=== PATIENT | male | born 1965 | race Caucasian/White ===

== ENCOUNTER 2017-10-22 21:11 | Observation (INO) | payer OTHER ==
--- OUTSIDE RECORDS SUMMARY | 2017-10-22 21:15 | XMS REPORT ---
:1965 [facility] Maicol Casarez [address] [place] [id number] Care Team Providers Name Role Phone KELSIE LEAD Unavailable Unavailable Problems This patient has no known problems. Allergies, Adverse Reactions, Alerts This patient has no known allergies or adverse reactions. Medications This patient has no known medications. Results Test Description Test Time Test Comments Text Results Atomic Results Result Comments Comprehensive Metabolic Panel 2016-09-08 04:50:00 Test Item Value Reference Range Comments Sodium (test code=NA) 137 mmol/L 135-145 Potassium (test code=K) 4.1 mmol/L 3.5-5.1 Chloride (test code=CL) 101 mmol/L 98-105 Carbon Dioxide (test 23 mmol/L 22-29 code=CO2) Glucose (test code=GLU) 145 mg/dL 70-115 Blood Urea Nitrogen (test 9 mg/dL 6-20 code=BUN) Creatinine (test code=CREAT) 1.0 mg/dL 0.7-1.2 Calcium (test code=CA) 9.6 mg/dL 8.3-10.5 Prot Total (test code=TP) 8.0 g/dL 6.4-8.3 Albumin (test code=ALB) 3.8 g/dL 3.5-5.2 A/G Ratio (test 0.9 Ratio code=AGRATIO) Globulin (test code=GLOB) 4.2 2.9-3.1 Bili Total (test code=TBIL) 0.4 mg/dL 0.1-0.9 Alk Phos (test code=APHOS) 149 U/L 40-129 AST (test code=AST) 29 U/L 1-40 ALT (test code=ALT) 22 U/L 1-41 BUN/Creatinine Ratio (test 9.0 code=BCRATIO) Anion Gap (test code=AGAP) 13 mmol/L 7-16 Estimated GFR (test >60 mL/min/1.73m2 eGFR (estimated Glomerular code=GFR) Filtration Rate) is an estimated value,calculated from the patient's serum creatinine using the MDRD equation.It is NOT the patient's actual GFR. The eGFR provides a more clinicallyuseful measure of kidney disease than serum creatinine alone.This calculation takes sex and race into account, if the informationis provided. If the race is not provided, and the patient isAfrican-Brazilian, multiply by 1.212. If sex is not provided, and thepatient is female, multiply by 0.742. Results for patients <18 years ofage have not been validated by the MDRD study and should be interpretedwith caution.eGFR Result Interpretation:eGFR > or=60 is in the Normal RangeeGFR < 60 may mean kidney diseaseeGFR < 15 may mean kidney failureRanges recommended by the National Kidney Foundation,http://nkdep.nih.go v [id number] 04:50:00 Test Item Value Reference Range Comments Amphetamine (test code=AMPH) Negative Negative For diagnostic purposes only, positive results should always be assessedin conjunctionwith the patient's medical history,clinical examination and otherfindings.To fulfill legal requirements, a more specific alternate chemical methodmust be used inorder to obtain a Confirmed analytical result. GC/MS is the preferred confirmatory method. Barbiturates (test code=RADU) Negative Negative Benzodiazepine (test Negative Negative code=DANA) Cocaine (test code=COCA) Negative Negative Methadone (test code=MTHD) Negative Negative Opiates (test code=OPIA) Negative Negative PCP (test code=PCP) Negative Negative Propoxyphene (test Negative Negative code=PROPOX) THC (test code=THC) POSITIVE Negative CBC with [id number] 03:53:00 Test Item Value Reference Range Comments WBC (test code=WBC) 12.5 K/cumm 4.4-10.5 RBC (test code=RBC) 4.71 M/cumm 4.10-5.70 Hemoglobin (test code=HGB) 15.0 gm/dL 13.4-17.4 Hematocrit (test code=HCT) 44.0 % 38.7-52.0 MCV (test code=MCV) 93.5 fL 80-100 MCH (test code=MCH) 31.8 pg 27.0-32.5 MCHC (test code=MCHC) 34.0 g/dL 32.0-37.5 RDW (test code=RDW) 14.7 % 11.5-14.5 Platelet Count (test code=PLTCT) 257 K/cumm 140-440 MPV (test code=MPV) 9.0 fL Diff Method (test code=DIFFM) Auto Neutrophil (test code=NEUT) 79.4 % 36-70 Lymphocyte (test code=LYMPH) 13.7 % 12-44 Monocyte (test code=MONO) 5.2 % 0-11 Eosinophil (test code=EOS) 1.3 % 0-7 Basophil (test code=BASO) 0.4 % 0-2 Neutro Abs (test code=ANEUT) 9.9 K/cumm 1.6-7.4 Lymph Abs (test code=ALYMPH) 1.7 K/cumm 0.5-4.6 Kimball Abs (test code=AMONO) 0.7 K/cumm 0.0-1.2 Eos Abs (test code=AEOS) 0.16 K/cumm 0.00-0.74 Baso Abs (test code=ABASO) 0.1 K/cumm 0.00-0.21
--- OUTSIDE RECORDS SUMMARY | 2017-10-22 21:15 | XMS REPORT | Clinical Summary ---
:1965 Author Organization [facility] Address [address] [place] [address] Care Team Providers Name Role Phone Asked, No Pcp Primary Care Provider Unavailable Allergies No Known Allergies Current Medications Prescription Sig. Disp. Refills Start End Status Date Date metFORMIN XR Take 1,000 mg 10/02/19 Active (GLUCOPHAGE-XR) 500 by mouth daily. 17 mg 24 hr tablet insulin GLARGINE Inject 20 Units Active (LANTUS) 100 under the skin unit/mL injection nightly. (vial) levETIRAcetam Take 1,000 mg Active (KEPPRA) 1000 MG by mouth 2 tablet (two) times a day. venlafaxine XR Take 150 mg by Active (EFFEXOR-XR) 150 MG mouth daily. 24 hr capsule diazePAM (VALIUM) Take 10 mg by 06/16/19 Active 10 MG tablet mouth 3 (three) 18 times a day. QUEtiapine Take 600 mg by 06/16/19 Active (SEROquel) 300 MG mouth nightly. 18 tablet traMADol (ULTRAM) Take 50 mg by Active 50 mg tablet mouth every 6 (six) hours as needed for moderate pain. gabapentin Take 800 mg by 2 07/07/19 Discontinued (NEURONTIN) 800 mg mouth 4 (four) 17 018 tablet times a day. VENTOLIN HFA 90 Inhale 2 puffs 0 08/26/19 Discontinued mcg/actuation every 6 (six) 17 017 inhaler hours as needed for wheezing or shortness of breath. meloxicam (MOBIC) Take 7.5 mg by 2 09/05/19 Discontinued 7.5 mg tablet mouth daily. 17 017 QUEtiapine Take by mouth 2 09/14/19 Discontinued (SEROquel) 25 MG daily. 17 017 tablet QUEtiapine Take 800 mg by 2 09/28/19 Discontinued (SEROquel) 400 MG mouth nightly. 17 018 tablet Take 2 tablets at bedtime busPIRone (BUSPAR) Take 10 mg by Discontinued 10 MG tablet mouth 3 (three) 018 times a day. LEVETIRACETAM Take 1 tablet Discontinued (KEPPRA ORAL) by mouth 2 017 (two) times a day. HYDROcodone-acetami Take 1 tablet Discontinued nophen (NORCO) by mouth every 017 10-325 mg per 8 (eight) hours tablet as needed for moderate pain. levETIRAcetam Take 1,000 mg Discontinued (KEPPRA) 500 MG by mouth 2 017 tablet (two) times a day. acetaminophen-codei TK 1 TO 2 TS PO 0 11/28/19 Discontinued ne (TYLENOL WITH Q 6 H PRN P 17 018 CODEINE #3) 300-30 mg per tablet ertapenem 1 g in Infuse 1 g into 20 each 0 12/16/19 sodium chloride 0.9 a venous 17 017 % MBP 50 mL IVPB catheter daily for 20 days. vancomycin 1,500 mg Infuse 1,500 mg 20 each 0 12/16/19 in sodium chloride into a venous 17 017 0.9 % 500 mL IVPB catheter daily for 20 days. HYDROcodone-acetami Take 1 tablet 10 tablet 0 02/02/20 nophen (NORCO) by mouth every 17 017 10-325 mg per 6 (six) hours tablet as needed for moderate pain for up to 10 doses. Max Daily Amount: 4 tablets gabapentin Take 1 tablet 90 tablet 0 05/19/19 (NEURONTIN) 800 mg (800 mg total) 18 018 tablet by mouth 3 (three) times a day for 30 days. metoprolol Take 0.5 15 tablet 0 05/20/19 succinate XL tablets (12.5 18 018 (TOPROL-XL) 25 mg mg total) by 24 hr tablet mouth daily for 30 days. HYDROcodone-acetami Take 1 tablet 15 tablet 0 05/19/19 nophen (NORCO) by mouth every 18 018 7.5-325 mg per 6 (six) hours tablet as needed for severe pain for up to 14 days. Max Daily Amount: 4 tablets pantoprazole Take 1 tablet 30 tablet 0 05/20/19 (PROTONIX) 40 MG EC (40 mg total) 18 018 tablet by mouth daily for 30 days. ondansetron ODT Take 1 tablet 15 tablet 0 07/16/19 Discontinued (ZOFRAN ODT) 4 MG (4 mg total) by 18 018 disintegrating mouth every 8 tablet (eight) hours as needed for nausea or vomiting for up to 15 doses. promethazine Insert 1 12 suppository 0 07/16/19 Discontinued (PHENERGAN) 25 MG suppository (25 18 018 suppository mg total) into the rectum every 6 (six) hours as needed for nausea or vomiting for up to 12 doses. hydromorPHONE Take 1 tablet 10 tablet 0 07/17/19 (DILAUDID) 2 MG (2 mg total) by 18 018 tablet mouth every 8 (eight) hours as needed for severe pain (score 7-10) for up to 7 days. Max Daily Amount: 6 mg promethazine Take 1 tablet 20 tablet 0 07/17/19 (PHENERGAN) 12.5 MG (12.5 mg total) 18 018 tablet by mouth every 8 (eight) hours as needed for nausea or vomiting for up to 30 days. HYDROcodone-acetami Take 1 tablet 20 tablet 0 07/17/19 nophen (NORCO) by mouth every 18 018 7.5-325 mg per 8 (eight) hours tablet as needed for moderate pain for up to 7 days. Max Daily Amount: 3 tablets naproxen (NAPROSYN) Take 1 tablet 28 tablet 0 09/21/19 500 MG tablet (500 mg total) 18 018 by mouth 2 (two) times a day with meals for 14 days. omeprazole Take 2 capsules 60 capsule 0 09/21/19 (PriLOSEC) 20 MG (40 mg total) 18 018 capsule by mouth daily for 30 days. cyclobenzaprine Take 1 tablet 20 tablet 0 09/21/19 (FLEXERIL) 10 mg (10 mg total) 18 018 tablet by mouth 3 (three) times a day as needed for muscle spasms for up to 10 days. Active Problems Problem Noted Date Sciatica of left side 07/15/2017 Syncope 07/06/2017 Essential hypertension 05/14/2017 Type 2 diabetes mellitus with hyperglycemia 05/14/2017 DEBRA (acute kidney injury) 05/14/2017 Seizure disorder 05/14/2017 Intractable vomiting with nausea 05/12/2017 Abdominal pain 05/12/2017 Overview: Added automatically from request for surgery [id number] Gastrointestinal hemorrhage 02/23/2017 Gastrointestinal hemorrhage with hematemesis 02/23/2017 Overview: Added automatically from request for surgery [id number] Vertigo 12/19/2016 Pneumonia due to infectious organism 12/07/2016 COPD with acute bronchitis 11/25/2016 COPD (chronic obstructive pulmonary disease) 11/09/2016 COPD exacerbation 11/08/2016 Lung mass 11/08/2016 Tobacco dependence 11/08/2016 Resolved Problems Problem Noted Date Resolved Date Leukocytosis 05/14/2017 05/15/2017 Pneumonia of right lower lobe due to infectious organism 11/05/20162016 Encounters Date Type Specialty Care Team Description 10/08/19 Emergency Emergency Medicine Sarai, Suicidal ideation (Primary Dx ) 18 Osiel Paul MD 09/21/19 Emergency Emergency Medicine [place] Chronic right-sided thoracic back pain (Primary Dx); 18 Cynthia, Narcotic abuse; Karen Drug-seeking behavior MD Joselito 08/09/19 Hospital Radiology Eduard Ingram (bronchogenic carcinoma) 18 Encounter MD Meaghan 07/22/19 Transcribe Access Eduard Ingram (bronchogenic carcinoma) 18 Orders MD Meaghan (Primary Dx) 07/16/19 Emergency General Internal Quinn Spears Sciatica of left side ( Primary Dx); 18 - Haris Koo MD Intractable pain 07/17/19 Nadeen, MD Lila Huntley, Aleisha Lance MD 07/16/19 Emergency Emergency Medicine Shayeky, Other chronic pain (Primary 18 Dottie Pittman) DO 07/06/19 Emergency General Internal [place], Syncope, unspecified syncope type (Primary Dx); 18 - Medicine Osiel Warner, Other chronic pain 07/07/19 DO 18 Karlene Luis MD 05/18/19 Anesthesia Gastroenterology Jovanna, Yun Event Eleazar Salinas MD 05/18/19 Procedure Pass Gastroenterology 18 05/18/19 Surgery Gastroenterology Venkat Kim ESOPHAGOGASTRODUODENOSCOPY Yun Pickering MD (EGD) with bx 05/12/20 [facility] Intractable vomiting with nausea, unspecified vomiting type (Primary Dx); 17 - Encounter Medicine MD Edward Pain; 05/19/19 [place], Abdominal pain, unspecified abdominal location; 18 Natalio Summers, Essential hypertension; Type 2 diabetes mellitus with hyperglycemia, with long-term current use of insulin Tyrell Kiser, 03/08/20 Telephone Family Medicine Juvenal Sidhu MD 03/03/20 Telephone Gastroenterology Juvenal Sidhu MD 02/26/20 Telephone Gastroenterology Juvenal Sidhu MD 02/26/20 Procedure Pass Gastroenterology 17 02/26/20 Procedure Pass Gastroenterology 17 02/24/20 [facility] Gastrointestinal hemorrhage with hematemesis (Primary Dx); 17 - Medicine MD Edward Gastrointestinal hemorrhage, unspecified gastrointestinal hemorrhage type; 02/26/20 Mcghee, Rosie Pain of upper abdomen; Darron Lehman MD Nausea and vomiting, intractability of vomiting not specified , unspecified vomiting type 02/09/20 Emergency Emergency Medicine Feng Knight, Vision blurred (Primary Dx) Darron QUINTERO 02/02/20 Emergency Emergency Medicine Deepika Luna Right upper quadrant abdominal pain (Primary Dx); Darron Garcia DO Other chronic pain 02/01/20 Emergency Emergency Medicine 17 01/06/20 Transcribe Access Mcghee, Rosie Abnormal renal function test 17 Leonardo Lehman MD (Primary Dx) 12/20/19 [facility], Vertigo (Primary Dx); 17 - Encounter Medicine Osiel Warner, Acute nonintractable headache, unspecified headache type; 12/23/19 DO Lactic acidosis; 17 Mcghee, Rosie Pneumonia due to infectious organism, unspecified laterality, unspecified part of lung; MD Fallon Pneumonia of right upper lobe due to infectious organism 12/08/19 [facility] General Internal Quinn Spears Pneumonia due to infectious organism, unspecified laterality, unspecified part of lung (Primary Dx); 17 - Encounter Medicine MD Hayes Shortness of breath; 12/16/19 [facility] Pneumonia of right middle lobe due to infectious organism 17 MD Taz Baltazar, Rosie Lehman MD 12/08/19 Telephone Cardiovascular [facility] 17 Farideh Rachel MA 12/07/19 [facility] Internal [facility], Pneumonia of right lower lobe 17 - Encounter Medicine MD Albert due to infectious organism 12/08/19 [facility] (Primary Dx) 17 MD Delaney 12/01/19 Orders Only Cardiovascular [place]inglejoão, Shortness of breath (Primary 17 MAURY Mueller Dx) 11/25/19 Anesthesia General Surgery [facility], Event Joel Brennan MD 11/25/19 Procedure Pass General Surgery 17 11/25/19 Surgery General Surgery [place], Right Lobectomy, Using Vats, 17 Anshu Valenzuela WEDGE RESECTION, FROZEN MD Brandan BIOPSY-RIGHT 11/24/19 [facility] Pulmonology India Elizabeth 17 Encounter KAZ Nunez 11/23/19 [facility] Critical Care [facility], COPD exacerbation (Primary Dx); 17 - Encounter Medicine Farzaneh Lung mass; 11/28/19 MD Kiran Bronchitis, chronic obstructive, with exacerbation 17 David Griffiths MD Burns, Rosie Lehman MD 11/20/19 Telephone Cardiothoracic [place], Surgery [facility] [place] 11/19/19 Hospital Procedural O'Billy, Shortness of breath; 17 Encounter Cardiology Anshu Valenzuela Mass of lower lobe of right lung MD Brandan 11/19/19 Transcribe Cardiovascular [place], Shortness of breath (Primary Dx) ; 17 Orders Anshu Valenzuela Lung mass MD Brandan 11/18/19 Office Visit Cardiovascular [place]illy, Lung mass (Primary Dx) MD Clara Vinson Jr., Amy Kathryn, PA-C 11/18/19 Transcribe Cardiovascular [place], Shortness of breath (Primary Dx) ; 17 Orders Anshu Valenzuela Mass of lower lobe of right lung MD Brandan 11/16/19 Hospital Procedural Hernandes, 17 Encounter Cardiology Colette Galvez MD 11/16/19 Telephone Cardiothoracic Avelino, 17 Surgery MAURY Gaona 11/16/19 Procedure Pass Procedural 17 Cardiology 11/16/19 Surgery Procedural Hernandes, Ep cardioversion w shelbi [[id number] Cardiology Colette (CPT)] MD Lenny 11/12/19 Transcribe Access Hernandes, Mass in chest (Primary Dx) 17 Orders Colette Galvez MD 11/12/19 Procedure Pass General Surgery 17 11/06/19 [facility] General Internal Lester Lunacorie Pneumonia of right lower lobe due to infectious organism (Primary Dx); 17 - Encounter Medicine DO Jose Tachycardia; 11/10/19 Mcghee, Rosie Hypoxia; 17 MD Fallon Lung mass 11/06/19 Transcribe Access Sashital, Secondary malignant neoplasm of left lung (Primary Dx); 17 Orders Juanita Garcia Lung mass 11/02/19 [facility] Radiology Harrison, 17 Encounter Ag Guerra III, MD 11/02/19 [facility] Radiology Harrison, 17 Encounter gA Guerra III, MD 11/02/19 [facility] Radiology Harrison, 17 Encounter Ag Guerra III, MD 11/02/19 [facility] Radiology Sashital, Lung mass 17 Encounter Juanita Garcia MD 11/02/19 Ancillary Access Sashital, Lung mass 17 Orders Juanita Garcia MD 11/02/19 Ancillary Access [place], Lung mass 17 Orders Juanita Garcia MD 11/02/19 Ancillary Access [place], 17 Orders Juanita Garcia MD 11/02/19 Ancillary Access [place], Lung mass 17 Orders Juanita Garcia MD 11/02/19 Ancillary Access [place], Lung mass 17 Orders Juanita Garcia MD 10/28/19 Transcribe Access [place], Lung mass (Primary Dx) 17 Orders Juanita Garcia MD 10/27/19 [facility] Radiology S[place], Nonspecific abnormal results of liver function study; 17 Encounter Juanita Garcia Lung mass after 10/21/2016 Immunizations Name Dates Previously Given Next Due FLUCELVAX QUAD PF (0.5mL syringe) 05/19/2017 Family History Medical History Relation Name Comments Cerebral aneurysm Father Heart disease Father Kidney cancer Father Lung cancer Father Stroke Father Diabetes Mother Heart attack Mother Heart disease Mother Hyperlipidemia Sister Hypertension Sister Relation Name Status Comments Father Mother Sister Social History Tobacco Use Types Packs/Day Years Used Date Current Every Day Smoker Cigarettes 0.5 35 Smokeless Tobacco: Former User Tobacco Cessation: Counseling Given: Yes Comments: per patient now only smoking 4-5 cigarette/day Alcohol Use Drinks/Week oz/Week Comments No stopped for 1.5 yrs Sex Assigned at Date Recorded Not on file Last Filed Vital Signs Vital Sign Reading Time Taken Blood Pressure 120/77 10/07/2017 1:15 PM CDT Pulse 76 10/07/2017 1:15 PM CDT Temperature 35.8 C (96.5 F) 10/07/2017 1:15 PM CDT Respiratory Rate 16 10/07/2017 1:15 PM CDT Oxygen Saturation 97% 10/07/2017 1:15 PM CDT Inhaled Oxygen Concentration - - Weight 73.9 kg (163 lb) 10/07/2017 8:09 AM CDT Height 185.4 cm (6' 1") 10/07/2017 8:09 AM CDT Body Mass Index 21.51 10/07/2017 8:09 AM CDT Plan of Treatment Health Maintenance Due Date Last Done Comments DIABETIC FOOT EXAM 1973 DIABETIC RETINAL EYE EXAM 1973 COLON CANCER SCREENING 2013 SHINGRIX VACCINE (#1) 2013 INFLUENZA VACCINE 12/14/2017 05/19/2017 Implants Implanted Type Area Operations Support Specialist Device Expiration Model / Identifier Date Serial / Lot Stimulator Stimulator Stimulator-10/30/2006 Stimulator Hip Implanted: 10/30/2006 (Quantity not on file) Kit [employer] Air Leak 4ml Strl Progel - [id number] Surgical N/A: N/A [employer] [id number] / Implanted: Qty: 1 on 11/24/2016 by Anshu Sainz Jr., MD Implants; / Expanders; Extenders; Surgical Wires Dorsal Colum Stimulator Dorsal Column Stimulator Dorsal Colum Stimulator-11/05/2006 Lower: Implanted: 11/05/2006 (Quantity not on file) Back, Other than Spine Procedures Procedure Name Priority Date/Time Associated Comments Diagnosis ESOPHAGOGASTRODUODENOSCOPY (EGD) 05/18/2017 Abdominal pain, with bx 12:15 PM 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 HC US GUIDED VASCULAR ACCESS Routine 12/12/2016 Results for 12:19 PM CDT this procedure are in the results section. HC CVL PICC INSERT 5 YRS OR > Routine 12/12/2016 Results for 12:19 PM CDT this procedure are in the results section. KS AN ELECTIVE ENDOTRACHEAL Routine 11/24/2016 AIRWAY 8:51 AM CDT Procedure Note - Joel Collins MD - 11/24/2016 8:50 AM CDT Airway Performed by: JOEL COLLINS Authorized by: JOEL COLLINS Location: OR Urgency: Elective Difficult Airway: No Anesthesiologist: JOEL COLLINS Performed by: anesthesiologist Preoxygenated with 100% O2: Yes Mask Ventilation: Easy mask Final Airway Type: Endotracheal airway Final Endotracheal Airway: ETT - double lumen left Cuffed: Yes Technique Used: Direct laryngoscopy Insertion Site: Oral Blade Type: Guillermina Laryngoscope Blade/Videolaryngoscope Blade Size: 3 ETT Double Lumen (fr): 37 Cuff at minimum occlusion pressure: Yes Measured from: Lips Placement Verified by: CO2 detection, direct visualization and equal breath sounds Laryngoscopic view: Grade IIa - partial view of glottis Number of Attempts at Approach: 1 SPIROMETRY PRE AND POST Routine 11/23/2016 12:31 PM Lung mass WITH BRONCHILATOR CDT ECHOCARDIOGRAM 2D Routine 11/18/2016 8:37 AM Shortness of Results for this COMPLETE W MMODE CDT breath procedure are in SPECTRAL COLOR DOPPLER Mass of lower lobe the results ([id number]) of right lung section. KS CRITICAL CARE, E/M Routine 11/06/2016 8:18 PM Results for this 30-74 MINUTES CDT procedure are in the results section. after 10/21/2016 Results Urinalysis screen and microscopy, with reflex to culture (10/07/2017 9:16 AM) Only the most recent of6 resultswithin the time period is included. Component Value Ref Range Specimen site Clean catch Color, UA Yellow Appearance, UA Clear Specific gravity, UA 1.011 1.001 - 1.035 pH, UA 5.0 5.0 - 8.5 Protein, UA Negative Negative Glucose, UA Negative Negative Ketones, UA Negative Negative Bilirubin, UA Negative Negative Blood, UA Negative Negative Nitrite, UA Negative Negative Urobilinogen, UA 2.0 (A) <2.0 Leukocyte esterase, UA Negative Negative Epithelial cells, UA Few /HPF WBC, UA 1 0 - 1 /HPF RBC, UA <1 0 - 5 /HPF Bacteria, UA None seen None seen Yeast, UA None seen Yeast with pseudohyphae, UA None seen Specimen Performing Laboratory Urine [facility] [place] DEPARTMENT OF PATHOLOGY AND GENOMIC MEDICINE [address] [place] [address] Urine drugs of abuse screen (10/07/2017 9:16 AM)Only the most recent of3 resultswithin the time period is included. Component Value Ref Range Amphetamine screen, urine NEG Barbiturate screen, urine NEG Benzodiazepine screen, urine POS Cocaine screen, urine NEG Methadone screen, urine NEG Opiates screen, urine POS Phencyclidine screen, urine NEG Cannabinoid screen, urine POS Comment: Drug screen minimum concentration of detectability Vtdvftsltcss1395 ng/mL Qingdchofpfcplaz5193 ng/mL Barbiturates 300 ng/mL Ookkbqdfrutlapo316 ng/mL Ifxksbg968 ng/mL Pgdhtqldy284 ng/mL Ldlsxqz301 ng/mL Phencyclidine 25 ng/mL Tsxtbnvupxbq80 ng/mL Peytuqcdcd0597 ng/mL Negative test results indicates presumptive evidence of lack of clinically significant drug concentration in this urine specimen. Positive test results are presumptive evidence of clinically significant drug concentration in this urine specimen. Testing performed for medical purposes only. Specimen Performing Laboratory Urine [facility] DEPARTMENT OF PATHOLOGY AND GENOMIC MEDICINE [address] [place] [address] Urine culture (10/07/2017 9:16 AM)Only the most recent of5 resultswithin the time period is included. Component Value Ref Range Urine culture SEE COMMENTComment: Bacteriuria screen negative. Specimen Performing Laboratory Urine [facility] DEPARTMENT OF PATHOLOGY AND GENOMIC MEDICINE [address] [place] [address] Estimated GFR (10/07/2017 9:02 AM)Only the most recent of35 resultswithin the time period is included. Component Value Ref Range GFR Non Af Amer 49 (A) mL/min/1.73 m2 GFR Af Amer 59 (A) mL/min/1.73 m2 Comment: Chronic kidney disease: <60 mL/min/1.73m2 Kidney failure: <15 mL/min/1.73m2 The estimated GFR is calculated from the IDMS-traceable Modification of Diet in Renal Disease Equation. The accuracy of the calculation is poor when the creatinine is normal. Calculated values >90 mL/min/1.73m2 are not reported. This equation has not been validated in children (<18 years), women, the elderly (>70 years), or ethnic groups other than Caucasians and Americans. Specimen Performing Laboratory Plasma specimen [facility] DEPARTMENT OF PATHOLOGY AND GENOMIC MEDICINE [address] [place] [address] CBC with platelet and differential (10/07/2017 9:02 AM)Only the most recent of34 resultswithin the time period is included. Component Value Ref Range WBC 9.1 4.2 - 11.0 k/uL RBC 4.57 4.04 - 5.86 m/uL HGB 14.7 13.0 - 17.3 g/dL HCT 44.6 34.0 - 45.0 % MCV 97.6 80.0 - 98.0 fL MCH 32.2 27.0 - 34.0 pg MCHC 33.0 31.5 - 36.5 g/dL RDW - SD 55.1 (H) 37.0 - 51.0 fL MPV 10.1 7.4 - 10.4 fL Platelet count 124 (L) 150 - 400 k/uL Nucleated RBC 0.00 /100 WBC Neutrophils 80.4 (H) 36.0 - 66.0 % Lymphocytes 11.6 (L) 24.0 - 44.0 % Monocytes 5.8 0.0 - 6.0 % Eosinophils 1.3 0.0 - 6.0 % Basophils 0.6 0.0 - 1.2 % Immature granulocytes 0.3 0.0 - 1.0 % Specimen Performing Laboratory Blood [facility] [facility] DEPARTMENT OF PATHOLOGY AND [facility] MEDICINE [address] [place] [address] Thyroid stimulating hormone (10/07/2017 9:02 AM)Only the most recent of2 resultswithin the time period is included. Component Value Ref Range TSH 2.60 0.38 - 4.82 uIU/mL Specimen Performing Laboratory Plasma specimen [facility] DEPARTMENT OF PATHOLOGY AND GENOMIC MEDICINE [address] [place] [address] T4, free (10/07/2017 9:02 AM) Component Value Ref Range T4, free 1.00 0.70 - 1.61 ng/dL Specimen Performing Laboratory Plasma specimen [facility] DEPARTMENT OF PATHOLOGY AND GENOMIC MEDICINE [address] [place] [address] Alcohol level, blood (10/07/2017 9:02 AM)Only the most recent of2 resultswithin the time period is included. Component Value Ref Range Alcohol None Detected mg/dL Comment: NormalNone Detected Legal Intoxication in [place] 80 mg/dL (0.08%) Toxic Concentration 200 mg/dL (0.2%) Potentially Fatal 350-500 mg/dL (0.35%-0.5%) Alcohol percent None Detected % Specimen Performing Laboratory Blood [facility] DEPARTMENT OF PATHOLOGY AND GENOMIC MEDICINE [address] [place] [address] Acetaminophen level (10/07/2017 9:02 AM) Component Value Ref Range Acetaminophen level <2.0 (L) 10.0 - 20.0 ug/mL Comment: Therapeutic 10-30 ug/mL Possible Toxicity 150-200 ug/mL Probable Toxicity >200 ug/mL Specimen Performing Laboratory Blood [facility] DEPARTMENT OF PATHOLOGY AND GENOMIC MEDICINE [address] [place] [address] Salicylate level (10/07/2017 9:02 AM) Component Value Ref Range Salicylate 7.0 mg/dL Comment: Therapeutic Range: 5 - 30 mg/dL Specimen Performing Laboratory Blood [facility] DEPARTMENT OF PATHOLOGY AND GENOMIC MEDICINE [address] [place] [address] Comprehensive metabolic panel (10/07/2017 9:02 AM)Only the most recent of20 resultswithin the time period is included. Component Value Ref Range Sodium 140 135 - 150 mEq/L Potassium 3.8 3.5 - 5.0 mEq/L Chloride 109 100 - 109 mEq/L CO2 24 24 - 32 mmol/L Anion gap 7@ANIO 7 - 15 mEq/L BUN 14 7 - 18 mg/dL Creatinine 1.5 0.8 - 1.5 mg/dL Glucose 103 (H) 65 - 100 mg/dL Calcium 8.6 8.6 - 10.7 mg/dL Protein 7.9 6.3 - 8.2 g/dL Albumin 3.4 3.2 - 5.0 g/dL A/G ratio 0.8 0.7 - 3.8 Alkaline phosphatase 153 (H) 30 - 120 U/L AST 21 15 - 37 U/L ALT 17 (L) 30 - 65 U/L Total bilirubin 0.2 0.2 - 1.2 mg/dL Specimen Performing Laboratory Plasma specimen [facility] [place] [facility] DEPARTMENT OF PATHOLOGY AND GENOMIC MEDICINE [address] [place] [address] CT Abdomen Pelvis Wo Contrast (09/20/2017 3:27 AM)Only the most recent of3 resultswithin the time period is included. Specimen Performing Laboratory [facility] [address] [place] [address] Narrative EXAMINATION:CT ABDOMEN PELVIS WO CONTRAST CLINICAL HISTORY:R flank pain TECHNIQUE: Multiple axial images of the abdomen and pelvis were obtained without intravenous administration of iodinated contrast. Sagittal and coronal computerized reformatted images were also obtained. The lack of intravenous contrast reduces the sensitivity of detecting solid organ disease. CT imaging was performed with iterative reconstruction technique and/or automated exposure control to reduce radiation dose. COMPARISON:05/12/2017 IMPRESSION: Subsegmental atelectasis is seen of the lung bases. Patient is status post cholecystectomy. Pancreas and adrenal glands are normal. Cirrhotic liver. Spleen is enlarged measuring 14.5 cm in length. Kidneys, ureters and bladder are normal. No free intraperitoneal fluid or air. Atherosclerotic vascular calcifications are seen. Some paraesophageal varices are seen, compatible with portal hypertension. Diverticulosis is seen without diverticulitis. Appendix cannot be seen. No gastrointestinal tract obstruction. No acute osseous abnormalities. Postoperative appearance of the lower lumbar spine. A device is seen of the right gluteal region, with lead entering the thoracic spinal canal. CONCLUSION: Cirrhotic liver with small paraesophageal varices, compatible with portal hypertension. [facility]-[id number] Procedure Note Interface, Radiology Results Incoming - 09/20/2017 4:08 AM CDT EXAMINATION: CT ABDOMEN PELVIS WO CONTRAST CLINICAL HISTORY: R flank pain TECHNIQUE: Multiple axial images of the abdomen and pelvis were obtained without intravenous administration of iodinated contrast. Sagittal and coronal computerized reformatted images were also obtained. The lack of intravenous contrast reduces the sensitivity of detecting solid organ disease. CT imaging was performed with iterative reconstruction technique and/or automated exposure control to reduce radiation dose. COMPARISON: 05/12/2017 IMPRESSION: Subsegmental atelectasis is seen of the lung bases. Patient is status post cholecystectomy. Pancreas and adrenal glands are normal. Cirrhotic liver. Spleen is enlarged measuring 14.5 cm in length. Kidneys, ureters and bladder are normal. No free intraperitoneal fluid or air. Atherosclerotic vascular calcifications are seen. Some paraesophageal varices are seen, compatible with portal hypertension. Diverticulosis is seen without diverticulitis. Appendix cannot be seen. No gastrointestinal tract obstruction. No acute osseous abnormalities. Postoperative appearance of the lower lumbar spine. A device is seen of the right gluteal region, with lead entering the thoracic spinal canal. CONCLUSION: Cirrhotic liver with small paraesophageal varices, compatible with portal hypertension. [facility]-[id number] Smear review (09/20/2017 3:13 AM)Only the most recent of5 resultswithin the time period is included. Component Value Ref Range Smear review Smear Reviewed Specimen Performing Laboratory [facility] DEPARTMENT OF PATHOLOGY AND GENOMIC MEDICINE [address] [place] [address]. [place] [address] Prothrombin time with INR (09/20/2017 3:13 AM)Only the most recent of10 resultswithin the time period is included. Component Value Ref Range Prothrombin time 14.5 12.0 - 15.0 sec INR 1.11 0.92 - 1.12 Comment: For patients on anticoagulant therapy, reference ranges below: Indication:INR Value Treatment of Venous Thrombosis, 2.0-3.0 pulmonary emboli, or prophylaxis of a venous thrombosis, or systemic emboli. High dose, high risk patients 3.0-4.5 with mechanical valves. NOTE:INR values over 3.0 are sometimes associated with gastrointestinal hemorrhage, especially values over 4.0. Specimen Performing Laboratory Blood [facility] DEPARTMENT OF PATHOLOGY AND GENOMIC MEDICINE [address] [place] [address]. [place] [address] Lipase level (09/20/2017 3:13 AM)Only the most recent of7 resultswithin the time period is included. Component Value Ref Range Lipase 129 65 - 230 U/L Specimen Performing Laboratory Plasma specimen [facility] [facility] DEPARTMENT OF PATHOLOGY AND GENOMIC MEDICINE [address] [place] [address]. [place] [address] ECG 12 lead (09/20/2017 2:43 AM)Only the most recent of13 resultswithin the time period is included. Component Value Ref Range Ventricular rate 77 Atrial rate 77 KS interval 144 QRSD interval 94 QT interval 418 QTC interval 473 P axis 1 32 QRS axis 1 94 T wave axis 85 EKG impression Normal sinus rhythm-Rightward axis-Borderline ECG-In automated comparison with ECG of 06-JUL-2017 18:18,-No significant change was found- Specimen Performing Laboratory [facility] [address] [place] [address] ECG ED Preliminary Interpretation - NOT AN ORDER (09/20/2017 2:07 AM)Only the most recent of6 resultswithin the time period is included. Narrative Karen Brantley MD 09/21/20173:47 AM ECG ED Preliminary Interpretation - Not an Order Performed by: KAREN BRANTLEY Authorized by: KAREN BRANTLEY ECG reviewed by ED Physician in the absence of a ocean freight forwarder: yes Previous ECG: Previous ECG:Compared to current Comparison ECG info:06/16/17 Similarity:No change Interpretation: Interpretation: normal Rate: ECG rate:77 ECG rate assessment: normal Rhythm: Rhythm: sinus rhythm QRS: QRS axis:Right Comments: Normal sinus rhythm. Right axis deviation. PET/CT Skull Base To Mid Thigh (08/08/2017 1:45 PM)Only the most recent of2 resultswithin the time period is included. Specimen Performing Laboratory [facility] [address] [place] [address] Narrative EXAMINATION: PET CT SKULL BASE TO MID THIGH Date and place of service: 08/08/2017 10:00 AM at [facility] DOSE: 11.8 mCi of 12-Gfzmsr-7-Deoxyglucose (FDG) was injected intravenously into left wrist done infiltration at a serum glucose level of90 mg/dl. TECHNIQUE: PROCEDURE: Following injection of 35-Pppbbi-3-Deoxyglucose (FDG) and a standard uptake., The patient was imaged on a Intelligent Fingerprinting whole body PET CT scanner. Multiple 6 minute bed position acquisitions were obtained along the length of the patient's body from approximately the Skull base to the mid thighs without administration of intravenous or oral contrast. The software fused PET/CT images as well as the PET and CT images could be reviewed separately. The dose length product for this procedure was 408 mGy-cm. CT imaging was performed with iterative reconstruction technique and/or automated exposure control to reduce radiation dose COMPARISON: October 26, 2016 done at [facility]. 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 Status post right lower lobectomy November,. No history of recent chemotherapy or radiation therapy. For restaging. FINDINGS: Software fusion was performed of the [facility] with the CAT scan from the Skull base to the mid thighs to the same time as the PET scan. Physiologic uptake is present in the components of Waldeyer's ring in the lateral pharynx. Vocal cord uptake is noted of doubtful significance. Mild tracer uptake is seen in the right and left axillary lymph node with the degree of uptake less than 2.5 and is of doubtful significance. No abnormal radiotracer uptake is demonstrated in the visualized brain, neck, chest, abdomen, pelvis, spine, and visualized proximal upper and lower extremities. No abnormal radiotracer uptake is demonstrated in the brain. However, normal intense metabolic uptake of radiotracer in the brain can mask the presence of lesions. Brain lesions are generally better evaluated with an MRI without and with intravenous gadolinium, if clinically indicated. Physiologic excretion of radiotracer is demonstrated into the kidneys, ureters , and bladder. Physiologic excretion of radiotracer is also demonstrated into the small and large bowel. Interrogation of the CT scan of the chest in lung window settings demonstrates the previously noted masses in each lower lobe are not identified on the current examination consistent with right lower lobectomy on the right and posttreatment of the left lung lesion.. Dependent atelectasis is noted in the posterior lung bases bilaterally. Interrogation of the CT scan of the whole body with soft tissue window settings demonstratessignificant dilatation of the pulmonary outflow tract consistent with pulmonary arterial hypertension. Coronary artery calcifications are present. An irregular contoured liver is noted consistent with cirrhosis. Calcified atheromatous plaque formation is seen in the aortoiliac system. Interrogation of the CT scan of the whole body and bone window settings demonstrates no osteolytic or osteoblastic lesions. Patient is had a spinal fusion in the lower lumbar spine. IMPRESSION: No evidence of metabolically active tumor. Otherwise unchanged .Pulmonary arterial hypertension as before. Cirrhosis as before. [facility]-[id number] Procedure Note [facility], Radiology Results Incoming - 08/08/2017 4:30 PM CDT EXAMINATION: PET CT SKULL BASE TO MID THIGH Date and place of service: 08/08/2017 10:00 AM at [facility] DOSE: 11.8 mCi of 89-Kmbpba-7-Deoxyglucose (FDG) was injected intravenously into left wrist done infiltration at a serum glucose level of 90 mg/dl. TECHNIQUE: PROCEDURE: Following injection of 18-Hmnfah-3-Deoxyglucose (FDG) and a standard uptake., The patient was imaged on a Intelligent Fingerprinting whole body PET CT scanner. Multiple 6 minute bed position acquisitions were obtained along the length of the patient's body from approximately the Skull base to the mid thighs without administration of intravenous or oral contrast. The software fused PET/CT images as well as the PET and CT images could be reviewed separately. The dose length product for this procedure was 408 mGy-cm. CT imaging was performed with iterative reconstruction technique and/or automated exposure control to reduce radiation dose COMPARISON: October 26, 2016 done at [facility]. 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 Status post right lower lobectomy November,. No history of recent chemotherapy or radiation therapy. For restaging. FINDINGS: Software fusion was performed of the nuclear medicine FDG PET scan with the CAT scan from the Skull base to the mid thighs to the same time as the PET scan. Physiologic uptake is present in the components of Waldeyer's ring in the lateral pharynx. Vocal cord uptake is noted of doubtful significance. Mild tracer uptake is seen in the right and left axillary lymph node with the degree of uptake less than 2.5 and is of doubtful significance. No abnormal radiotracer uptake is demonstrated in the visualized brain, neck, chest, abdomen, pelvis, spine, and visualized proximal upper and lower extremities. No abnormal radiotracer uptake is demonstrated in the brain. However, normal intense metabolic uptake of radiotracer in the brain can mask the presence of lesions. Brain lesions are generally better evaluated with an MRI without and with intravenous gadolinium, if clinically indicated. Physiologic excretion of radiotracer is demonstrated into the kidneys, ureters , and bladder. Physiologic excretion of radiotracer is also demonstrated into the small and large bowel. Interrogation of the CT scan of the chest in lung window settings demonstrates the previously noted masses in each lower lobe are not identified on the current examination consistent with right lower lobectomy on the right and posttreatment of the left lung lesion.. Dependent atelectasis is noted in the posterior lung bases bilaterally. Interrogation of the CT scan of the whole body with soft tissue window settings demonstrates significant dilatation of the pulmonary outflow tract consistent with pulmonary arterial hypertension. Coronary artery calcifications are present. An irregular contoured liver is noted consistent with cirrhosis. Calcified atheromatous plaque formation is seen in the aortoiliac system. Interrogation of the CT scan of the whole body and bone window settings demonstrates no osteolytic or osteoblastic lesions. Patient is had a spinal fusion in the lower lumbar spine. IMPRESSION: No evidence of metabolically active tumor. Otherwise unchanged .Pulmonary arterial hypertension as before. Cirrhosis as before. [facility]-[id number] POC glucose (08/08/2017 11:36 AM)Only the most recent of147 resultswithin the time period is included. Component Value Ref Range POC glucose 90 65 - 100 mg/dL Comment: Meter ID: [id number] Administrative Services Coordinator: Tyrell Aponte Specimen Performing Laboratory [facility] DEPARTMENT OF PATHOLOGY AND GENOMIC MEDICINE [address] [place] [address] Keppra (Levetiracetam) level (07/16/2017 5:13 AM) Component Value Ref Range Levetiracetam 27 12 - 46 ug/mL Comment: INTERPRETIVE INFORMATION: Keppra (Levetiracetam) Therapeutic Range:12-46 ug/mL Toxic:Not well Established Pharmacokinetics of levetiracetam are affected by renal function. Adverse effects may include somnolence, weakness, headache and vomiting. Performed by [email or web address], [address] [place] [id number] [email or web address] Joni Roper MD - Lab. Director Specimen Performing Laboratory Serum [email or web address] [address] [place] [address] Basic metabolic panel (07/16/2017 5:13 AM)Only the most recent of15 resultswithin the time period is included. Component Value Ref Range Sodium 134 (L) 135 - 150 mEq/L Potassium 4.2 3.5 - 5.0 mEq/L Chloride 102 100 - 109 mEq/L CO2 22 (L) 24 - 32 mmol/L Anion gap 10 7 - 15 mEq/L Comment: Starting from August , anion gap calculation no longer incorporates potassium. Please note the change. BUN 17 7 - 18 mg/dL Creatinine 1.2 0.8 - 1.5 mg/dL Glucose 139 (H) 65 - 100 mg/dL Calcium 9.4 8.6 - 10.7 mg/dL Specimen Performing Laboratory Plasma specimen [facility] DEPARTMENT OF PATHOLOGY AND GENOMIC MEDICINE [address] [place] [address] Hepatic function panel (07/15/2017 8:14 PM) Component Value Ref Range Albumin 3.8 3.2 - 5.0 g/dL Total bilirubin 0.8 0.2 - 1.2 mg/dL Bilirubin direct 0.2 0.0 - 0.4 mg/dL Alkaline phosphatase 231 (H) 30 - 120 U/L Protein 9.7 (H) 6.3 - 8.2 g/dL ALT 17 (L) 30 - 65 U/L AST 29 15 - 37 U/L Specimen Performing Laboratory Plasma specimen [facility] DEPARTMENT OF PATHOLOGY AND GENOMIC MEDICINE [address] [place] [address] CT Lumbar Spine Wo Contrast (07/15/2017 5:12 PM) Specimen Performing Laboratory [facility] [address] [place] [address] Narrative EXAMINATION: CT LUMBAR SPINE WO CONTRAST CLINICAL HISTORY: pain COMPARISON: CT myelogram lumbar spine 11/04/2010 TECHNIQUE: Axial noncontrast enhanced images of lumbar spine was performed with coronal sagittal reconstruction algorithms. CT imaging was performed with iterative reconstruction technique and/or automated exposure control to reduce radiation dose. FINDINGS: There are 5 non-rib bearing lumbar type vertebrae. Status post posterior spinous mentation with rods and screws and anterior interbody grafts at L4-5 and L5-S1. Status post decompressive laminectomies at L4-5 and L5-S1. There is partial solid interbody osseous fusion at L5-S1, without definite solid interbody osseous fusion at L4- 5. There is solid osseous fusion of the posterior elements of L4-S1. No evidence of hardware loosening. Hardware is well positioned. No fracture. 1 to 2 mm retrolisthesis L3 on L4. Facet alignment is anatomic. Limited dilation of the visualized intracranial contents demonstrates atherosclerosis of the abdominal aorta and branch vessels. No abdominal mass is identified on limited assessment. 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 Axial images through the disc spaces demonstrate the following: L1-L2: Small disc bulge without significant spinal canal or neural foraminal stenosis. Small Schmorl's nodes. L2-L3: Small disc bulge contributes to mild subarticular zone stenosis without significant spinal canal or neural foraminal stenosis. Small Schmorl's nodes. L3-L4: Small disc bulge, slight prominence of dorsal epidural fat, and mild ligament flavum infolding contribute to mild spinal canal stenosis. There is mild bilateral neural foraminal stenosis secondary to facet arthropathy and small endplate osteophytes. L4-L5: Status post decompressive laminectomy. Mild neural foraminal stenosis secondary to small endplate osteophytes bilaterally. L5-S1: Status post decompressive laminectomy. No significant neural foraminal stenosis. IMPRESSION: Postsurgical changes L4-S1 as detailed above. No fracture. Multilevel degenerative changes of the lumbar spine, notably with mild spinal canal and neural foraminal stenosis at L3-4. [id number] Procedure Note Hm Interface, Radiology Results Incoming - 07/15/2017 5:24 PM WIPING CLOTH CUTTER EXAMINATION: CT LUMBAR SPINE WO CONTRAST CLINICAL HISTORY: pain COMPARISON: CT myelogram lumbar spine 11/04/2010 TECHNIQUE: Axial noncontrast enhanced images of lumbar spine was performed with coronal sagittal reconstruction algorithms. CT imaging was performed with iterative reconstruction technique and/or automated exposure control to reduce radiation dose. FINDINGS: There are 5 non-rib bearing lumbar type vertebrae. Status post posterior spinous mentation with rods and screws and anterior interbody grafts at L4-5 and L5-S1. Status post decompressive laminectomies at L4-5 and L5-S1. There is partial solid interbody osseous fusion at L5-S1, without definite solid interbody osseous fusion at L4- 5. There is solid osseous fusion of the posterior elements of L4-S1. No evidence of hardware loosening. Hardware is well positioned. No fracture. 1 to 2 mm retrolisthesis L3 on L4. Facet alignment is anatomic. Limited dilation of the visualized intracranial contents demonstrates atherosclerosis of the abdominal aorta and branch vessels. No abdominal mass is identified on limited assessment. 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 Axial images through the disc spaces demonstrate the following: L1-L2: Small disc bulge without significant spinal canal or neural foraminal stenosis. Small Schmorl's nodes. L2-L3: Small disc bulge contributes to mild subarticular zone stenosis without significant spinal canal or neural foraminal stenosis. Small Schmorl's nodes. L3-L4: Small disc bulge, slight prominence of dorsal epidural fat, and mild ligament flavum infolding contribute to mild spinal canal stenosis. There is mild bilateral neural foraminal stenosis secondary to facet arthropathy and small endplate osteophytes. L4-L5: Status post decompressive laminectomy. Mild neural foraminal stenosis secondary to small endplate osteophytes bilaterally. L5-S1: Status post decompressive laminectomy. No significant neural foraminal stenosis. IMPRESSION: Postsurgical changes L4-S1 as detailed above. No fracture. Multilevel degenerative changes of the lumbar spine, notably with mild spinal canal and neural foraminal stenosis at L3-4. [id number] Partial thromboplastin time, activated (07/15/2017 12:29 PM)Only the most recent of5 resultswithin the time period is included. Component Value Ref Range PTT 29.2 23.0 - 36.0 sec Comment: PTT therapeutic range for unfractionated heparin is 61.0-112.0 seconds which corresponds to Anti-Xa 0.3-0.7 U/ml. Note:Change in Panic Value The PTT Panic Value is changing from 110 sec. to 100 sec. due to new instrumentation and reagents. Correlation studies have been performed to validate this result. Specimen Performing Laboratory Blood [facility] DEPARTMENT OF PATHOLOGY AND GENOMIC MEDICINE [address] [place] [address] Creatine kinase, total (CPK) (07/06/2017 6:29 PM)Only the most recent of3 resultswithin the time period is included. Component Value Ref Range Creatine kinase 134 61 - 224 U/L Specimen Performing Laboratory Plasma specimen [facility] DEPARTMENT OF PATHOLOGY AND GENOMIC MEDICINE [address] [place] [id number] Head Wo Contrast (07/06/2017 6:19 PM)Only the most recent of2 resultswithin the time period is included. Specimen Performing Laboratory [facility] [address] [place] [id number] Narrative EXAMINATION: CT HEAD WO CONTRAST CLINICAL HISTORY: seizure syncope COMPARISON:Brain CT dated December 19, 2016 TECHNIQUE: Noncontrast enhanced images of the brain were obtained from the skull base to the vertex. Both soft tissue and bone reconstruction algorithms were performed.CT imaging was performed with iterative reconstruction technique and/or automated exposure control to reduce radiation dose. FINDINGS: There is no evidence of acute intracranial hemorrhage, intracranial mass, mass effect, midline shift or focal extra-axial collection. The ohara-white matter differentiation is preserved, and I do not see a confluent area of acute transcortical ischemia. No discretely hyperdense vessel is identified. The ventricles and extra-axial spaces are mildly prominent bilaterally. The ventricles have remained stable in size and configuration compared to the previous head CT. Minimal foci of decreased attenuation are noted mainly along the periventricular white matter at the level of the mcpherson radiata. These are nonspecific, but most commonly related to chronic microvascular ischemic change. Beam hardening artifact obscures details at the level of the skull base, including portions of the supraorbital frontal lobes, inferior temporal lobes, brainstem and cerebellum. The mastoid air cells and middle ear cavities are clear. There is soft tissue density in the external auditory canals bilaterally, nonspecific, but most commonly representing cerumen. The calvarium shows no aggressive bone lesion or evidence of fracture. No fluid levels are seen in the visualized paranasal sinuses. IMPRESSION: No acute intracranial abnormality identified. [id number] Procedure Note Hm Interface, Radiology Results Incoming - 07/06/2017 6:27 PM WIPING CLOTH CUTTER EXAMINATION: CT HEAD WO CONTRAST CLINICAL HISTORY: seizure syncope COMPARISON: Brain CT dated December 19, 2016 TECHNIQUE: Noncontrast enhanced images of the brain were obtained from the skull base to the vertex. Both soft tissue and bone reconstruction algorithms were performed. CT imaging was performed with iterative reconstruction technique and/or automated exposure control to reduce radiation dose. FINDINGS: There is no evidence of acute intracranial hemorrhage, intracranial mass, mass effect, midline shift or focal extra-axial collection. The ohara-white matter differentiation is preserved, and I do not see a confluent area of acute transcortical ischemia. No discretely hyperdense vessel is identified. The ventricles and extra-axial spaces are mildly prominent bilaterally. The ventricles have remained stable in size and configuration compared to the previous head CT. Minimal foci of decreased attenuation are noted mainly along the periventricular white matter at the level of the mcpherson radiata. These are nonspecific, but most commonly related to chronic microvascular ischemic change. Beam hardening artifact obscures details at the level of the skull base, including portions of the supraorbital frontal lobes, inferior temporal lobes, brainstem and cerebellum. The mastoid air cells and middle ear cavities are clear. There is soft tissue density in the external auditory canals bilaterally, nonspecific, but most commonly representing cerumen. The calvarium shows no aggressive bone lesion or evidence of fracture. No fluid levels are seen in the visualized paranasal sinuses. IMPRESSION: No acute intracranial abnormality identified. [id number] Surgical pathology request (05/18/2017 1:28 PM)Only the most recent of4 resultswithin the time period is included. Component Value Ref Range Surgical pathology report See link below for PDF Lab Report Result status This is Final Report to [id number] Specimen Performing Laboratory [facility] DEPARTMENT OF PATHOLOGY AND GENOMIC MEDICINE [address] [place] [address] Magnesium level (05/17/2017 5:59 AM)Only the most recent of4 resultswithin the time period is included. Component Value Ref Range Magnesium 2.00 1.60 - 2.40 mg/dL Specimen Performing Laboratory Plasma specimen [facility] DEPARTMENT OF PATHOLOGY AND GENOMIC MEDICINE [address] [place] [address] XR Chest 2 Vw (05/14/2017 7:47 PM)Only the most recent of4 resultswithin the time period is included. Specimen Performing Laboratory [facility] [address] [place] [address] Narrative EXAMINATION:XR CHEST 2 VW CLINICAL HISTORY:sob cough todayleukocytosisR basilar crackles IMPRESSION: Aortic arch calcified. Heart size is normal. Lungs are clear of acute infiltrate. There has been a prior partial pulmonary resection in the right side. There are no effusions. There is an intraspinal catheter present, and there is hardware in cervical spine. [facility]-[id number] Procedure Note Interface, Radiology Results Incoming - 05/14/2017 8:23 PM WIPING CLOTH CUTTER EXAMINATION: XR CHEST 2 VW CLINICAL HISTORY: sob cough today leukocytosis R basilar crackles IMPRESSION: Aortic arch calcified. Heart size is normal. Lungs are clear of acute infiltrate. There has been a prior partial pulmonary resection in the right side. There are no effusions. There is an intraspinal catheter present, and there is hardware in cervical spine. [facility]-[id number] Troponin (05/12/2017 7:33 PM)Only the most recent of5 resultswithin the time period is included. Component Value Ref Range Troponin <0.01 0.00 - 0.60 ng/mL Comment: 0.11 - 1.49 ng/mlMay indicate increased risk of acute coronary syndrome. >=1.5 ng/mlConsistent with acute myocardial infarction. The diagnostic value of a single normal or non-diagnostic result is questionable.Serial samples at 2-6 hour intervals are required to rule out acute myocardial injury. Specimen Performing Laboratory Plasma specimen [facility] DEPARTMENT OF PATHOLOGY AND GENOMIC MEDICINE [address] [place] [address] Influenza antigen (05/12/2017 3:58 PM) Component Value Ref Range Influenza antigen Negative for Influenza A/B antigen. Comment: Specimen Information Specimen Source: Nares Specimen Site: Right Specimen Performing Laboratory Nares - Right [facility] DEPARTMENT OF PATHOLOGY AND GENOMIC MEDICINE [address] [place] [address] B natriuretic peptide (05/12/2017 3:45 PM)Only the most recent of2 resultswithin the time period is included. Component Value Ref Range BNP 43 0 - 100 pg/mL Specimen Performing Laboratory Blood [facility] [place] [facility] DEPARTMENT OF PATHOLOGY AND GENOMIC MEDICINE [address] [place] [address] US Abdomen Complete (02/25/2017 7:28 AM) Specimen Performing Laboratory [facility] [address] [place] [address] Narrative EXAM: US ABDOMEN COMPLETE CLINICAL DATA:ABDOMINAL PAIN COMPARISON: 07/11/2015 FINDINGS: LIVER:The liver is slightly heterogeneous in echogenicity and has an irregular contour suggestive of cirrhosis. No discrete mass is identified with ultrasound. MPV:Doppler evaluation of the portal vein demonstrates normal hepatopetal flow. GALLBLADDER:The gallbladder has been surgically removed. CBD: Common bile duct is not dilated measuring 6 mm. PANCREAS:The visualized portions of the pancreas are within normal limits. SPLEEN:Spleen is enlarged measuring 15.3 x 7 x 6.7 cm. KIDNEYS:The kidneys are normal in size and echogenicity. There is no evidence of hydronephrosis. AORTA:The visualized upper abdominal aorta demonstrates no evidence of ectasia or aneurysm. IVC:The visualized portions of the inferior vena cava are unremarkable. ASCITES: No abnormal abdominal fluid collections are visualized. There is no evidence of ascites. PLEURAL EFFUSION:There are no pleural effusions. IMPRESSION: 1. Cirrhosis with splenomegaly. 2.Status post cholecystectomy. [facility][id number] Procedure Note Interface, Radiology Results Incoming - 02/25/2017 7:34 AM CDT EXAM: US ABDOMEN COMPLETE CLINICAL DATA: ABDOMINAL PAIN COMPARISON: 07/11/2015 FINDINGS: LIVER: The liver is slightly heterogeneous in echogenicity and has an irregular contour suggestive of cirrhosis. No discrete mass is identified with ultrasound. MPV: Doppler evaluation of the portal vein demonstrates normal hepatopetal flow. GALLBLADDER: The gallbladder has been surgically removed. CBD: Common bile duct is not dilated measuring 6 mm. PANCREAS: The visualized portions of the pancreas are within normal limits. SPLEEN: Spleen is enlarged measuring 15.3 x 7 x 6.7 cm. KIDNEYS: The kidneys are normal in size and echogenicity. There is no evidence of hydronephrosis. AORTA: The visualized upper abdominal aorta demonstrates no evidence of ectasia or aneurysm. IVC: The visualized portions of the inferior vena cava are unremarkable. ASCITES: No abnormal abdominal fluid collections are visualized. There is no evidence of ascites. PLEURAL EFFUSION: There are no pleural effusions. IMPRESSION: 1. Cirrhosis with splenomegaly. 2. Status post cholecystectomy. [facility]-[id number] Total iron binding capacity (02/25/2017 5:33 AM)Only the most recent of2 resultswithin the time period is included. Component Value Ref Range Iron level 86 76 - 198 ug/dL Iron binding capacity 252 (L) 271 - 474 ug/dL % Saturation 34.1 20.0 - 40.0 % Specimen Performing Laboratory Blood [facility] DEPARTMENT OF PATHOLOGY AND GENOMIC MEDICINE [address] [place], [place] [id number] Hepatitis C antibody (02/25/2017 5:33 AM)Only the most recent of2 resultswithin the time period is included. Component Value Ref Range Hepatitis C Ab Non-reactive Non-reactive Specimen Performing Laboratory Blood [facility] [facility] DEPARTMENT OF PATHOLOGY AND GENOMIC MEDICINE [address] [place] [id number] Alpha-1 antitrypsin level (02/25/2017 5:33 AM)Only the most recent of2 resultswithin the time period is included. Component Value Ref Range Alpha-1 antitrypsin 134 90 - 200 mg/dL Specimen Performing Laboratory Plasma specimen [facility] DEPARTMENT OF PATHOLOGY AND [facility] MEDICINE [address] [place] [id number] Hepatitis A antibody IgM (02/25/2017 5:33 AM) Component Value Ref Range Hepatitis A IgM Non-reactive Non-reactive Specimen Performing Laboratory Blood [facility] [facility] DEPARTMENT OF PATHOLOGY AND GENOMIC MEDICINE [address] [place] [address] Ceruloplasmin level (02/25/2017 5:33 AM)Only the most recent of2 resultswithin the time period is included. Component Value Ref Range Ceruloplasmin 26 15 - 30 mg/dL Specimen Performing Laboratory Plasma specimen [facility] DEPARTMENT OF PATHOLOGY AND GENOMIC MEDICINE [address] [place] [address] Alpha fetoprotein (02/25/2017 5:33 AM)Only the most recent of2 resultswithin the time period is included. Component Value Ref Range Alpha fetoprotein 3.5 0.0 - 8.3 ng/mL Comment: The Kelly 8000 AFP immunoassay was used. Results obtained with different assay methods or kits should not be used interchangeably and may be different. Specimen Performing Laboratory Serum [facility] DEPARTMENT OF PATHOLOGY AND [facility] MEDICINE [address] [place] [id number] Hepatitis B core antibody IgM (02/25/2017 5:33 AM)Only the most recent of2 resultswithin the time period is included. Component Value Ref Range Hepatitis B core IgM Non-reactive Non-reactive Specimen Performing Laboratory Blood [facility] DEPARTMENT OF PATHOLOGY AND [facility] MEDICINE [address] [facility] [place] [address] Hepatitis B surface antibody (02/25/2017 5:33 AM)Only the most recent of2 resultswithin the time period is included. Component Value Ref Range Hepatitis B surface Ab Non-reactive Non-reactive Specimen Performing Laboratory Blood [facility] OF PATHOLOGY AND [facility] MEDICINE [address] [place] [address]. [place] [address] Hepatitis B surface antigen (02/25/2017 5:33 AM)Only the most recent of2 resultswithin the time period is included. Component Value Ref Range Hepatitis B surface Ag Non-reactive Non-reactive Specimen Performing Laboratory Blood [facility] PATHOLOGY AND [facility] MEDICINE [address] [place] [address] CARLOS (02/25/2017 5:33 AM)Only the most recent of2 resultswithin the time period is included. Component Value Ref Range CARLOS screen Not Detected Not-Detected Specimen Performing Laboratory Blood [facility] PATHOLOGY [address] [address] Ferritin level (02/25/2017 5:33 AM)Only the most recent of2 resultswithin the time period is included. Component Value Ref Range Ferritin level 143 18 - 158 ng/mL Specimen Performing Laboratory Serum [facility] DEPARTMENT OF PATHOLOGY AND GENOMIC MEDICINE [address] [place] [address]. [place] [address] CT Abdomen Pelvis W Wo Contrast (02/25/2017 1:34 AM) Specimen Performing Laboratory [address] ABDOMEN PELVIS W WO CONTRAST CLINICAL INDICATION:cirrhosis TECHNIQUE: Multidetector CT of the abdomen and pelvis was performed before and then following intravenous administration of iodinated contrast with multiplanar reformats. CT scans are performed using radiation dose reduction techniques (iterative reconstruction and/or automated exposure control). Technical factors are evaluated and adjusted to ensure appropriate moderation of exposure. Automated dose management technology is applied to adjust radiation exposure while achieving a diagnostic quality image. COMPARISON:None. FINDINGS: Lung bases:Dependent subsegmental atelectasis/scarring. Liver:Cirrhotic morphology with underlying hepatic steatosis. No arterial hyperenhancing lesions are visualized. Gallbladder and biliary:The gallbladder is absent. Clips within the gallbladder fossa. Pancreas:Moderately atrophic with fatty replacement. Spleen: Enlarged measuring up to 15.5 cm. Gastrointestinal:Mild sigmoid diverticulosis. Large and small bowel are normal in caliber. Appendix is not visualized. No focal inflammatory changes within the right lower quadrant of the abdomen. Adrenals:Normal. Kidneys and ureters:No mass or hydronephrosis. Urinary bladder: Decompressed. Lymph nodes:No enlarged lymph nodes in the abdomen or pelvis. Peritoneum:No ascites or free air. Vascular:Moderate-extensive atherosclerotic changes of the abdominal aorta and major branch vessels. Reproductive organs:Normal prostate gland and seminal vesicles. Abdominal wall: Spinal stimulator device in the right lower back subcutaneous soft tissues with partially visualized electrodes. Bones:Posterior spinal instrumentation at L4-S1. IMPRESSION: 1. Cirrhosis. No focal or suspicious hepatic lesions visualized on liver protocol CT. 2. Splenomegaly. [facility]-[id number] Procedure Note [facility], Radiology Results Incoming - 02/25/2017 1:[address] ABDOMEN PELVIS W WO CONTRAST CLINICAL INDICATION: cirrhosis TECHNIQUE: Multidetector CT of the abdomen and pelvis was performed before and then following intravenous administration of iodinated contrast with multiplanar reformats. CT scans are performed using radiation dose reduction techniques (iterative reconstruction and/or automated exposure control). Technical factors are evaluated and adjusted to ensure appropriate moderation of exposure. Automated dose management technology is applied to adjust radiation exposure while achieving a diagnostic quality image. COMPARISON: None. FINDINGS: Lung bases: Dependent subsegmental atelectasis/scarring. Liver: Cirrhotic morphology with underlying hepatic steatosis. No arterial hyperenhancing lesions are visualized. Gallbladder and biliary: The gallbladder is absent. Clips within the gallbladder fossa. Pancreas: Moderately atrophic with fatty replacement. Spleen: Enlarged measuring up to 15.5 cm. Gastrointestinal: Mild sigmoid diverticulosis. Large and small bowel are normal in caliber. Appendix is not visualized. No focal inflammatory changes within the right lower quadrant of the abdomen. Adrenals: Normal. Kidneys and ureters: No mass or hydronephrosis. Urinary bladder: Decompressed. Lymph nodes: No enlarged lymph nodes in the abdomen or pelvis. Peritoneum: No ascites or free air. Vascular: Moderate-extensive atherosclerotic changes of the abdominal aorta and major branch vessels. Reproductive organs: Normal prostate gland and seminal vesicles. Abdominal wall: Spinal stimulator device in the right lower back subcutaneous soft tissues with partially visualized electrodes. Bones: Posterior spinal instrumentation at L4-S1. IMPRESSION: 1. Cirrhosis. No focal or suspicious hepatic lesions visualized on liver protocol CT. 2. Splenomegaly. [facility]-[id number] Ammonia level (02/24/2017 5:45 PM)Only the most recent of2 resultswithin the time period is included. Component Value Ref Range Ammonia 33 3 - 37 umol/L Specimen Performing Laboratory Plasma specimen [facility] DEPARTMENT OF PATHOLOGY AND GENOMIC MEDICINE [address] [place] [address] [place] [address] Anti smooth muscle Ab titer (02/24/2017 1:27 PM) Component Value Ref Range Anti smooth muscle Ab titer 1:80 (A) Not-Detected Specimen Performing Laboratory Blood [facility] DEPARTMENT OF PATHOLOGY AND GENOMIC MEDICINE [address] [place] [phone] Anti smooth muscle Ab screen (02/24/2017 1:27 PM) Component Value Ref Range Anti smooth muscle Ab screen Detected (A) Not-Detected Specimen Performing Laboratory Blood [facility] DEPARTMENT OF PATHOLOGY AND GENOMIC MEDICINE [address] [place] [address] Hemoglobin & hematocrit (02/24/2017 1:27 PM) Component Value Ref Range HGB 14.4 13.0 - 17.3 g/dL HCT 44.0 34.0 - 45.0 % Specimen Performing Laboratory Blood [facility] DEPARTMENT OF PATHOLOGY AND GENOMIC MEDICINE [address] [place] [address] [place] [address] Lactic acid level (02/23/2017 10:17 PM)Only the most recent of6 resultswithin the time period is included. Component Value Ref Range Lactic acid 1.4 0.5 - 2.2 mmol/L Specimen Performing Laboratory Blood [facility] DEPARTMENT OF PATHOLOGY AND GENOMIC MEDICINE [address] [place] [address] [place] [address] Bilirubin direct (02/23/2017 7:49 PM)Only the most recent of3 resultswithin the time period is included. Component Value Ref Range Bilirubin direct 0.1 0.0 - 0.4 mg/dL Specimen Performing Laboratory Plasma specimen [facility] DEPARTMENT OF PATHOLOGY AND GENOMIC MEDICINE [address] [place] [address] Narrative LA RESULT CALLED TO GURDEEP CONTEH NP02/23/201720:25 BY RAMONE Amylase level (02/23/2017 7:49 PM)Only the most recent of3 resultswithin the time period is included. Component Value Ref Range Amylase 59 34 - 122 U/L Specimen Performing Laboratory Plasma specimen [facility] DEPARTMENT OF PATHOLOGY AND GENOMIC MEDICINE [address] [place] [address] CT Chest W Contrast Abdomen W Contrast Pelvis W Contrast (02/01/2017 9:31 PM) Specimen Performing Laboratory [facility] [address] [place] [address] Narrative EXAMINATION:CT CHEST W CONTRAST ABDOMEN W CONTRAST PELVIS W CONTRAST CLINICAL HISTORY:RLL chest pain TECHNIQUE: Multiple axial images of the chest, abdomen, and pelvis were obtained following intravenous administration of iodinated contrast. Sagittal and coronal computerized reformatted images were obtained.Automatic exposure control and iterative reconstruction techniques used to reduce dose. COMPARISON:December 11, 2016 FINDINGS: Chest: Mild diffuse emphysematous changes throughout the lungs. Mild atelectasis in the lingula postoperative changes in the right middle lobe. Mild bronchiectasis in the bilateral upper and lower lobes. No suspicious focal pulmonary nodules or infiltrates present Small nonspecific subcentimeter mediastinal and hilar lymph nodes Diffuse calcified atherosclerotic vascular disease throughout the arterial structures. No pleural or pericardial effusions are present. Degenerative changes are present throughout the bony structures without evidence of a suspicious focal lesion. Abdomen/Pelvis: Diffuse cirrhotic changes are present throughout the liver without evidence of focal mass The gallbladder has been removed The spleen is enlarged Portal vein is patent Pancreas is unremarkable Subcentimeter adenoma in the left adrenal gland Kidneys are within normal limits No significant lymphadenopathy free fluid present Diffuse calcified atherosclerotic vascular disease throughout the arterial structures. No evidence of appendicitis Diffuse diverticulosis of colon without evidence of diverticulitis. The small bowel is unremarkable Diffuse calcified atherosclerotic vascular disease throughout the arterial structures. Pelvis: No significant lymphadenopathy, solid masses or free fluid present Degenerative changes are present throughout the bony structures without evidence of a suspicious focal lesion. IMPRESSION: Diffuse emphysematous changes throughout the lungs. No suspicious focal pulmonary nodules or infiltrates present Cirrhosis of the liver portal hypertension with splenomegaly Diverticulosis without evidence of diverticulitis [facility]-[id number] Procedure Note Interface, Radiology Results Incoming - 02/01/2017 9:42 PM CDT EXAMINATION: CT CHEST W CONTRAST ABDOMEN W CONTRAST PELVIS W CONTRAST CLINICAL HISTORY: RLL chest pain TECHNIQUE: Multiple axial images of the chest, abdomen, and pelvis were obtained following intravenous administration of iodinated contrast. Sagittal and coronal computerized reformatted images were obtained.Automatic exposure control and iterative reconstruction techniques used to reduce dose. COMPARISON: December 11, 2016 FINDINGS: Chest: Mild diffuse emphysematous changes throughout the lungs. Mild atelectasis in the lingula postoperative changes in the right middle lobe. Mild bronchiectasis in the bilateral upper and lower lobes. No suspicious focal pulmonary nodules or infiltrates present Small nonspecific subcentimeter mediastinal and hilar lymph nodes Diffuse calcified atherosclerotic vascular disease throughout the arterial structures. No pleural or pericardial effusions are present. Degenerative changes are present throughout the bony structures without evidence of a suspicious focal lesion. Abdomen/Pelvis: Diffuse cirrhotic changes are present throughout the liver without evidence of focal mass The gallbladder has been removed The spleen is enlarged Portal vein is patent Pancreas is unremarkable Subcentimeter adenoma in the left adrenal gland Kidneys are within normal limits No significant lymphadenopathy free fluid present Diffuse calcified atherosclerotic vascular disease throughout the arterial structures. No evidence of appendicitis Diffuse diverticulosis of colon without evidence of diverticulitis. The small bowel is unremarkable Diffuse calcified atherosclerotic vascular disease throughout the arterial structures. Pelvis: No significant lymphadenopathy, solid masses or free fluid present Degenerative changes are present throughout the bony structures without evidence of a suspicious focal lesion. IMPRESSION: Diffuse emphysematous changes throughout the lungs. 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 [address] XR Chest 1 Vw Portable (12/19/2016 5:27 PM)Only the most recent of15 resultswithin the time period is included. Specimen Performing Laboratory [facility] [address] [place] [address] Narrative EXAMINATION:XR CHEST 1 VW PORTABLE CLINICAL HISTORY: PICC Line Insertion COMPARISON:December 13, 2016 IMPRESSION: Redemonstration of a right sided PICC with the catheter tip at the cavoatrial junction. Spinal canal stimulator leads are again noted. Furthermore, partial residual aeration of the lower cervical ACDF. Cardiomediastinal silhouette is within normal limits of size. Calcifications are identified within the aortic arch. Perihilar vascular congestion is present, not significant change from prior examination. Lungs are otherwise clear. Trace right-sided pleural effusion is suspected. No significant left-sided pleural effusion or pneumothorax identified. Visualized osseous structures are intact. [facility]-[id number] Procedure Note Interface, Radiology Results Incoming - 12/19/2016 5:33 PM CDT EXAMINATION: XR CHEST 1 VW PORTABLE CLINICAL HISTORY: PICC Line Insertion COMPARISON: December 13, 2016 IMPRESSION: Redemonstration of a right sided PICC with the catheter tip at the cavoatrial junction. Spinal canal stimulator leads are again noted. Furthermore, partial residual aeration of the lower cervical ACDF. Cardiomediastinal silhouette is within normal limits of size. Calcifications are identified within the aortic arch. Perihilar vascular congestion is present, not significant change from prior examination. Lungs are otherwise clear. Trace right-sided pleural effusion is suspected. No significant left-sided pleural effusion or pneumothorax identified. Visualized osseous structures are intact. [facility]-[id number] Blood culture, aerobic & anaerobic (12/19/2016 5:16 PM)Only the most recent of6 resultswithin the time period is included. Component Value Ref Range Blood culture isolate No growth after 5 days of incubation. Comment: Specimen Information Specimen Source: Blood Specimen Site: Peripheral Hand Left Specimen Performing Laboratory Blood [facility] DEPARTMENT OF PATHOLOGY AND GENOMIC MEDICINE [address] [place] [address] PICC INSERTION (12/12/2016 12:19 PM) Narrative Tyrell Langston 12/12/2016 12:19 PM PICC insertion Date/Time: 12/12/2016 12:16 PM Performed by: TYRELL LANGSTON Authorized by: GERMAN LAMBERT Consent: Consent obtained:Written Consent given by:Patient Risks discussed: arterial puncture, incorrect placement, nerve damage, pneumothorax, infection, bleeding, superficial thrombus and deep vein thrombus [place] protocol: Procedure explained and questions answered to patient or proxy's satisfaction: yes Relevant documents present and verified: yes Test results available and properly labeled: yes Imaging studies available: yes Required blood products, implants, devices, and special equipment available: yes Site/side marked: yes Immediately prior to procedure, a time out was called: yes Patient identity confirmed:Verbally with patient, hospital-assigned identification number and arm band Pre-procedure details: Hand hygiene: Hand hygiene performed prior to insertion Sterile barrier technique: All elements of maximal sterile technique followed Skin preparation:ChloraPrep Skin preparation agent: Skin preparation agent completely dried prior to procedure Anesthesia (see MAR for exact dosages): Anesthesia method:Local infiltration Local anesthetic:Lidocaine 1% w/o epi Route of administration:Subcutaneous PICC Line Placement Details (Will create an LDA): Extremity Cirumference Upper (cm):30 Extremity Circumference Forearm (cm):23 Extremity Circumference Site:27 Patient position:Flat Vessel Size (mm):5 Indication:Known alf IV therapy Location:Right basilic Device Type:Valved Catheter size:5 Fr PICC Characteristics: Catheter Brand:Power PICC solo catheter with sherlock 3CG tip positioning system stylet External Catheter Length (cm):0 Internal Catheter Length (cm):40 Total Catheter Length (cm):40 Catheter Lot Number:[id number] Catheter Expiration Date:08/13/2017 Micro-Introducer Lot Number:[id number] Micro-Introducer Expiration Date:08/13/2017 Procedure Details: Landmarks identified: yes Ultrasound guidance: yes Sterile ultrasound techniques: Sterile gel and sterile probe covers were used Number of attempts:1 Number of PICC kits used during procedure:1 Purpose of procedure:PICC Placement Successful PICC Placement: Yes Patency/Placement:Flushes without difficulty, flushed with 10 mL normal saline and positive blood return PICC placed utlizing ultrasound-guided Modified Seldinger Technique: Yes Dressing/Securement:Gauze applied, transparent semipermeable dressing and catheter securement device Blood Loss Amount:Less than 20 mL Post-Procedure Details: Post-procedure:Dressing applied Patient tolerance of procedure:Tolerated well, no immediate complications Comments: 3CG confirmation obtained and placed in chart. Report given to Sarah Prieto RN CT Chest Wo Contrast (12/11/2016 1:37 PM)Only the most recent of2 resultswithin the time period is included. Specimen Performing Laboratory [facility] [address] [place] [address] Narrative EXAMINATION: CT CHEST WO CONTRAST CLINICAL HISTORY: chest tubeempyema TECHNIQUE:Axial images of the chest were obtained without intravenous contrast. The lack of intravenous contrast reduces the sensitivity of the exam and evaluating vasculature. CT imaging was performed with iterative reconstruction technique and/or automated exposure control to reduce radiation dose. COMPARISON:CT chest dated 12/06/2016. FINDINGS: CHEST: 1. Aorta: The thoracic aorta is nonaneurysmal with atherosclerotic disease. Main pulmonary artery is dilated measuring up to 4.3 cm consistent with pulmonary arterial hypertension. 2. Heart: Heart is mildly enlarged with coronary artery calcification. 3. Pericardial Fluid: Small pericardial effusion. 4. Mediastinum: Multiple subcentimeter mediastinal lymph nodes are unchanged compared to previous examination and likely reactive. Limited evaluation of the hilum the absence of intravenous contrast material. 5. Airways: Central airways are patent. 6. Lungs: Slightly more prominent focus of nodular consolidation in the lingula on series 3, slice 69 compared to previous examination. Minimal left lower lobe and lingular atelectasis. Postoperative opacity extending along the major fissure with associated calcification and surgical material is again unchanged. 7. Pleural Fluid: Interval placement of a right-sided pleural catheter into the previously identified right sided empyema which has significantly decreased in size. Small amount of fluid and air persists. 8. Bones: Osseous structures intact. No destructive bony lesions. 9. Upper Abdomen: Nodular appearance of the liver consistent with cirrhosis. Spleen is at the upper limits of normal in size. Fatty infiltration of the pancreas. Gallbladder surgically absent. 10. Other Findings: None IMPRESSION: 1. Right pleural drainage catheter in place with significant decrease in size of a loculated right pleural effusion. Only a small amount of pleural fluid and air persists. 2. Small nodular consolidation in the lingula is slightly more prominent compared to prior examination, likely infectious in etiology. 3. Enlarged main pulmonary artery which can be seen with pulmonary arterial hypertension. [facility]-[id number] Procedure Note Interface, Radiology Results Incoming - 12/11/2016 2:01 PM CDT EXAMINATION: CT CHEST WO CONTRAST CLINICAL HISTORY: chest tube empyema TECHNIQUE: Axial images of the chest were obtained without intravenous contrast. The lack of intravenous contrast reduces the sensitivity of the exam and evaluating vasculature. CT imaging was performed with iterative reconstruction technique and/or automated exposure control to reduce radiation dose. COMPARISON: CT chest dated 12/06/2016. FINDINGS: CHEST: 1. Aorta: The thoracic aorta is nonaneurysmal with atherosclerotic disease. Main pulmonary artery is dilated measuring up to 4.3 cm consistent with pulmonary arterial hypertension. 2. Heart: Heart is mildly enlarged with coronary artery calcification. 3. Pericardial Fluid: Small pericardial effusion. 4. Mediastinum: Multiple subcentimeter mediastinal lymph nodes are unchanged compared to previous examination and likely reactive. Limited evaluation of the hilum the absence of intravenous contrast material. 5. Airways: Central airways are patent. 6. Lungs: Slightly more prominent focus of nodular consolidation in the lingula on series 3, slice 69 compared to previous examination. Minimal left lower lobe and lingular atelectasis. Postoperative opacity extending along the major fissure with associated calcification and surgical material is again unchanged. 7. Pleural Fluid: Interval placement of a right-sided pleural catheter into the previously identified right sided empyema which has significantly decreased in size. Small amount of fluid and air persists. 8. Bones: Osseous structures intact. No destructive bony lesions. 9. Upper Abdomen: Nodular appearance of the liver consistent with cirrhosis. Spleen is at the upper limits of normal in size. Fatty infiltration of the pancreas. Gallbladder surgically absent. 10. Other Findings: None IMPRESSION: 1. Right pleural drainage catheter in place with significant decrease in size of a loculated right pleural effusion. Only a small amount of pleural fluid and air persists. 2. Small nodular consolidation in the lingula is slightly more prominent compared to prior examination, likely infectious in etiology. 3. Enlarged main pulmonary artery which can be seen with pulmonary arterial hypertension. [facility]-[id number] Aerobic culture (12/09/2016 4:40 PM)Only the most recent of2 resultswithin the time period is included. Component Value Ref Range Aerobic culture isolate Streptococcus anginosus Recovered in Broth only: The performance characteristics of this assay on this isolate were validated by the Microbiology Laboratory at [facility].This source has not been approved by the U.S. Food and Drug Administration.The results are not intended to be used as the sole means for clinical diagnosis or patient management.The Microbiology Laboratory is authorized under the clinical Laboratory Improvement Amendments of 1988 (CLIA-88) to perform high complexity testing. (A) Comment: Specimen Information Specimen Source: Pleural fluid Specimen Site: Right Pleural Fluid Specimen Performing Laboratory Pleural fluid [facility] DEPARTMENT OF PATHOLOGY AND [facility] MEDICINE [address] [place] [id number] Organism Antibiotic Method Susceptibility Streptococcus anginosus Clindamycin MARY ANN >2 mcg/mL: Resistant Streptococcus anginosus Ceftriaxone MARY ANN <=0.0625 mcg/mL: Susceptible Streptococcus anginosus Cefotaxime MARY ANN <=0.0625 mcg/mL: Susceptible Streptococcus anginosus Penicillin G MARY ANN <=0.68618 mcg/mL: Susceptible Streptococcus anginosus Vancomycin MARY ANN 1 mcg/mL: Susceptible Gram stain (12/09/2016 4:40 PM)Only the most recent of2 resultswithin the time period is included. Component Value Ref Range Gram stain isolate Many WBC's Many Gram positive cocci in pairs Comment: Specimen Information Specimen Source: Pleural fluid Specimen Site: Right Pleural Fluid Specimen Performing Laboratory Pleural fluid [facility] [place] [address] CT Needle Biopsy No Contrast (12/09/2016 10:00 AM)Only the most recent of3 resultswithin the time period is included. Specimen Per[facility] [address] [place] [address] Narrative Clinical history: Empyema drainage , right pleural effusion TECHNIQUE: DLP:Technical factors are evaluated and adjusted to ensure appropriate moderation of exposure. Automated dose management technology is supplied to adjust the radiation dose to minimize exposure while achieving a diagnostic quality image. PROCEDURE: CT-GUIDED PERCUTANEOUS CATHETER ABSCESS DRAINAGE. Informed consent was obtained. The procedure and risks as well as other options were discussed. The patient was fully monitored and given moderate sedation. Doctor-patient [id number] time was 30 minutes.. The patient was prepped and draped in a sterile fashion. Measurements were obtained on the CT computer showing abscess outline and adjacent anatomic structures. Angle and depth of abscess drain placement was determined. Local anesthetic was given. A Yueh needle was placed into the abscess. Needle placement was documented with CT images. An Amplatzguidewire was inserted into the Yueh sheath after the Yueh needle was removed. Fascial dilators were placed over the guidewire that were sized to match the catheter size. An 8.5 Albanian pigtail all-purpose drainage catheter was inserted over the guidewire. The drainage catheter position was documented with additional CT images. The pigtail catheter was locked and abscess fluid was removed with a syringe and sent for culture and sensitivity.. The catheter was fastened with monofilament suture and left to gravity drainage. The patient tolerated the procedure well and left the radiology department in good condition. IMPRESSION: There were no complications 150 cc of purulent material were sent to the laboratory for culture sensitivity and Gram stain. [id number] Procedure Note Hm Interface, Radiology Results Incoming - 12/09/2016 3:21 PM CDT Clinical history: Empyema drainage , right pleural effusion TECHNIQUE: DLP: Technical factors are evaluated and adjusted to ensure appropriate moderation of exposure. Automated dose management technology is supplied to adjust the radiation dose to minimize exposure while achieving a diagnostic quality image. PROCEDURE: CT-GUIDED PERCUTANEOUS CATHETER ABSCESS DRAINAGE. Informed consent was obtained. The procedure and risks as well as other options were discussed. The patient was fully monitored and given moderate sedation. Doctor-patient [id number] time was 30 minutes.. The patient was prepped and draped in a sterile fashion. Measurements were obtained on the CT computer showing abscess outline and adjacent anatomic structures. Angle and depth of abscess drain placement was determined. Local anesthetic was given. A Yueh needle was placed into the abscess. Needle placement was documented with CT images. An Amplatz guidewire was inserted into the Yueh sheath after the Yueh needle was removed. Fascial dilators were placed over the guidewire that were sized to match the catheter size. An 8.5 Albanian pigtail all-purpose drainage catheter was inserted over the guidewire. The drainage catheter position was documented with additional CT images. The pigtail catheter was locked and abscess fluid was removed with a syringe and sent for culture and sensitivity.. The catheter was fastened with monofilament suture and left to gravity drainage. The patient tolerated the procedure well and left the radiology department in good condition. IMPRESSION: There were no complications 150 cc of purulent material were sent to the laboratory for culture sensitivity and Gram stain. [id number] Hemoglobin A1c (12/08/2016 5:45 AM) Component Value Ref Range Hemoglobin A1C 7.5 (H) 4.0 - 6.0 % Comment: Less than 6% - Goal of therapy for Type II Diabetes Less than 7%-Goal of therapy for Type I Diabetes Less than 8%-Acceptable control for Type I or Type II Diabetes Greater than 8%-Unacceptable control; action indicated. (ADA94) Specimen Performing Laboratory Blood [facility] DEPARTMENT OF PATHOLOGY AND GENOMIC MEDICINE [address] [place] [address] CT Abdomen Pelvis W Contrast (12/07/2016 4:49 PM) Specimen Performing Laboratory [facility] [address] [place] [address] Narrative EXAMINATION:CT ABDOMEN PELVIS W CONTRAST CLINICAL HISTORY:ABDOMINAL PAIN TECHNIQUE: Multiple axial images of the abdomen and pelvis were obtained following intravenous administration of iodinated contrast. Sagittal and coronal computerized reformatted images were also obtained. Approximately 80 cc of Omnipaque [address] scan performed using radiation dose reduction techniques. Technical factors are evaluated and adjusted to ensure appropriate moderation of exposure. Automated dose management technology is applied to adjust the radiation dose to minimize expose whileachieving a diagnostic quality image. COMPARISON:CT chest 12/06/2016.. FINDINGS: Lung bases: A loculated wall enhancing moderate pleural effusion within the posterior aspect of the right lung base is again seen, suggesting of empyema.. A right middle lobe and right lower lobe masslike density with curvilinear calcification is again noted.. Liver: Hepatic cirrhosis is seen. There is no intrahepatic biliary dilatation or enhancing mass. Gallbladder: Surgically absent. Pancreas: The pancreas is normal in caliber and attenuation. No inflammatory process. The pancreatic duct is within normal limits. Spleen: Splenomegaly is seen. The spleen is otherwise unremarkable... Kidneys and ureters: The kidneys function symmetrically. There is no enhancing renal lesion. No hydronephrosis or renal stone. The ureters are normal in course and caliber. Adrenal glands: Unremarkable. GI tract: The small bowel is normal in course and caliber. The colon is unremarkable. No bowel wall thickening is identified. There is no acute inflammatory process. The appendix is not seen. No right lower quadrant inflammation is seen. The stomach is unremarkable Ascites: None. Pelvis: The urinary bladder is within normal limits. Limited evaluation of the prostate gland is unremarkable. Incidental note is made of right hydrocele.. Bones: Unremarkable. Retroperitoneum: No retroperitoneal or mesenteric lymphadenopathy is seen. Scattered atherosclerotic disease is seen.No abnormal aortic aneurysm is seen.. The visceral and mesenteric vascular branches are patent. Abdominal wall: Unremarkable. IMPRESSION: Hepatitic cirrhosis with splenomegaly. No CT evidence of hepatitic mass. No CT evidence of colitis or bowel obstruction. Findings again suggesting of a moderate right empyema. [id number] Procedure Note Hm Interface, Radiology Results Incoming - 12/07/2016 5:06 PM CDT EXAMINATION: CT ABDOMEN PELVIS W CONTRAST CLINICAL HISTORY: ABDOMINAL PAIN TECHNIQUE: Multiple axial images of the abdomen and pelvis were obtained following intravenous administration of iodinated contrast. Sagittal and coronal computerized reformatted images were also obtained. Approximately 80 cc of Omnipaque [address] scan performed using radiation dose reduction techniques. Technical factors are evaluated and adjusted to ensure appropriate moderation of exposure. Automated dose management technology is applied to adjust the radiation dose to minimize expose while achieving a diagnostic quality image. COMPARISON: CT chest 12/06/2016.. FINDINGS: Lung bases: A loculated wall enhancing moderate pleural effusion within the posterior aspect of the right lung base is again seen, suggesting of empyema.. A right middle lobe and right lower lobe masslike density with curvilinear calcification is again noted.. Liver: Hepatic cirrhosis is seen. There is no intrahepatic biliary dilatation or enhancing mass. Gallbladder: Surgically absent. Pancreas: The pancreas is normal in caliber and attenuation. No inflammatory process. The pancreatic duct is within normal limits. Spleen: Splenomegaly is seen. The spleen is otherwise unremarkable... Kidneys and ureters: The kidneys function symmetrically. There is no enhancing renal lesion. No hydronephrosis or renal stone. The ureters are normal in course and caliber. Adrenal glands: Unremarkable. GI tract: The small bowel is normal in course and caliber. The colon is unremarkable. No bowel wall thickening is identified. There is no acute inflammatory process. The appendix is not seen. No right lower quadrant inflammation is seen. The stomach is unremarkable Ascites: None. Pelvis: The urinary bladder is within normal limits. Limited evaluation of the prostate gland is unremarkable. Incidental note is made of right hydrocele.. Bones: Unremarkable. Retroperitoneum: No retroperitoneal or mesenteric lymphadenopathy is seen. Scattered atherosclerotic disease is seen. No abnormal aortic aneurysm is seen.. The visceral and mesenteric vascular branches are patent. Abdominal wall: Unremarkable. IMPRESSION: Hepatitic cirrhosis with splenomegaly. No CT evidence of hepatitic mass. No CT evidence of colitis or bowel obstruction. Findings again suggesting of a moderate right empyema. [id number] CT Chest W Contrast (12/06/2016 7:21 PM) Specimen Performing Laboratory [facility] [address] [address] Narrative Study:CT CHEST W CONTRAST History: R chest wall tendernessrecent biopsy COMPARISON: November 08, 2016, November 05, 2016 TECHNIQUE: Multiple axial CT images of the chest performed With IV contrast.. Coronal and sagittal reconstructions were done. CT imaging was performed with iterative reconstruction technique and/or automated exposure control to reduce radiation dose. FINDINGS: LUNGS: The opacity in the right lung is mainly right middle lobe and right lower lobe and is branching straddles the right major fissure difficult to measure but is approximately 3.6 x 1.7 x 2.8 cm associated with some linear calcification. This appears more lobulated when compared to prior exam but is similar in size. The right lower lobe posterior and medial loculated pleural collection has become more lobulated when compared to the prior exam measuring up to 8 cm in greatest dimension with some surrounding lung parenchymal thickening. Focal opacities in the lingula from the prior exams have resolved. Some residual tiny nodular opacities in the lingula measure 6 mm in image 72 series 3. No pneumothorax. AIRWAYS: No central endobronchial or endotracheal lesions are seen. MEDIASTINUM: The thoracic aorta is without aneurysm or dissection. The main pulmonary artery is dilated to about 24.4 cm in diameter indicating pulmonary arterial hypertension similar to the prior exams. Heart is upper limits of normal in size with atherosclerotic calcification of the coronary arteries. No significant pericardial effusion is present. Small mediastinal lymph nodes are similar to the prior exam. Partially calcified right hilar lymph node measuring up to 2 cm also stable. The esophagus is unremarkable. BONES AND OVERLYING SOFT TISSUES: The visualized bones are without destructive lesions. No enlarged axillary lymph nodes present. There is no acute abnormality of the chest wall. VISUALIZED LOWER NECK AND UPPER ABDOMEN: Liver is cirrhotic. Visualized lower Unremarkable. IMPRESSION: No acute abnormality of the right chest wall. Branching lobulated right middle and right lower lobe opacity straddling the right major fissure associated with some linear calcification probably postoperative. Previous opacities in the lingula have resolved. A pleural collection in the posterior medial right lower lobe has become more loculated. [id number] Procedure Note Interface, Radiology Results Incoming - 12/06/2016 7:50 PM CDT Study:CT CHEST W CONTRAST History: R chest wall tenderness recent biopsy COMPARISON: November 08, 2016, November 05, 2016 TECHNIQUE: Multiple axial CT images of the chest performed With IV contrast.. Coronal and sagittal reconstructions were done. CT imaging was performed with iterative reconstruction technique and/or automated exposure control to reduce radiation dose. FINDINGS: LUNGS: The opacity in the right lung is mainly right middle lobe and right lower lobe and is branching straddles the right major fissure difficult to measure but is approximately 3.6 x 1.7 x 2.8 cm associated with some linear calcification. This appears more lobulated when compared to prior exam but is similar in size. The right lower lobe posterior and medial loculated pleural collection has become more lobulated when compared to the prior exam measuring up to 8 cm in greatest dimension with some surrounding lung parenchymal thickening. Focal opacities in the lingula from the prior exams have resolved. Some residual tiny nodular opacities in the lingula measure 6 mm in image 72 series 3. No pneumothorax. AIRWAYS: No central endobronchial or endotracheal lesions are seen. MEDIASTINUM: The thoracic aorta is without aneurysm or dissection. The main pulmonary artery is dilated to about 24.4 cm in diameter indicating pulmonary arterial hypertension similar to the prior exams. Heart is upper limits of normal in size with atherosclerotic calcification of the coronary arteries. No significant pericardial effusion is present. Small mediastinal lymph nodes are similar to the prior exam. Partially calcified right hilar lymph node measuring up to 2 cm also stable. The esophagus is unremarkable. BONES AND OVERLYING SOFT TISSUES: The visualized bones are without destructive lesions. No enlarged axillary lymph nodes present. There is no acute abnormality of the chest wall. VISUALIZED LOWER NECK AND UPPER ABDOMEN: Liver is cirrhotic. Visualized lower Unremarkable. IMPRESSION: No acute abnormality of the right chest wall. Branching lobulated right middle and right lower lobe opacity straddling the right major fissure associated with some linear calcification probably postoperative. Previous opacities in the lingula have resolved. A pleural collection in the posterior medial right lower lobe has become more loculated. [id number] XR Ribs 2 Vw Right (12/06/2016 3:55 PM) Specimen Performing Laboratory [facility] [address] [place] [address] Narrative EXAM:XR RIBS 2 VW RIGHT HISTORY:CHEST PAINNORMAL EKG COMPARISON:None available IMPRESSION: 1. No displaced rib fracture or acute osseous abnormality. 2. Postsurgical changes are in the right middle lobe. There is atelectasis or scarring in the right middle lobe and right lower lobe. There is a small right pleural effusion or pleural thickening. 3. The cardiac silhouette is not enlarged. The thoracic aorta is atherosclerotic. 4. A spinal stimulator device projects over the lower thoracic spine. Cervical spine fusion hardware is partially visualized. [id number] Procedure Note [facility], Radiology Results Incoming - 12/06/2016 4:50 PM CDT EXAM: XR RIBS 2 VW RIGHT HISTORY: CHEST PAIN NORMAL EKG COMPARISON: None available IMPRESSION: 1. No displaced rib fracture or acute osseous abnormality. 2. Postsurgical changes are in the right middle lobe. There is atelectasis or scarring in the right middle lobe and right lower lobe. There is a small right pleural effusion or pleural thickening. 3. The cardiac silhouette is not enlarged. The thoracic aorta is atherosclerotic. 4. A spinal stimulator device projects over the lower thoracic spine. Cervical spine fusion hardware is partially visualized. [id number] Fungus smear (11/24/2016 10:03 AM) Component Value Ref Range Fungus smear No fungi observed. Comment: Specimen Information Specimen Source: Tissue Specimen Site: Lung, right middle lobe Specimen Performing Laboratory Tissue - Lung, right middle lobe [facility] DEPARTMENT OF PATHOLOGY AND GENOMIC MEDICINE [address] [place] [id number] AFB culture (11/24/2016 10:03 AM) Component Value Ref Range AFB culture isolate No growth after 6 weeks of incubation. Comment: Specimen Information Specimen Source: Tissue Specimen Site: Lung, right middle lobe Specimen Performing Laboratory Tissue - Lung, right middle lobe [facility] DEPARTMENT OF PATHOLOGY AND GENOMIC MEDICINE [address] [place] [id number] AFB stain (11/24/2016 10:03 AM) Component Value Ref Range AFB stain No acid fast bacilli (AFB) seen. Comment: Specimen Information Specimen Source: Tissue Specimen Site: Lung, right middle lobe Specimen Performing Laboratory Tissue - Lung, right middle lobe [facility] DEPARTMENT OF PATHOLOGY AND GENOMIC MEDICINE [address] [place] [id number] Fungus culture (11/24/2016 10:03 AM) Component Value Ref Range Fungus culture isolate No growth after 4 weeks of incubation. Comment: Specimen Information Specimen Source: Tissue Specimen Site: Lung, right middle lobe Specimen Performing Laboratory Tissue - Lung, right middle lobe [facility] DEPARTMENT OF PATHOLOGY AND GENOMIC MEDICINE [address] [place] [id number] Anaerobic culture (11/24/2016 10:03 AM) Component Value Ref Range Anaerobic culture isolate No anaerobic organisms isolated. Comment: Specimen Information Specimen Source: Tissue Specimen Site: Lung, right middle lobe Specimen Performing Laboratory Tissue - Lung, right middle lobe [facility] DEPARTMENT OF PATHOLOGY AND GENOMIC MEDICINE [address] [place] [id number] Type and screen (11/23/2016 2:19 PM) Component Value Ref Range ABO grouping A Rh type POS Antibody screen (gel) NEG Specimen Performing Laboratory Blood [place] [facility] [place] DEPARTMENT OF PATHOLOGY AND GENOMIC MEDICINE [address] [place] [address] Spirometry pre & post w/ bronchodilator (11/23/2016 12:31 PM)Echocardiogram complete w contrast and 3D if needed (11/18/2016 8:37 AM) Component Value Ref Range Velocity Ratio (V1/V2) 0.78 m/s IVS,d 1.10 0.6 - 1.2 cm EF 66.08 % LVPWD,d 1.06 cm AoV Mean PG 3.27 mmHg AV LVOT peak gradient 4.37 mmHg MV mean gradient 1.22 mmHg MV valve area p 1/2 method 4.51 cm2 PV Pk Grad 3.08 mmHg E/A ratio 0.88 E wave decelartion time 168.22 msec LVOT Diam,S 1.81 cm LVOT area 2.57 cm2 LVOT Vmax 1.05 m/s LVOT VTI 0.18 m AoV Peak PG 5.94 mmHg MV Peak E Rohith 0.67 m/s MV stenosis pressure 1/2 time 48.78 ms MV Peak A Rohith 0.76 m/s BSA 2.04 m2 AoV Area, Vmax 2.00 cm2 AoV Area, VTI 2.53 cm2 AoV Vmax 1.34 m/s BSA Segura 2.04 m2 BSA Haycock 2.04 m2 IVS/LVPW,2D 1.04 Left Atrium Dimension Anterior 2.77 cm LV,d 4.02 cm LV,s 2.57 cm PV VMAX 0.88 m/s TR Vpeak 3.98 mm/s BMI 24.41 kg/m2 MV E A ratio 0.88 mmHg TR pk grad 45.78 mmHg AoV area i VTI BSA Corson 1.26 cm2/m2 MR peak grad 3.46 mmHg Ao Root Diameter 3.31 cm LV SYS VOL 23.99 ml LV CLEANING VOL 70.73 ml LV SI Teich 2D 22.95 ml/m2 LV SV Teich 2D 46.75 ml LV Vol s Teich PSAX 23.99 ml LVOT CI 2.02 l/min/m2 LVOT CO 4.13 l/min LVOT HR for LVOT CO 89.07 bpm LVOT SI 22.70 ml/m2 MV Vmax 0.93 m MV VTI Tips 0.15 m AoV Vmn 0.84 IVS s 2D 1.72 LV FS Cube 2D 35.95 LV FS Teich 2D 35.95 Ao Root Diameter 3.31 cm AoV VTI 0.18 m LV EF,2D 73.72 % MV AE ratio 1.14 LVOT Vmn 0.79 Pt Size 182.88 Pt Wt 81.65 Aov area Vmn 2.36 cm2 LVOT mean grad 2.69 mmHg MAX Pred HR 166.64 85 of MPHR 141.64 AoV area I VMN bsa 1.16 cm2/m2 Calc MPHR 166.64 bpm IVS pct thck PLAX 55.63 % LV SI Cube 2D 23.47 ml/m2 LV SV Cube 2D 47.81 ml LV vol d cube 2D 64.85 ml LV vol s cube 2D 17.04 ml LVPW pct thck PLAX 56.42 % LVPW s PLAX 1.66 cm MV Decel slope 3.98 m/s2 Pred Exer Dur R1 9.73 Pred METS R1 10.00 Specimen Performing Laboratory [facility] [address] [place] [address] Narrative Left Ventricle: Left Ventricular ejection fraction is 65 - 70%. The left ventricular chamber size is Trace mitral valve regurgitation Pulmonic Valve: Mild pulmonary valve regurgitation. Pericardium: No pericardial effusion seen. Hepatitis acute panel (11/08/2016 3:51 AM) Component Value Ref Range Hepatitis A IgM Non-reactive Non-reactive Hepatitis B core IgM Non-reactive Non-reactive Hepatitis B surface Ag Non-reactive Non-reactive Hepatitis C Ab Non-reactive Non-reactive Specimen Performing Laboratory Serum [facility] [place] DEPARTMENT OF PATHOLOGY AND GENOMIC MEDICINE [address] [facility] [place] [address] Phosphorus level (11/08/2016 3:51 AM)Only the most recent of2 resultswithin the time period is included. Component Value Ref Range Phosphorus 4.9 (H) 2.5 - 4.5 mg/dL Specimen Performing Laboratory Plasma specimen [facility] DEPARTMENT OF PATHOLOGY AND GENOMIC MEDICINE [address] [place] [address] CRITICAL CARE (11/06/2016 8:18 PM) Narrative Deepika Luna DO 11/06/20168:18 PM Critical Care Performed by: DEEPIKA LUNA Authorized by: DEEPIKA LUNA Critical care provider statement: Critical care time (minutes):40 Critical care time was exclusive of:Separately billable procedures and treating other patients Critical care was necessary to treat or prevent imminent or life-threatening deterioration of the following conditions:Circulatory failure and respiratory failure Critical care was time spent personally by me on the following activities:Development of treatment plan with patient or surrogate, discussions with consultants, discussions with primary provider, evaluation of patient's response to treatment, examination of patient, obtaining history from patient or surrogate, interpretation of cardiac output measurements, ordering and performing treatments and interventions, ordering and review of laboratory studies, ordering and review of radiographic studies, pulse oximetry, re-evaluation of patient's condition and review of old charts CT Head W Wo Contrast (11/06/2016 11:14 AM) Specimen Performing Laboratory [facility] [address] [place] [id number] Narrative EXAMINATION:CT HEAD W WO CONTRAST CLINICAL HISTORY:LUNG CANCERUNSPECIFIED COMPARISON:July 11, 2014 FINDINGS: Axial images were obtained before and after intravenous contrast infusion. CT scans are performed using radiation dose reduction techniques. Technical factors are evaluated and adjusted to ensure appropriate moderation of exposure. Automated dose management technology is applied to adjust radiation exposure while achieving a highly diagnostic quality image.. The ventricular system and subarachnoid spaces are dilated consistent with age-related atrophic changes. There are minimal white matter lucencies in the centrum semiovale bilaterally consistent with minimal nonspecific chronic microvascular ischemic changes appropriate for the patient's age. After intravenous contrast infusion, there was no evidence of abnormal enhancement of the brain parenchyma or the leptomeninges to suggest metastatic disease. There is visualization of a normal vascular enhancement pattern within the arterial venous structures. There is no gross bone destruction. IMPRESSION: Stable mild age-appropriate involutional changes. No enhancing lesions to suggest intracranial metastatic disease. No gross bone destruction. [facility]-[id number] Procedure Note Hm Interface, Radiology Results Incoming - 11/06/2016 11:22 AM CDT EXAMINATION: CT HEAD W WO CONTRAST CLINICAL HISTORY: LUNG CANCER UNSPECIFIED COMPARISON: July 11, 2014 FINDINGS: Axial images were obtained before and after intravenous contrast infusion. CT scans are performed using radiation dose reduction techniques. Technical factors are evaluated and adjusted to ensure appropriate moderation of exposure. Automated dose management technology is applied to adjust radiation exposure while achieving a highly diagnostic quality image.. The ventricular system and subarachnoid spaces are dilated consistent with age- related atrophic changes. There are minimal white matter lucencies in the centrum semiovale bilaterally consistent with minimal nonspecific chronic microvascular ischemic changes appropriate for the patient's age. After intravenous contrast infusion, there was no evidence of abnormal enhancement of the brain parenchyma or the leptomeninges to suggest metastatic disease. There is visualization of a normal vascular enhancement pattern within the arterial venous structures. There is no gross bone destruction. IMPRESSION: Stable mild age-appropriate involutional changes. No enhancing lesions to suggest intracranial metastatic disease. No gross bone destruction. [facility]-[id number] after 10/21/2016 Insurance Payer Benefit Plan / Group Subscriber ID Type Phone Address [employer] MEDICARE AETNA MEDICARE HMO/PPO [facility] xxxxxxxx HMO
[2017-10-22] MEDS ORDERED: PANTOPRAZOLE 40 MG INJ ONE (22:24)
[2017-10-22] MEDS ORDERED: ONDANSETRON 4 MG/2 ML VIAL ONE (22:24)
[2017-10-22] MEDS ORDERED: NA CHLORIDE 0.9% 500 ML ONE (22:24)
[2017-10-22] MEDS ORDERED: NA CHLORIDE 0.9% 250 ML ONE (22:24)
[2017-10-22] MEDS ORDERED: CEFTRIAXONE/SWI 1gm 1 GM/10 ML SYR ONE (22:25)
[2017-10-22] MEDS ORDERED: OCTREOTIDE ACETATE 100 MCG/ML ONE ×2 (22:25→22:31)
[2017-10-22 22:35] LABS: Absolute Lymphocytes (CBC) 0.5 K/uL (0.7-4.9); Absolute Monocytes 0.6 K/uL (0.1-1.3); Absolute Neutrophil 8.8 K/uL (1.8-8.0); Basophils % 0.2 % (0-1.3); Eosinophils % 0.5 % (0-4.4); Hematocrit 51.2 % (39.6-49.0); Lymphocytes % 5.4 % (15.3-44.8); MCH 32.1 pg (27.0-35.0); MCV 92.1 fL (80-100); MPV 9.5 fL (7.6-11.3); RBC Red Blood Cell Count 5.56 M/uL (4.33-5.43)
[2017-10-22 22:39] LABS: Protime INR 1.02
[2017-10-22 23:15] LABS: Potassium 3.8 mEq/L (3.6-5.0)
[2017-10-22 23:21] LABS: Albumin 5.1 g/dL (3.2-5.5); Bilirubin Direct 0.2 mg/dL (0-0.2); Bilirubin Total 0.9 mg/dL (0.3-1.2); Blood Morphology Comment NOT SEEN (NOT SEEN); Platelet Estimate ADEQ; Protein, Total 10.2 g/dL (6.0-8.3)
[2017-10-23] MEDS ORDERED: NA CHLORIDE 0.9% 500 ML ONE (00:03)
--- NOTE | 2017-10-23 01:15 | ER ---
Nurse's Notes [facility] Name: Tino Amin Jr Age: 52 yrs Sex: Male : 1965 Arrival Date: 10/22/2017 Time: 21:12 Bed 7 Private MD: Diagnosis: Hematemesis Presentation: 10/22 21:25 Presenting complaint: Patient states: back pain, abdominal pain, vomiting americo blood aj1 since 0600 this am. Reports weakness. Transition of care: patient was not received from another setting of care. Onset of symptoms was October 22, 2017 at 06:00. Risk Assessment: Do you want to hurt yourself or someone else? Patient reports no desire to harm self or others. Initial Sepsis Screen: Does the patient meet any 2 criteria? No. Patient's initial sepsis screen is negative. Does the patient have a suspected source of infection? No. Patient's initial sepsis screen is negative. Care prior to arrival: None. 21:25 Method Of Arrival: Wheelchair aj1 21:25 Acuity: YULISSA 3 aj1 Triage Assessment: 21:30 General: Appears in no apparent distress. uncomfortable, Behavior is calm, cooperative, aj1 appropriate for age. Pain: Complains of pain in back and abdomen Pain currently is 9 out of 10 on a pain scale. 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 - Social history:: Smoking status: Patient uses tobacco products, smokes one pack cigarettes per day. - Ebola Screening: : Patient denies travel to an Ebola-affected area in the 21 days before illness onset. - Family history:: not pertinent. - Hospitalizations: : Patient was recently seen at. Screenin:42 Abuse screen: Denies threats or abuse. Nutritional screening: No deficits noted. jd3 Tuberculosis screening: No symptoms or risk factors identified. Fall Risk None identified. Assessment: 21:50 General: Appears uncomfortable, Behavior is cooperative, anxious. Pain: Complains of jd3 pain in abdomen Pain does not radiate. Quality of pain is described as aching, pressure, sharp, Is continuous, Also complains of constipation, nausea. Neuro: Level of Consciousness is awake, alert, obeys commands, Oriented to person, place, time, situation. Cardiovascular: Heart tones S1 S2 present Capillary refill < 3 seconds Patient's skin is warm and dry. Respiratory: Airway is patent Respiratory effort is even, unlabored, Respiratory pattern is regular, symmetrical, Breath sounds are clear bilaterally. GI: Abdomen is flat, Bowel sounds present X 4 quads. Abd is soft Abdomen is tender to palpation X 4 quads. Reports lower abdominal pain, upper abdominal pain, nausea, vomiting, dark colored stools and vomiting dark color bile. : No signs and/or symptoms were reported regarding the genitourinary system. EENT: No signs and/or symptoms were reported regarding the EENT system. Derm: Skin is intact, Skin is dry, Skin is normal, Skin temperature is warm. Musculoskeletal: Circulation, motion, and sensation intact. Range of motion: intact in all extremities. 23:42 Reassessment: Patient appears in no apparent distress at this time. No changes from jd3 previously documented assessment. Patient and/or family updated on plan of care and expected duration. Pain level reassessed. Patient is alert, oriented x 3, equal unlabored respirations, skin warm/dry/pink. 06/ 00:34 Reassessment: Patient is alert, oriented x 3, equal unlabored respirations, skin bb warm/dry/pink. pt returned from CT via stretcher, IV sites intact, patent with fluids infusing. 01:35 Reassessment: Patient appears in no apparent distress at this time. Patient and/or jd3 family updated on plan of care and expected duration. Pain level reassessed. Patient is alert, oriented x 3, equal unlabored respirations, skin warm/dry/pink. 02:47 Reassessment: Patient appears in no apparent distress at this time. Patient and/or jd3 family updated on plan of care and expected duration. Pain level reassessed. Patient is alert, oriented x 3, equal unlabored respirations, skin warm/dry/pink. pt lying in bed, with eyes closed, even and unlabored respirations, no distress noted at this time. call bazzi in reach. Patient states feeling better. 03:15 Reassessment: Patient appears in no apparent distress at this time. Patient and/or jd3 family updated on plan of care and expected duration. Pain level reassessed. Patient is alert, oriented x 3, equal unlabored respirations, skin warm/dry/pink. pt reported understanding of need for admission. Vital Signs: 10/22 21:30 BP 130 / 92; Pulse 99; Resp 22; Temp 98.1; Pulse Ox 98% ; Weight 73.94 kg; Height 6 ft. aj1 1 in. (185.42 cm); Pain 9/10; 23:42 BP 128 / 91; Pulse 97; Resp 19 S; Pulse Ox 98% on R/A; Pain 8/10; jd3 10/23 00:35 BP 126 / 91; Pulse 85; Resp 16 S; Pulse Ox 97% on R/A; bb 01:28 BP 114 / 88; Pulse 84; Resp 16 S; Temp 97.6(TE); Pulse Ox 96% on R/A; bb 02:44 BP 130 / 98; Pulse 81; Resp 17 S; Pulse Ox 95% on R/A; Pain 0/10; jd3 10/22 21:30 Body Mass Index 21.51 (73.94 kg, 185.42 cm) aj1 ED Course: 10/22 21:12 Patient arrived in ED. am2 21:27 Triage completed. aj1 21:30 Arm band placed on Patient placed in an exam room. aj1 21:34 Nicholas Mason MD is Attending Physician. rn 22:31 Mikhail Silverman RN is Primary Nurse. jd3 22:32 Inserted saline lock: 20 gauge in right antecubital area, using aseptic technique. oe Blood collected. 23:00 Radiology exam delayed due to lab results not completed at this time. (BUN/Creatinine). vm2 23:25 Inserted saline lock: 22 gauge in left antecubital area, using aseptic technique. jd3 23:42 Patient has correct armband on for positive identification. Placed in gown. Bed in low jd3 position. Call light in reach. Side rails up X2. Adult w/ patient. 10/23 00:[address] via stretcher. eh 00:21 Abdomen In Process Unspecified. EDMS 00:33 CT completed. Patient tolerated procedure well. Patient moved back from CT. 01:14 Cherie Sidhu MD is Hospitalizing Provider. rn 01:30 No provider procedures requiring assistance completed. Patient admitted, IV remains in bb place. Administered Medications: 10/22 23:34 Drug: Zofran 4 mg Route: IVP; Site: right antecubital; [facility] 10/23 02:48 Follow up: Response: No adverse reaction; Nausea is decreased [facility] 10/22 23:35 Drug: Rocephin - (cefTRIAXone) 1 grams Route: IVPB; Infused Over: 30 mins; Site: right [facility] antecubital; 10/23 02:48 Follow up: Response: No adverse reaction; IV Status: Completed infusion [facility] 10/22 23:36 Drug: Octreotide Infusion (50 mcg/hr) - (Octreotide 500 mcg, NS 0.9% 500 ml) Route: IV; jd3 Rate: 50 ml/hr; Site: left antecubital; 10/23 02:49 Follow up: Response: No adverse reaction; IV Status: Infusion continued upon admission [facility] 10/22 23:37 Drug: ProTONIX 40 mg Route: IVP; Site: right antecubital; [facility] 10/23 02:49 Follow up: Response: No adverse reaction [facility] 10/22 23:37 Drug: ProTONIX 8 mg/hr Route: IV; Rate: 25 ml/hr; Site: right antecubital; [facility] 10/23 02:49 Follow up: Response: No adverse reaction; IV Status: Infusion continued upon admission [facility] 10/22 23:37 Drug: Octreotide 50 mcg Route: IV; Rate: calculated rate; Site: left antecubital; [facility] 10/23 02:49 Follow up: Response: No adverse reaction; IV Status: Completed infusion j 00:06 Drug: NS 0.9% 500 ml Route: IV; Rate: bolus; Site: left antecubital; jd3 02:48 Follow up: Response: No adverse reaction; IV Status: Completed infusion; IV Intake: jd3 500ml Intake: 02:48 IV: 500ml; Total: 500ml. j Outcome: 01:14 Decision to Hospitalize by Provider. rn 01:31 Admitted to [facility] accompanied by tech, via stretcher, room 427, with chart. bb 01:31 Condition: stable 01:31 Instructed on the need for admit. 02:57 Admitted to Tele accompanied by tech, via stretcher, room 427, with chart, Report jd3 called to Shaniqua MARTIN 03:16 Patient left the ED. jd3 Signatures: Dispatcher [employer] EDRoberta Navarrete, RN RN aj1 Ryland Villaseñor Brenda, RN RN bb Nicholas Mason MD MD rn Espinosa, Orlando oe Moreno, Amanda Jennifer Medina [facility] Mikhail Silverman RN RN jd3 Corrections: (The following items were deleted from the chart) 01:31 01:28 BP 116 / 96; Pulse 84bpm; Resp 16bpm; Spontaneous; Pulse Ox 96% RA; Temp 97.6F bb Temporal; bb
--- NOTE | 2017-10-23 01:15 | EDPHYS ---
Physician Documentation [facility] Name: Tino Amin Jr Age: 52 yrs Sex: Male : 1965 Arrival Date: 10/22/2017 Time: 21:12 Bed 7 Private MD: ED Physician Nicholas Mason HPI: 10/22 22:50 This 52 yrs old Male presents to ER via Wheelchair with complaints of rn Abdominal Pain, Vomiting. 22:50 The patient presents to the emergency department with nausea, vomiting, abdominal pain. rn Onset: The symptoms/episode began/occurred 3 day(s) ago. Possible causes: unknown. Associated signs and symptoms: Pertinent positives: abdominal pain, GI bleeding, nausea, vomiting. Severity of symptoms: At their worst the symptoms were mild in the emergency department the symptoms are unchanged. The patient has experienced a previous episode. Reports dark red blood in vomit, + dark stool for 2 days, + cirrhosis, not on blood thinners, + upper abd pain. . 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 - Social history:: Smoking status: Patient uses tobacco products, smokes one pack cigarettes per day. - Ebola Screening: : Patient denies travel to an Ebola-affected area in the 21 days before illness onset. - Family history:: not pertinent. - Hospitalizations: : Patient was recently seen at. ROS: 22:50 Constitutional: Negative for fever, chills, and weight loss, Eyes: Negative for injury, rn pain, redness, and discharge, Neck: Negative for injury, pain, and swelling, Cardiovascular: Negative for chest pain, palpitations, and edema, Respiratory: Negative for shortness of breath, cough, wheezing, and pleuritic chest pain, Abdomen/GI: + abd pain/nausea/vomiting MS/Extremity: Negative for injury and deformity, Skin: Negative for injury, rash, and discoloration, Neuro: Negative for headache, weakness, numbness, tingling, and seizure. Exam: 22:50 Constitutional: thin male, no acute distress Head/Face: Normocephalic, atraumatic. rn Eyes: Pupils equal round and reactive to light, extra-ocular motions intact. Lids and lashes normal. Conjunctiva and sclera are non-icteric and not injected. Cornea within normal limits. Periorbital areas with no swelling, redness, or edema. Cardiovascular: Regular rate and rhythm with a normal S1 and S2. No gallops, murmurs, or rubs. Normal PMI, no JVD. No pulse deficits. Respiratory: + mild tachypnea, faint exp wheezing, no retractions, speaking full sentences Abdomen/GI: soft, + mild epigastric tenderness MS/ Extremity: Pulses equal, no cyanosis. Neurovascular intact. Full, normal range of motion. Equal circumference. Neuro: Awake and alert, GCS 15, oriented to person, place, time, and situation. Cranial nerves II-XII grossly intact. Motor strength 5/5 in all extremities. Sensory grossly intact. Cerebellar exam normal. Vital Signs: 21:30 BP 130 / 92; Pulse 99; Resp 22; Temp 98.1; Pulse Ox 98% ; Weight 73.94 kg; Height 6 ft. aj1 1 in. (185.42 cm); Pain 9/10; 23:42 BP 128 / 91; Pulse 97; Resp 19 S; Pulse Ox 98% on R/A; Pain 8/10; jd3 10/23 00:35 BP 126 / 91; Pulse 85; Resp 16 S; Pulse Ox 97% on R/A; bb 01:28 BP 114 / 88; Pulse 84; Resp 16 S; Temp 97.6(TE); Pulse Ox 96% on R/A; bb 02:44 BP 130 / 98; Pulse 81; Resp 17 S; Pulse Ox 95% on R/A; Pain 0/10; jd3 10/22 21:30 Body Mass Index 21.51 (73.94 kg, 185.42 cm) aj1 MDM: 10/22 21:34 Patient medically screened. rn 10/23 01:13 Differential diagnosis: Nonspecific abd pain, gastritis, viral gastroenteritis, rn gastroenteritis, UGIB. Data reviewed: vital signs, nurses notes, lab test result(s), radiologic studies, CT scan, and as a result, I will admit patient. Counseling: I had a detailed discussion with the patient and/or guardian regarding: the historical points, exam findings, and any diagnostic results supporting the discharge/admit diagnosis, lab results, radiology results, the need for further work-up and treatment in the hospital. Admission orders: after a detailed discussion of the patient's condition and case, the admit orders are written by me. 10/22 21:35 Order name: Basic Metabolic Panel; Complete Time: 23:37 rn 10/22 21:35 Order name: CBC with Diff; Complete Time: 23:37 rn 10/22 21:35 Order name: Hepatic Function; Complete Time: 23:37 rn 10/22 21:35 Order name: Lipase; Complete Time: 23:37 rn 10/22 21:35 Order name: Urine Microscopic Only rn 10/22 21:35 Order name: Protime (+inr); Complete Time: 23:37 rn 10/22 21:35 Order name: Ptt, Activated; Complete Time: 23:37 rn 10/22 22:40 Order name: Manual Differential; Complete Time: 23:37 EDMS 10/23 00:17 Order name: Abdomen EDMS 10/22 21:35 Order name: IV Saline Lock; Complete Time: 22:32 rn 10/22 21:35 Order name: Labs collected and sent; Complete Time: 22:32 rn Administered Medications: 10/22 23:34 Drug: Zofran 4 mg Route: IVP; Site: right antecubital; jd3 10/23 02:48 Follow up: Response: No adverse reaction; Nausea is decreased jd3 10/22 23:35 Drug: Rocephin - (cefTRIAXone) 1 grams Route: IVPB; Infused Over: 30 mins; Site: right jd3 antecubital; 10/23 02:48 Follow up: Response: No adverse reaction; IV Status: Completed infusion jd3 10/22 23:36 Drug: Octreotide Infusion (50 mcg/hr) - (Octreotide 500 mcg, NS 0.9% 500 ml) Route: IV; jd3 Rate: 50 ml/hr; Site: left antecubital; 10/23 02:49 Follow up: Response: No adverse reaction; IV Status: Infusion continued upon admission jd3 10/22 23:37 Drug: ProTONIX 40 mg Route: IVP; Site: right antecubital; jd3 10/23 02:49 Follow up: Response: No adverse reaction jd3 10/22 23:37 Drug: ProTONIX 8 mg/hr Route: IV; Rate: 25 ml/hr; Site: right antecubital; jd3 10/23 02:49 Follow up: Response: No adverse reaction; IV Status: Infusion continued upon admission jd3 10/22 23:37 Drug: Octreotide 50 mcg Route: IV; Rate: calculated rate; Site: left antecubital; jd3 10/23 02:49 Follow up: Response: No adverse reaction; IV Status: Completed infusion jd3 00:06 Drug: NS 0.9% 500 ml Route: IV; Rate: bolus; Site: left antecubital; jd3 02:48 Follow up: Response: No adverse reaction; IV Status: Completed infusion; IV Intake: jd3 500ml Disposition: 10/23/17 01:14 Hospitalization ordered by Cherie Sidhu for Inpatient Admission. Preliminary diagnosis is Hematemesis. - Bed requested for Telemetry/MedSurg (Inpatient). - Status is Inpatient Admission. jd3 - Condition is Stable. - Problem is new. - Symptoms have improved. UTI on Admission? No Signatures: Dispatcher [employer] [facility] Roberta Solano RN RN aj1 Irma Medina RN Nicholas Camacho MD MD rn Davies, Jonathon, RN RN jd3 Corrections: (The following items were deleted from the chart) 10/22 23:23 21:36 Creatinine for Radiology+C.LAB.BRZ ordered. [facility] 10/23 00:17 10/22 21:36 Abdomen Pelvis W Con+CT.RAD.BRZ ordered. [facility] 10/23 01:21 01:14 Hospitalization Ordered by Cherie Sidhu MD for Inpatient Admission. Preliminary diagnosis is Hematemesis. Bed requested for Telemetry/MedSurg (Inpatient). Status is Inpatient Admission. Condition is Stable. Problem is new. Symptoms have improved. UTI on Admission? No. rn 03:16 01:21 10/23/2017 01:14 Hospitalization Ordered by Cherie Sidhu MD for Inpatient jd3 Admission. Preliminary diagnosis is Hematemesis. Bed requested for Telemetry/MedSurg (Inpatient). Status is Inpatient Admission. Condition is Stable. Problem is new. Symptoms have improved. UTI on Admission? No. mw
[2017-10-23] MEDS ORDERED: MORPHINE 2 MG/ML SYR IV PRN (02:31)
[2017-10-23] MEDS ORDERED: NA CHLORIDE 0.9% 250 ML IV SCH (03:00)
[2017-10-23] MEDS ORDERED: PANTOPRAZOLE INJ 80 MG in NA CHLORIDE 0.9% 250 ML IV SCH (03:00)
[2017-10-23 03:27] VITALS: O2SAT 95
[2017-10-23] MEDS ORDERED: MORPHINE 4 MG/ML SYR ONE (03:34)
[2017-10-23 03:56] VITALS: BMI 19.9
[2017-10-23] MEDS: NA CHLORIDE 0.9% 1,000 ML IV SCH ×3 (04:06→21:43)
[2017-10-23] MEDS: ONDANSETRON 4 MG/2 ML VIAL IV PRN (04:07)
[2017-10-23 04:27] LABS: Hematocrit 44.3 % (39.6-49.0)
[2017-10-23] MEDS ORDERED: MORPHINE 4 MG/ML SYR IV PRN (07:31)
[2017-10-23 07:45] LABS: Hematocrit 42.4 % (39.6-49.0)
[2017-10-23 07:56] LABS: Potassium 3.9 mEq/L (3.6-5.0)
[2017-10-23] MEDS: PANTOPRAZOLE INJ 80 MG in NA CHLORIDE 0.9% 250 ML IV SCH ×2 (08:34→18:15)
--- NOTE | 2017-10-23 10:33 | RAD REPORT ---
EXAM DESCRIPTION: CT - Abdomen Pelvis Wo Contrast - 10/23/2017 3:20 am CLINICAL HISTORY: Abdominal pain with vomiting COMPARISON: None TECHNIQUE: Computed axial tomography of the abdomen and pelvis was obtained. IV contrast was not req uested. A preliminary report was generated by [employer] and reviewed prior to this dictation All CT scans are performed using dose optimization technique as appropriate and may include automated exposure control or mA/KV adjustment according to patient size. FINDINGS: The evaluation of solid organs, and vessels is limited secondary to the lack of contrast administration. A cirrhotic liver is present. The spleen is mildly enlarged. There is no evidence of diverticulitis. A a moderate amount of stool is present within the colon. Postsurgical changes involve the spine. A neurostimulator device is in place. IMPRESSION: Cirrhosis Moderate amount of stool within the colon
--- NOTE | 2017-10-23 10:36 | P.HP ---
Certification for Inpatient Patient admitted to: Inpatient With expected LOS: >2 Midnights Patient will require the following post-hospital care: None Practitioner: I am a practitioner with admitting privileges, knowledge of patient current condition, hospital course, and medical plan of care. Services: Services provided to patient in accordance with Admission requirements found in Title 42 Section 412.3 of the Code of Federal Regulations Patient History Date of Service: 10/23/17 Reason for admission: Upper GI bleeding History of Present Illness: Patient is a 52-year-old gentleman who came to the hospital with upper GI bleeding. Patient had bright red blood in his vomit. Patient recently moved here from [facility], [place]. He was in the hospital less than a year ago for upper GI bleeding. He states he has had some bleeding issues related to his alcohol use. He quit in 1998. He has also has some liver disease and has clubbing in both of his hands. He had a partial pneumonectomy from what he describes as an infection. It was felt that patient may have a malignancy but his pneumonectomy did not reveal any cancer. Patient does not take any medicine for gastritis. Will go ahead and admit patient put him on a PPI. Monitor his H &H. Allergies No Known Allergies Allergy (Verified 10/23/17 04:25) Home Medications: Albuterol Sulfate [Ventolin Hfa] 2 puff IH Q4H PRN 10/23/17 Aspirin [Adult Aspirin] 81 mg PO DAILY 10/23/17 Atorvastatin Calcium 20 mg PO BEDTIME 10/23/17 Hydrocodone Bit/Acetaminophen [Hydrocodon-Acetaminoph 7.5-325] 1 each PO Q12H PRN 10/23/17 Insulin Glargine,Hum.rec.anlog [Lantus] 20 unit SQ DAILY 10/23/17 Levetiracetam [Keppra] 1,000 mg PO BID 10/23/17 Lorazepam [Ativan] 0.25 mg PO BEDTIME 10/23/17 Quetiapine Fumarate [Seroquel] 600 mg PO BEDTIME 10/23/17 Tizanidine HCl 4 mg PO Q12H PRN 10/23/17 Venlafaxine HCl [Effexor XR] 150 mg PO BEDTIME 10/23/17 diazePAM [Diazepam] 10 mg PO TID 10/23/17 traMADol HCL [Ultram*] 50 mg PO Q8H PRN 10/23/17 - Past Medical/Surgical History Has patient received pneumonia vaccine in the past: Yes Diabetic: Yes -: DM -: LUNG MASS-benign -: SEIZURES -: APPY -: CERVICAL FUSION -: LUMBAR FUSION -: R HIP IMPLANT -: DORSAL COLUMN STIMULATOR IMPLANT -: HEAD SX - Family History Father Family History: Reviewed- Non-Contributory - Social History Smoking Status: Current every day smoker Alcohol use: No Caffeine use: Yes Place of Residence: Home Review of Systems 10-point ROS is otherwise unremarkable Physical Examination - Vital Signs Temperature: 98.2 F Blood Pressure: 100/69 Pulse: 76 Respirations: 16 Pulse Ox (%): 97 - Physical Exam General: Alert, In no apparent distress, Oriented x3 HEENT: Atraumatic, PERRLA, Mucous membr. moist/pink, EOMI, Sclerae nonicteric Neck: Supple, 2+ carotid pulse no bruit, No LAD, Without JVD or thyroid abnormality Respiratory: Clear to auscultation bilaterally, Normal air movement Cardiovascular: Regular rate/rhythm, Normal S1 S2, No murmurs Gastrointestinal: Normal bowel sounds, Soft and benign, Non-distended, No tenderness Musculoskeletal: No clubbing, No swelling, No tenderness Integumentary: No rashes Neurological: Normal gait, Normal speech, Normal strength at 5/5 x4 extr, Normal tone, Sensation intact, Cranial nerves 3-12 intact, Normal affect Lymphatics: No axilla or inguinal lymphadenopathy - Studies Laboratory Data (last 24 hrs) 10/22/17 22:10: PT 12.0, INR 1.02, APTT 28.5 10/22/17 22:10: Creatinine Cancelled 10/22/17 22:10: WBC 10.1, Hgb 17.8, Hct 51.2 H, Plt Count 140 L 10/22/17 22:10: Sodium 137, Potassium 3.8, BUN 29 H, Creatinine 1.60 H, Glucose 178 H, Total Bilirubin 0.9, AST 147 H, ALT 135 H, Alkaline Phosphatase 190 H, Lipase 31 Assessment & Plan - Problems (Diagnosis) (1) UGIB (upper gastrointestinal bleed) Current Visit: Yes Status: Acute (2) Type 2 diabetes mellitus Current Visit: Yes Status: Acute (3) History of seizures Current Visit: Yes Status: Acute - Plan Plan: 1. Continue with IV hydration and PPI drip 2. Continue with IV antibiotics 3. Continue with pain control 4. NPO 5. GI consultation 6. Serial H&H, and we will monitor LFTs and lipase along with electrolytes. 7. GI and DVT prophylaxis - Advance Directives Does patient have a Living Will: No Does patient have a Durable POA for Healthcare: No - Code Status/Comfort Care Code Status Assessed: Yes Code Status: Full Code Critical Care: No Time Spent Managing PTS Care (In Minutes): 50
[2017-10-23] MEDS ORDERED: TIZANIDINE 4 MG TABLET PO PRN (10:37)
[2017-10-23 12:14] LABS: Urine Appearance CLEAR; Urine Bilirubin NEGATIVE (NEG); Urine Blood NEGATIVE (NEG); Urine Color YELLOW; Urine Glucose NEGATIVE (NEG); Urine Protein 1+ (NEG); Urine Urobilinogen 0.2 mg/dL (0.2-1.0); Urine pH 5.5 (5.0-7.0)
[2017-10-23 12:20] LABS: Urine Microscopic Reflex ORDER UMIC
[2017-10-23 12:27] LABS: Urine RBC <5 /HPF (NONE SEEN)
[2017-10-23 12:28] LABS: Urine Amorphous Sediment 1+ /HPF (NONE SEEN); Urine Bacteria NONE SEEN /HPF (NONE SEEN); Urine Culture Reflex Order NOT NEEDED; Urine Mucus MOD /HPF (NONE SEEN)
[2017-10-23] MEDS: DIAZEPAM 5 MG TABLET PO SCH ×2 (13:07→16:48)
[2017-10-23] MEDS: MORPHINE 4 MG/ML SYR IV PRN ×3 (13:09→21:40)
[2017-10-23] MEDS ORDERED: VENLAFAXINE HCL XR 75 MG CAP PO SCH (21:00)
[2017-10-23] MEDS ORDERED: QUETIAPINE 100MG TAB PO SCH (21:00)
[2017-10-23] MEDS: levETIRAcetam 500 MG TAB PO SCH (21:41)
[2017-10-24] MEDS: MORPHINE 4 MG/ML SYR IV PRN ×4 (01:48→14:22)
[2017-10-24] MEDS: PANTOPRAZOLE INJ 80 MG in NA CHLORIDE 0.9% 250 ML IV SCH (04:00)
[2017-10-24 06:30] LABS: Absolute Lymphocytes (CBC) 1.4 K/uL (0.7-4.9); Absolute Monocytes 0.5 K/uL (0.1-1.3); Absolute Neutrophil 3.2 K/uL (1.8-8.0); Basophils % 1.1 % (0-1.3); Eosinophils % 5.8 % (0-4.4); Hematocrit 39.5 % (39.6-49.0); MCH 32.1 pg (27.0-35.0); MCV 94.4 fL (80-100); MPV 9.4 fL (7.6-11.3); Monocytes % 9.2 % (3.3-12.3); RBC Red Blood Cell Count 4.18 M/uL (4.33-5.43)
[2017-10-24 06:45] LABS: Bilirubin Total 0.7 mg/dL (0.3-1.2); Magnesium 1.9 mg/dL (1.8-2.5); Phosphorus 2.2 mg/dL (2.5-4.3); Potassium 3.7 mEq/L (3.6-5.0)
[2017-10-24 06:52] LABS: Protime INR 1.08
[2017-10-24 08:14] LABS: Blood Morphology Comment NOT SEEN (NOT SEEN); Platelet Estimate DECR; Urine White Blood Cell Casts OK
[2017-10-24] MEDS ORDERED: D50W 25 GM/50 ML SYRINGE IV ONE (08:51)
[2017-10-24] MEDS ORDERED: INSULIN DETEMIR 100 UNIT/1 ML INSULIN SQ SCH (09:00)
[2017-10-24] MEDS: NA CHLORIDE 0.9% 1,000 ML IV SCH (09:00)
[2017-10-24] MEDS ORDERED: D5 0.9 NS 1,000 ML IV SCH (09:00)
[2017-10-24] MEDS: levETIRAcetam 500 MG TAB PO SCH (10:12)
[2017-10-24] MEDS: DIAZEPAM 5 MG TABLET PO SCH ×2 (10:12→14:25)
[2017-10-24] MEDS: ONDANSETRON 4 MG/2 ML VIAL IV PRN ×2 (10:14→14:25)
[2017-10-24] MEDS ORDERED: SODIUM CHLORIDE 0.9% 10ML INJ IV PRN (11:14)
[2017-10-24 12:13] VITALS: TEMP 97.6
[2017-10-24 17:06] VITALS: BP 131/73
[2017-10-24] MEDS ORDERED: PANTOPRAZOLE 40 MG INJ IVP SCH (21:00)
== END 2017-10-24 18:21 | disposition home or self-care (01) ==
LOC: ER 21:11 → INTOOBSV 10-23 02:10 → ERHOLD 10-23 02:10 → 4TH 10-23 02:39
PROVIDERS: ADMIT Hospitalist; ATTEND Hospitalist
DX: K92.2 Gastrointestinal hemorrhage, unspecified (principal); E11.9 Type 2 diabetes mellitus without complications; F17.210 Nicotine dependence, cigarettes, uncomplicated
CPT/HCPCS: 36415 ×2; 74176; 80048 ×2; 80053; 80076; 82962 ×4; 83690; 83735; 84100; 85014 ×2; 85018 ×3; 85025 ×2; 85610 ×2; 85730 ×2; 99285; C9113 ×2; G0378 ×2; J0696; J2354 ×2; J2405 ×4; J7030 ×3; 81003; 81015

== ENCOUNTER 2017-10-25 09:40 | Observation (INO) | payer OTHER ==
--- OUTSIDE RECORDS SUMMARY | 2017-10-25 09:43 | XMS REPORT | Clinical Summary ---
:1965 Author Organization [facility] Address [address] [place] [address] Care Team Providers Name Role Phone Asked, [...] Overview: Added automatically from request for surgery [id number] Gastrointestinal hemorrhage 02/23/2017 Gastrointestinal hemorrhage with hematemesis 02/23/2017 Overview: Added automatically from request for surgery [id number] Vertigo 12/19/2016 Pneumonia due to infectious organism [...] Osiel Paul MD 09/21/19 Emergency Emergency Medicine [place] Chronic right-sided thoracic back pain (Primary Dx); 18 Cynthia, Narcotic abuse; Karen Drug-seeking behavior MD Joselito 08/09/19 Hospital Radiology Eduard Ingram (bronchogenic carcinoma) 18 Encounter MD Meaghan 07/22/19 Transcribe Access Eduard Ingram (bronchogenic carcinoma) 18 Orders MD Meaghan (Primary Dx) 07/16/19 Emergency General Internal Quinn Spears Sciatica of left side ( Primary Dx); 18 - Harsi Koo MD Intractable pain 07/17/19 Nadeen, MD [...] Pass Gastroenterology 18 05/18/19 Surgery Gastroenterology [facility] [employer] ESOPHAGOGASTRODUODENOSCOPY Yun Pickering MD (EGD) with bx 05/12/20 [facility] Intractable vomiting with nausea, unspecified vomiting type [...] 17 02/26/20 Procedure Pass Gastroenterology 17 02/24/20 [facility] Gastrointestinal hemorrhage with hematemesis (Primary Dx); 17 [...] 17 Leonardo Lehman MD (Primary Dx) 12/20/19 [facility], Vertigo (Primary Dx); 17 - Encounter Medicine Osiel Warner, Acute nonintractable headache, unspecified headache type; 12/23/19 DO Lactic acidosis; 17 Mcghee, Rosie Pneumonia due to infectious organism, unspecified laterality, unspecified part of lung; MD Fallon Pneumonia of right upper lobe due to infectious organism 12/08/19 [facility] General Internal Quinn Spears Pneumonia due to infectious organism, unspecified laterality, unspecified part of lung (Primary Dx); 17 - Encounter Medicine MD Hayes Shortness of breath; 12/16/19 [facility] Pneumonia of right middle lobe due to infectious organism 17 MD Taz Baltazar, Rosie Lehman MD 12/08/[address] [facility] 17 Farideh Rachel MA 12/07/19 [facility] Internal [employer], Pneumonia of right lower lobe 17 - Encounter Medicine MD Albert due to infectious organism 12/08/19 German Lambert (Primary Dx) 17 MD Delaney 12/01/19 Orders Only Cardiovascular Finglejoão, Shortness of breath (Primary 17 MAURY Mueller Dx) 11/25/19 Anesthesia General Surgery [facility], Event Joel Brennan MD 11/25/19 Procedure Pass General Surgery 17 11/25/19 Surgery General Surgery O'Billy, Right Lobectomy, Using Vats, 17 Anshu Valenzuela WEDGE RESECTION, FROZEN MD Brandan BIOPSY-RIGHT 11/24/19 [facility] Pulmonology India Elizabeth 17 Encounter KAZ Nunez 11/23/19 [facility] Critical Care [facility], COPD exacerbation (Primary Dx); 17 - Encounter Medicine Farzaneh Lung mass; 11/28/19 MD Kiran Bronchitis, chronic obstructive, with exacerbation 17 David Griffiths MD Burns, Rosie Lehman MD 11/20/19 Telephone Cardiothoracic Avelino, Surgery [facility] [place] [place] 11/19/19 Hospital Procedural O'Billy, Shortness of breath; [...] Surgery Procedural Hernandes, Ep cardioversion w shelbi [[id number] Cardiology Colette (CPT)] MD Lenny 11/12/19 Transcribe Access Hernandes, Mass in chest (Primary Dx) 17 Orders Colette Galvez MD 11/12/19 Procedure Pass General Surgery 17 11/06/19 [facility] General Internal Lester Lunacorie Pneumonia of right lower lobe due to infectious organism (Primary Dx); 17 - Encounter Medicine DO Jose Tachycardia; 11/10/19 Mcghee, Rosie Hypoxia; 17 MD Fallon Lung mass 11/06/19 Transcribe Access Sashital, Secondary malignant neoplasm of left lung (Primary Dx); 17 Orders Juanita Garcia, Lung mass 11/02/19 [facility] Radiology [place], 17 Encounter Ag Guerra III, MD 11/02/19 [facility] Radiology [place], 17 Encounter Ag Guerra III, MD 11/02/19 [facility] Radiology [place], 17 Encounter Ag Guerra III, MD 11/02/19 [facility] Radiology Sash[place], Lung mass 17 Encounter Juanita [...] Dx) 17 Orders Juanita Garcia MD 10/27/19 [facility] Radiology Sashital, Nonspecific abnormal results of liver function study; 17 Encounter Juanita Garcia Lung mass after 10/24/2016 Immunizations Name Dates Previously Given Next Due [...] VACCINE 12/14/2017 05/19/2017 Implants Implanted Type Area Career Services Coordinator Device Expiration Model / Identifier Date Serial / Lot Stimulator Stimulator Stimulator-10/30/2006 Stimulator Hip Implanted: 10/30/2006 (Quantity not on file) Kit [employer] Air Leak 4ml Strl Progel - [id number] Surgical N/A: N/A [employer] [id number] / Implanted: Qty: 1 on 11/24/2016 by Anshu Sainz Jr., MD Implants; / Expanders; Extenders; Surgical Wires Dorsal Colum Stimulator Dorsal Column Stimulator Dorsal Colum Stimulator-11/05/2006 Lower: Implanted: 11/05/2006 (Quantity not on file) Back, Other than Spine Procedures Procedure Name Priority Date/Time Associated Comments Diagnosis ESOPHAGOGASTRODUODENOSCOPY (EGD) 05/18/2017 Abdominal pain, with bx 12:15 PM [facility]CH OR DEPARTMENT CHIEF LIBRARIAN unspecified abdominal 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 HC US GUIDED VASCULAR ACCESS Routine 12/12/2016 Results for 12:19 PM CDT this procedure are in the results section. HC CVL PICC INSERT 5 YRS OR > Routine 12/12/2016 Results for 12:19 PM CDT this procedure are in the results section. RI AN ELECTIVE ENDOTRACHEAL Routine 11/24/2016 AIRWAY 8:51 [...] DOPPLER Mass of lower lobe the results ([id number]) of right lung section. RI CRITICAL CARE, E/M Routine 11/06/2016 8:18 PM Results for this 30-74 MINUTES CDT procedure are in the results section. after 10/24/2016 Results Urinalysis screen and microscopy, with reflex [...] UA None seen Specimen Performing Laboratory Urine [facility] DEPARTMENT OF PATHOLOGY AND GENOMIC MEDICINE [address] [place] [address] Urine drugs of abuse screen (10/07/2017 9:16 AM)Only the most recent of3 resultswithin the time period is included. Component Value Ref Range Amphetamine screen, urine NEG Barbiturate screen, urine NEG Benzodiazepine screen, urine POS Cocaine screen, urine NEG Methadone screen, urine NEG Opiates screen, urine POS Phencyclidine screen, urine NEG Cannabinoid screen, urine POS Comment: Drug screen minimum concentration of detectability Umyyfvgumiwm0484 ng/mL Enhbkjznleqcrazx5848 ng/mL Barbiturates 300 ng/mL Sziffyfmnelenln538 ng/mL Wrmehpn232 ng/mL Jdqolsyhg127 ng/mL Nrzrkwy302 ng/mL Phencyclidine 25 ng/mL Pfupbevmkprw92 ng/mL Xhblzfjwyb3155 ng/mL Negative test results indicates presumptive evidence of lack of clinically significant drug concentration in this urine specimen. Positive test results are presumptive evidence of clinically significant drug concentration in this urine specimen. Testing performed for medical purposes only. Specimen Performing Laboratory Urine [facility] DEPARTMENT OF PATHOLOGY AND GENOMIC MEDICINE [address] [place] [address] Urine culture (10/07/2017 9:16 AM)Only the most recent of5 resultswithin the time period is included. Component Value Ref Range Urine culture SEE COMMENTComment: Bacteriuria screen negative. Specimen Performing Laboratory Urine [facility] DEPARTMENT OF PATHOLOGY AND GENOMIC MEDICINE [address] [place] [address] Estimated GFR (10/07/2017 9:02 AM)Only the most [...] and Americans. Specimen Performing Laboratory Plasma specimen [facility] DEPARTMENT OF PATHOLOGY AND GENOMIC MEDICINE [address] [place] [address] CBC with platelet and differential (10/07/2017 9:02 [...] - 1.0 % Specimen Performing Laboratory Blood [facility] DEPARTMENT OF PATHOLOGY AND [employer] MEDICINE [address] [place] [address] Thyroid stimulating hormone (10/07/2017 9:02 AM)Only the most recent of2 resultswithin the time period is included. Component Value Ref Range TSH 2.60 0.38 - 4.82 uIU/mL Specimen Performing Laboratory Plasma specimen [facility] DEPARTMENT OF PATHOLOGY AND GENOMIC MEDICINE [address] [place] [address] T4, free (10/07/2017 9:02 AM) Component Value Ref Range T4, free 1.00 0.70 - 1.61 ng/dL Specimen Performing Laboratory Plasma specimen [facility] DEPARTMENT OF PATHOLOGY AND GENOMIC MEDICINE [address] [place] [address] Alcohol level, blood (10/07/2017 9:02 AM)Only the most recent of2 resultswithin the time period is included. Component Value Ref Range Alcohol None Detected mg/dL Comment: NormalNone Detected Legal Intoxication in [place] 80 mg/dL (0.08%) Toxic Concentration 200 mg/dL (0.2%) Potentially Fatal 350-500 mg/dL (0.35%-0.5%) Alcohol percent None Detected % Specimen Performing Laboratory Blood [facility] DEPARTMENT OF PATHOLOGY AND GENOMIC MEDICINE [address] [place] [address] Acetaminophen level (10/07/2017 9:02 AM) Component Value Ref Range Acetaminophen level <2.0 (L) 10.0 - 20.0 ug/mL Comment: Therapeutic 10-30 ug/mL Possible Toxicity 150-200 ug/mL Probable Toxicity >200 ug/mL Specimen Performing Laboratory Blood [facility] DEPARTMENT OF PATHOLOGY AND GENOMIC MEDICINE [address] [place] [address] Salicylate level (10/07/2017 9:02 AM) Component Value Ref Range Salicylate 7.0 mg/dL Comment: Therapeutic Range: 5 - 30 mg/dL Specimen Performing Laboratory Blood [facility] DEPARTMENT OF PATHOLOGY AND GENOMIC MEDICINE [address] [place] [address] Comprehensive metabolic panel (10/07/2017 9:02 AM)Only the [...] 1.2 mg/dL Specimen Performing Laboratory Plasma specimen [facility] DEPARTMENT OF PATHOLOGY AND GENOMIC MEDICINE [address] [place] [address] CT Abdomen Pelvis Wo Contrast (09/20/2017 3:27 AM)Only the most recent of3 resultswithin the time period is included. Specimen Performing Laboratory [facility] [address] [place] [address] Narrative EXAMINATION:CT ABDOMEN PELVIS WO CONTRAST CLINICAL [...] small paraesophageal varices, compatible with portal hypertension. [facility]-[id number] Procedure Note Interface, Radiology Results Incoming - [...] small paraesophageal varices, compatible with portal hypertension. [facility]-[id number] Smear review (09/20/2017 3:13 AM)Only the most recent of5 resultswithin the time period is included. Component Value Ref Range Smear review Smear Reviewed Specimen Performing Laboratory [facility] DEPARTMENT OF PATHOLOGY AND GENOMIC MEDICINE [address] [place] [address]. [place] [address] Prothrombin time with INR (09/20/2017 3:13 AM)Only [...] values over 4.0. Specimen Performing Laboratory Blood [facility] DEPARTMENT OF PATHOLOGY AND GENOMIC MEDICINE [address] [place] [address]. [place] [address] Lipase level (09/20/2017 3:13 AM)Only the most recent of7 resultswithin the time period is included. Component Value Ref Range Lipase 129 65 - 230 U/L Specimen Performing Laboratory Plasma specimen [facility] DEPARTMENT OF PATHOLOGY AND GENOMIC MEDICINE [address] [place] [address]. [place] [address] ECG 12 lead (09/20/2017 2:43 AM)Only the most recent of13 resultswithin the time period is included. Component Value Ref Range Ventricular rate 77 Atrial rate 77 RI interval 144 QRSD interval 94 QT interval 418 QTC interval 473 P axis 1 32 QRS axis 1 94 T wave axis 85 EKG impression Normal sinus rhythm-Rightward axis-Borderline ECG-In automated comparison with ECG of 06-JUL-2017 18:18,-No significant change was found- Specimen Performing Laboratory [facility] [address]USE [address] [place] [address] ECG ED Preliminary Interpretation - NOT AN ORDER (09/20/2017 2:07 AM)Only the most recent of6 resultswithin the time period is included. Narrative Karen Brantley MD 09/21/20173:47 AM ECG ED Preliminary Interpretation - Not an Order Performed by: KAREN BRANTLEY Authorized by: KAREN BRANTLEY ECG reviewed by ED Physician in the absence of a medical hospital sales: yes Previous ECG: Previous ECG:Compared to current Comparison ECG info:06/16/17 Similarity:No change Interpretation: Interpretation: normal Rate: ECG rate:77 ECG rate assessment: normal Rhythm: Rhythm: sinus rhythm QRS: QRS axis:Right Comments: Normal sinus rhythm. Right axis deviation. PET/CT Skull Base To Mid Thigh (08/08/2017 1:45 PM)Only the most recent of2 resultswithin the time period is included. Specimen Performing Laboratory [facility] [address] [place] [address] Narrative EXAMINATION: PET CT SKULL BASE TO MID THIGH Date and place of service: 08/08/2017 10:00 AM at [facility] DOSE: 11.8 mCi of 82-Gmvxwb-2-Deoxyglucose (FDG) was injected intravenously into left wrist done infiltration at a serum glucose level of90 mg/dl. TECHNIQUE: PROCEDURE: Following injection of 49-Drbilv-0-Deoxyglucose (FDG) and a standard uptake., The patient was imaged on a [employer] whole body PET CT scanner. Multiple 6 [...] dose COMPARISON: October 26, 2016 done at [facility]. 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 Status post right lower lobectomy November,. No history of recent chemotherapy or radiation therapy. For restaging. FINDINGS: Software [facility] with the CAT scan from [...] arterial hypertension as before. Cirrhosis as before. [id number] Procedure Note [facility], Radiology Results Incoming - 08/08/2017 4:30 PM CDT EXAMINATION: PET CT SKULL BASE TO MID THIGH Date and place of service: 08/08/2017 10:00 AM at [facility] DOSE: 11.8 mCi of 10-Ecefvx-5-Deoxyglucose (FDG) was injected intravenously into left wrist done infiltration at a serum glucose level of 90 mg/dl. TECHNIQUE: PROCEDURE: Following injection of 66-Lcxekc-0-Deoxyglucose (FDG) and a standard uptake., The patient was imaged on a [employer] whole body PET CT scanner. Multiple 6 [...] dose COMPARISON: October 26, 2016 done at [facility]. CLINICAL HISTORY: Bronchogenic carcinoma on the right [...] arterial hypertension as before. Cirrhosis as before. [id number] POC glucose (08/08/2017 11:36 AM)Only the most recent of147 resultswithin the time period is included. Component Value Ref Range POC glucose 90 65 - 100 mg/dL Comment: Meter ID: [id number] Nitroglycerin Nitrator Operator Batch: [id number] Specimen Performing Laboratory [facility] DEPARTMENT OF PATHOLOGY AND GENOMIC MEDICINE [address] [place] [address] Keppra (Levetiracetam) level (07/16/2017 5:13 AM) Component Value Ref Range Levetiracetam 27 12 - 46 ug/mL Comment: INTERPRETIVE INFORMATION: Keppra (Levetiracetam) Therapeutic Range:12-46 ug/mL Toxic:Not well Established Pharmacokinetics of levetiracetam are affected by renal function. Adverse effects may include somnolence, weakness, headache and vomiting. Performed by [employer], [address] [place] [id number] [email or web address], Joni Roper MD - Lab. Director Specimen Performing Laboratory Serum [facility] [address] [place] [address] Basic metabolic panel (07/16/2017 5:13 AM)Only the [...] 10.7 mg/dL Specimen Performing Laboratory Plasma specimen [facility] DEPARTMENT OF PATHOLOGY AND GENOMIC MEDICINE [address] [place] [address] Hepatic function panel (07/15/2017 8:14 PM) Component Value Ref Range Albumin 3.8 3.2 - 5.0 g/dL Total bilirubin 0.8 0.2 - 1.2 mg/dL Bilirubin direct 0.2 0.0 - 0.4 mg/dL Alkaline phosphatase 231 (H) 30 - 120 U/L Protein 9.7 (H) 6.3 - 8.2 g/dL ALT 17 (L) 30 - 65 U/L AST 29 15 - 37 U/L Specimen Performing Laboratory Plasma specimen [facility] DEPARTMENT OF PATHOLOGY AND GENOMIC MEDICINE [address] [place] [address] CT Lumbar Spine Wo Contrast (07/15/2017 5:12 PM) Specimen Performing Laboratory [facility] [address] [place] [address] Narrative EXAMINATION: CT LUMBAR SPINE WO CONTRAST [...] canal and neural foraminal stenosis at L3-4. [id number] Procedure Note Hm Interface, Radiology Results Incoming - 07/15/2017 5:24 PM [facility]CH OR DEPARTMENT CHIEF LIBRARIAN EXAMINATION: CT LUMBAR SPINE WO CONTRAST CLINICAL [...] canal and neural foraminal stenosis at L3-4. [id number] Partial thromboplastin time, activated (07/15/2017 12:29 PM)Only [...] validate this result. Specimen Performing Laboratory Blood [facility] DEPARTMENT OF PATHOLOGY AND GENOMIC MEDICINE [address] [place] [address] Creatine kinase, total (CPK) (07/06/2017 6:29 PM)Only the most recent of3 resultswithin the time period is included. Component Value Ref Range Creatine kinase 134 61 - 224 U/L Specimen Performing Laboratory Plasma specimen [facility] DEPARTMENT OF PATHOLOGY AND GENOMIC MEDICINE [address] [place] [address] [address] Head Wo Contrast (07/06/2017 6:19 PM)Only the most recent of2 resultswithin the time period is included. Specimen Performing Laboratory [facility] [address] [place] [address] Narrative EXAMINATION: CT HEAD WO CONTRAST CLINICAL [...] sinuses. IMPRESSION: No acute intracranial abnormality identified. [id number] Procedure Note Hm Interface, Radiology Results Incoming - 07/06/2017 6:27 PM BRANCH OR DEPARTMENT CHIEF LIBRARIAN EXAMINATION: CT HEAD WO CONTRAST CLINICAL HISTORY: [...] sinuses. IMPRESSION: No acute intracranial abnormality identified. [id number] Surgical pathology request (05/18/2017 1:28 PM)Only the most recent of4 resultswithin the time period is included. Component Value Ref Range Surgical pathology report See link below for PDF Lab Report Result status This is Final Report to [id number] Specimen Performing Laboratory [facility] DEPARTMENT OF PATHOLOGY AND GENOMIC MEDICINE [address] [place] [address] Magnesium level (05/17/2017 5:59 AM)Only the most recent of4 resultswithin the time period is included. Component Value Ref Range Magnesium 2.00 1.60 - 2.40 mg/dL Specimen Performing Laboratory Plasma specimen [facility] DEPARTMENT OF PATHOLOGY AND GENOMIC MEDICINE [address] [place] [address] XR Chest 2 Vw (05/14/2017 7:47 PM)Only the most recent of4 resultswithin the time period is included. Specimen Performing Laboratory [facility] [address] [place] [address] Narrative EXAMINATION:XR CHEST 2 VW CLINICAL HISTORY:sob cough todayleukocytosisR basilar crackles IMPRESSION: Aortic arch calcified. Heart size is normal. Lungs are clear of acute infiltrate. There has been a prior partial pulmonary resection in the right side. There are no effusions. There is an intraspinal catheter present, and there is hardware in cervical spine. [facility]-[id number] Procedure Note Interface, Radiology Results Incoming - 05/14/2017 8:23 PM BRANCH OR DEPARTMENT CHIEF LIBRARIAN EXAMINATION: XR CHEST 2 VW CLINICAL HISTORY: sob cough today leukocytosis R basilar crackles IMPRESSION: Aortic arch calcified. Heart size is normal. Lungs are clear of acute infiltrate. There has been a prior partial pulmonary resection in the right side. There are no effusions. There is an intraspinal catheter present, and there is hardware in cervical spine. [facility]-[id number] Troponin (05/12/2017 7:33 PM)Only the most recent [...] myocardial injury. Specimen Performing Laboratory Plasma specimen [facility] DEPARTMENT OF PATHOLOGY AND GENOMIC MEDICINE [address] [place] [address] Influenza antigen (05/12/2017 3:58 PM) Component Value Ref Range Influenza antigen Negative for Influenza A/B antigen. Comment: Specimen Information Specimen Source: Nares Specimen Site: Right Specimen Performing Laboratory Nares - Right [facility] DEPARTMENT OF PATHOLOGY AND GENOMIC MEDICINE [address] [place] [address] B natriuretic peptide (05/12/2017 3:45 PM)Only the most recent of2 resultswithin the time period is included. Component Value Ref Range BNP 43 0 - 100 pg/mL Specimen Performing Laboratory Blood [facility] DEPARTMENT OF PATHOLOGY AND GENOMIC MEDICINE [address] [place] [address] US Abdomen Complete (02/25/2017 7:28 AM) Specimen Performing Laboratory [facility] [address] [place] [address] Narrative EXAM: US ABDOMEN COMPLETE CLINICAL DATA:ABDOMINAL [...] 1. Cirrhosis with splenomegaly. 2.Status post cholecystectomy. [id number] Procedure Note Interface, Radiology Results Incoming - [...] Cirrhosis with splenomegaly. 2. Status post cholecystectomy. [id number] Total iron binding capacity (02/25/2017 5:33 AM)Only the most recent of2 resultswithin the time period is included. Component Value Ref Range Iron level 86 76 - 198 ug/dL Iron binding capacity 252 (L) 271 - 474 ug/dL % Saturation 34.1 20.0 - 40.0 % Specimen Performing Laboratory Blood [facility] DEPARTMENT OF PATHOLOGY AND GENOMIC MEDICINE [address] [place], [place] [id number] Hepatitis C antibody (02/25/2017 5:33 AM)Only the most recent of2 resultswithin the time period is included. Component Value Ref Range Hepatitis C Ab Non-reactive Non-reactive Specimen Performing Laboratory Blood [facility] DEPARTMENT OF PATHOLOGY AND GENOMIC MEDICINE [address] [place] [address] Alpha-1 antitrypsin level (02/25/2017 5:33 AM)Only the most recent of2 resultswithin the time period is included. Component Value Ref Range Alpha-1 antitrypsin 134 90 - 200 mg/dL Specimen Performing Laboratory Plasma specimen [facility] DEPARTMENT OF PATHOLOGY AND [facility] MEDICINE [address] [place] [address] Hepatitis A antibody IgM (02/25/2017 5:33 AM) Component Value Ref Range Hepatitis A IgM Non-reactive Non-reactive Specimen Performing Laboratory Blood [facility] DEPARTMENT OF PATHOLOGY AND GENOMIC MEDICINE [address] [place] [address] Ceruloplasmin level (02/25/2017 5:33 AM)Only the most recent of2 resultswithin the time period is included. Component Value Ref Range Ceruloplasmin 26 15 - 30 mg/dL Specimen Performing Laboratory Plasma specimen [facility] DEPARTMENT OF PATHOLOGY AND GENOMIC MEDICINE [address] [place] [address] Alpha fetoprotein (02/25/2017 5:33 AM)Only the most recent of2 resultswithin the time period is included. Component Value Ref Range Alpha fetoprotein 3.5 0.0 - 8.3 ng/mL Comment: The Kelly 8000 AFP immunoassay was used. Results obtained with different assay methods or kits should not be used interchangeably and may be different. Specimen Performing Laboratory Serum [facility] DEPARTMENT OF PATHOLOGY AND [facility] MEDICINE [address] [place] [address] Hepatitis B core antibody IgM (02/25/2017 5:33 AM)Only the most recent of2 resultswithin the time period is included. Component Value Ref Range Hepatitis B core IgM Non-reactive Non-reactive Specimen Performing Laboratory Blood [facility] DEPARTMENT OF PATHOLOGY AND [facility] MEDICINE [address] [place] [address] Hepatitis B surface antibody (02/25/2017 5:33 AM)Only the most recent of2 resultswithin the time period is included. Component Value Ref Range Hepatitis B surface Ab Non-reactive Non-reactive Specimen Performing Laboratory Blood [facility] SYSTEM OF [facility]OLOGY AND [facility] [address] [place] [address]. [place] [address] Hepatitis B surface antigen (02/25/2017 5:33 AM)Only the most recent of2 resultswithin the time period is included. Component Value Ref Range Hepatitis B surface Ag Non-reactive Non-reactive Specimen Performing Laboratory Blood [facility]Y AND [facility] [address] [place] [address] CARLOS (02/25/2017 5:33 AM)Only the most recent of2 resultswithin the time period is included. Component Value Ref Range CARLOS screen Not Detected Not-Detected Specimen Performing Laboratory Blood [facility] PATH[facility] [address] [address] Ferritin level (02/25/2017 5:33 AM)Only the most recent of2 resultswithin the time period is included. Component Value Ref Range Ferritin level 143 18 - 158 ng/mL Specimen Performing Laboratory Serum [facility] DEPARTMENT OF PATHOLOGY AND GENOMIC MEDICINE [address] [place] [address]. [place] [address] CT Abdomen Pelvis W Wo Contrast (02/25/2017 1:34 AM) Specimen Performing Laboratory [address] ABDOMEN PELVIS W WO CONTRAST [...] visualized on liver protocol CT. 2. Splenomegaly. [facility]-[id number] Procedure Note [facility], Radiology Results Incoming - 02/25/2017 1:55 AM [...] visualized on liver protocol CT. 2. Splenomegaly. [facility]-[id number] Ammonia level (02/24/2017 5:45 PM)Only the most recent of2 resultswithin the time period is included. Component Value Ref Range Ammonia 33 3 - 37 umol/L Specimen Performing Laboratory Plasma specimen [facility] DEPARTMENT OF PATHOLOGY AND GENOMIC MEDICINE [address] [place] [address] [place] [address] Anti smooth muscle Ab titer (02/24/2017 1:27 PM) Component Value Ref Range Anti smooth muscle Ab titer 1:80 (A) Not-Detected Specimen Performing Laboratory Blood [facility] DEPARTMENT OF PATHOLOGY AND GENOMIC MEDICINE [address] [place] [address] Anti smooth muscle Ab screen (02/24/2017 1:27 PM) Component Value Ref Range Anti smooth muscle Ab screen Detected (A) Not-Detected Specimen Performing Laboratory Blood [facility] DEPARTMENT OF PATHOLOGY AND GENOMIC MEDICINE [address] [place] [address] Hemoglobin & hematocrit (02/24/2017 1:27 PM) Component Value Ref Range HGB 14.4 13.0 - 17.3 g/dL HCT 44.0 34.0 - 45.0 % Specimen Performing Laboratory Blood [facility] DEPARTMENT OF PATHOLOGY AND GENOMIC MEDICINE [address] [place] [address] [place] [address] Lactic acid level (02/23/2017 10:17 PM)Only the most recent of6 resultswithin the time period is included. Component Value Ref Range Lactic acid 1.4 0.5 - 2.2 mmol/L Specimen Performing Laboratory Blood [facility] DEPARTMENT OF PATHOLOGY AND GENOMIC MEDICINE [address] [place] [address] [place] [address] Bilirubin direct (02/23/2017 7:49 PM)Only the most recent of3 resultswithin the time period is included. Component Value Ref Range Bilirubin direct 0.1 0.0 - 0.4 mg/dL Specimen Performing Laboratory Plasma specimen [facility] DEPARTMENT OF PATHOLOGY AND GENOMIC MEDICINE [address] [place] [address] Narrative LA RESULT CALLED TO GURDEEP CONTEH NP02/23/201720:25 BY RAMONE Amylase level (02/23/2017 7:49 PM)Only the most recent of3 resultswithin the time period is included. Component Value Ref Range Amylase 59 34 - 122 U/L Specimen Performing Laboratory Plasma specimen [facility] DEPARTMENT OF PATHOLOGY AND GENOMIC MEDICINE [address] [place] [address] CT Chest W Contrast Abdomen W Contrast Pelvis W Contrast (02/01/2017 9:31 PM) Specimen Performing Laboratory [facility] [address] [place] [address] Narrative EXAMINATION:CT CHEST W CONTRAST ABDOMEN W [...] with splenomegaly Diverticulosis without evidence of diverticulitis [facility]-[id number] Procedure Note Interface, Radiology Results Incoming - [...] with splenomegaly Diverticulosis without evidence of diverticulitis [facility]-[id number] Vancomycin level, trough (12/20/2016 9:07 AM) Component Value Ref Range Vancomycin, trough 18.9 10.0 - 20.0 ug/mL Comment: Therapeutic Ranges: Peak30.0 - 40.0 ug/mL Rbtcxe02.0 - 20.0 ug/mL Specimen Performing Laboratory Blood [facility] DEPARTMENT OF PATHOLOGY AND GENOMIC MEDICINE [address] [place] [address] [place] [address] XR Chest 1 Vw Portable (12/19/2016 5:27 PM)Only the most recent of15 resultswithin the time period is included. Specimen Performing Laboratory [facility] [address] [place] [address] Narrative EXAMINATION:XR CHEST 1 VW PORTABLE CLINICAL [...] pneumothorax identified. Visualized osseous structures are intact. [facility]-[id number] Procedure Note Interface, Radiology Results Incoming - [...] pneumothorax identified. Visualized osseous structures are intact. [facility]-[id number] Blood culture, aerobic & anaerobic (12/19/2016 5:16 PM)Only the most recent of6 resultswithin the time period is included. Component Value Ref Range Blood culture isolate No growth after 5 days of incubation. Comment: Specimen Information Specimen Source: Blood Specimen Site: Peripheral Hand Left Specimen Performing Laboratory Blood [facility] DEPARTMENT OF PATHOLOGY AND GENOMIC MEDICINE [address] [place] [address] PICC INSERTION (12/12/2016 12:19 PM) Narrative Tyrell Langston 12/12/2016 12:19 PM PICC insertion Date/Time: 12/12/2016 12:16 PM Performed by: TYRELL LANGSTON Authorized by: GERMAN LAMBERT Consent: Consent obtained:Written Consent given by:Patient Risks discussed: arterial puncture, incorrect placement, nerve damage, pneumothorax, infection, bleeding, superficial thrombus and deep vein thrombus Conyers protocol: Procedure explained and questions answered to [...] Site:27 Patient position:Flat Vessel Size (mm):5 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 Specimen Performing Laboratory [facility] [address] [place] [address] Narrative EXAMINATION: CT CHEST WO CONTRAST CLINICAL [...] can be seen with pulmonary arterial hypertension. [id number] Procedure Note Interface, Radiology Results Incoming - [...] can be seen with pulmonary arterial hypertension. [facility]-[id number] Aerobic culture (12/09/2016 4:40 PM)Only the most recent of2 resultswithin the time period is included. Component Value Ref Range Aerobic culture isolate Streptococcus anginosus Recovered in Broth only: The performance characteristics of this assay on this isolate were validated by the Microbiology Laboratory at [facility].This source has not been approved by the [...] Pleural Fluid Specimen Performing Laboratory Pleural fluid [facility] DEPARTMENT OF PATHOLOGY AND [facility] [address] [place] [address] Organism Antibiotic Method Susceptibility Streptococcus anginosus Clindamycin MARY ANN >2 mcg/mL: Resistant Streptococcus anginosus Ceftriaxone MARY ANN <=0.0625 mcg/mL: Susceptible Streptococcus anginosus Cefotaxime MARY ANN <=0.0625 mcg/mL: Susceptible Streptococcus anginosus Penicillin G MARY ANN <=0.44421 mcg/mL: Susceptible Streptococcus anginosus Vancomycin MARY ANN 1 mcg/mL: Susceptible Gram stain (12/09/2016 4:40 PM)Only the most recent of2 resultswithin the time period is included. Component Value Ref Range Gram stain isolate Many WBC's Many Gram positive cocci in pairs Comment: Specimen Information Specimen Source: Pleural fluid Specimen Site: Right Pleural Fluid Specimen Performing Laboratory Pleural fluid [facility] [place] [address] CT Needle Biopsy No Contrast (12/09/2016 10:00 AM)Only the most recent of3 resultswithin the time period is included. Specimen [facility]forming [facility] [address] [place] [address] Narrative Clinical history: Empyema drainage , right [...] fully monitored and given moderate sedation. Doctor-patient kdul-ko-pfap time was 30 minutes.. The patient was [...] to match the catheter size. An 8.5 Lithuanian pigtail all-purpose drainage catheter was inserted over [...] laboratory for culture sensitivity and Gram stain. [id number] Procedure Note Hm Interface, Radiology Results Incoming [...] fully monitored and given moderate sedation. Doctor-patient qhke-wl-qylj time was 30 minutes.. The patient was [...] to match the catheter size. An 8.5 Lithuanian pigtail all-purpose drainage catheter was inserted over [...] laboratory for culture sensitivity and Gram stain. [id number] Hemoglobin A1c (12/08/2016 5:45 AM) Component Value Ref Range Hemoglobin A1C 7.5 (H) 4.0 - 6.0 % Comment: Less than 6% - Goal of therapy for Type II Diabetes Less than 7%-Goal of therapy for Type I Diabetes Less than 8%-Acceptable control for Type I or Type II Diabetes Greater than 8%-Unacceptable control; action indicated. (ADA94) Specimen Performing Laboratory Blood [facility] DEPARTMENT OF PATHOLOGY AND GENOMIC MEDICINE [address] [place] [address] CT Abdomen Pelvis W Contrast (12/07/2016 4:49 PM) Specimen Performing Laboratory [facility] [address] [place] [address] Narrative EXAMINATION:CT ABDOMEN PELVIS W CONTRAST CLINICAL [...] again suggesting of a moderate right empyema. [id number] Procedure Note Hm Interface, Radiology Results Incoming [...] again suggesting of a moderate right empyema. [id number] CT Chest W Contrast (12/06/2016 7:21 PM) Specimen Performing Laboratory [facility] [address] [place] [address] Narrative Study:CT CHEST W CONTRAST History: R [...] right lower lobe has become more loculated. [id number] Procedure Note Interface, Radiology Results Incoming - [...] right lower lobe has become more loculated. [id number] XR Ribs 2 Vw Right (12/06/2016 3:55 PM) Specimen Performing Laboratory [facility] [address] [place] [address] Narrative EXAM:XR RIBS 2 VW RIGHT HISTORY:CHEST [...] Cervical spine fusion hardware is partially visualized. [id number] Procedure Note [facility], Radiology Results Incoming - 12/06/2016 4:50 PM [...] Cervical spine fusion hardware is partially visualized. [id number] Fungus smear (11/24/2016 10:03 AM) Component Value Ref Range Fungus smear No fungi observed. Comment: Specimen Information Specimen Source: Tissue Specimen Site: Lung, right middle lobe Specimen Performing Laboratory Tissue - Lung, right middle lobe [facility] DEPARTMENT OF PATHOLOGY AND GENOMIC MEDICINE [address] [place] [address] AFB culture (11/24/2016 10:03 AM) Component Value Ref Range AFB culture isolate No growth after 6 weeks of incubation. Comment: Specimen Information Specimen Source: Tissue Specimen Site: Lung, right middle lobe Specimen Performing Laboratory Tissue - Lung, right middle lobe [facility] DEPARTMENT OF PATHOLOGY AND GENOMIC MEDICINE [address] [place] [address] AFB stain (11/24/2016 10:03 AM) Component Value Ref Range AFB stain No acid fast bacilli (AFB) seen. Comment: Specimen Information Specimen Source: Tissue Specimen Site: Lung, right middle lobe Specimen Performing Laboratory Tissue - Lung, right middle lobe [facility] DEPARTMENT OF PATHOLOGY AND GENOMIC MEDICINE [address] [place] [address] Fungus culture (11/24/2016 10:03 AM) Component Value Ref Range Fungus culture isolate No growth after 4 weeks of incubation. Comment: Specimen Information Specimen Source: Tissue Specimen Site: Lung, right middle lobe Specimen Performing Laboratory Tissue - Lung, right middle lobe [facility] DEPARTMENT OF PATHOLOGY AND GENOMIC MEDICINE [address] [place] [address] Anaerobic culture (11/24/2016 10:03 AM) Component Value Ref Range Anaerobic culture isolate No anaerobic organisms isolated. Comment: Specimen Information Specimen Source: Tissue Specimen Site: Lung, right middle lobe Specimen Performing Laboratory Tissue - Lung, right middle lobe [facility] DEPARTMENT OF PATHOLOGY AND GENOMIC MEDICINE [address] [place] [address] Type and screen (11/23/2016 2:19 PM) Component Value Ref Range ABO grouping A Rh type POS Antibody screen (gel) NEG Specimen Performing Laboratory Blood [facility] DEPARTMENT OF PATHOLOGY AND GENOMIC MEDICINE [address] [place] [address] Spirometry pre & post w/ bronchodilator (11/23/2016 [...] 45.78 mmHg AoV area i VTI BSA [place] 1.26 cm2/m2 MR peak grad 3.46 mmHg [...] R1 10.00 Specimen Performing Laboratory [facility] [address] [place] [address] Narrative Left Ventricle: Left Ventricular ejection fraction [...] Ab Non-reactive Non-reactive Specimen Performing Laboratory Serum [facility] DEPARTMENT OF PATHOLOGY AND GENOMIC MEDICINE [address] [facility] [place] [address] Phosphorus level (11/08/2016 3:51 AM)Only the most recent of2 resultswithin the time period is included. Component Value Ref Range Phosphorus 4.9 (H) 2.5 - 4.5 mg/dL Specimen Performing Laboratory Plasma specimen [facility] DEPARTMENT OF PATHOLOGY AND GENOMIC MEDICINE [address] [place] [address] CRITICAL CARE (11/06/2016 8:18 PM) Narrative Deepika [...] Contrast (11/06/2016 11:14 AM) Specimen Performing Laboratory [facility] [address] [place] [address] Narrative EXAMINATION:CT HEAD W WO CONTRAST CLINICAL [...] intracranial metastatic disease. No gross bone destruction. [facility]-[id number] Procedure Note Hm Interface, Radiology Results Incoming [...] intracranial metastatic disease. No gross bone destruction. [facility]-[id number] after 10/24/2016 Insurance Payer Benefit Plan / Group Subscriber ID Type Phone Address AETNA MEDICARE AETNA MEDICARE HMO/PPO [facility] xxxxxxxx HMO
--- OUTSIDE RECORDS SUMMARY | 2017-10-25 09:44 | XMS REPORT ---
:1965 [facility] Address [address] [place] [address] Care Team Providers Name Role Phone BRE LEA Unavailable Unavailable Problems This patient has no [...] race is not provided, and the patient isAfrican-Somali, multiply by 1.212. If sex is not provided, and thepatient is female, multiply by 0.742. Results for patients <18 years ofage have not been validated by the MDRD study and should be interpretedwith caution.eGFR Result Interpretation:eGFR > or=60 is in the Normal RangeeGFR < 60 may mean kidney diseaseeGFR < 15 may mean kidney failureRanges recommended by the National Kidney Foundation,http://nkdep.nih.go v [id number] 04:50:00 Test Item Value Reference Range Comments [...] THC (test code=THC) POSITIVE Negative CBC with [id number] 03:53:00 Test Item Value Reference Range Comments [...] Lymph Abs (test code=ALYMPH) 1.7 K/cumm 0.5-4.6 [place] Abs (test code=AMONO) 0.7 K/cumm 0.0-1.2 Eos Abs (test code=AEOS) 0.16 K/cumm 0.00-0.74 Baso Abs (test code=ABASO) 0.1 K/cumm 0.00-0.21
[2017-10-25] MEDS ORDERED: PANTOPRAZOLE 40 MG INJ ONE ×2 (10:30→21:12)
[2017-10-25] MEDS ORDERED: MORPHINE 4 MG/ML SYR ONE ×3 (10:30→13:19)
[2017-10-25] MEDS ORDERED: ONDANSETRON 4 MG/2 ML VIAL ONE (10:30)
[2017-10-25] MEDS ORDERED: NA CHLORIDE 0.9% 1,000 ML ONE (10:30)
--- NOTE | 2017-10-25 11:07 | RAD REPORT ---
EXAM DESCRIPTION: RAD - Chest Single View - 10/25/2017 10:59 am CLINICAL HISTORY: Chest pain. COMPARISON: None. FINDINGS: Portable technique limits examination quality. The lungs are emphysematous but grossly clear. The heart is normal in size. No displaced fractures. IMPRESSION: COPD.
--- NOTE | 2017-10-25 11:18 | ER ---
Nurse's Notes [facility] Name: Tino Amin Jr Age: 52 yrs Sex: Male : 1965 Arrival Date: 10/25/2017 Time: 09:44 Bed 4 Private MD: None, None Diagnosis: Abdominal tenderness;Gastrointestinal hemorrhage, unspecified;Essential (primary) hypertension;Hypokalemia;Hypomagnesemia Presentation: 10/25 09:45 Presenting complaint: Patient states: RLQ, sharp pain. Rectal bleeding x 1 day. sv Transition of care: patient was not received from another setting of care. Onset of symptoms was October 24, 2017. Risk Assessment: Do you want to hurt yourself or someone else? Patient reports no desire to harm self or others. Care prior to arrival: None. 09:45 Method Of Arrival: Wheelchair sv 09:45 Acuity: YULISSA 3 sv Historical: - Allergies: 10:01 No Known Allergies; ch - Home Meds: 10:01 Effexor XR Oral [Active]; Keppra Oral [Active]; ch - PMHx: 09:47 Seizures; lung cancer; sv - PSHx: 09:47 cervical fusion; lumbar fusion; dorsal column stimulator implant; Appendectomy; right sv lobectomy; - Immunization history:: Adult Immunizations up to date. - Social history:: Smoking status: Patient uses tobacco products, smokes one pack cigarettes per day. - Ebola Screening: : Patient negative for fever greater than or equal to 101.5 degrees Fahrenheit, and additional compatible Ebola Virus Disease symptoms Patient denies exposure to infectious person Patient denies travel to an Ebola-affected area in the 21 days before illness onset No symptoms or risks identified at this time. Screenin:22 Abuse screen: Denies threats or abuse. Denies injuries from another. Nutritional ch screening: No deficits noted. Tuberculosis screening: No symptoms or risk factors identified. Fall Risk None identified. Assessment: 10:22 Pain: Complains of pain in abdomen Pain currently is 8 out of 10 on a pain scale. at worst was 10 out of 10 on a pain scale. Quality of pain is described as crampy. Neuro: No deficits noted. Respiratory: Airway is patent Respiratory effort is even, unlabored, Breath sounds are clear bilaterally. GI: Abdomen is flat, non-distended, Bowel sounds present X 4 quads. Abd is soft and non tender X 4 quads. Derm: Skin is pale. 12:55 Reassessment: Patient appears in no apparent distress at this time. Patient and/or ch family updated on plan of care and expected duration. Pain level reassessed. Patient is alert, oriented x 3, equal unlabored respirations, skin warm/dry/pink. Patient states feeling better. Patient states symptoms have improved. General: Appears in no apparent distress. comfortable, Behavior is calm, cooperative, appropriate for age. 14:25 Reassessment: Patient appears in no apparent distress at this time. Patient and/or ch family updated on plan of care and expected duration. Pain level reassessed. Patient is alert, oriented x 3, equal unlabored respirations, skin warm/dry/pink. Patient states feeling better. Patient states symptoms have improved. Vital Signs: 09:47 BP 190 / 107; Pulse 66; Resp 18; Temp 98.1; Pulse Ox 100% ; Weight 72.57 kg; Height 6 sv ft. 1 in. (185.42 cm); Pain 10/10; 10:22 BP 180 / 92; Pulse 78; Resp 16; Pulse Ox 99% on R/A; Pain 9/10; ch 11:31 BP 202 / 111; Pulse 66; Resp 12; Pulse Ox 96% on R/A; Pain 9/10; ch 12:55 BP 163 / 97; Pulse 61; Resp 15; Temp 97.3; Pulse Ox 99% on R/A; Pain 7/10; ch 14:25 BP 142 / 85; Pulse 63; Resp 15; Temp 97.9; Pulse Ox 99% on R/A; Pain 7/10; ch 09:47 Body Mass Index 21.11 (72.57 kg, 185.42 cm) sv 11:31 ERP NOTIFIED OF PT BP. PT MEDICATED FOR PAIN AND WILL RE CHECK BP. ED Course: 09:44 Patient arrived in ED. sb2 09:44 None, None is Private Physician. sb2 09:46 Triage completed. sv 09:47 Arm band placed on right wrist. sv 09:53 Roz Curry, MARIO is Primary Nurse. ch 10:04 Yfn Schulte MD is Attending Physician. sarah 10:08 Missed attempt(s): 18 gauge in right antecubital area. Bleeding controlled, band aid em1 applied, catheter tip intact. 10:22 No apparent distress. ch 10:22 Patient has correct armband on for positive identification. Placed in gown. Bed in low ch position. Call light in reach. Side rails up X2. Adult w/ patient. monitoring coordinator on. Pulse ox on. NIBP on. 10:30 Inserted saline lock: 22 gauge in left forearm, using aseptic technique. ch 10:41 EKG done, by laboratory technologist. reviewed by Yfn Schulte MD. at1 10:58 XRAY Chest (1 view) In Process Unspecified. EDMS 11:17 Braeden Power MD is Hospitalizing Provider. sarah 11:31 DR SCHULTE PLACES EJ TO PT R NECK. PT TOLERATED WELL. TIME OUT PERFORMED, PT VERB ch UNDERSTANDING OF RISKS, AREA CLEANED WITH CHLORHEXIDINE PRIOR TO INSERTION. GOOD BLOOD RETURN, FLUSHES EASILY. 12:55 Warm blanket given. ch 13:10 Urine Dipstick--Ancillary (enter results) Sent. ch 14:25 Patient admitted, IV remains in place. ch Administered Medications: 10:30 Drug: NS 0.9% 1000 ml Route: IV; Rate: 1 bolus; Site: left forearm; ch 11:33 Follow up: IV Status: Completed infusion; IV Intake: 1000ml ch 10:30 Drug: ProTONIX 40 mg Route: IVP; Site: left forearm; ch 11:32 Follow up: Response: No adverse reaction; Marked relief of symptoms ch 10:35 Drug: Zofran 4 mg Route: IVP; Site: left forearm; ch 11:32 Follow up: Response: No adverse reaction ch 10:40 Drug: ProTONIX 40 mg Route: IVP; Site: left forearm; ch 11:32 Follow up: Response: No adverse reaction ch 11:16 Drug: morphine 4 mg Route: IVP; Site: left forearm; ch 11:32 Follow up: Response: No adverse reaction; Marked relief of symptoms ch 11:18 Drug: morphine 4 mg Route: IVP; Site: left forearm; ch 11:32 Follow up: Response: No adverse reaction; Pain is decreased ch 12:30 Drug: ProTONIX 8 mg/hr Route: IV; Rate: 25 ml/hr; Site: left forearm; ch 12:57 Follow up: IV Status: Infusion continued upon admission; IV Intake: 125ml ch 12:30 Drug: Trandate 20 mg Route: IVP; Site: left forearm; ch 12:56 Follow up: Response: No adverse reaction; Marked relief of symptoms ch 13:53 Drug: Magnesium Sulfate 1 grams Route: IVPB; Infused Over: 1 hrs; Site: left forearm; ch 14:30 Follow up: IV Status: Completed infusion; IV Intake: 100ml ch 13:53 Drug: Potassium Chloride 20 mEq Route: IV; Rate: per protocol; Site: right jugular; ch 13:54 Follow up: IV Status: Infusion continued upon admission ch 13:53 Drug: NS 0.9% with KCl 20 mEq/L 1000 ml Route: IV; Rate: 125 ml/hr; Site: right jugular;ch 13:54 Follow up: IV Status: Infusion continued upon admission ch 13:53 Drug: morphine 4 mg Route: IVP; Site: left forearm; ch 13:54 Follow up: Response: No adverse reaction; Pain is decreased ch Intake: 11:33 IV: 1000ml; Total: 1000ml. ch 12:57 IV: 125ml; Total: 1125ml. ch 14:30 IV: 100ml; Total: 1225ml. Outcome: 11:18 Decision to Hospitalize by Provider. [facility] 14:33 Admitted to Med/surg accompanied by tech, via wheelchair, with chart, Report called to RIVKA 14:33 Condition: stable 14:33 Instructed on the need for admit. 15:14 Patient left the ED. Signatures: Dispatcher [employer] EDRoz Strange RN RN ch Verde, Stephanie, RN RN sv Anderson, Corey, MD MD cha Martinez, Eric em1 Mildred gunn, ben day artist EKG Rivera1 Lashaun Berman sb2 Corrections: (The following items were deleted from the chart) 11:31 10:22 No provider procedures requiring assistance completed. ch
--- NOTE | 2017-10-25 11:18 | EDPHYS ---
Physician Documentation [facility] Name: Tino Amin Jr Age: 52 yrs Sex: Male : 1965 Arrival Date: 10/25/2017 Time: 09:44 Bed 4 Private MD: None, None ED Physician Yfn Urena HPI: 10/25 10:21 This 52 yrs old Male presents to ER via Wheelchair with complaints of GI sarah Bleeding. 10:21 The patient presents to the emergency department vomiting blood, with rectal bleeding, sarah a small amount. Onset: The symptoms/episode began/occurred 2 day(s) ago. Abdominal pain: none is appreciated. Modifying factors: The symptoms are alleviated by nothing. Associated signs and symptoms: The patient has no apparent associated signs or symptoms. Severity of symptoms: At their worst the symptoms were mild in the emergency department the symptoms are unchanged. The patient has experienced similar episodes in the past, several times. Historical: - Allergies: 10:01 No Known Allergies; ch - Home Meds: 10:01 Effexor XR Oral [Active]; Keppra Oral [Active]; ch - PMHx: 09:47 Seizures; lung cancer; sv - PSHx: 09:47 cervical fusion; lumbar fusion; dorsal column stimulator implant; Appendectomy; right sv lobectomy; - Immunization history:: Adult Immunizations up to date. - Social history:: Smoking status: Patient uses tobacco products, smokes one pack cigarettes per day. - Ebola Screening: : Patient negative for fever greater than or equal to 101.5 degrees Fahrenheit, and additional compatible Ebola Virus Disease symptoms Patient denies exposure to infectious person Patient denies travel to an Ebola-affected area in the 21 days before illness onset No symptoms or risks identified at this time. ROS: 10:23 Constitutional: Negative for fever, chills, and weight loss, Eyes: Negative for injury, sarah pain, redness, and discharge, ENT: Negative for injury, pain, and discharge, Neck: Negative for injury, pain, and swelling, Cardiovascular: Negative for chest pain, palpitations, and edema, Respiratory: Negative for shortness of breath, cough, wheezing, and pleuritic chest pain, Back: Negative for injury and pain, : Negative for injury, bleeding, discharge, and swelling, MS/Extremity: Negative for injury and deformity, Skin: Negative for injury, rash, and discoloration, Neuro: Negative for headache, weakness, numbness, tingling, and seizure, Psych: Negative for depression, anxiety, suicide ideation, homicidal ideation, and hallucinations, Allergy/Immunology: Negative for hives, rash, and allergies, Endocrine: Negative for neck swelling, polydipsia, polyuria, polyphagia, and marked weight changes, Hematologic/Lymphatic: Negative for swollen nodes, abnormal bleeding, and unusual bruising. 10:23 Abdomen/GI: Positive for abdominal pain, nausea and vomiting, rectal bleeding. Exam: 10:23 Constitutional: This is a well developed, well nourished patient who is awake, alert, sarah and in no acute distress. Head/Face: Normocephalic, atraumatic. Eyes: Pupils equal round and reactive to light, extra-ocular motions intact. Lids and lashes normal. Conjunctiva and sclera are non-icteric and not injected. Cornea within normal limits. Periorbital areas with no swelling, redness, or edema. ENT: Nares patent. No nasal discharge, no septal abnormalities noted. Tympanic membranes are normal and external auditory canals are clear. Oropharynx with no redness, swelling, or masses, exudates, or evidence of obstruction, uvula midline. Mucous membranes moist. Neck: Trachea midline, no thyromegaly or masses palpated, and no cervical lymphadenopathy. Supple, full range of motion without nuchal rigidity, or vertebral point tenderness. No Meningismus. Chest/axilla: Normal chest wall appearance and motion. Nontender with no deformity. No lesions are appreciated. Cardiovascular: Regular rate and rhythm with a normal S1 and S2. No gallops, murmurs, or rubs. Normal PMI, no JVD. No pulse deficits. Respiratory: Lungs have equal breath sounds bilaterally, clear to auscultation and percussion. No rales, rhonchi or wheezes noted. No increased work of breathing, no retractions or nasal flaring. Back: No spinal tenderness. No costovertebral tenderness. Full range of motion. Male : Normal genitalia with no discharge or lesions. Skin: Warm, dry with normal turgor. Normal color with no rashes, no lesions, and no evidence of cellulitis. MS/ Extremity: Pulses equal, no cyanosis. Neurovascular intact. Full, normal range of motion. Neuro: Awake and alert, GCS 15, oriented to person, place, time, and situation. Cranial nerves II-XII grossly intact. Motor strength 5/5 in all extremities. Sensory grossly intact. Cerebellar exam normal. Normal gait. Psych: Awake, alert, with orientation to person, place and time. Behavior, mood, and affect are within normal limits. 10:23 Abdomen/GI: Inspection: abdomen appears normal, Bowel sounds: active, Palpation: moderate abdominal tenderness, in all quadrants, Rectal exam: is unremarkable, Prostate: normal, rectal tone normal, Stool: normal, brown, guaiac negative, hemorrhoid(s), are not appreciated, mass, is not appreciated, swelling, is not appreciated. Vital Signs: 09:47 BP 190 / 107; Pulse 66; Resp 18; Temp 98.1; Pulse Ox 100% ; Weight 72.57 kg; Height 6 sv ft. 1 in. (185.42 cm); Pain 10/10; 10:22 BP 180 / 92; Pulse 78; Resp 16; Pulse Ox 99% on R/A; Pain 9/10; ch 11:31 BP 202 / 111; Pulse 66; Resp 12; Pulse Ox 96% on R/A; Pain 9/10; ch 12:55 BP 163 / 97; Pulse 61; Resp 15; Temp 97.3; Pulse Ox 99% on R/A; Pain 7/10; ch 14:25 BP 142 / 85; Pulse 63; Resp 15; Temp 97.9; Pulse Ox 99% on R/A; Pain 7/10; ch 09:47 Body Mass Index 21.11 (72.57 kg, 185.42 cm) sv 11:31 ERP NOTIFIED OF PT BP. PT MEDICATED FOR PAIN AND WILL RE CHECK BP. Procedures: 11:15 Peripheral line: by aseptic technique a peripheral line was placed in the right [facility] external jugular vein, double lumen. MDM: 10:04 Patient medically screened. [facility] 10:25 Data reviewed: vital signs, nurses notes, lab test result(s), EKG, radiologic studies, [facility] CT scan, plain films. 10/25 10:09 Order name: Basic Metabolic Panel; Complete Time: 13:04 [facility] 10/25 10:09 Order name: BNP; Complete Time: 13:04 [facility] 10/25 10:09 Order name: CBC with Diff; Complete Time: 13:04 [facility] 10/25 10:09 Order name: Ckmb; Complete Time: 13:04 [facility] 10/25 10:09 Order name: CPK; Complete Time: 13:04 [facility] 10/25 10:09 Order name: LFT's; Complete Time: 13:04 [facility] 10/25 10:09 Order name: Magnesium; Complete Time: 13:04 [facility] 10/25 10:09 Order name: PT-INR; Complete Time: 13:04 [facility] 10/25 10:09 Order name: Ptt, Activated; Complete Time: 13:04 [facility] 10/25 10:09 Order name: Troponin (emerg Dept Use Only); Complete Time: 13:04 [facility] 10/25 10:09 Order name: Lipase; Complete Time: 13:04 [facility] 10/25 10:09 Order name: Type And Screen; Complete Time: 13:04 [facility] 10/25 10:09 Order name: Urine Culture [facility] 10/25 11:52 Order name: Urine Dipstick--Ancillary (enter results) 10/25 10:09 Order name: XRAY Chest (1 view); Complete Time: 13:04 [facility] 10/25 11:58 Order name: Manual Differential; Complete Time: 13:04 EDMS 10/25 12:25 Order name: Urine Dipstick-Ancillary; Complete Time: 13:04 EDMS 10/25 13:18 Order name: ABO/RH no charge EDMS 10/25 10:09 Order name: EKG; Complete Time: 10:11 [facility] 10/25 10:09 Order name: Cardiac monitoring; Complete Time: 11:17 [facility] 10/25 10:09 Order name: EKG - Nurse/Tech; Complete Time: 11: [facility] 10/25 10:09 Order name: IV Saline Lock; Complete Time: 11: [facility] 10/25 10:09 Order name: Labs collected and sent; Complete Time: 11: [facility] 10/25 10:09 Order name: O2 Per Protocol; Complete Time: 11: [facility] 10/25 10:09 Order name: O2 Sat Monitoring; Complete Time: 11: [facility] 10/25 10:09 Order name: Urine Dipstick-Ancillary (obtain specimen); Complete Time: 11: [facility] 10/25 10:09 Order name: IV Saline Lock - Large Bore; Complete Time: 11: [facility] 10/25 11:26 Order name: CONS Physician Consult EDMS Administered Medications: 10:30 Drug: NS 0.9% 1000 ml Route: IV; Rate: 1 bolus; Site: left forearm; ch 11:33 Follow up: IV Status: Completed infusion; IV Intake: 1000ml ch 10:30 Drug: ProTONIX 40 mg Route: IVP; Site: left forearm; ch 11:32 Follow up: Response: No adverse reaction; Marked relief of symptoms ch 10:35 Drug: Zofran 4 mg Route: IVP; Site: left forearm; ch 11:32 Follow up: Response: No adverse reaction ch 10:40 Drug: ProTONIX 40 mg Route: IVP; Site: left forearm; ch 11:32 Follow up: Response: No adverse reaction ch 11:16 Drug: morphine 4 mg Route: IVP; Site: left forearm; ch 11:32 Follow up: Response: No adverse reaction; Marked relief of symptoms ch 11:18 Drug: morphine 4 mg Route: IVP; Site: left forearm; ch 11:32 Follow up: Response: No adverse reaction; Pain is decreased ch 12:30 Drug: ProTONIX 8 mg/hr Route: IV; Rate: 25 ml/hr; Site: left forearm; ch 12:57 Follow up: IV Status: Infusion continued upon admission; IV Intake: 125ml ch 12:30 Drug: Trandate 20 mg Route: IVP; Site: left forearm; ch 12:56 Follow up: Response: No adverse reaction; Marked relief of symptoms ch 13:53 Drug: Magnesium Sulfate 1 grams Route: IVPB; Infused Over: 1 hrs; Site: left forearm; ch 14:30 Follow up: IV Status: Completed infusion; IV Intake: 100ml ch 13:53 Drug: Potassium Chloride 20 mEq Route: IV; Rate: per protocol; Site: right jugular; ch 13:54 Follow up: IV Status: Infusion continued upon admission ch 13:53 Drug: NS 0.9% with KCl 20 mEq/L 1000 ml Route: IV; Rate: 125 ml/hr; Site: right jugular;ch 13:54 Follow up: IV Status: Infusion continued upon admission ch 13:53 Drug: morphine 4 mg Route: IVP; Site: left forearm; ch 13:54 Follow up: Response: No adverse reaction; Pain is decreased ch Disposition: 10/25/17 11:18 Hospitalization ordered by Braeden Power for Inpatient Admission. Preliminary diagnosis are Abdominal tenderness, Gastrointestinal hemorrhage, unspecified, Essential (primary) hypertension, Hypokalemia, Hypomagnesemia. - Bed requested for Telemetry/MedSurg (Inpatient). - Status is Inpatient Admission. - Condition is Stable. - Problem is new. - Symptoms have improved. UTI on Admission? No Signatures: Dispatcher [employer] EDMS Roz Curry RN RN ch Verde, Stephanie, RN RN sv Woody, Diana, RN RN dw Anderson, Corey, MD MD [facility] Corrections: (The following items were deleted from the chart) 11 11:18 Hospitalization Ordered by Braeden Power MD for Inpatient Admission. Preliminary [facility] diagnosis is Abdominal tenderness; Gastrointestinal hemorrhage, unspecified. Bed requested for Telemetry/MedSurg (Inpatient). Status is Inpatient Admission. Condition is Stable. Problem is new. Symptoms have improved. UTI on Admission? No. sarah 13:06 11:27 10/25/2017 11:18 Hospitalization Ordered by Braeden Power MD for Inpatient sarah Admission. Preliminary diagnosis is Abdominal tenderness; Gastrointestinal hemorrhage, unspecified; Essential (primary) hypertension. Bed requested for Telemetry/MedSurg (Inpatient). Status is Inpatient Admission. Condition is Stable. Problem is new. Symptoms have improved. UTI on Admission? No. sarah 13:13 13:06 10/25/2017 11:18 Hospitalization Ordered by Braeden Power MD for Inpatient dw Admission. Preliminary diagnosis is Abdominal tenderness; Gastrointestinal hemorrhage, unspecified; Essential (primary) hypertension; Hypokalemia; Hypomagnesemia. Bed requested for Telemetry/MedSurg (Inpatient). Status is Inpatient Admission. Condition is Stable. Problem is new. Symptoms have improved. UTI on Admission? No. sarah 15:14 13:13 10/25/2017 11:18 Hospitalization Ordered by Braeden Power MD for Inpatient ch Admission. Preliminary diagnosis is Abdominal tenderness; Gastrointestinal hemorrhage, unspecified; Essential (primary) hypertension; Hypokalemia; Hypomagnesemia. Bed requested for Telemetry/MedSurg (Inpatient). Status is Inpatient Admission. Condition is Stable. Problem is new. Symptoms have improved. UTI on Admission? No. dw
[2017-10-25 11:19] LABS: Absolute Lymphocytes (CBC) 0.6 K/uL (0.7-4.9); Absolute Monocytes 0.6 K/uL (0.1-1.3); Absolute Neutrophil 9.9 K/uL (1.8-8.0); Basophils % 0.2 % (0-1.3); Eosinophils % 0.6 % (0-4.4); Hematocrit 41.8 % (39.6-49.0); Lymphocytes % 4.9 % (15.3-44.8); MCH 32.1 pg (27.0-35.0); MCV 93.2 fL (80-100); MPV 8.9 fL (7.6-11.3); Monocytes % 4.9 % (3.3-12.3); RBC Red Blood Cell Count 4.48 M/uL (4.33-5.43)
[2017-10-25 11:26] LABS: Protime INR 0.98
[2017-10-25 11:57] LABS: Blood Morphology Comment NOT SEEN (NOT SEEN); Platelet Estimate DECR
[2017-10-25] MEDS: PANTOPRAZOLE INJ 80 MG in NA CHLORIDE 0.9% 250 ML IV SCH ×2 (12:00→21:46)
[2017-10-25 12:24] LABS: Urine Blood NEGATIVE (NEG); Urine Glucose NEGATIVE (NEG); Urine Protein NEGATIVE (NEG); Urine Specific Gravity 1.015 (1.005-1.030)
[2017-10-25 12:34] LABS: Albumin 3.9 g/dL (3.2-5.5); Bilirubin Direct 0.1 mg/dL (0-0.2); Bilirubin Total 0.5 mg/dL (0.3-1.2); CKMB Creatine Kinase MB 1.5 ng/ml (0.3-4.0); Magnesium 1.6 mg/dL (1.8-2.5); Potassium 3.1 mEq/L (3.6-5.0); Protein, Total 7.3 g/dL (6.0-8.3)
[2017-10-25] MEDS ORDERED: NA CHLORIDE 0.9% 250 ML IV SCH (13:00)
[2017-10-25] MEDS: D5 0.45 NS 1,000 ML IV SCH ×2 (13:00→21:53)
[2017-10-25] MEDS ORDERED: NS KCL 20MEQ 1,000 ML IV ONE (13:19)
[2017-10-25] MEDS ORDERED: MAGNESIUM SULFATE 1 gm IVPB 1 GM/100 ML BAG IV ONE (13:19)
[2017-10-25] MEDS ORDERED: KCL 20 MEQ/100 mL IVPB 20 MEQ/100 ML BAG IV ONE (13:20)
--- NOTE | 2017-10-25 14:41 | EKG ---
Test Date: 2017-10-25 Test Time: 10:38:39 [employer] Clerk: SIMON MEASUREMENT RESULTS: Intervals: Rate: 62 MN: 146 QRSD: 92 QT: 434 QTc: 440 [place]: P: 64 MN: 146 QRS: 82 T: 76 INTERPRETIVE STATEMENTS: Normal sinus rhythm Normal ECG No previous ECG available for comparison Electronically Signed On 10-25-17 14:39:57 CDT by Eric Pimentel
[2017-10-25] MEDS ORDERED: D50W 25 GM/50 ML SYRINGE IV PRN (14:58)
[2017-10-25] MEDS ORDERED: GLUCAGON 1 MG/VIAL IM PRN (14:58)
[2017-10-25 16:00] VITALS: BMI 21.1
[2017-10-25] MEDS: INSULIN -REGULAR HUMAN 50 UNIT/0.5 ML ML SQ SCH ×2 (16:30→21:00)
[2017-10-25] MEDS: MEPERIDINE HCL 25 MG/0.5 ML IV PRN ×2 (16:39→20:28)
[2017-10-25 16:45] LABS: Hematocrit 42.8 % (39.6-49.0)
[2017-10-25] MEDS: ONDANSETRON 4 MG/2 ML VIAL IV PRN (20:28)
[2017-10-25] MEDS ORDERED: NA CHLORIDE 0.9% 250 ML ONE (21:12)
[2017-10-26] MEDS: MEPERIDINE HCL 25 MG/0.5 ML IV PRN ×2 (00:20→04:26)
--- NOTE | 2017-10-26 02:06 | HP ---
Date of Admission: 10/25/2017 Primary Care Physician: Unknown. Chief Complaint: GI bleed. Consultants: Dr. Cervantes with GI. History Of Present Illness: The patient is a 52-year-old male with past medical history of diabetes, chronic back pain, seizure disorder, who was in his usual state of health, who was recently discharg ed from the hospital yesterday on 10/24/2017 for similar symptoms of GI bleed. The patient had come in for upper GI bleed with bright red blood in his vomit. However, his hemoglobin remained stable. He did not have any further bleeding and therefore was discharged to follow up with GI as an outpatie nt. The patient was unable to obtain his Protonix prescription due to cost and had another episode o f hematemesis with bright red blood. The patient does report some antecedent sharp abdominal pain in the right upper quadrant, which lasted a few seconds. The patient also feels weak; however, denies any dizziness or syncopal episodes. The patient's symptoms are constant, moderate, progressively wor sening. The patient therefore came in to the ER for further evaluation. Upon arrival, his vital sig ns showed a blood pressure of 190/107. His pulse was 66. The patient was started on some IV fluids and Protonix drip and referred for admission. His lab workup revealed hemoglobin of 14.4. His potas sium was low at 3.1. When seen in the ER, the patient was awake, alert, oriented x3, in some mild di stress. Past Medical History: Diabetes, history of lung mass which is benign, seizure disorder, chronic back and neck pain. Past Surgical History: Appendectomy, cervical fusion, lumbar fusion, right hip implant, dorsal colum n stimulator implant, head surgery. Allergies: NO KNOWN DRUG ALLERGIES. Medications: As per medication reconciliation list, reviewed. Social History: The patient smokes everyday. Denies any alcohol use or illicit drug use. Lives at home. Independent in activities of daily living. Family History: No history of premature coronary artery disease. Review of Systems: An 11-point system reviewed, negative except as per HPI. Physical Examination: Vital Signs: Blood pressure 190/107, pulse 66, respirations 18, temperature 98.1, O2 100% on room ai r. General: Awake, alert, oriented x3, in some mild distress, ill-appearing, older than stated age male , somewhat pale. HEENT: Normocephalic, atraumatic. PERRLA. EOMI. Dry mucous membranes. Oropharynx is clear. Poor dentition. Conjunctivae are anicteric. Neck: Supple. No JVD. Trachea midline. CV: S1, S2. No murmurs. Regular rate and rhythm. Peripheral pulses are present bilaterally. Respiratory: Clear to auscultation bilaterally. No wheezing. No stridor. No use of accessory musc les. Gastrointestinal: Abdomen is soft, nontender, nondistended. Positive bowel sounds. No guarding or rigidity. Extremities: No clubbing, cyanosis, or edema. No calf tenderness. Neurologic: Cranial nerves 2 through 12 intact grossly. No focal neurological deficit. Speech is n ormal. Strength is 5/5 in bilateral upper and lower extremities. Skin: No rashes. Normal skin turgor. Psychiatric: Mood is okay. Affect is full. Insight and judgment are good. Laboratory Data: Sodium 139, potassium 3.1, chloride 102, CO2 of 27, BUN 12, creatinine 1.01, glucos e 122, calcium 9, magnesium 1.6. AST 45 and ALT 59. INR 0.98. WBC 11.1, H and H 14.4 and 41.8, mati telets 93, and neutrophils 89%. UA is negative. Chest x-ray shows no acute abnormalities. COPD sarah nges are present. EKG shows normal sinus rhythm, rate of 62. No previous EKG for comparison. Assessment And Plan: A 52-year-old male with; 1.Upper gastrointestinal bleed, hematemesis. Dr. Cervantes has been consulted. He will see the patient. We will keep patient on IV fluids. We will start on clear liquid diet. We will anticipate esophag ogastroduodenoscopy likely in a.m. Monitor H and H. Transfuse as needed. Currently, hemoglobin is at 14. 2.Type 2 diabetes mellitus, insulin requiring, with hyperglycemia. We will place on sliding scale i nsulin. Monitor Accu-Cheks. 3.History of seizure disorder. Resume home medications. Seizure precautions. 4.Chronic back pain and neck pain. The patient is asking for medication other than morphine, which he states does not help him. Plan: Admit the patient to Med-Surg, place as observation. 5.Hypokalemia. We will replace and monitor. 6.Hypomagnesemia. We will replace and monitor. 7.Generalized weakness secondary to gastrointestinal bleed. KALEN Voice ID: [id number]
[2017-10-26] MEDS: ONDANSETRON 4 MG/2 ML VIAL IV PRN (04:26)
[2017-10-26 05:47] LABS: Absolute Lymphocytes (CBC) 1.3 K/uL (0.7-4.9); Absolute Monocytes 0.5 K/uL (0.1-1.3); Basophils % 0.3 % (0-1.3); Eosinophils % 5.3 % (0-4.4); MCH 32.1 pg (27.0-35.0); MCV 93.4 fL (80-100); MPV 8.9 fL (7.6-11.3); Monocytes % 8.7 % (3.3-12.3); RBC Red Blood Cell Count 4.07 M/uL (4.33-5.43)
[2017-10-26 05:52] LABS: Potassium 3.1 mEq/L (3.6-5.0)
[2017-10-26] MEDS ORDERED: INSULIN -REGULAR HUMAN 50 UNIT/0.5 ML ML SQ SCH ×2 (06:00→07:30)
[2017-10-26 06:22] LABS: Magnesium 1.7 mg/dL (1.8-2.5)
[2017-10-26] MEDS: KCL 20 MEQ/100 mL IVPB 20 MEQ/100 ML BAG IV SCH ×2 (06:48→08:56)
[2017-10-26] MEDS: PANTOPRAZOLE INJ 80 MG in NA CHLORIDE 0.9% 250 ML IV SCH (08:00)
[2017-10-26 08:32] VITALS: BP 115/75; TEMP 98.7
[2017-10-26] MEDS ORDERED: MORPHINE 4 MG/ML SYR IV ONE (08:38)
[2017-10-26] MEDS ORDERED: POTASSIUM CL SA 10 MEQ TAB PO ONE (08:40)
[2017-10-26] MEDS: D5 0.45 NS 1,000 ML IV SCH (08:56)
[2017-10-26 12:39] VITALS: O2SAT 94
--- NOTE | 2017-10-26 17:10 | DS ---
Date of Discharge: 10/26/2017 Consultants: Dr. Del Castillo with GI. Admitting Diagnoses: 1.Acute gastrointestinal bleed, likely upper source with hematemesis. 2.Type 2 diabetes mellitus, insulin requiring with hyperglycemia. 3.History of seizure disorder. 4.Chronic back pain and neck pain, stable. 5.Hypokalemia. 6.Hypomagnesemia. 7.Generalized weakness secondary to gastrointestinal bleed, improved. Hospital Course: The patient is a 52-year-old male, who was readmitted to the hospital for recurrent episode of hematemesis. The patient's hemoglobin remained stable at 14.4. He was started on IV flu ids, IV PPI. The patient had not been able to obtain his Protonix when he was discharged day prior t o this admission due to cost he states and he will be able to obtain his medications now. He was see n by GI, Dr. Del Castillo, who recommended outpatient EGD. The patient's hemoglobin remained stable. Ruiz d some hemodilution with hemoglobin of 13 this morning. No further hematemesis episodes. His potass ium and magnesium were replaced. The patient is doing well. Did complain of some chronic back pain and asked for medications until he is able to establish care with primary care physician. He will be given tramadol for 72 hours until he is able to see a physician. The patient was then discharged ho ia in stable condition. Activity: As tolerated. Medications: As per medication reconciliation list. Followup: Follow up with primary care physician to establish care in 1-2 weeks. Follow up with [facility], Dr. Del Castillo in 1-2 weeks for EGD. Return to ER for worsening condition. Diet: Diabetic. Physical Examination: General: Awake, alert, oriented, no acute distress. CV: S1, S2. No murmurs. Respiratory: Clear to auscultation bilaterally. No wheezing. Gastrointestinal: Abdomen is soft, nontender, nondistended. Positive bowel sounds. Extremities: No clubbing, cyanosis, edema. Neurologic: Nonfocal. SA/MODL Voice ID: [id number] Report ID: [id number]
== END 2017-10-26 12:29 | disposition home or self-care (01) ==
LOC: ER 09:40 → ERHOLD 11:23 → INTOOBSV 11:23 → 2ND 14:50
PROVIDERS: ADMIT Family Medicine; ATTEND Family Medicine
DX: K92.0 Hematemesis (principal); E11.65 Type 2 diabetes mellitus with hyperglycemia; M54.9 Dorsalgia, unspecified; M54.2 Cervicalgia; E87.6 Hypokalemia; E83.42 Hypomagnesemia; R53.1 Weakness; G40.909 Epilepsy, unspecified, not intractable, without status epilepticus
CPT/HCPCS: 36415; 71045; 80048 ×2; 80076; 81003; 82550; 82553; 82962 ×3; 83690; 83735 ×2; 83880; 84484; 85014; 85018 ×2; 85025 ×2; 85610; 85730; 86850; 86900; 86901; 87086; 93005; 94760 ×2; 99285; C9113 ×3; G0378 ×2; J2175 ×4; J2405 ×3; J3475; J7030; 87088

== ENCOUNTER 2017-11-01 19:07 | Emergency (ER) | payer OTHER ==
--- OUTSIDE RECORDS SUMMARY | 2017-11-01 19:11 | XMS REPORT | Clinical Summary ---
:1965 Author Organization [facility] Address [address] [place] [address] Care Team Providers Name Role Phone Asked, [...] Overview: Added automatically from request for surgery [id number] Gastrointestinal hemorrhage 02/23/2017 Gastrointestinal hemorrhage with hematemesis 02/23/2017 Overview: Added automatically from request for surgery [id number] Vertigo 12/19/2016 Pneumonia due to infectious organism [...] Osiel Paul MD 09/21/19 Emergency Emergency Medicine [place] Chronic right-sided thoracic back pain (Primary Dx); [...] Yun Pickering MD (EGD) with bx 05/12/20 [facility] Intractable vomiting with nausea, unspecified vomiting type [...] 17 02/26/20 Procedure Pass Gastroenterology 17 02/24/20 [facility] Gastrointestinal hemorrhage with hematemesis (Primary Dx); 17 [...] 17 Leonardo Lehman MD (Primary Dx) 12/20/19 [facility] Vertigo (Primary Dx[facility] 17 - Encounter Medicine Osiel Warner, Acute nonintractable headache, unspecified headache type; 12/23/19 DO Lactic acidosis; 17 Mcghee, Rosie Pneumonia due to infectious organism, unspecified laterality, unspecified part of lung; MD Fallon Pneumonia of right upper lobe due to infectious organism 12/08/19 [facility] General Internal Quinn Spears Pneumonia due to infectious organism, unspecified laterality, unspecified part of lung (Primary Dx); 17 - Encounter Medicine MD Hayes Shortness of breath; 12/16/19 [facility] Pneumonia of right middle lobe due to infectious organism 17 MD Taz Baltazar, Rosie Lehman MD 12/08/19 Telephone Cardiovascular [facility] 17 Farideh Rachel MA 12/07/19 [facility] Pneumonia of right [facility] lobe 17 - Encounter Medicine MD Albert due to infectious organism 12/08/19 German Lambert (Primary Dx) 17 MD Delaney 12/01/19 Orders Only Cardiovascular [place]inglejoão, Shortness of breath (Primary 17 MAURY Mueller Dx) 11/25/19 Anesthesia General Surgery [facility], Event Joel Brennan MD 11/25/19 Procedure Pass General Surgery 17 11/25/19 Surgery General Surgery [place], Right Lobectomy, Using Vats, 17 Anshu Valenzuela WEDGE RESECTION, FROZEN MD Brandan BIOPSY-RIGHT 11/24/19 [facility] Pulmonology India Elizabeth 17 Encounter KAZ Nunez 11/23/19 [facility] Critical Care [facility], COPD exacerbation (Primary Dx); 17 - Encounter Medicine Farzaneh Lung mass; 11/28/19 MD Kiran Bronchitis, chronic obstructive, with exacerbation 17 David Griffiths MD Burns, Rosie Lehman MD 11/20/19 Telephone Cardiothoracic A[place], Surgery [facility], [place] 11/19/19 Hospital Procedural O'Billy, Shortness of breath; [...] Surgery Procedural Hernandes, Ep cardioversion w shelbi [[id number] Cardiology Colette (CPT)] MD Lenny 11/12/19 Transcribe Access Hernandes, Mass in chest (Primary Dx) 17 Orders Colette Galvez MD 11/12/19 Procedure Pass General Surgery 17 11/06/19 [facility] General Internal Deepika Luna Pneumonia of right lower lobe due to infectious organism (Primary Dx); 17 - Encounter Medicine DO Jose Tachycardia; 11/10/19 Mcghee, Rosie Hypoxia; 17 MD Fallon Lung mass 11/06/19 Transcribe Access Sash[place], Secondary malignant neoplasm of left lung (Primary Dx); 17 Orders Juanita Garcia, Lung mass 11/02/19 [facility] Radiology [place], 17 Encounter Ag Guerra III, MD 11/02/19 [facility] Radiology [place], 17 Encounter Ag Guerra III, MD 11/02/19 [facility] Radiology [place], 17 Encounter Ag Guerra III, MD 11/02/19 [facility] Radiology [place], Lung mass 17 Encounter Juanita Garcia MD 11/02/19 Ancillary Access S[place], Lung mass 17 Orders Juanita Garcia MD 11/02/19 Ancillary Access [place], Lung mass 17 Orders Juanita Garcia MD 11/02/19 Ancillary Access [place], 17 Orders Juanita Garcia MD 11/02/19 Ancillary Access [place], Lung mass 17 Orders Juanita Garcia MD 11/02/19 Ancillary Access [place], Lung mass 17 Orders Juanita Garcia MD after 10/31/2016 Immunizations Name Dates Previously Given Next Due [...] VACCINE 12/14/2017 05/19/2017 Implants Implanted Type Area [employer] Device Expiration Model / Identifier Date Serial / Lot Stimulator Stimulator Stimulator-10/30/2006 Stimulator Hip Implanted: 10/30/2006 (Quantity not on file) Kit [employer] Air Leak 4ml Strl Progel - [id number] Surgical N/A: N/A [employer] [id number] / Implanted: Qty: 1 on 11/24/2016 by Anshu Sainz Jr., MD Implants; / Expanders; Extenders; Surgical Wires Dorsal Colum Stimulator Dorsal Column Stimulator Dorsal Colum Stimulator-11/05/2006 Lower: Implanted: 11/05/2006 (Quantity not on file) Back, Other than Spine Procedures Procedure Name Priority Date/Time Associated Comments Diagnosis URINALYSIS SCREEN AND STAT 10/07/2017 Results for MICROSCOPY, WITH REFLEX TO 9:16 AM CDT this procedure CULTURE are in the results section. URINE DRUGS OF ABUSE SCREEN STAT 10/07/2017 Results for 9:16 AM CDT this procedure are in the results section. URINE CULTURE STAT 10/07/2017 Results for 9:16 AM CDT this procedure are in the results section. ESTIMATED GFR STAT 10/07/2017 Results for 9:02 AM CDT this procedure are in the results section. SALICYLATE LEVEL STAT 10/07/2017 Results for 9:02 AM CDT this procedure are in the results section. ACETAMINOPHEN LEVEL STAT 10/07/2017 Results for 9:02 AM CDT this procedure are in the results section. ALCOHOL LEVEL, BLOOD STAT 10/07/2017 Results for 9:02 AM CDT this procedure are in the results section. HC COMPLETE BLD COUNT W/AUTO STAT 10/07/2017 Results for DIFF 9:02 AM CDT this procedure are in the results section. THYROID STIMULATING HORMONE STAT 10/07/2017 Results for 9:02 AM CDT this procedure are in the results section. T4, FREE STAT 10/07/2017 Results for 9:02 AM CDT this procedure are in the results section. COMPREHENSIVE METABOLIC PANEL STAT 10/07/2017 Results for 9:02 AM CDT this procedure are in the results section. CT ABDOMEN PELVIS WO CONTRAST STAT 09/20/2017 Results for 3:27 AM CDT this procedure are in the results section. SMEAR REVIEW STAT 09/20/2017 Results for 3:13 AM CDT this procedure are in the results section. ESTIMATED GFR STAT 09/20/2017 Results for 3:13 AM CDT this procedure are in the results section. LIPASE LEVEL STAT 09/20/2017 Results for 3:13 AM CDT this procedure are in the results section. COMPREHENSIVE METABOLIC PANEL STAT 09/20/2017 Results for 3:13 AM CDT this procedure are in the results section. PROTHROMBIN TIME WITH INR STAT 09/20/2017 Results for 3:13 AM CDT this procedure are in the results section. HC COMPLETE BLD COUNT W/AUTO STAT 09/20/2017 Results for DIFF 3:13 AM CDT this procedure are in the results section. ECG 12-LEAD STAT 09/20/2017 Results for 2:43 AM CDT this procedure are in the results section. ECG ED PRELIMINARY Routine 09/20/2017 Results for INTERPRETATION 2:07 AM CDT this procedure are in the results section. PET CT SKULL BASE TO MID THIGH Routine 08/08/2017 BC (bronchogenic Results for 1:45 PM CDT carcinoma) this procedure are in the results section. POC GLUCOSE Routine 08/08/2017 Results for 11:36 AM CDT this procedure are in the results section. POC GLUCOSE Routine 07/16/2017 Results for 11:29 AM DOCUMENT CONTROL COORDINATOR this procedure are in the results section. POC GLUCOSE Routine 07/16/2017 Results for 6:52 AM DOCUMENT CONTROL COORDINATOR this procedure are in the results section. SMEAR REVIEW Routine 07/16/2017 Results for 5:13 AM DOCUMENT CONTROL COORDINATOR this procedure are in the results section. ESTIMATED GFR Routine 07/16/2017 Results for 5:13 AM DOCUMENT CONTROL COORDINATOR this procedure are in the results section. BASIC METABOLIC PANEL Routine 07/16/2017 Results for 5:13 AM DOCUMENT CONTROL COORDINATOR this procedure are in the results section. HC COMPLETE BLD COUNT W/AUTO Routine 07/16/2017 Results for DIFF 5:13 AM DOCUMENT CONTROL COORDINATOR this procedure are in the results section. KEPPRA (LEVETIRACETAM) LEVEL Routine 07/16/2017 Results for 5:13 AM DOCUMENT CONTROL COORDINATOR this procedure are in the results section. SMEAR REVIEW STAT 07/15/2017 Results for 8:14 PM DOCUMENT CONTROL COORDINATOR this procedure are in the results section. ESTIMATED GFR STAT 07/15/2017 Results for 8:14 PM DOCUMENT CONTROL COORDINATOR this procedure are in the results section. HEPATIC FUNCTION PANEL STAT 07/15/2017 Results for 8:14 PM DOCUMENT CONTROL COORDINATOR this procedure are in the results section. BASIC METABOLIC PANEL STAT 07/15/2017 Results for 8:14 PM DOCUMENT CONTROL COORDINATOR this procedure are in the results section. HC COMPLETE BLD COUNT W/AUTO STAT 07/15/2017 Results for DIFF 8:14 PM DOCUMENT CONTROL COORDINATOR this procedure are in the results section. CT LUMBAR SPINE WO CONTRAST STAT 07/15/2017 Results for 5:12 PM DOCUMENT CONTROL COORDINATOR this procedure are in the results section. ESTIMATED GFR STAT 07/15/2017 Results for 12:29 PM DOCUMENT CONTROL COORDINATOR this procedure are in the results section. LIPASE LEVEL STAT 07/15/2017 Results for 12:29 PM DOCUMENT CONTROL COORDINATOR this procedure are in the results section. COMPREHENSIVE METABOLIC PANEL STAT 07/15/2017 Results for 12:29 PM DOCUMENT CONTROL COORDINATOR this procedure are in the results section. PARTIAL THROMBOPLASTIN TIME STAT 07/15/2017 Results for (PTT) 12:29 PM DOCUMENT CONTROL COORDINATOR this procedure are in the results section. PROTHROMBIN TIME WITH INR STAT 07/15/2017 Results for 12:29 PM DOCUMENT CONTROL COORDINATOR this procedure are in the results section. HC COMPLETE BLD COUNT W/AUTO STAT 07/15/2017 Results for DIFF 12:29 PM DOCUMENT CONTROL COORDINATOR this procedure are in the results section. POC GLUCOSE Routine 07/07/2017 Results for 11:06 AM DOCUMENT CONTROL COORDINATOR this procedure are in the results section. POC GLUCOSE Routine 07/07/2017 Results for 6:41 AM DOCUMENT CONTROL COORDINATOR this procedure are in the results section. ESTIMATED GFR Routine 07/07/2017 Results for 4:58 AM DOCUMENT CONTROL COORDINATOR this procedure are in the results section. BASIC METABOLIC PANEL Routine 07/07/2017 Results for 4:58 AM DOCUMENT CONTROL COORDINATOR this procedure are in the results section. HC COMPLETE BLD COUNT W/AUTO Routine 07/07/2017 Results for DIFF 4:58 AM DOCUMENT CONTROL COORDINATOR this procedure are in the results section. POC GLUCOSE Routine 07/06/2017 Results for 9:12 PM DOCUMENT CONTROL COORDINATOR this procedure are in the results section. ESTIMATED GFR STAT 07/06/2017 Results for 6:29 PM DOCUMENT CONTROL COORDINATOR this procedure are in the results section. CREATINE KINASE, TOTAL (CPK) STAT 07/06/2017 Results for 6:29 PM DOCUMENT CONTROL COORDINATOR this procedure are in the results section. HC COMPLETE BLD COUNT W/AUTO STAT 07/06/2017 Results for DIFF 6:29 PM DOCUMENT CONTROL COORDINATOR this procedure are in the results section. BASIC METABOLIC PANEL STAT 07/06/2017 Results for 6:29 PM DOCUMENT CONTROL COORDINATOR this procedure are in the results section. CT HEAD WO CONTRAST STAT 07/06/2017 Results for 6:19 PM DOCUMENT CONTROL COORDINATOR this procedure are in the results section. ECG 12-LEAD STAT 07/06/2017 Results for 6:18 PM DOCUMENT CONTROL COORDINATOR this procedure are in the results section. ECG ED PRELIMINARY Routine 07/06/2017 Results for INTERPRETATION 5:38 PM DOCUMENT CONTROL COORDINATOR this procedure are in the results section. POC GLUCOSE Routine 05/19/2017 Results for 10:56 AM DOCUMENT CONTROL COORDINATOR this procedure are in the results section. POC GLUCOSE Routine 05/19/2017 Results for 7:34 AM DOCUMENT CONTROL COORDINATOR this procedure are in the results section. POC GLUCOSE Routine 05/18/2017 Results for 8:37 PM DOCUMENT CONTROL COORDINATOR this procedure are in the results section. POC GLUCOSE Routine 05/18/2017 Results for 4:48 PM DOCUMENT CONTROL COORDINATOR this procedure are in the results section. SURGICAL PATHOLOGY REQUEST Routine 05/18/2017 Results for 1:28 PM DOCUMENT CONTROL COORDINATOR this procedure are in the results section. ESOPHAGOGASTRODUODENOSCOPY 05/18/2017 Abdominal pain, (EGD) 12:15 PM DOCUMENT CONTROL COORDINATOR unspecified abdominal location POC GLUCOSE Routine 05/18/2017 Results for 6:56 AM DOCUMENT CONTROL COORDINATOR this procedure are in the results section. ESTIMATED GFR Routine 05/18/2017 Results for 6:03 AM DOCUMENT CONTROL COORDINATOR this procedure are in the results section. BASIC METABOLIC PANEL Routine 05/18/2017 Results for 6:03 AM DOCUMENT CONTROL COORDINATOR this procedure are in the results section. POC GLUCOSE Routine 05/17/2017 Results for 9:04 PM DOCUMENT CONTROL COORDINATOR this procedure are in the results section. POC GLUCOSE Routine 05/17/2017 Results for 3:39 PM DOCUMENT CONTROL COORDINATOR this procedure are in the results section. POC GLUCOSE Routine 05/17/2017 Results for 11:07 AM DOCUMENT CONTROL COORDINATOR this procedure are in the results section. POC GLUCOSE Routine 05/17/2017 Results for 7:12 AM DOCUMENT CONTROL COORDINATOR this procedure are in the results section. ESTIMATED GFR Routine 05/17/2017 Results for 5:59 AM DOCUMENT CONTROL COORDINATOR this procedure are in the results section. MAGNESIUM LEVEL Routine 05/17/2017 Results for 5:59 AM DOCUMENT CONTROL COORDINATOR this procedure are in the results section. COMPREHENSIVE METABOLIC PANEL Routine 05/17/2017 Results for 5:59 AM DOCUMENT CONTROL COORDINATOR this procedure are in the results section. CBC WITH PLATELET AND Routine 05/17/2017 Results for DIFFERENTIAL 5:59 AM DOCUMENT CONTROL COORDINATOR this procedure are in the results section. POC GLUCOSE Routine 05/16/2017 Results for 7:54 PM DOCUMENT CONTROL COORDINATOR this procedure are in the results section. ECG ED PRELIMINARY Routine 05/16/2017 Results for INTERPRETATION 5:59 PM DOCUMENT CONTROL COORDINATOR this procedure are in the results section. POC GLUCOSE Routine 05/16/2017 Results for 3:55 PM DOCUMENT CONTROL COORDINATOR this procedure are in the results section. POC GLUCOSE Routine 05/16/2017 Results for 11:54 AM DOCUMENT CONTROL COORDINATOR this procedure are in the results section. POC GLUCOSE Routine 05/16/2017 Results for 6:26 AM DOCUMENT CONTROL COORDINATOR this procedure are in the results section. ESTIMATED GFR Routine 05/16/2017 Results for 6:23 AM DOCUMENT CONTROL COORDINATOR this procedure are in the results section. COMPREHENSIVE METABOLIC PANEL Routine 05/16/2017 Results for 6:23 AM DOCUMENT CONTROL COORDINATOR this procedure are in the results section. HC COMPLETE BLD COUNT W/AUTO Routine 05/16/2017 Results for DIFF 6:23 AM DOCUMENT CONTROL COORDINATOR this procedure are in the results section. POC GLUCOSE Routine 05/15/2017 Results for 8:54 PM DOCUMENT CONTROL COORDINATOR this procedure are in the results section. POC GLUCOSE Routine 05/15/2017 Results for 4:46 PM DOCUMENT CONTROL COORDINATOR this procedure are in the results section. POC GLUCOSE Routine 05/15/2017 Results for 11:33 AM DOCUMENT CONTROL COORDINATOR this procedure are in the results section. ESTIMATED GFR Routine 05/15/2017 Results for 7:05 AM DOCUMENT CONTROL COORDINATOR this procedure are in the results section. COMPREHENSIVE METABOLIC PANEL Routine 05/15/2017 Results for 7:05 AM DOCUMENT CONTROL COORDINATOR this procedure are in the results section. HC COMPLETE BLD COUNT W/AUTO Routine 05/15/2017 Results for DIFF 7:05 AM DOCUMENT CONTROL COORDINATOR this procedure are in the results section. POC GLUCOSE Routine 05/15/2017 Results for 6:23 AM DOCUMENT CONTROL COORDINATOR this procedure are in the results section. POC GLUCOSE Routine 05/14/2017 Results for 8:30 PM DOCUMENT CONTROL COORDINATOR this procedure are in the results section. XR CHEST 2 VW Routine 05/14/2017 Results for 7:47 PM DOCUMENT CONTROL COORDINATOR this procedure are in the results section. ESTIMATED GFR Routine 05/14/2017 Results for 7:07 PM DOCUMENT CONTROL COORDINATOR this procedure are in the results section. COMPREHENSIVE METABOLIC PANEL Routine 05/14/2017 Results for 7:07 PM DOCUMENT CONTROL COORDINATOR this procedure are in the results section. HC COMPLETE BLD COUNT W/AUTO Routine 05/14/2017 Results for DIFF 7:07 PM DOCUMENT CONTROL COORDINATOR this procedure are in the results section. POC GLUCOSE Routine 05/14/2017 Results for 3:58 PM DOCUMENT CONTROL COORDINATOR this procedure are in the results section. POC GLUCOSE Routine 05/14/2017 Results for 12:15 PM DOCUMENT CONTROL COORDINATOR this procedure are in the results section. POC GLUCOSE Routine 05/14/2017 Results for 7:03 AM DOCUMENT CONTROL COORDINATOR this procedure are in the results section. POC GLUCOSE Routine 05/13/2017 Results for 8:17 PM DOCUMENT CONTROL COORDINATOR this procedure are in the results section. POC GLUCOSE Routine 05/13/2017 Results for 3:34 PM DOCUMENT CONTROL COORDINATOR this procedure are in the results section. POC GLUCOSE Routine 05/13/2017 Results for 10:52 AM DOCUMENT CONTROL COORDINATOR this procedure are in the results section. URINALYSIS SCREEN AND STAT 05/13/2017 Results for MICROSCOPY, WITH REFLEX TO 8:31 AM DOCUMENT CONTROL COORDINATOR this procedure CULTURE are in the results section. URINE DRUGS OF ABUSE SCREEN STAT 05/13/2017 Results for 8:31 AM DOCUMENT CONTROL COORDINATOR this procedure are in the results section. URINE CULTURE STAT 05/13/2017 Results for 8:31 AM DOCUMENT CONTROL COORDINATOR this procedure are in the results section. POC GLUCOSE Routine 05/13/2017 Results for 7:02 AM DOCUMENT CONTROL COORDINATOR this procedure are in the results section. ESTIMATED GFR Routine 05/13/2017 Results for 5:34 AM DOCUMENT CONTROL COORDINATOR this procedure are in the results section. BASIC METABOLIC PANEL Routine 05/13/2017 Results for 5:34 AM DOCUMENT CONTROL COORDINATOR this procedure are in the results section. PROTHROMBIN TIME WITH INR Routine 05/13/2017 Results for 5:34 AM DOCUMENT CONTROL COORDINATOR this procedure are in the results section. HC COMPLETE BLD COUNT W/AUTO Routine 05/13/2017 Results for DIFF 5:34 AM DOCUMENT CONTROL COORDINATOR this procedure are in the results section. POC GLUCOSE Routine 05/13/2017 Results for 12:44 AM DOCUMENT CONTROL COORDINATOR this procedure are in the results section. TROPONIN Timed 05/12/2017 Results for 7:33 PM DOCUMENT CONTROL COORDINATOR this procedure are in the results section. CT ABDOMEN PELVIS WO CONTRAST STAT 05/12/2017 Results for 4:23 PM DOCUMENT CONTROL COORDINATOR this procedure are in the results section. INFLUENZA ANTIGEN Routine 05/12/2017 Results for 3:58 PM DOCUMENT CONTROL COORDINATOR this procedure are in the results section. ECG 12-LEAD STAT 05/12/2017 Results for 3:48 PM DOCUMENT CONTROL COORDINATOR this procedure are in the results section. B NATRIURETIC PEPTIDE STAT 05/12/2017 Results for 3:45 PM DOCUMENT CONTROL COORDINATOR this procedure are in the results section. TROPONIN STAT 05/12/2017 Results for 3:45 PM DOCUMENT CONTROL COORDINATOR this procedure are in the results section. ALCOHOL LEVEL, BLOOD STAT 05/12/2017 Results for 3:45 PM DOCUMENT CONTROL COORDINATOR this procedure are in the results section. ESTIMATED GFR STAT 05/12/2017 Results for 3:45 PM DOCUMENT CONTROL COORDINATOR this procedure are in the results section. LIPASE LEVEL STAT 05/12/2017 Results for 3:45 PM DOCUMENT CONTROL COORDINATOR this procedure are in the results section. COMPREHENSIVE METABOLIC PANEL STAT 05/12/2017 Results for 3:45 PM DOCUMENT CONTROL COORDINATOR this procedure are in the results section. HC COMPLETE BLD COUNT W/AUTO STAT 05/12/2017 Results for DIFF 3:45 PM DOCUMENT CONTROL COORDINATOR this procedure are in the results section. POC GLUCOSE Routine 02/25/2017 Results for 8:01 AM CDT this procedure are in the results section. US ABDOMEN COMPLETE STAT 02/25/2017 Results for 7:28 AM CDT this procedure are in the results section. ESTIMATED GFR Routine 02/25/2017 Results for 5:33 AM CDT this procedure are in the results section. COMPREHENSIVE METABOLIC PANEL Routine 02/25/2017 Results for 5:33 AM CDT this procedure are in the results section. HEPATITIS A ANTIBODY IGM Routine 02/25/2017 Results for 5:33 AM CDT this procedure are in the results section. HEPATITIS B CORE ANTIBODY IGM Routine 02/25/2017 Results for 5:33 AM CDT this procedure are in the results section. HEPATITIS B SURFACE ANTIBODY Routine 02/25/2017 Results for 5:33 AM CDT this procedure are in the results section. HEPATITIS B SURFACE ANTIGEN Routine 02/25/2017 Results for 5:33 AM CDT this procedure are in the results section. PROTHROMBIN TIME WITH INR Routine 02/25/2017 Results for 5:33 AM CDT this procedure are in the results section. TOTAL IRON BINDING CAPACITY Routine 02/25/2017 Results for 5:33 AM CDT this procedure are in the results section. FERRITIN LEVEL Routine 02/25/2017 Results for 5:33 AM CDT this procedure are in the results section. CERULOPLASMIN LEVEL Routine 02/25/2017 Results for 5:33 AM CDT this procedure are in the results section. HC COMPLETE BLD COUNT W/AUTO Routine 02/25/2017 Results for DIFF 5:33 AM CDT this procedure are in the results section. CARLOS Routine 02/25/2017 Results for 5:33 AM CDT this procedure are in the results section. ALPHA-1 ANTITRYPSIN LEVEL Routine 02/25/2017 Results for 5:33 AM CDT this procedure are in the results section. ALPHA FETOPROTEIN Routine 02/25/2017 Results for 5:33 AM CDT this procedure are in the results section. HEPATITIS C ANTIBODY Routine 02/25/2017 Results for 5:33 AM CDT this procedure are in the results section. CT ABDOMEN PELVIS W WO CONTRAST STAT 02/25/2017 Results for 1:34 AM CDT this procedure are in the results section. POC GLUCOSE Routine 02/24/2017 Results for 8:33 PM CDT this procedure are in the results section. AMMONIA LEVEL Routine 02/24/2017 Results for 5:45 PM CDT this procedure are in the results section. POC GLUCOSE Routine 02/24/2017 Results for 4:33 PM CDT this procedure are in the results section. ECG 12-LEAD Routine 02/24/2017 Results for 2:20 PM CDT this procedure are in the results section. ANTI SMOOTH MUSCLE AB TITER Routine 02/24/2017 Results for 1:27 PM CDT this procedure are in the results section. HEPATITIS B CORE ANTIBODY IGM Routine 02/24/2017 Results for 1:27 PM CDT this procedure are in the results section. HEPATITIS B SURFACE ANTIGEN Routine 02/24/2017 Results for 1:27 PM CDT this procedure are in the results section. HEPATITIS B SURFACE ANTIBODY Routine 02/24/2017 Results for 1:27 PM CDT this procedure are in the results section. HEPATITIS C ANTIBODY Routine 02/24/2017 Results for 1:27 PM CDT this procedure are in the results section. TOTAL IRON BINDING CAPACITY Routine 02/24/2017 Results for 1:27 PM CDT this procedure are in the results section. FERRITIN LEVEL Routine 02/24/2017 Results for 1:27 PM CDT this procedure are in the results section. CERULOPLASMIN LEVEL Routine 02/24/2017 Results for 1:27 PM CDT this procedure are in the results section. ALPHA FETOPROTEIN Routine 02/24/2017 Results for 1:27 PM CDT this procedure are in the results section. ALPHA-1 ANTITRYPSIN LEVEL Routine 02/24/2017 Results for 1:27 PM CDT this procedure are in the results section. ANTI SMOOTH MUSCLE AB SCREEN Routine 02/24/2017 Results for 1:27 PM CDT this procedure are in the results section. CARLOS Routine 02/24/2017 Results for 1:27 PM CDT this procedure are in the results section. HEMOGLOBIN & HEMATOCRIT Routine 02/24/2017 Results for 1:27 PM CDT this procedure are in the results section. POC GLUCOSE Routine 02/24/2017 Results for 11:14 AM CDT this procedure are in the results section. POC GLUCOSE Routine 02/24/2017 Results for 7:48 AM CDT this procedure are in the results section. POC GLUCOSE Routine 02/24/2017 Results for 12:36 AM CDT this procedure are in the results section. LACTIC ACID LEVEL Timed 02/23/2017 Results for 10:17 PM CDT this procedure are in the results section. URINALYSIS SCREEN AND STAT 02/23/2017 Results for MICROSCOPY, WITH REFLEX TO 9:05 PM CDT this procedure CULTURE are in the results section. AMMONIA LEVEL STAT 02/23/2017 Results for 7:49 PM CDT this procedure are in the results section. BILIRUBIN DIRECT STAT 02/23/2017 Results for 7:49 PM CDT this procedure are in the results section. ESTIMATED GFR STAT 02/23/2017 Results for 7:49 PM CDT this procedure are in the results section. LACTIC ACID LEVEL STAT 02/23/2017 Results for 7:49 PM CDT this procedure are in the results section. HC COMPLETE BLD COUNT W/AUTO STAT 02/23/2017 Results for DIFF 7:49 PM CDT this procedure are in the results section. LIPASE LEVEL STAT 02/23/2017 Results for 7:49 PM CDT this procedure are in the results section. AMYLASE LEVEL STAT 02/23/2017 Results for 7:49 PM CDT this procedure are in the results section. COMPREHENSIVE METABOLIC PANEL STAT 02/23/2017 Results for 7:49 PM CDT this procedure are in the results section. XR CHEST 2 VW STAT 02/23/2017 Results for 7:40 PM CDT this procedure are in the results section. CT ABDOMEN PELVIS WO CONTRAST STAT 02/23/2017 Results for 7:19 PM CDT this procedure are in the results section. URINE CULTURE STAT 02/23/2017 Results for 6:51 PM CDT this procedure are in the results section. ESTIMATED GFR STAT 02/08/2017 Results for 3:06 PM CDT this procedure are in the results section. COMPREHENSIVE METABOLIC PANEL STAT 02/08/2017 Results for 3:06 PM CDT this procedure are in the results section. HC COMPLETE BLD COUNT W/AUTO Routine 02/08/2017 Results for DIFF 3:00 PM CDT this procedure are in the results section. URINALYSIS SCREEN AND STAT 02/01/2017 Results for MICROSCOPY, WITH REFLEX TO 9:48 PM CDT this procedure CULTURE are in the results section. CT CHEST W CONTRAST ABDOMEN W STAT 02/01/2017 Results for CONTRAST PELVIS W CONTRAST 9:31 PM CDT this procedure are in the results section. LACTIC ACID LEVEL Timed 02/01/2017 Results for 5:35 PM CDT this procedure are in the results section. ESTIMATED GFR STAT 02/01/2017 Results for 2:06 PM CDT this procedure are in the results section. BILIRUBIN DIRECT STAT 02/01/2017 Results for 2:06 PM CDT this procedure are in the results section. LACTIC ACID LEVEL STAT 02/01/2017 Results for 2:06 PM CDT this procedure are in the results section. HC COMPLETE BLD COUNT W/AUTO STAT 02/01/2017 Results for DIFF 2:06 PM CDT this procedure are in the results section. LIPASE LEVEL STAT 02/01/2017 Results for 2:06 PM CDT this procedure are in the results section. AMYLASE LEVEL STAT 02/01/2017 Results for 2:06 PM CDT this procedure are in the results section. COMPREHENSIVE METABOLIC PANEL STAT 02/01/2017 Results for 2:06 PM CDT this procedure are in the results section. POC GLUCOSE Routine 12/22/2016 Results for 6:32 AM CDT this procedure are in the results section. POC GLUCOSE Routine 12/21/2016 Results for 9:43 PM CDT this procedure are in the results section. POC GLUCOSE Routine 12/21/2016 Results for 4:25 PM CDT this procedure are in the results section. POC GLUCOSE Routine 12/21/2016 Results for 12:05 PM CDT this procedure are in the results section. POC GLUCOSE Routine 12/21/2016 Results for 6:44 AM CDT this procedure are in the results section. POC GLUCOSE Routine 12/20/2016 Results for 8:33 PM CDT this procedure are in the results section. POC GLUCOSE Routine 12/20/2016 Results for 4:01 PM CDT this procedure are in the results section. POC GLUCOSE Routine 12/20/2016 Results for 11:06 AM CDT this procedure are in the results section. VANCOMYCIN LEVEL, TROUGH Timed 12/20/2016 Results for 9:07 AM CDT this procedure are in the results section. LACTIC ACID LEVEL Timed 12/19/2016 Results for 9:48 PM CDT this procedure are in the results section. URINE DRUGS OF ABUSE SCREEN Routine 12/19/2016 Results for 6:40 PM CDT this procedure are in the results section. URINALYSIS SCREEN AND STAT 12/19/2016 Results for MICROSCOPY, WITH REFLEX TO 6:40 PM CDT this procedure CULTURE are in the results section. URINE CULTURE STAT 12/19/2016 Results for 6:40 PM CDT this procedure are in the results section. ECG 12-LEAD STAT 12/19/2016 Results for 5:33 PM CDT this procedure are in the results section. XR CHEST 1 VW PORTABLE STAT 12/19/2016 Results for 5:27 PM CDT this procedure are in the results section. LACTIC ACID LEVEL STAT 12/19/2016 Results for 5:16 PM CDT this procedure are in the results section. BLOOD CULTURE, AEROBIC & Routine 12/19/2016 Results for ANAEROBIC 5:16 PM CDT this procedure are in the results section. CT HEAD WO CONTRAST STAT 12/19/2016 Results for 5:12 PM CDT this procedure are in the results section. BILIRUBIN DIRECT STAT 12/19/2016 Results for 4:59 PM CDT this procedure are in the results section. ESTIMATED GFR STAT 12/19/2016 Results for 4:59 PM CDT this procedure are in the results section. LIPASE LEVEL STAT 12/19/2016 Results for 4:59 PM CDT this procedure are in the results section. AMYLASE LEVEL STAT 12/19/2016 Results for 4:59 PM CDT this procedure are in the results section. PARTIAL THROMBOPLASTIN TIME STAT 12/19/2016 Results for (PTT) 4:59 PM CDT this procedure are in the results section. PROTHROMBIN TIME WITH INR STAT 12/19/2016 Results for 4:59 PM CDT this procedure are in the results section. COMPREHENSIVE METABOLIC PANEL STAT 12/19/2016 Results for 4:59 PM CDT this procedure are in the results section. CBC WITH PLATELET AND STAT 12/19/2016 Results for DIFFERENTIAL 4:59 PM CDT this procedure are in the results section. BLOOD CULTURE, AEROBIC & Routine 12/19/2016 Results for ANAEROBIC 4:59 PM CDT this procedure are in the results section. POC GLUCOSE Routine 12/15/2016 Results for 5:08 PM CDT this procedure are in the results section. POC GLUCOSE Routine 12/15/2016 Results for 11:40 AM CDT this procedure are in the results section. POC GLUCOSE Routine 12/15/2016 Results for 6:22 AM CDT this procedure are in the results section. POC GLUCOSE Routine 12/14/2016 Results for 8:32 PM CDT this procedure are in the results section. POC GLUCOSE Routine 12/14/2016 Results for 4:50 PM CDT this procedure are in the results section. POC GLUCOSE Routine 12/14/2016 Results for 11:13 AM CDT this procedure are in the results section. POC GLUCOSE Routine 12/14/2016 Results for 6:17 AM CDT this procedure are in the results section. ESTIMATED GFR Routine 12/14/2016 Results for 6:15 AM CDT this procedure are in the results section. BASIC METABOLIC PANEL Routine 12/14/2016 Results for 6:15 AM CDT this procedure are in the results section. HC COMPLETE BLD COUNT W/AUTO Routine 12/14/2016 Results for DIFF 6:15 AM CDT this procedure are in the results section. POC GLUCOSE Routine 12/13/2016 Results for 8:23 PM CDT this procedure are in the results section. POC GLUCOSE Routine 12/13/2016 Results for 4:15 PM CDT this procedure are in the results section. XR CHEST 1 VW PORTABLE STAT 12/13/2016 Results for 3:15 PM CDT this procedure are in the results section. POC GLUCOSE Routine 12/13/2016 Results for 12:10 PM CDT this procedure are in the results section. POC GLUCOSE Routine 12/13/2016 Results for 6:37 AM CDT this procedure are in the results section. ESTIMATED GFR Routine 12/13/2016 Results for 5:20 AM CDT this procedure are in the results section. BASIC METABOLIC PANEL Routine 12/13/2016 Results for 5:20 AM CDT this procedure are in the results section. HC COMPLETE BLD COUNT W/AUTO Routine 12/13/2016 Results for DIFF 5:20 AM CDT this procedure are in the results section. POC GLUCOSE Routine 12/12/2016 Results for 8:36 PM CDT this procedure are in the results section. POC GLUCOSE Routine 12/12/2016 Results for 8:34 PM CDT this procedure are in the results section. POC GLUCOSE Routine 12/12/2016 Results for 6:40 PM CDT this procedure are in the results section. HC CATH DUAL LUMEN PICC Routine 12/12/2016 Results for 12:19 PM CDT this procedure are in the results section. HC US GUIDED VASCULAR ACCESS Routine 12/12/2016 Results for 12:19 PM CDT this procedure are in the results section. HC CVL PICC INSERT 5 YRS OR > Routine 12/12/2016 Results for 12:19 PM CDT this procedure are in the results section. POC GLUCOSE Routine 12/12/2016 Results for 11:12 AM CDT this procedure are in the results section. ESTIMATED GFR Routine 12/12/2016 Results for 6:51 AM CDT this procedure are in the results section. BASIC METABOLIC PANEL Routine 12/12/2016 Results for 6:51 AM CDT this procedure are in the results section. HC COMPLETE BLD COUNT W/AUTO Routine 12/12/2016 Results for DIFF 6:51 AM CDT this procedure are in the results section. POC GLUCOSE Routine 12/12/2016 Results for 6:33 AM CDT this procedure are in the results section. POC GLUCOSE Routine 12/11/2016 Results for 8:38 PM CDT this procedure are in the results section. POC GLUCOSE Routine 12/11/2016 Results for 4:16 PM CDT this procedure are in the results section. CT CHEST WO CONTRAST Routine 12/11/2016 Results for 1:37 PM CDT this procedure are in the results section. POC GLUCOSE Routine 12/11/2016 Results for 12:04 PM CDT this procedure are in the results section. XR CHEST 1 VW PORTABLE Routine 12/11/2016 Results for 10:40 AM CDT this procedure are in the results section. POC GLUCOSE Routine 12/11/2016 Results for 7:01 AM CDT this procedure are in the results section. POC GLUCOSE Routine 12/10/2016 Results for 8:49 PM CDT this procedure are in the results section. POC GLUCOSE Routine 12/10/2016 Results for 4:14 PM CDT this procedure are in the results section. POC GLUCOSE Routine 12/10/2016 Results for 10:54 AM CDT this procedure are in the results section. POC GLUCOSE Routine 12/10/2016 Results for 6:33 AM CDT this procedure are in the results section. ESTIMATED GFR Routine 12/10/2016 Results for 5:08 AM CDT this procedure are in the results section. BASIC METABOLIC PANEL Routine 12/10/2016 Results for 5:08 AM CDT this procedure are in the results section. HC COMPLETE BLD COUNT W/AUTO Routine 12/10/2016 Results for DIFF 5:08 AM CDT this procedure are in the results section. POC GLUCOSE Routine 12/09/2016 Results for 8:49 PM CDT this procedure are in the results section. POC GLUCOSE Routine 12/09/2016 Results for 4:43 PM CDT this procedure are in the results section. GRAM STAIN Routine 12/09/2016 Results for 4:40 PM CDT this procedure are in the results section. AEROBIC CULTURE Routine 12/09/2016 Results for 4:40 PM CDT this procedure are in the results section. POC GLUCOSE Routine 12/09/2016 Results for 11:57 AM CDT this procedure are in the results section. CT NEEDLE BIOPSY NO CONTRAST Routine 12/09/2016 Results for 10:00 AM CDT this procedure are in the results section. XR CHEST 1 VW PORTABLE Routine 12/09/2016 Results for 9:59 AM CDT this procedure are in the results section. POC GLUCOSE Routine 12/09/2016 Results for 6:33 AM CDT this procedure are in the results section. ESTIMATED GFR Routine 12/09/2016 Results for 5:28 AM CDT this procedure are in the results section. PROTHROMBIN TIME WITH INR Routine 12/09/2016 Results for 5:28 AM CDT this procedure are in the results section. PARTIAL THROMBOPLASTIN TIME Routine 12/09/2016 Results for (PTT) 5:28 AM CDT this procedure are in the results section. BASIC METABOLIC PANEL Routine 12/09/2016 Results for 5:28 AM CDT this procedure are in the results section. HC COMPLETE BLD COUNT W/AUTO Routine 12/09/2016 Results for DIFF 5:28 AM CDT this procedure are in the results section. POC GLUCOSE Routine 12/08/2016 Results for 11:17 PM CDT this procedure are in the results section. POC GLUCOSE Routine 12/08/2016 Results for 8:44 PM CDT this procedure are in the results section. POC GLUCOSE Routine 12/08/2016 Results for 11:26 AM CDT this procedure are in the results section. POC GLUCOSE Routine 12/08/2016 Results for 6:30 AM CDT this procedure are in the results section. ESTIMATED GFR Routine 12/08/2016 Results for 5:45 AM CDT this procedure are in the results section. BASIC METABOLIC PANEL Routine 12/08/2016 Results for 5:45 AM CDT this procedure are in the results section. HC COMPLETE BLD COUNT W/AUTO Routine 12/08/2016 Results for DIFF 5:45 AM CDT this procedure are in the results section. HEMOGLOBIN A1C Routine 12/08/2016 Results for 5:45 AM CDT this procedure are in the results section. POC GLUCOSE Routine 12/07/2016 Results for 10:39 PM CDT this procedure are in the results section. URINE CULTURE Routine 12/07/2016 Results for 10:20 PM CDT this procedure are in the results section. URINALYSIS SCREEN AND Routine 12/07/2016 Results for MICROSCOPY, WITH REFLEX TO 10:16 PM CDT this procedure CULTURE are in the results section. POC GLUCOSE Routine 12/07/2016 Results for 9:10 PM CDT this procedure are in the results section. POC GLUCOSE Routine 12/07/2016 Results for 6:01 PM CDT this procedure are in the results section. ECG ED PRELIMINARY Routine 12/07/2016 Results for INTERPRETATION 4:52 PM CDT this procedure are in the results section. CT ABDOMEN PELVIS W CONTRAST STAT 12/07/2016 Results for 4:49 PM CDT this procedure are in the results section. ECG 12-LEAD Routine 12/07/2016 Results for 1:56 PM CDT this procedure are in the results section. ESTIMATED GFR Routine 12/07/2016 Results for 12:59 PM CDT this procedure are in the results section. LIPASE LEVEL Routine 12/07/2016 Results for 12:59 PM CDT this procedure are in the results section. COMPREHENSIVE METABOLIC PANEL Routine 12/07/2016 Results for 12:59 PM CDT this procedure are in the results section. HC COMPLETE BLD COUNT W/AUTO Routine 12/07/2016 Results for DIFF 12:57 PM CDT this procedure are in the results section. POC GLUCOSE Routine 12/07/2016 Results for 6:23 AM CDT this procedure are in the results section. POC GLUCOSE Routine 12/06/2016 Results for 9:55 PM CDT this procedure are in the results section. CT CHEST W CONTRAST STAT 12/06/2016 Results for 7:21 PM CDT this procedure are in the results section. BLOOD CULTURE, AEROBIC & Routine 12/06/2016 Results for ANAEROBIC 5:18 PM CDT this procedure are in the results section. TROPONIN Timed 12/06/2016 Results for 5:12 PM CDT this procedure are in the results section. BLOOD CULTURE, AEROBIC & Routine 12/06/2016 Results for ANAEROBIC 5:12 PM CDT this procedure are in the results section. XR RIBS 2 VW RIGHT STAT 12/06/2016 Results for 3:55 PM CDT this procedure are in the results section. XR CHEST 2 VW STAT 12/06/2016 Results for 3:54 PM CDT this procedure are in the results section. ESTIMATED GFR STAT 12/06/2016 Results for 2:32 PM CDT this procedure are in the results section. TROPONIN STAT 12/06/2016 Results for 2:32 PM CDT this procedure are in the results section. CREATINE KINASE, TOTAL (CPK) STAT 12/06/2016 Results for 2:32 PM CDT this procedure are in the results section. COMPREHENSIVE METABOLIC PANEL STAT 12/06/2016 Results for 2:32 PM CDT this procedure are in the results section. HC COMPLETE BLD COUNT W/AUTO STAT 12/06/2016 Results for DIFF 2:32 PM CDT this procedure are in the results section. ECG 12-LEAD STAT 12/06/2016 Results for 2:09 PM CDT this procedure are in the results section. POC GLUCOSE Routine 11/27/2016 Results for 11:23 AM CDT this procedure are in the results section. XR CHEST 1 VW PORTABLE Routine 11/27/2016 Results for 7:20 AM CDT this procedure are in the results section. POC GLUCOSE Routine 11/27/2016 Results for 6:50 AM CDT this procedure are in the results section. POC GLUCOSE Routine 11/26/2016 Results for 8:59 PM CDT this procedure are in the results section. POC GLUCOSE Routine 11/26/2016 Results for 4:14 PM CDT this procedure are in the results section. POC GLUCOSE Routine 11/26/2016 Results for 11:04 AM CDT this procedure are in the results section. POC GLUCOSE Routine 11/26/2016 Results for 8:02 AM CDT this procedure are in the results section. XR CHEST 1 VW PORTABLE Routine 11/26/2016 Results for 4:50 AM CDT this procedure are in the results section. POC GLUCOSE Routine 11/25/2016 Results for 8:54 PM CDT this procedure are in the results section. XR CHEST 1 VW PORTABLE Routine 11/25/2016 Results for 5:54 AM CDT this procedure are in the results section. ESTIMATED GFR Routine 11/25/2016 Results for 4:55 AM CDT this procedure are in the results section. HC COMPLETE BLD COUNT W/AUTO Routine 11/25/2016 Results for DIFF 4:55 AM CDT this procedure are in the results section. BASIC METABOLIC PANEL Routine 11/25/2016 Results for 4:55 AM CDT this procedure are in the results section. POC GLUCOSE Routine 11/24/2016 Results for 9:02 PM CDT this procedure are in the results section. POC GLUCOSE Routine 11/24/2016 Results for 11:33 AM CDT this procedure are in the results section. XR CHEST 1 VW PORTABLE STAT 11/24/2016 Results for 11:14 AM CDT this procedure are in the results section. SURGICAL PATHOLOGY REQUEST Routine 11/24/2016 Results for 10:03 AM CDT this procedure are in the results section. GRAM STAIN Timed 11/24/2016 Results for 10:03 AM CDT this procedure are in the results section. AFB STAIN Timed 11/24/2016 Results for 10:03 AM CDT this procedure are in the results section. FUNGUS SMEAR Timed 11/24/2016 Results for 10:03 AM CDT this procedure are in the results section. AFB CULTURE Timed 11/24/2016 Bronchitis, Results for 10:03 AM CDT chronic this procedure obstructive, with are in the exacerbation results section. AEROBIC CULTURE Timed 11/24/2016 Bronchitis, Results for 10:03 AM CDT chronic this procedure obstructive, with are in the exacerbation results section. FUNGUS CULTURE Timed 11/24/2016 Bronchitis, Results for 10:03 AM CDT chronic this procedure obstructive, with are in the exacerbation results section. ANAEROBIC CULTURE Timed 11/24/2016 Bronchitis, Results for 10:03 AM CDT chronic this procedure obstructive, with are in the exacerbation results section. NE AN ELECTIVE ENDOTRACHEAL Routine 11/24/2016 AIRWAY 8:51 [...] glottis Number of Attempts at Approach: 1 POC GLUCOSE Routine 11/24/2016 6:02 AM Results for this CDT procedure are in the results section. POC GLUCOSE Routine 11/23/2016 9:10 PM Results for this CDT procedure are in the results section. POC GLUCOSE Routine 11/23/2016 4:08 PM Results for this CDT procedure are in the results section. PREPARE RBC STAT 11/23/2016 2:19 PM CDT TYPE AND SCREEN STAT 11/23/2016 2:19 PM Results for this CDT procedure are in the results section. SPIROMETRY PRE AND POST Routine 11/23/2016 12:31 PM Lung mass WITH BRONCHILATOR CDT POC GLUCOSE Routine 11/23/2016 11:05 AM Results for this CDT procedure are in the results section. POC GLUCOSE Routine 11/23/2016 6:20 AM Results for this CDT procedure are in the results section. ECG ED PRELIMINARY Routine 11/22/2016 9:25 PM Results for this INTERPRETATION CDT procedure are in the results section. POC GLUCOSE Routine 11/22/2016 8:19 PM Results for this CDT procedure are in the results section. XR CHEST 2 VW STAT 11/22/2016 4:10 PM Results for this CDT procedure are in the results section. ESTIMATED GFR STAT 11/22/2016 3:39 PM Results for this CDT procedure are in the results section. B NATRIURETIC PEPTIDE STAT 11/22/2016 3:39 PM Results for this CDT procedure are in the results section. TROPONIN STAT 11/22/2016 3:39 PM Results for this CDT procedure are in the results section. CREATINE KINASE, TOTAL STAT 11/22/2016 3:39 PM Results for this (CPK) CDT procedure are in the results section. COMPREHENSIVE METABOLIC STAT 11/22/2016 3:39 PM Results for this PANEL CDT procedure are in the results section. PROTHROMBIN TIME WITH STAT 11/22/2016 3:39 PM Results for this INR CDT procedure are in the results section. HC COMPLETE BLD COUNT STAT 11/22/2016 3:39 PM Results for this W/AUTO DIFF CDT procedure are in the results section. ECG 12-LEAD STAT 11/22/2016 3:34 PM Results for this CDT procedure are in the results section. ECHOCARDIOGRAM 2D Routine 11/18/2016 8:37 AM Shortness of Results for this COMPLETE W MMODE CDT breath procedure are in SPECTRAL COLOR DOPPLER Mass of lower lobe the results ([id number]) of right lung section. POC GLUCOSE Routine 11/09/2016 5:20 PM Results for this CDT procedure are in the results section. POC GLUCOSE Routine 11/09/2016 1:59 PM Results for this CDT procedure are in the results section. POC GLUCOSE Routine 11/09/2016 12:14 PM Results for this CDT procedure are in the results section. XR CHEST 1 VW PORTABLE STAT 11/09/2016 10:52 AM Results for this CDT procedure are in the results section. POC GLUCOSE Routine 11/09/2016 10:03 AM Results for this CDT procedure are in the results section. POC GLUCOSE Routine 11/09/2016 8:02 AM Results for this CDT procedure are in the results section. ECG 12-LEAD Routine 11/09/2016 6:14 AM Results for this CDT procedure are in the results section. POC GLUCOSE Routine 11/09/2016 5:48 AM Results for this CDT procedure are in the results section. ESTIMATED GFR Routine 11/09/2016 4:59 AM Results for this CDT procedure are in the results section. MAGNESIUM LEVEL Routine 11/09/2016 4:59 AM Results for this CDT procedure are in the results section. HC COMPLETE BLD COUNT Routine 11/09/2016 4:59 AM Results for this W/AUTO DIFF CDT procedure are in the results section. BASIC METABOLIC PANEL Routine 11/09/2016 4:59 AM Results for this CDT procedure are in the results section. POC GLUCOSE Routine 11/09/2016 4:00 AM Results for this CDT procedure are in the results section. POC GLUCOSE Routine 11/09/2016 2:08 AM Results for this CDT procedure are in the results section. POC GLUCOSE Routine 11/09/2016 12:04 AM Results for this CDT procedure are in the results section. POC GLUCOSE Routine 11/08/2016 9:58 PM Results for this CDT procedure are in the results section. POC GLUCOSE Routine 11/08/2016 7:57 PM Results for this CDT procedure are in the results section. POC GLUCOSE Routine 11/08/2016 5:58 PM Results for this CDT procedure are in the results section. POC GLUCOSE Routine 11/08/2016 5:14 PM Results for this CDT procedure are in the results section. POC GLUCOSE Routine 11/08/2016 4:15 PM Results for this CDT procedure are in the results section. SURGICAL PATHOLOGY Routine 11/08/2016 3:49 PM Results for this REQUEST CDT procedure are in the results section. CT NEEDLE BIOPSY NO Routine 11/08/2016 3:45 PM Results for this CONTRAST CDT procedure are in the results section. XR CHEST 1 VW PORTABLE STAT 11/08/2016 3:44 PM Results for this CDT procedure are in the results section. POC GLUCOSE Routine 11/08/2016 3:04 PM Results for this CDT procedure are in the results section. POC GLUCOSE Routine 11/08/2016 2:06 PM Results for this CDT procedure are in the results section. POC GLUCOSE Routine 11/08/2016 12:57 PM Results for this CDT procedure are in the results section. POC GLUCOSE Routine 11/08/2016 12:13 PM Results for this CDT procedure are in the results section. POC GLUCOSE Routine 11/08/2016 10:48 AM Results for this CDT procedure are in the results section. POC GLUCOSE Routine 11/08/2016 9:03 AM Results for this CDT procedure are in the results section. POC GLUCOSE Routine 11/08/2016 8:05 AM Results for this CDT procedure are in the results section. POC GLUCOSE Routine 11/08/2016 6:55 AM Results for this CDT procedure are in the results section. XR CHEST 1 VW PORTABLE Routine 11/08/2016 6:41 AM Results for this CDT procedure are in the results section. POC GLUCOSE Routine 11/08/2016 6:09 AM Results for this CDT procedure are in the results section. ECG 12-LEAD Routine 11/08/2016 6:04 AM Results for this CDT procedure are in the results section. POC GLUCOSE Routine 11/08/2016 5:09 AM Results for this CDT procedure are in the results section. POC GLUCOSE Routine 11/08/2016 4:19 AM Results for this CDT procedure are in the results section. SMEAR REVIEW Routine 11/08/2016 3:51 AM Results for this CDT procedure are in the results section. ESTIMATED GFR Routine 11/08/2016 3:51 AM Results for this CDT procedure are in the results section. PARTIAL THROMBOPLASTIN Routine 11/08/2016 3:51 AM Results for this TIME (PTT) CDT procedure are in the results section. PROTHROMBIN TIME WITH Routine 11/08/2016 3:51 AM Results for this INR CDT procedure are in the results section. PHOSPHORUS LEVEL Routine 11/08/2016 3:51 AM Results for this CDT procedure are in the results section. MAGNESIUM LEVEL Routine 11/08/2016 3:51 AM Results for this CDT procedure are in the results section. COMPREHENSIVE METABOLIC Routine 11/08/2016 3:51 AM Results for this PANEL CDT procedure are in the results section. HC COMPLETE BLD COUNT Routine 11/08/2016 3:51 AM Results for this W/AUTO DIFF CDT procedure are in the results section. HEPATITIS ACUTE PANEL Routine 11/08/2016 3:51 AM Results for this CDT procedure are in the results section. POC GLUCOSE Routine 11/08/2016 2:13 AM Results for this CDT procedure are in the results section. POC GLUCOSE Routine 11/08/2016 1:27 AM Results for this CDT procedure are in the results section. POC GLUCOSE Routine 11/08/2016 12:09 AM Results for this CDT procedure are in the results section. POC GLUCOSE Routine 11/07/2016 9:48 PM Results for this CDT procedure are in the results section. POC GLUCOSE Routine 11/07/2016 6:48 PM Results for this CDT procedure are in the results section. POC GLUCOSE Routine 11/07/2016 5:54 PM Results for this CDT procedure are in the results section. POC GLUCOSE Routine 11/07/2016 4:47 PM Results for this CDT procedure are in the results section. POC GLUCOSE Routine 11/07/2016 3:45 PM Results for this CDT procedure are in the results section. POC GLUCOSE Routine 11/07/2016 2:54 PM Results for this CDT procedure are in the results section. POC GLUCOSE Routine 11/07/2016 1:23 PM Results for this CDT procedure are in the results section. POC GLUCOSE Routine 11/07/2016 11:43 AM Results for this CDT procedure are in the results section. POC GLUCOSE Routine 11/07/2016 10:41 AM Results for this CDT procedure are in the results section. POC GLUCOSE Routine 11/07/2016 9:28 AM Results for this CDT procedure are in the results section. POC GLUCOSE Routine 11/07/2016 7:05 AM Results for this CDT procedure are in the results section. ECG 12-LEAD Routine 11/07/2016 5:57 AM Results for this CDT procedure are in the results section. SMEAR REVIEW Routine 11/07/2016 3:54 AM Results for this CDT procedure are in the results section. ESTIMATED GFR Routine 11/07/2016 3:54 AM Results for this CDT procedure are in the results section. PROTHROMBIN TIME WITH Routine 11/07/2016 3:54 AM Results for this INR CDT procedure are in the results section. PHOSPHORUS LEVEL Routine 11/07/2016 3:54 AM Results for this CDT procedure are in the results section. MAGNESIUM LEVEL Routine 11/07/2016 3:54 AM Results for this CDT procedure are in the results section. COMPREHENSIVE METABOLIC Routine 11/07/2016 3:54 AM Results for this PANEL CDT procedure are in the results section. HC COMPLETE BLD COUNT Routine 11/07/2016 3:54 AM Results for this W/AUTO DIFF CDT procedure are in the results section. POC GLUCOSE Routine 11/06/2016 11:20 PM Results for this CDT procedure are in the results section. POC GLUCOSE Routine 11/06/2016 9:29 PM Results for this CDT procedure are in the results section. POC GLUCOSE Routine 11/06/2016 9:21 PM Results for this CDT procedure are in the results section. ECG ED PRELIMINARY Routine 11/06/2016 8:18 PM Results for this INTERPRETATION CDT procedure are in the results section. NE CRITICAL CARE, E/M Routine 11/06/2016 8:18 PM Results for this 30-74 MINUTES CDT procedure are in the results section. POC GLUCOSE Routine 11/06/2016 5:11 PM Results for this CDT procedure are in the results section. POC GLUCOSE Routine 11/06/2016 3:14 PM Results for this CDT procedure are in the results section. POC GLUCOSE Routine 11/06/2016 1:33 PM Results for this CDT procedure are in the results section. POC GLUCOSE Routine 11/06/2016 11:22 AM Results for this CDT procedure are in the results section. CT HEAD W WO CONTRAST STAT 11/06/2016 11:14 AM Results for this CDT procedure are in the results section. POC GLUCOSE Routine 11/06/2016 7:27 AM Results for this CDT procedure are in the results section. THYROID STIMULATING Routine 11/06/2016 4:23 AM Results for this HORMONE CDT procedure are in the results section. ESTIMATED GFR Routine 11/06/2016 4:23 AM Results for this CDT procedure are in the results section. COMPREHENSIVE METABOLIC Routine 11/06/2016 4:23 AM Results for this PANEL CDT procedure are in the results section. HC COMPLETE BLD COUNT Routine 11/06/2016 4:23 AM Results for this W/AUTO DIFF CDT procedure are in the results section. CT CHEST WO CONTRAST STAT 11/05/2016 10:58 PM Results for this CDT procedure are in the results section. POC GLUCOSE Routine 11/05/2016 9:59 PM Results for this CDT procedure are in the results section. ECG 12-LEAD Routine 11/05/2016 6:25 PM Results for this CDT procedure are in the results section. BLOOD CULTURE, AEROBIC Routine 11/05/2016 3:44 PM Results for this & ANAEROBIC CDT procedure are in the results section. BLOOD CULTURE, AEROBIC Routine 11/05/2016 3:39 PM Results for this & ANAEROBIC CDT procedure are in the results section. ESTIMATED GFR STAT 11/05/2016 1:25 PM Results for this CDT procedure are in the results section. COMPREHENSIVE METABOLIC STAT 11/05/2016 1:25 PM Results for this PANEL CDT procedure are in the results section. HC COMPLETE BLD COUNT STAT 11/05/2016 1:25 PM Results for this W/AUTO DIFF CDT procedure are in the results section. XR CHEST 1 VW PORTABLE STAT 11/05/2016 1:16 PM Results for this CDT procedure are in the results section. ECG 12-LEAD STAT 11/05/2016 12:35 PM Results for this CDT procedure are in the results section. XR CHEST 1 VW PORTABLE Routine 11/01/2016 4:39 PM Results for this CDT procedure are in the results section. XR CHEST 1 VW PORTABLE Routine 11/01/2016 2:36 PM Results for this CDT procedure are in the results section. CT NEEDLE BIOPSY NO Routine 11/01/2016 2:28 PM Lung mass Results for this CONTRAST CDT procedure are in the results section. XR CHEST 1 VW PORTABLE STAT 11/01/2016 2:09 PM Results for this CDT procedure are in the results section. SURGICAL PATHOLOGY Routine 11/01/2016 2:01 PM Results for this REQUEST CDT procedure are in the results section. ESTIMATED GFR STAT 11/01/2016 11:35 AM Results for this CDT procedure are in the results section. PROTHROMBIN TIME WITH STAT 11/01/2016 11:35 AM Results for this INR CDT procedure are in the results section. PARTIAL THROMBOPLASTIN STAT 11/01/2016 11:35 AM Results for this TIME (PTT) CDT procedure are in the results section. HC COMPLETE BLD COUNT STAT 11/01/2016 11:35 AM Results for this W/AUTO DIFF CDT procedure are in the results section. BASIC METABOLIC PANEL STAT 11/01/2016 11:35 AM Results for this CDT procedure are in the results section. after 10/31/2016 Results Urinalysis screen and microscopy, with reflex to culture (10/07/2017 9:16 AM) Only the most recent of6 resultswithin the time period is included. Specimen site Clean catch [facility] DEPARTMENT OF PATHOLOGY AND GENOMIC MEDICINE Color, UA Yellow [facility] DEPARTMENT OF PATHOLOGY AND GENOMIC MEDICINE Appearance, UA Clear [facility] DEPARTMENT OF PATHOLOGY AND GENOMIC MEDICINE Specific gravity, UA 1.011 1.001 - 1.035 [facility] DEPARTMENT OF PATHOLOGY AND GENOMIC MEDICINE pH, UA 5.0 5.0 - 8.5 [facility] DEPARTMENT OF PATHOLOGY AND GENOMIC MEDICINE Protein, UA Negative Negative [facility] DEPARTMENT OF PATHOLOGY AND GENOMIC MEDICINE Glucose, UA Negative Negative [facility] DEPARTMENT OF PATHOLOGY AND GENOMIC MEDICINE Ketones, UA Negative Negative [facility] DEPARTMENT OF PATHOLOGY AND GENOMIC MEDICINE Bilirubin, UA Negative Negative [facility] DEPARTMENT OF PATHOLOGY AND GENOMIC MEDICINE Blood, UA Negative Negative [facility] DEPARTMENT OF PATHOLOGY AND GENOMIC MEDICINE Nitrite, UA Negative Negative [facility] DEPARTMENT OF PATHOLOGY AND GENOMIC MEDICINE Urobilinogen, UA 2.0 (A) <2.0 [facility] DEPARTMENT OF PATHOLOGY AND GENOMIC MEDICINE Leukocyte esterase, UA Negative Negative [facility] DEPARTMENT OF PATHOLOGY AND GENOMIC MEDICINE Epithelial cells, UA Few /HPF [facility] DEPARTMENT OF PATHOLOGY AND GENOMIC MEDICINE WBC, UA 1 0 - 1 /HPF [facility] DEPARTMENT OF PATHOLOGY AND GENOMIC MEDICINE RBC, UA <1 0 - 5 /HPF [facility] DEPARTMENT OF PATHOLOGY AND GENOMIC MEDICINE Bacteria, UA None seen None seen [facility] DEPARTMENT OF PATHOLOGY AND GENOMIC MEDICINE Yeast, UA None seen [facility] DEPARTMENT OF PATHOLOGY AND GENOMIC MEDICINE Yeast with pseudohyphae, UA None seen [facility] DEPARTMENT OF PATHOLOGY AND GENOMIC MEDICINE Specimen Urine Performing Organization Address City/State/Zipcode Phone Number [facility] DEPARTMENT OF PATHOLOGY AND [facility] [place] [address] [facility] Urine drugs of abuse screen (10/07/2017 9:16 AM)Only the most recent of3 resultswithin the time period is included. Amphetamine screen, urine NEG [facility] DEPARTMENT OF PATHOLOGY AND GENOMIC MEDICINE Barbiturate screen, urine NEG [facility] DEPARTMENT OF PATHOLOGY AND GENOMIC MEDICINE Benzodiazepine screen, POS [facility] DEPARTMENT OF urine PATHOLOGY AND GENOMIC MEDICINE Cocaine screen, urine NEG [facility] DEPARTMENT OF PATHOLOGY AND GENOMIC MEDICINE Methadone screen, urine NEG [facility] DEPARTMENT OF PATHOLOGY AND GENOMIC MEDICINE Opiates screen, urine POS [facility] DEPARTMENT OF PATHOLOGY AND GENOMIC MEDICINE Phencyclidine screen, urine NEG [facility] DEPARTMENT OF PATHOLOGY AND GENOMIC MEDICINE Cannabinoid screen, urine POS [facility] DEPARTMENT OF Comment: PATHOLOGY AND GENOMIC Drug screen minimum concentration of detectability MEDICINE Ugfvaoyukymi7446 ng/mL Rczwnccuvcfojuqi4837 ng/mL Barbiturates 300 ng/mL Jwwueprwshazpeo011 ng/mL Fhzsxqp048 ng/mL Tfatgsara706 ng/mL Fjhbvzd367 ng/mL Phencyclidine 25 ng/mL Ssdzzcmevpsd30 ng/mL Dmyhgvoslh2325 ng/mL Negative test results indicates presumptive evidence of lack of clinically significant drug concentration in this urine specimen. Positive test results are presumptive evidence of clinically significant drug concentration in this urine specimen. Testing performed for medical purposes only. Specimen Urine Performing Organization Address City/State/Zipcode Phone Number [facility] DEPARTMENT OF PATHOLOGY AND [address] [facility] [place] [address] [facility] Urine culture (10/07/2017 9:16 AM)Only the most recent of5 resultswithin the time period is included. Urine culture SEE COMMENTComment: Bacteriuria [facility] DEPARTMENT OF PATHOLOGY screen negative. AND GENOMIC MEDICINE Specimen Urine Performing Organization Address City/[facility]/Zipcode Phone Number [facility] DEPARTMENT OF PATHOLOGY AND [address] [facility] [address] [place] [address] GENOMIC [facility] Estimated GFR (10/07/2017 9:02 AM)Only the most recent of35 resultswithin the time period is included. GFR Non Af Amer 49 (A) mL/min/1.73 m2 [facility] DEPARTMENT OF PATHOLOGY AND GENOMIC MEDICINE GFR Af Amer 59 (A) mL/min/1.73 m2 [facility] DEPARTMENT OF Comment: PATHOLOGY AND GENOMIC Chronic kidney disease: <60 mL/min/1.73m2 MEDICINE Kidney failure: <15 mL/min/1.73m2 The estimated GFR is calculated from the IDMS-traceable Modification of Diet in Renal Disease Equation. The accuracy of the calculation is poor when the creatinine is normal. Calculated values >90 mL/min/1.73m2 are not reported. This equation has not been validated in children (<18 years), women, the elderly (>70 years), or ethnic groups other than Caucasians and Americans. Specimen Plasma specimen Performing Organization Address City/[facility]/Zipcode Phone Number [facility] DEPARTMENT PATHOLOGY AND [address] [facility] [address] [place] [address] [facility] CBC with platelet and differential (10/07/2017 9:02 AM)Only the most recent of34 resultswithin the time period is included. WBC 9.1 4.2 - 11.0 k/uL [facility] DEPARTMENT OF PATHOLOGY AND GENOMIC MEDICINE RBC 4.57 4.04 - 5.86 m/uL [facility] DEPARTMENT OF PATHOLOGY AND GENOMIC MEDICINE HGB 14.7 13.0 - 17.3 g/dL [facility] DEPARTMENT OF PATHOLOGY AND GENOMIC MEDICINE HCT 44.6 34.0 - 45.0 % [facility] DEPARTMENT OF PATHOLOGY AND GENOMIC MEDICINE MCV 97.6 80.0 - 98.0 fL [facility] DEPARTMENT OF PATHOLOGY AND GENOMIC MEDICINE MCH 32.2 27.0 - 34.0 pg [facility] DEPARTMENT OF PATHOLOGY AND GENOMIC MEDICINE MCHC 33.0 31.5 - 36.5 g/dL [facility] DEPARTMENT OF PATHOLOGY AND GENOMIC MEDICINE RDW - SD 55.1 (H) 37.0 - 51.0 [facility] DEPARTMENT OF PATHOLOGY AND GENOMIC MEDICINE MPV 10.1 7.4 - 10.4 [facility] DEPARTMENT OF PATHOLOGY AND GENOMIC MEDICINE Platelet count 124 (L) 150 - 400 k/uL [facility] DEPARTMENT OF PATHOLOGY AND GENOMIC MEDICINE Nucleated RBC 0.00 /100 WBC [facility] DEPARTMENT OF PATHOLOGY AND GENOMIC MEDICINE Neutrophils 80.4 (H) 36.0 - 66.0 % [facility] DEPARTMENT OF PATHOLOGY AND GENOMIC MEDICINE Lymphocytes 11.6 (L) 24.0 - 44.0 % [facility] DEPARTMENT OF PATHOLOGY AND GENOMIC MEDICINE Monocytes 5.8 0.0 - 6.0 % [facility] DEPARTMENT OF PATHOLOGY AND GENOMIC MEDICINE Eosinophils 1.3 0.0 - 6.0 % [facility] DEPARTMENT OF PATHOLOGY AND GENOMIC MEDICINE Basophils 0.6 0.0 - 1.2 % [facility] DEPARTMENT OF PATHOLOGY AND GENOMIC MEDICINE Immature granulocytes 0.3 0.0 - 1.0 % [facility] DEPARTMENT OF PATHOLOGY AND GENOMIC MEDICINE Specimen Blood Performing Organization Address City/[facility] Centercode Phone Number [facility] DEPARTMENT OF PATHOLOGY AND [address] [place] [address] Thyroid stimulating hormone (10/07/2017 9:02 AM)Only the most recent of2 resultswithin the time period is included. TSH 2.60 0.38 - 4.82 uIU/mL [facility] DEPARTMENT OF PATHOLOGY AND GENOMIC MEDICINE Specimen Plasma specimen Performing Organization Address City/[facility] Centercode Phone Number [facility] DEPARTMENT OF PATHOLOGY AND [address] [place] [address] T4, free (10/07/2017 9:02 AM) T4, free 1.00 0.70 - 1.61 ng/dL [facility] DEPARTMENT OF PATHOLOGY AND GENOMIC MEDICINE Specimen Plasma specimen Performing Organization Address City/[facility] Centercode Phone Number [facility] DEPARTMENT OF PATHOLOGY AND [address] [place] [address] Alcohol level, blood (10/07/2017 9:02 AM)Only the most recent of2 resultswithin the time period is included. Alcohol None Detected mg/dL [facility] DEPARTMENT OF PATHOLOGY Comment: AND GENOMIC MEDICINE NormalNone Detected Legal Intoxication in [place] 80 mg/dL (0.08%) Toxic Concentration 200 mg/dL (0.2%) Potentially Fatal 350-500 mg/dL (0.35%-0.5%) Alcohol percent None Detected % [facility] DEPARTMENT OF PATHOLOGY AND GENOMIC MEDICINE Specimen Blood Performing Organization Address City/[facility] Centercode Phone Number [facility] DEPARTMENT OF PATHOLOGY AND [facility] Freeman Serrano. [address] Acetaminophen level (10/07/2017 9:02 AM) Acetaminophen level <2.0 (L) 10.0 - 20.0 ug/mL [facility] DEPARTMENT OF Comment: PATHOLOGY AND GENOMIC Therapeutic 10-30 ug/mL MEDICINE Possible Toxicity 150-200 ug/mL Probable Toxicity >200 ug/mL Specimen Blood Performing Organization Address City/[facility] Centercomo Phone Number [facility] DEPARTMENT OF PATHOLOGY AND [facility] Freeman Serrano. [address] Salicylate level (10/07/2017 9:02 AM) Salicylate 7.0 mg/dL [facility] DEPARTMENT OF PATHOLOGY AND GENOMIC Comment: MEDICINE Therapeutic Range: 5 - 30 mg/dL Specimen Blood Performing Organization Address City/[facility] Centercode Phone Number [facility] DEPARTMENT OF PATHOLOGY AND [facility] Freeman Serrano. [address] Comprehensive metabolic panel (10/07/2017 9:02 AM)Only the most recent of20 resultswithin the time period is included. Sodium 140 135 - 150 mEq/L [facility] DEPARTMENT OF PATHOLOGY AND GENOMIC MEDICINE Potassium 3.8 3.5 - 5.0 mEq/L [facility] DEPARTMENT OF PATHOLOGY AND GENOMIC MEDICINE Chloride 109 100 - 109 mEq/L [facility] DEPARTMENT OF PATHOLOGY AND GENOMIC MEDICINE CO2 24 24 - 32 mmol/L [facility] DEPARTMENT OF PATHOLOGY AND GENOMIC MEDICINE Anion gap 7@ANIO 7 - 15 mEq/L [facility] DEPARTMENT OF PATHOLOGY AND GENOMIC MEDICINE BUN 14 7 - 18 mg/dL [facility] DEPARTMENT OF PATHOLOGY AND GENOMIC MEDICINE Creatinine 1.5 0.8 - 1.5 mg/dL [facility] DEPARTMENT OF PATHOLOGY AND GENOMIC MEDICINE Glucose 103 (H) 65 - 100 mg/dL [facility] DEPARTMENT OF PATHOLOGY AND GENOMIC MEDICINE Calcium 8.6 8.6 - 10.7 mg/dL [facility] DEPARTMENT OF PATHOLOGY AND GENOMIC MEDICINE Protein 7.9 6.3 - 8.2 g/dL [facility] DEPARTMENT OF PATHOLOGY AND GENOMIC MEDICINE Albumin 3.4 3.2 - 5.0 g/dL [facility] DEPARTMENT OF PATHOLOGY AND GENOMIC MEDICINE A/G ratio 0.8 0.7 - 3.8 [facility] DEPARTMENT OF PATHOLOGY AND GENOMIC MEDICINE Alkaline phosphatase 153 (H) 30 - 120 U/L [facility] DEPARTMENT OF PATHOLOGY AND GENOMIC MEDICINE AST 21 15 - 37 U/L [facility] DEPARTMENT OF PATHOLOGY AND GENOMIC MEDICINE ALT 17 (L) 30 - 65 U/L [facility] DEPARTMENT OF PATHOLOGY AND GENOMIC MEDICINE Total bilirubin 0.2 0.2 - 1.2 mg/dL [facility] DEPARTMENT OF PATHOLOGY AND GENOMIC MEDICINE Specimen Plasma specimen Performing Organization Address City/State/Zipcode Phone Number [facility] DEPARTMENT OF PATHOLOGY AND [facility] [place] [address] [facility] CT Abdomen Pelvis Wo Contrast (09/20/2017 3:27 AM)Only the most recent of3 resultswithin the time period is included. Narrative Performed At EXAMINATION:CT ABDOMEN PELVIS WO CONTRAST [facility] CLINICAL HISTORY:R flank pain TECHNIQUE: Multiple axial [...] varices, compatible with portal hypertension. [facility]-[id number] Procedure Note Hm Interface, Radiology Results Incoming - 09/20/2017 4:08 [...] varices, compatible with portal hypertension. [facility]-[id number] Performing Organization Address City/State/Zipcode Phone Number [facility] [address] [place] [address] Smear review (09/20/2017 3:13 AM)Only the most recent of5 resultswithin the time period is included. Smear review Smear Reviewed [facility] DEPARTMENT OF PATHOLOGY AND GENOMIC MEDICINE Performing Organization Address City/State/Zipcode Phone Number [facility] DEPARTMENT OF PATHOLOGY AND [address] [place] [id number] GENOMIC MEDICINE Prothrombin time with INR (09/20/2017 3:13 AM)Only the most recent of10 resultswithin the time period is included. Prothrombin time 14.5 12.0 - 15.0 sec [facility] DEPARTMENT OF PATHOLOGY AND GENOMIC MEDICINE INR 1.11 0.92 - 1.12 [facility] DEPARTMENT OF Comment: PATHOLOGY AND GENOMIC For patients on anticoagulant therapy, reference ranges below: MEDICINE Indication:INR Value Treatment of Venous Thrombosis, 2.0-3.0 pulmonary emboli, or prophylaxis of a venous thrombosis, or systemic emboli. High dose, high risk patients 3.0-4.5 with mechanical valves. NOTE:INR values over 3.0 are sometimes associated with gastrointestinal hemorrhage, especially values over 4.0. Specimen Blood Performing Organization Address [facility] Centercode Phone Number [facility] DEPARTMENT OF PATHOLOGY AND [address] [facility] [place], [place] [id number] [place] [address] Lipase level (09/20/2017 3:13 AM)Only the most recent of7 resultswithin the time period is included. Lipase 129 65 - 230 U/L [facility] DEPARTMENT OF PATHOLOGY AND [facility] Specimen Plasma specimen Performing Organization Address [facility] Centercode Phone Number [facility] DEPARTMENT OF PATHOLOGY AND [address] [facility] [address] [place], [place] [id number] [place] [address] ECG 12 lead (09/20/2017 2:43 AM)Only the most recent of13 resultswithin the time period is included. Ventricular rate 77 [facility] Atrial rate 77 [facility] NE interval 144 [facility] QRSD interval 94 [facility] QT interval 418 [facility] QTC interval 473 [facility] P axis 1 32 [facility] QRS axis 1 94 [facility] T wave axis 85 [facility] EKG impression Normal sinus rhythm-Rightward axis-Borderline [facility] MUSE ECG-In automated comparison with ECG of 06-JUL-2017 18:18,-No significant change was found- Performing Organization Address [facility] Phone Number [facility] MUSE [address] [place] [address] ECG ED Preliminary Interpretation - NOT AN ORDER (09/20/2017 2:07 AM)Only the most recent of6 resultswithin the time period is included. Narrative Performed At Karen Brantley MD 09/21/20173:47 AM ECG ED Preliminary Interpretation - Not an Order Performed by: KAREN BRANTLEY Authorized by: KAREN BRANTLEY ECG reviewed by ED Physician in the absence of a border patrol agent: yes Previous ECG: Previous ECG:Compared to current Comparison ECG info:06/16/17 Similarity:No change Interpretation: Interpretation: normal Rate: ECG rate:77 ECG rate assessment: normal Rhythm: Rhythm: sinus rhythm QRS: QRS axis:Right Comments: Normal sinus rhythm. Right axis deviation. PET/CT Skull Base To Mid Thigh (08/08/2017 1:45 PM) Narrative Performed At EXAMINATION: [facility] PET CT SKULL BASE TO MID THIGH Date and place of service: 08/08/2017 10:00 AM at [facility] DOSE: 11.8 mCi of 57-Xmgtud-9-Deoxyglucose (FDG) was injected intravenously into left wrist done infiltration at a serum glucose level of90 mg/dl. TECHNIQUE: PROCEDURE: Following injection of 12-Vwspmc-6-Deoxyglucose (FDG) and a standard uptake., The patient was imaged on a InfernoRed Technology whole body PET CT scanner. Multiple 6 [...] dose COMPARISON: October 26, [address] [facility]. 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 Status post right lower lobectomy November,. No history of recent chemotherapy or radiation therapy. For restaging. FINDINGS: Software fusion was [facility] with the [facility] [...] of radiotracer is demonstrated into the kidneys, ureters, and bladder. Physiologic excretion of radiotracer is [...] arterial hypertension as before. Cirrhosis as before. [id number] Procedure Note Hm Interface, Radiology Results Incoming - 08/08/2017 4:30 PM CDT EXAMINATION: PET CT SKULL BASE TO MID THIGH Date and place of service: 08/08/2017 10:00 AM at [facility] DOSE: 11.8 mCi of 86-Mdxoap-9-Deoxyglucose (FDG) was injected intravenously into left wrist done infiltration at a serum glucose level of 90 mg/dl. TECHNIQUE: PROCEDURE: Following injection of 67-Ayiysf-5-Deoxyglucose (FDG) and a standard uptake., The patient was imaged on a [employer] whole body PET CT scanner. Multiple 6 [...] dose COMPARISON: October 26, [address] [facility]. CLINICAL HISTORY: Bronchogenic carcinoma on the right [...] arterial hypertension as before. Cirrhosis as before. [facility]-[id number] Performing Organization Address City/State/Zipcode Phone Number [facility] [address] [place] [address] POC glucose (08/08/2017 11:36 AM)Only the most recent of146 resultswithin the time period is included. POC glucose 90 65 - 100 mg/dL [facility] DEPARTMENT OF PATHOLOGY AND Comment: GENOMIC MEDICINE Meter ID: [id number] Heavy Mobile Equipment Operator: Tyrell Aponte Performing Organization Address City/State/Zipcode Phone Number [facility] DEPARTMENT OF PATHOLOGY AND [facility] [place] [address] GENOMIC MEDICINE Keppra (Levetiracetam) level (07/16/2017 5:13 AM) Levetiracetam 27 12 - 46 ug/mL [facility] Comment: INTERPRETIVE INFORMATION: Keppra (Levetiracetam) Therapeutic Range:12-46 ug/mL Toxic:Not well Established Pharmacokinetics of levetiracetam are affected by renal function. Adverse effects may include somnolence, weakness, headache and vomiting. Performed by [employer], [address] [place] [address] [email or web address], Joni Roper MD - Lab. Director Specimen Serum Performing Organization Address [facility]/Zipcode Phone Number [facility] [address] [place] [address] Basic metabolic panel (07/16/2017 5:13 AM)Only the most recent of15 resultswithin the time period is included. Sodium 134 (L) 135 - 150 mEq/L [facility] DEPARTMENT OF PATHOLOGY AND [employer] [facility] Potassium 4.2 3.5 - 5.0 mEq/L [facility] DEPARTMENT OF PATHOLOGY AND [employer] MEDICINE Chloride 102 100 - 109 mEq/L [facility] DEPARTMENT OF PATHOLOGY AND [employer] MEDICINE CO2 22 (L) 24 - 32 mmol/L [facility] DEPARTMENT OF PATHOLOGY AND [employer] [facility] Anion gap 10 7 - 15 mEq/L [facility] DEPARTMENT OF Comment: PATHOLOGY AND GENOMIC Starting from August , anion gap calculation MEDICINE no longer incorporates potassium. Please note the change. BUN 17 7 - 18 mg/dL [facility] DEPARTMENT OF PATHOLOGY AND GENOMIC MEDICINE Creatinine 1.2 0.8 - 1.5 mg/dL [facility] DEPARTMENT OF PATHOLOGY AND GENOMIC MEDICINE Glucose 139 (H) 65 - 100 mg/dL [facility] DEPARTMENT OF PATHOLOGY AND GENOMIC MEDICINE Calcium 9.4 8.6 - 10.7 mg/dL [facility] DEPARTMENT OF PATHOLOGY AND [employer] MEDICINE Specimen Plasma specimen Performing Organization Address City/[facility]/Zipcode Phone Number [facility] DEPARTMENT OF PATHOLOGY AND [facility] [place] [address] [facility] Hepatic function panel (07/15/2017 8:14 PM) Albumin 3.8 3.2 - 5.0 g/dL [facility] DEPARTMENT OF PATHOLOGY AND GENOMIC MEDICINE Total bilirubin 0.8 0.2 - 1.2 mg/dL [facility] DEPARTMENT OF PATHOLOGY AND GENOMIC MEDICINE Bilirubin direct 0.2 0.0 - 0.4 mg/dL [facility] DEPARTMENT OF PATHOLOGY AND [employer] MEDICINE Alkaline phosphatase 231 (H) 30 - 120 U/L [facility] DEPARTMENT OF PATHOLOGY AND [employer] MEDICINE Protein 9.7 (H) 6.3 - 8.2 g/dL [facility] DEPARTMENT OF PATHOLOGY AND [employer] MEDICINE ALT 17 (L) 30 - 65 U/L [facility] DEPARTMENT OF PATHOLOGY AND GENOMIC MEDICINE AST 29 15 - 37 U/L [facility] DEPARTMENT OF PATHOLOGY AND GENOMIC MEDICINE Specimen Plasma specimen Performing Organization Address City/State/Zipcode Phone Number [facility] DEPARTMENT OF PATHOLOGY AND [address] [place] [address] Lumbar Spine Wo Contrast (07/15/2017 5:12 PM) Narrative Performed At EXAMINATION: CT LUMBAR SPINE WO CONTRAST HM [facility] CLINICAL HISTORY: pain COMPARISON: CT myelogram lumbar [...] without definite solid interbody osseous fusion at L4-5. There is solid osseous fusion of the [...] canal and neural foraminal stenosis at L3-4. [id number] Procedure Note Hm Interface, Radiology Results Incoming - 07/15/2017 5:24 PM DOCUMENT CONTROL COORDINATOR EXAMINATION: CT LUMBAR SPINE WO CONTRAST CLINICAL [...] canal and neural foraminal stenosis at L3-4. [id number] Performing Organization Address City/[facility]/Zipcode Phone Number [facility] [address] [place] [address] Partial thromboplastin time, activated (07/15/2017 12:29 PM)Only the most recent of5 resultswithin the time period is included. PTT 29.2 23.0 - 36.0 sec [facility] DEPARTMENT OF Comment: PATHOLOGY AND GENOMIC PTT therapeutic range for unfractionated heparin is MEDICINE 61.0-112.0 seconds which corresponds to Anti-Xa 0.3-0.7 U/ml. Note:Change in Panic Value The PTT Panic Value is changing from 110 sec. to 100 sec. due to new instrumentation and reagents. Correlation studies have been performed to validate this result. Specimen Blood Performing Organization Address City/[facility] Centercode Phone Number [facility] DEPARTMENT OF PATHOLOGY AND [address] [facility] [place] [address] [facility] Creatine kinase, total (CPK) (07/06/2017 6:29 PM)Only the most recent of3 resultswithin the time period is included. Creatine kinase 134 61 - 224 U/L [facility] DEPARTMENT OF PATHOLOGY AND GENOMIC MEDICINE Specimen Plasma specimen Performing Organization Address [facility] Centercomo Phone Number [facility] DEPARTMENT OF PATHOLOGY AND [address] [facility] [place] [address] [facility] CT Head Wo Contrast (07/06/2017 6:19 PM)Only the most recent of2 resultswithin the time period is included. Narrative Performed At EXAMINATION: CT HEAD WO CONTRAST [facility] CLINICAL HISTORY: seizure syncope COMPARISON:Brain CT dated [...] sinuses. IMPRESSION: No acute intracranial abnormality identified. [id number] Procedure Note Interface, Radiology Results Incoming - 07/06/2017 6:27 PM DOCUMENT CONTROL COORDINATOR EXAMINATION: CT HEAD WO CONTRAST CLINICAL HISTORY: [...] sinuses. IMPRESSION: No acute intracranial abnormality identified. [id number] Performing Organization Address City/State/Zipcode Phone Number [facility] [address] [place] [address] Surgical pathology request (05/18/2017 1:28 PM)Only the most recent of4 resultswithin the time period is included. [facility] DEPARTMENT OF PATHOLOGY AND GENOMIC MEDICINE Surgical pathology report See link below for PDF [facility] DEPARTMENT OF Lab Report PATHOLOGY AND GENOMIC MEDICINE Result status This is Final Report to [facility] DEPARTMENT OF [id number] PATHOLOGY AND GENOMIC MEDICINE Performing Organization Address City/State/Zipcode Phone Number [facility] DEPARTMENT OF PATHOLOGY AND [address] [facility] [place] [address] GENOMIC MEDICINE Magnesium level (05/17/2017 5:59 AM)Only the most recent of4 resultswithin the time period is included. Magnesium 2.00 1.60 - 2.40 mg/dL [facility] DEPARTMENT OF PATHOLOGY AND GENOMIC MEDICINE Specimen Plasma specimen Performing Organization Address City/[facility] Centercode Phone Number [facility] DEPARTMENT OF PATHOLOGY AND [address] [facility] [place] [address] GENOMIC MEDICINE XR Chest 2 Vw (05/14/2017 7:47 PM)Only the most recent of4 resultswithin the time period is included. Narrative Performed At EXAMINATION:XR CHEST 2 VW [facility] CLINICAL HISTORY:sob cough todayleukocytosisR basilar crackles IMPRESSION: Aortic arch calcified. Heart size is normal. Lungs are clear of acute infiltrate. There has been a prior partial pulmonary resection in the right side. There are no effusions. There is an intraspinal catheter present, and there is hardware in cervical spine. [facility]-[id number] Procedure Note Hm Interface, Radiology Results Incoming - 05/14/2017 8:23 PM DOCUMENT CONTROL COORDINATOR EXAMINATION: XR CHEST 2 VW CLINICAL HISTORY: sob cough today leukocytosis R basilar crackles IMPRESSION: Aortic arch calcified. Heart size is normal. Lungs are clear of acute infiltrate. There has been a prior partial pulmonary resection in the right side. There are no effusions. There is an intraspinal catheter present, and there is hardware in cervical spine. [facility]-[id number] Performing Organization Address City/State/Zipcode Phone Number [facility] [address] [place] [address] Troponin (05/12/2017 7:33 PM)Only the most recent of5 resultswithin the time period is included. Troponin <0.01 0.00 - 0.60 ng/mL [facility] DEPARTMENT OF PATHOLOGY Comment: AND [employer] MEDICINE 0.11 - 1.49 ng/mlMay indicate increased risk of acute coronary syndrome. >=1.5 ng/mlConsistent with acute myocardial infarction. The diagnostic value of a single normal or non-diagnostic result is questionable.Serial samples at 2-6 hour intervals are required to rule out acute myocardial injury. Specimen Plasma specimen Performing Organization Address City/[facility]/Zipcode Phone Number [facility] DEPARTMENT OF PATHOLOGY AND [address] [facility] [address] [place] [id number] [employer] [facility] Influenza antigen (05/12/2017 3:58 PM) Influenza antigen Negative for Influenza A/B antigen. [facility] DEPARTMENT OF PATHOLOGY Comment: AND [employer] Specimen Information Specimen Source: Nares Specimen Site: Right Specimen Nares - Right Performing Organization Address City/[facility] Centercode Phone Number [facility] DEPARTMENT OF PATHOLOGY AND [address] [facility] [address] [place] [address] [employer] [facility] B natriuretic peptide (05/12/2017 3:45 PM)Only the most recent of2 resultswithin the time period is included. BNP 43 0 - 100 pg/mL [facility] DEPARTMENT OF PATHOLOGY AND [employer] [facility] Specimen Blood Performing Organization Address City/[facility] Centercode Phone Number [facility] DEPARTMENT OF PATHOLOGY AND [address] [facility] [place] [address] [employer] US Abdomen Complete (02/25/2017 7:28 AM) Narrative Performed At EXAM: US ABDOMEN COMPLETE [facility] CLINICAL DATA:ABDOMINAL PAIN COMPARISON: 07/11/2015 FINDINGS: LIVER:The [...] 1. Cirrhosis with splenomegaly. 2.Status post cholecystectomy. [facility]-[id number] Procedure Note Interface, Radiology Results Incoming - [...] Cirrhosis with splenomegaly. 2. Status post cholecystectomy. [facility]-[id number] Performing Organization Address City/[facility]/Zipcode Phone Number [facility] [address] [place] [address] Total iron binding capacity (02/25/2017 5:33 AM)Only the most recent of2 resultswithin the time period is included. Iron level 86 76 - 198 ug/dL [facility] DEPARTMENT OF PATHOLOGY AND GENOMIC MEDICINE Iron binding capacity 252 (L) 271 - 474 ug/dL [facility] DEPARTMENT OF PATHOLOGY AND GENOMIC MEDICINE % Saturation 34.1 20.0 - 40.0 % [facility] DEPARTMENT OF PATHOLOGY AND GENOMIC MEDICINE Specimen Blood Performing Organization Address City/[facility]/Zipcode Phone Number [facility] DEPARTMENT OF PATHOLOGY AND [address] [place] [address] [facility] Hepatitis C antibody (02/25/2017 5:33 AM)Only the most recent of2 resultswithin the time period is included. Hepatitis C Ab Non-reactive Non-reactive [facility] DEPARTMENT OF PATHOLOGY AND GENOMIC MEDICINE Specimen Blood Performing Organization Address City/[facility]/Zipcode Phone Number [facility] DEPARTMENT OF PATHOLOGY AND [address] Alpha-1 antitrypsin level (02/25/2017 5:33 AM)Only the most recent of2 resultswithin the time period is included. Alpha-1 antitrypsin 134 90 - 200 mg/dL [facility] DEPARTMENT OF PATHOLOGY AND GENOMIC MEDICINE Specimen Plasma specimen Performing Organization Address City/[facility] Centercode Phone Number [facility] DEPARTMENT OF PATHOLOGY AND [address] [place] [address] Hepatitis A antibody IgM (02/25/2017 5:33 AM) Hepatitis A IgM Non-reactive Non-reactive [facility] DEPARTMENT OF PATHOLOGY AND [facility] MEDICINE Specimen Blood Performing Organization Address [facility] Phone Number [facility] DEPARTMENT OF PATHOLOGY AND [address] [place] [address]. [address] Ceruloplasmin level (02/25/2017 5:33 AM)Only the most recent of2 resultswithin the time period is included. Ceruloplasmin 26 15 - 30 mg/dL [facility] DEPARTMENT OF PATHOLOGY AND GENOMIC MEDICINE Specimen Plasma specimen Performing Organization Address [facility] Centercode Phone Number [facility] DEPARTMENT OF PATHOLOGY AND [address] [place] [address] Alpha fetoprotein (02/25/2017 5:33 AM)Only the most recent of2 resultswithin the time period is included. Alpha fetoprotein 3.5 0.0 - 8.3 ng/mL [facility] DEPARTMENT OF Comment: PATHOLOGY AND GENOMIC The Kelly 8000 AFP immunoassay was used. MEDICINE Results obtained with different assay methods or kits should not be used interchangeably and may be different. Specimen Serum Performing Organization Address City/[facility] Centercode Phone Number [facility] DEPARTMENT OF PATHOLOGY AND [address] [place] [address] Hepatitis B core antibody IgM (02/25/2017 5:33 AM)Only the most recent of2 resultswithin the time period is included. Hepatitis B core IgM Non-reactive Non-reactive [facility] DEPARTMENT OF PATHOLOGY AND GENOMIC MEDICINE Specimen Blood Performing Organization Address City/[facility] Centercode Phone Number [facility] DEPARTMENT OF PATHOLOGY AND [address] [place] [address]. [address] Hepatitis B surface antibody (02/25/2017 5:33 AM)Only the most recent of2 resultswithin the time period is included. Hepatitis B surface Ab Non-reactive Non-reactive [facility] DEPARTMENT OF PATHOLOGY AND GENOMIC MEDICINE Specimen Blood Performing Organization Address City/[facility] Centercode Phone Number [facility] DEPARTMENT OF PATHOLOGY AND [address] [place], [place] [address] [place] [address] Hepatitis B surface antigen (02/25/2017 5:33 AM)Only the most recent of2 resultswithin the time period is included. Hepatitis B surface Ag Non-reactive Non-reactive [facility] DEPARTMENT OF PATHOLOGY AND GENOMIC MEDICINE Specimen Blood Performing Organization Address City/[facility] Centercode Phone Number [facility] DEPARTMENT OF PATHOLOGY AND [address] [facility] [address] CARLOS (02/25/2017 5:33 AM)Only the most recent of2 resultswithin the time period is included. CARLOS screen Not Detected Not-Detected [facility] DEPARTMENT OF PATHOLOGY AND GENOMIC MEDICINE Specimen Blood Performing Organization Address City/[facility] Centercode Phone Number [facility] DEPARTMENT OF PATHOLOGY AND [address] [place] [address] [facility] Ferritin level (02/25/2017 5:33 AM)Only the most recent of2 resultswithin the time period is included. Ferritin level 143 18 - 158 ng/mL [facility] DEPARTMENT OF PATHOLOGY AND GENOMIC MEDICINE Specimen Serum Performing Organization Address [facility] Phone Number [facility] DEPARTMENT OF PATHOLOGY AND [address] [facility]. [place], [place] [address] [place] [address] CT Abdomen Pelvis W Wo Contrast (02/25/2017 1:34 AM) Narrative Performed At CT ABDOMEN PELVIS W WO CONTRAST [facility] CLINICAL INDICATION:cirrhosis TECHNIQUE: Multidetector CT of the [...] liver protocol CT. 2. Splenomegaly. [facility]-[id number] Procedure Note [facility], Radiology Results Incoming - 02/25/2017 1:55 [...] liver protocol CT. 2. Splenomegaly. [facility]-[id number] Performing Organization Address City/[facility]/Zipcode Phone Number [facility] [address] [place] [address] Ammonia level (02/24/2017 5:45 PM)Only the most recent of2 resultswithin the time period is included. Ammonia 33 3 - 37 umol/L [facility] DEPARTMENT OF PATHOLOGY AND GENOMIC MEDICINE Specimen Plasma specimen Performing Organization Address [facility] Centercode Phone Number [facility] DEPARTMENT OF PATHOLOGY AND [address] [place], [place] [address] [place] [address] Anti smooth muscle Ab titer (02/24/2017 1:27 PM) Anti smooth muscle Ab titer 1:80 (A) Not-Detected [facility] DEPARTMENT OF PATHOLOGY AND GENOMIC MEDICINE Specimen Blood Performing Organization Address [facility] Centercode Phone Number [facility] DEPARTMENT OF PATHOLOGY AND [address] [place] [address] [facility] Anti smooth muscle Ab screen (02/24/2017 1:27 PM) Anti smooth muscle Ab screen Detected (A) Not-Detected [facility] DEPARTMENT OF PATHOLOGY AND GENOMIC MEDICINE Specimen Blood Performing Organization Address [facility] Centercode Phone Number [facility] DEPARTMENT OF PATHOLOGY AND [address] [place] [address] [facility] Hemoglobin & hematocrit (02/24/2017 1:27 PM) HGB 14.4 13.0 - 17.3 g/dL [facility] DEPARTMENT OF PATHOLOGY AND GENOMIC MEDICINE HCT 44.0 34.0 - 45.0 % [facility] DEPARTMENT OF PATHOLOGY AND GENOMIC MEDICINE Specimen Blood Performing Organization Address City/[facility] Centercode Phone Number [facility] DEPARTMENT OF PATHOLOGY AND [address] [place], [place] [address] [place] [address] Lactic acid level (02/23/2017 10:17 PM)Only the most recent of6 resultswithin the time period is included. Lactic acid 1.4 0.5 - 2.2 mmol/L [facility] DEPARTMENT OF PATHOLOGY AND GENOMIC MEDICINE Specimen Blood Performing Organization Address City/[facility]/Zipcode Phone Number [facility] DEPARTMENT OF PATHOLOGY AND [address] [place], [place] [id number] [place] [address] Bilirubin direct (02/23/2017 7:49 PM)Only the most recent of3 resultswithin the time period is included. Bilirubin direct 0.1 0.0 - 0.4 mg/dL [facility] DEPARTMENT OF PATHOLOGY AND GENOMIC MEDICINE Specimen Plasma specimen Narrative Performed At [place] RESULT CALLED TO GURDEEP CONTEH [facility] DEPARTMENT OF PATHOLOGY AND GENOMIC NP02/23/201720:25 BY DJ MEDICINE Performing Organization Address City/[facility] Centercode Phone Number [facility] DEPARTMENT OF PATHOLOGY AND [address] [facility]. [place] [id number] [place] [address] Amylase level (02/23/2017 7:49 PM)Only the most recent of3 resultswithin the time period is included. Amylase 59 34 - 122 U/L [facility] DEPARTMENT OF PATHOLOGY AND GENOMIC MEDICINE Specimen Plasma specimen Performing Organization Address [facility] Centercomo Phone Number [facility] DEPARTMENT OF PATHOLOGY AND [address] [facility] Chest W Contrast Abdomen W Contrast Pelvis W Contrast (02/01/2017 9:31 PM) Narrative Performed At EXAMINATION:CT CHEST W CONTRAST ABDOMEN W CONTRAST PELVIS W CONTRAST [facility] CLINICAL HISTORY:RLL chest pain TECHNIQUE: Multiple axial [...] Diverticulosis without evidence of diverticulitis [facility]-[id number] Procedure Note Interface, Radiology Results 02/01/2017 9:42 PM CDT EXAMINATION: CT CHEST [...] Diverticulosis without evidence of diverticulitis [facility]-[id number] Performing Organization Address City/State/Zipcode Phone Number [facility] [address] [place] [address] Vancomycin level, trough (12/20/2016 9:07 AM) Vancomycin, trough 18.9 10.0 - 20.0 ug/mL [facility] DEPARTMENT OF Comment: PATHOLOGY AND GENOMIC Therapeutic Ranges: MEDICINE Peak30.0 - 40.0 ug/mL Gcjhyw12.0 - 20.0 ug/mL Specimen Blood Performing Organization Address City/State/Zipcode Phone Number [facility] DEPARTMENT OF PATHOLOGY AND [address] [place] [address] GENOMIC MEDICINE XR Chest 1 Vw Portable (12/19/2016 5:27 PM)Only the most recent of15 resultswithin the time period is included. Narrative Performed At EXAMINATION:XR CHEST 1 VW PORTABLE [facility] CLINICAL HISTORY: PICC Line Insertion COMPARISON:December 13, [...] Visualized osseous structures are intact. [facility]-[id number] Procedure Note Interface, Radiology Results Incoming - [...] Visualized osseous structures are intact. [facility]-[id number] Performing Organization Address City/State/Zipcode Phone Number [facility] [address] [place] [address] Blood culture, aerobic & anaerobic (12/19/2016 5:16 PM)Only the most recent of6 resultswithin the time period is included. Blood culture isolate No growth after 5 days of incubation. [facility] DEPARTMENT OF Comment: PATHOLOGY AND GENOMIC Specimen Information MEDICINE Specimen Source: Blood Specimen Site: Peripheral Hand Left Specimen Blood Performing Organization Address City/State/Zipcode Phone Number [facility] DEPARTMENT OF PATHOLOGY AND [address] [place] [address] GENOMIC MEDICINE PICC INSERTION (12/12/2016 12:19 PM) Narrative Performed At Tyrell Langston 12/12/2016 12:19 PM PICC insertion Date/Time: 12/12/2016 12:16 PM Performed by: TYRELL LANGSTON Authorized by: GERMAN LAMBERT Consent: Consent obtained:Written Consent given by:Patient Risks discussed: arterial puncture, incorrect placement, nerve damage, pneumothorax, infection, bleeding, superficial thrombus and deep vein thrombus [place] protocol: Procedure explained and questions answered to [...] Site:27 Patient position:Flat Vessel Size (mm):5 Indication:Known fci IV therapy Location:Right basilic Device Type:Valved Catheter size:5 Fr PICC Characteristics: Catheter Brand:Power PICC solo catheter with sherlock 3CG tip positioning system stylet External Catheter Length (cm):0 Internal Catheter Length (cm):40 Total Catheter Length (cm):40 Catheter Lot Number:[id number] Catheter Expiration Date:08/13/2017 Micro-Introducer Lot Number:[id number] Micro-Introducer Expiration Date:08/13/2017 Procedure Details: Landmarks identified: [...] of2 resultswithin the time period is included. Narrative Performed At EXAMINATION: CT CHEST WO CONTRAST [facility] CLINICAL HISTORY: chest tubeempyema TECHNIQUE:Axial images of [...] seen with pulmonary arterial hypertension. [facility]-[id number] Procedure Note Hm Interface, Radiology Results Incoming - 12/11/2016 2:01 [...] seen with pulmonary arterial hypertension. [facility]-[id number] Performing Organization Address [facility] Phone Number [facility] [address] [place] [address] Aerobic culture (12/09/2016 4:40 PM)Only the most recent of2 resultswithin the time period is included. Aerobic culture isolate Streptococcus anginosus [facility] DEPARTMENT OF Recovered in Broth only: PATHOLOGY AND GENOMIC The performance characteristics of this assay on this isolate MEDICINE were validated by the Microbiology Laboratory at [facility].This source has not been approved by the U.S. Food and Drug Administration.The results are not intended to be used as the sole means for clinical diagnosis or patient management.The Microbiology Laboratory is authorized under the clinical Laboratory Improvement Amendments of 1988 (CLIA-88) to perform high complexity testing. (A) Comment: Specimen Information Specimen Source: Pleural fluid Specimen Site: Right Pleural Fluid Specimen Pleural fluid Organism Antibiotic Method Susceptibility Streptococcus anginosus Clindamycin MARY ANN >2 mcg/mL: Resistant Streptococcus anginosus Ceftriaxone MARY ANN <=0.0625 mcg/mL: Susceptible Streptococcus anginosus Cefotaxime MARY ANN <=0.0625 mcg/mL: Susceptible Streptococcus anginosus Penicillin G MARY ANN <=0.25477 mcg/mL: Susceptible Streptococcus anginosus Vancomycin MARY ANN 1 mcg/mL: Susceptible Performing Organization Address [facility] Phone Number [facility] DEPARTMENT OF PATHOLOGY AND [address] [place] [address] [facility] MEDICINE Gram stain (12/09/2016 4:40 PM)Only the most recent of2 resultswithin the time period is included. Gram stain isolate Many WBC's [facility] DEPARTMENT OF PATHOLOGY Many Gram positive cocci in pairs AND GENOMIC MEDICINE Comment: Specimen Information Specimen Source: Pleural fluid Specimen Site: Right Pleural Fluid Specimen Pleural fluid Performing Organization Address [facility] Phone Number [facility] DEPARTMENT OF PATHOLOGY AND [address] [place] [address] [facility] CT Needle Biopsy No Contrast (12/09/2016 10:00 AM)Only the most recent of3 resultswithin the time period is included. Narrative Performed At Clinical history: Empyema [facility] drainage , right pleural effusion TECHNIQUE: DLP:Technical [...] fully monitored and given moderate sedation. Doctor-patient [id number] time was 30 minutes.. The patient was [...] to match the catheter size. An 8.5 Colombian pigtail all-purpose drainage catheter was inserted over [...] laboratory for culture sensitivity and Gram stain. [id number] Procedure Note Hm Interface, Radiology Results Incoming [...] fully monitored and given moderate sedation. Doctor-patient [id number] time was 30 minutes.. The patient was [...] to match the catheter size. An 8.5 Colombian pigtail all-purpose drainage catheter was inserted over [...] laboratory for culture sensitivity and Gram stain. [facility]-[id number] Performing Organization Address City/[facility] Phone Number [facility] [address] [place] [address] Hemoglobin A1c (12/08/2016 5:45 AM) Hemoglobin A1C 7.5 (H) 4.0 - 6.0 % [facility] DEPARTMENT OF PATHOLOGY Comment: AND GENOMIC MEDICINE Less than 6% - Goal of therapy for Type II Diabetes Less than 7%-Goal of therapy for Type I Diabetes Less than 8%-Acceptable control for Type I or Type II Diabetes Greater than 8%-Unacceptable control; action indicated. ([id number]) Specimen Blood Performing Organization Address [facility] Phone Number [facility] DEPARTMENT OF PATHOLOGY AND [address] [place] [address] [employer] [address] Abdomen Pelvis W Contrast (12/07/2016 4:49 PM) Narrative Performed At EXAMINATION:CT ABDOMEN PELVIS W CONTRAST [facility] CLINICAL HISTORY:ABDOMINAL PAIN TECHNIQUE: Multiple axial images [...] again suggesting of a moderate right empyema. [id number] Procedure Note Hm Interface, Radiology Results Incoming [...] again suggesting of a moderate right empyema. [id number] Performing Organization Address City/State/Zipcode Phone Number [facility] [address] [place] [address] CT Chest W Contrast (12/06/2016 7:21 PM) Narrative Performed At Study:CT CHEST W CONTRAST [facility] History: R chest wall tendernessrecent biopsy COMPARISON: [...] right lower lobe has become more loculated. [id number] Procedure Note Hm Interface, Radiology Results - 12/06/2016 7:50 PM CDT Study:CT CHEST [...] right lower lobe has become more loculated. [id number] Performing Organization Address City/State/Zipcode Phone Number [facility] [address] [place] [address] XR Ribs 2 Vw Right (12/06/2016 3:55 PM) Narrative Performed At EXAM:XR RIBS 2 VW RIGHT [facility] HISTORY:CHEST PAINNORMAL EKG COMPARISON:None available IMPRESSION: 1. [...] Cervical spine fusion hardware is partially visualized. [id number] Procedure Note Interface, Radiology Results Incoming - 12/06/2016 4:50 PM [...] Cervical spine fusion hardware is partially visualized. [id number] Performing Organization Address City/State/Zipcode Phone Number [address] [address] Fungus smear (11/24/2016 10:03 AM) Fungus smear No fungi observed. [facility] DEPARTMENT OF PATHOLOGY Comment: AND GENOMIC MEDICINE Specimen Information Specimen Source: Tissue Specimen Site: Lung, right middle lobe Specimen Tissue - Lung, right middle lobe Performing Organization Address City/[facility]/Zipcode Phone Number [facility] DEPARTMENT OF PATHOLOGY AND [address] [place] [address] GENOMIC MEDICINE AFB culture (11/24/2016 10:03 AM) AFB culture isolate No growth after 6 weeks of incubation. [facility] DEPARTMENT OF PATHOLOGY Comment: AND GENOMIC MEDICINE Specimen Information Specimen Source: Tissue Specimen Site: Lung, right middle lobe Specimen Tissue - Lung, right middle lobe Performing Organization Address [facility] Phone Number [facility] DEPARTMENT OF PATHOLOGY AND [address] [place] [address] GENOMIC MEDICINE AFB stain (11/24/2016 10:03 AM) AFB stain No acid fast bacilli (AFB) seen. [facility] DEPARTMENT OF PATHOLOGY AND Comment: GENOMIC MEDICINE Specimen Information Specimen Source: Tissue Specimen Site: Lung, right middle lobe Specimen Tissue - Lung, right middle lobe Performing Organization Address [facility] Phone Number [facility] DEPARTMENT OF PATHOLOGY AND [address] [place] [address] GENOMIC MEDICINE Fungus culture (11/24/2016 10:03 AM) Fungus culture isolate No growth after 4 weeks of incubation. [facility] DEPARTMENT OF Comment: PATHOLOGY AND GENOMIC Specimen Information MEDICINE Specimen Source: Tissue Specimen Site: Lung, right middle lobe Specimen Tissue - Lung, right middle lobe Performing Organization Address City/[facility]/Zipcode Phone Number [facility] DEPARTMENT OF PATHOLOGY AND [address] [place], [place] [id number] GENOMIC MEDICINE Anaerobic culture (11/24/2016 10:03 AM) Anaerobic culture No anaerobic organisms isolated. [facility] DEPARTMENT OF isolate Comment: PATHOLOGY AND GENOMIC Specimen Information MEDICINE Specimen Source: Tissue Specimen Site: Lung, right middle lobe Specimen Tissue - Lung, right middle lobe Performing Organization Address City/[facility]/Zipcode Phone Number [facility] DEPARTMENT OF PATHOLOGY AND [address] [place] [address], [place] [address] GENOMIC MEDICINE Type and screen (11/23/2016 2:19 PM) ABO grouping A [facility] DEPARTMENT OF PATHOLOGY AND GENOMIC MEDICINE Rh type POS [facility] DEPARTMENT OF PATHOLOGY AND GENOMIC MEDICINE Antibody screen (gel) NEG [facility] DEPARTMENT OF PATHOLOGY AND GENOMIC MEDICINE Specimen Blood Performing Organization Address City/State/Zipcode Phone Number [facility] DEPARTMENT OF PATHOLOGY AND [address] [place] [address] GENOMIC MEDICINE Spirometry pre & post w/ bronchodilator (11/23/2016 12:31 PM) Narrative Performed At Echocardiogram complete w contrast and 3D if needed (11/18/2016 8:37 AM) Velocity Ratio (V1/V2) 0.78 m/s [facility] IVS,d 1.10 0.6 - 1.2 cm [facility] EF 66.08 % [facility] LVPWD,d 1.06 cm [facility] AoV Mean PG 3.27 mmHg [facility] AV LVOT peak gradient 4.37 mmHg [facility] MV mean gradient 1.22 mmHg [facility] MV valve area p 1/2 method 4.51 cm2 [facility] PV Pk Grad 3.08 mmHg [facility] E/A ratio 0.88 [facility] E wave decelartion time 168.22 msec [facility] LVOT Diam,S 1.81 cm [facility] LVOT area 2.57 cm2 [facility] LVOT Vmax 1.05 m/s [facility] LVOT VTI 0.18 m [facility] AoV Peak PG 5.94 mmHg [facility] MV Peak E Rohith 0.67 m/s [facility] MV stenosis pressure 1/2 time 48.78 ms [facility] MV Peak A Rohith 0.76 m/s [facility] BSA 2.04 m2 [facility] AoV Area, Vmax 2.00 cm2 [facility] AoV Area, VTI 2.53 cm2 [facility] AoV Vmax 1.34 m/s [facility] BSA Segura 2.04 m2 [facility] BSA Haycock 2.04 m2 [facility] IVS/LVPW,2D 1.04 [facility] Left Atrium Dimension Anterior 2.77 cm [facility] LV,d 4.02 cm [facility] LV,s 2.57 cm [facility] PV VMAX 0.88 m/s [facility] TR Vpeak 3.98 mm/s [facility] BMI 24.41 kg/m2 [facility] MV E A ratio 0.88 mmHg [facility] TR pk grad 45.78 mmHg [facility] AoV area i VTI BSA Melodie 1.26 cm2/m2 [facility] MR peak grad 3.46 mmHg [facility] Ao Root Diameter 3.31 cm [facility] LV SYS VOL 23.99 ml [facility] LV CLEANING VOL 70.73 ml [facility] LV SI Teich 2D 22.95 ml/m2 [facility] LV SV Teich 2D 46.75 ml [facility] LV Vol s Teich PSAX 23.99 ml [facility] LVOT CI 2.02 l/min/m2 [facility] LVOT CO 4.13 l/min [facility] LVOT HR for LVOT CO 89.07 bpm [facility] LVOT SI 22.70 ml/m2 [facility] MV Vmax 0.93 m [facility] MV VTI Tips 0.15 m [facility] AoV Vmn 0.84 [facility] IVS s 2D 1.72 [facility] LV FS Cube 2D 35.95 [facility] LV FS Teich 2D 35.95 [facility] Ao Root Diameter 3.31 cm [facility] AoV VTI 0.18 m [facility] LV EF,2D 73.72 % [facility] MV AE ratio 1.14 [facility] LVOT Vmn 0.79 [facility] Pt Size 182.88 [facility] Pt Wt 81.65 [facility] Aov area Vmn 2.36 cm2 [facility] LVOT mean grad 2.69 mmHg [facility] MAX Pred HR 166.64 [facility] 85 of MPHR 141.64 [facility] AoV area I VMN bsa 1.16 cm2/m2 [facility] Calc MPHR 166.64 bpm [facility] IVS pct thck PLAX 55.63 % [facility] LV SI Cube 2D 23.47 ml/m2 [facility] LV SV Cube 2D 47.81 ml [facility] LV vol d cube 2D 64.85 ml [facility] LV vol s cube 2D 17.04 ml [facility] LVPW pct thck PLAX 56.42 % [facility] LVPW s PLAX 1.66 cm [facility] MV Decel slope 3.98 m/s2 [facility] Pred Exer Dur R1 9.73 [facility] Pred METS R1 10.00 [facility] Narrative Performed At Left Ventricle: Left Ventricular ejection fraction is 65 - 70%. The left [facility] ventricular chamber size is Trace mitral valve regurgitation Pulmonic Valve: Mild pulmonary valve regurgitation. Pericardium: No pericardial effusion seen. Performing Organization Address City/[facility]/Zipcode Phone Number [facility] [address] [place] [address] Hepatitis acute panel (11/08/2016 3:51 AM) Hepatitis A IgM Non-reactive Non-reactive [facility] DEPARTMENT OF PATHOLOGY AND GENOMIC MEDICINE Hepatitis B core IgM Non-reactive Non-reactive [facility] DEPARTMENT OF PATHOLOGY AND GENOMIC MEDICINE Hepatitis B surface Ag Non-reactive Non-reactive [facility] DEPARTMENT OF PATHOLOGY AND GENOMIC MEDICINE Hepatitis C Ab Non-reactive Non-reactive [facility] DEPARTMENT OF PATHOLOGY AND GENOMIC MEDICINE Specimen Serum Performing Organization Address [facility] Phone Number [facility] DEPARTMENT OF PATHOLOGY AND [address] [facility] [address] Phosphorus level (11/08/2016 3:51 AM)Only the most recent of2 resultswithin the time period is included. Phosphorus 4.9 (H) 2.5 - 4.5 mg/dL [facility] DEPARTMENT OF PATHOLOGY AND GENOMIC MEDICINE Specimen Plasma specimen Performing Organization Address City/[facility] Phone Number [facility] DEPARTMENT OF PATHOLOGY AND [address] [facility] [place] [address] [facility] MEDICINE CRITICAL CARE (11/06/2016 8:18 PM) Narrative Performed At Deepika Luna DO 11/06/20168:18 PM Critical Care [...] Head W Wo Contrast (11/06/2016 11:14 AM) Narrative Performed At EXAMINATION:CT HEAD W WO CONTRAST [facility] CLINICAL HISTORY:LUNG CANCERUNSPECIFIED COMPARISON:July 11, 2014 FINDINGS: [...] disease. No gross bone destruction. [facility]-[id number] Procedure Note Interface, Radiology Results [facility] - 11/06/2016 11:22 AM CDT EXAMINATION: CT [...] disease. No gross bone destruction. [facility]-[id number] Performing Organization Address City/State/Zipcode Phone Number [facility] [address] [place] [address] after 10/31/2016 Insurance Payer Benefit Plan / Group Subscriber ID Type Phone Address [employer] MEDICARE AETNA MEDICARE HMO/PPO [facility] xxxxxxxx HMO
--- OUTSIDE RECORDS SUMMARY | 2017-11-01 19:12 | XMS REPORT ---
:1965 Author Organization [facility] Address [facility] Maicol Casarez [address] [place] [address] Care Team Providers Name Role Phone BRE [...] race is not provided, and the patient isAfrican-Gambian, multiply by 1.212. If sex is not provided, and thepatient is female, multiply by 0.742. Results for patients <18 years ofage have not been validated by the MDRD study and should be interpretedwith caution.eGFR Result Interpretation:eGFR > or=60 is in the Normal RangeeGFR < 60 may mean kidney diseaseeGFR < 15 may mean kidney failureRanges recommended by the National Kidney Foundation,http://nkdep.nih.go v [id number] 04:50:00 Test Item Value Reference Range Comments [...] THC (test code=THC) POSITIVE Negative CBC with [id number] 03:53:00 Test Item Value Reference Range Comments [...] Lymph Abs (test code=ALYMPH) 1.7 K/cumm 0.5-4.6 [place] Abs (test code=AMONO) 0.7 K/cumm 0.0-1.2 Eos Abs (test code=AEOS) 0.16 K/cumm 0.00-0.74 Baso Abs (test code=ABASO) 0.1 K/cumm 0.00-0.21
[2017-11-01] MEDS ORDERED: METHYLPREDNISOLONE 125 MG INJ ONE (19:37)
[2017-11-01] MEDS ORDERED: PANTOPRAZOLE 40 MG INJ ONE (19:38)
[2017-11-01] MEDS ORDERED: DIPHENHYDRAMINE 50 MG/ML VIAL ONE (19:38)
[2017-11-01] MEDS ORDERED: ONDANSETRON 4 MG/2 ML VIAL ONE (19:38)
[2017-11-01] MEDS ORDERED: MORPHINE 4 MG/ML SYR ONE (19:38)
[2017-11-01] MEDS ORDERED: FAMOTIDINE 20 MG/2 ML VIAL IV ONE (19:39)
[2017-11-01] MEDS ORDERED: SUCRALFATE 1 GM TABLET ONE (20:57)
--- NOTE | 2017-11-01 21:08 | ER ---
Nurse's Notes [facility] Name: Tino Amin Jr Age: 52 yrs Sex: Male : 1965 Arrival Date: 11/01/2017 Time: 19:09 Bed 23 Private MD: Diagnosis: Peptic ulcer, site unspecified Presentation: 11/01 19:20 Presenting complaint: Patient states: that he was here a few days ago and was told to return if he continued. States that he has had one black tarry stool today and four dark emesis today. He also is concerned that he was attacked by some "africanized" bees and now is having swelling to left side of face. Transition of care: patient was not received from another setting of care. Onset of symptoms was November 01, 2017. Risk Assessment: Do you want to hurt yourself or someone else? Patient reports no desire to harm self or others. Care prior to arrival: Medication(s) given: Tylenol, last at 1600. 19:20 Method Of Arrival: Ambulatory 19:20 Acuity: YULISSA 3 19:28 Initial Sepsis Screen: Does the patient meet any 2 criteria? HR > 90 bpm. Yes Does the patient have a suspected source of infection? No. Patient's initial sepsis screen is negative. Triage Assessment: 19:25 General: Appears uncomfortable, slender, Behavior is cooperative, appropriate for age, fc anxious. Pain: Complains of pain in abdomen Pain currently is 9 out of 10 on a pain scale. Quality of pain is described as crampy, sharp, Is continuous. EENT: No deficits noted. Neuro: Level of Consciousness is awake, alert, obeys commands, Oriented to person, place, time, situation. Cardiovascular: No deficits noted. Respiratory: No deficits noted. GI: Reports lower abdominal pain, upper abdominal pain, diarrhea, bloody stool, nausea, vomiting. : No deficits noted. Derm: Skin is pink, warm \\T\\ dry. Musculoskeletal: Circulation, motion, and sensation intact. Capillary refill < 3 seconds, Range of motion: intact in all extremities. Historical: - Allergies: 19:24 No Known Allergies; fc - Home Meds: 19:24 Effexor XR 150 mg oral cp24 1 cap once daily [Active]; Keppra 1,000 mg oral tab 1 tab fc every 12 hours [Active]; Seroquel 600 mg Oral 1 tab nightly [Active]; - PMHx: 19:24 Lung Cancer; Seizures; fc - PSHx: 19:24 cervical fusion; lumbar fusion; dorsal column stimulator implant; Appendectomy; right fc lobectomy; - Immunization history:: Last tetanus immunization: up to date. - Social history:: Smoking status: Patient uses tobacco products, smokes one-half pack cigarettes per day. - Ebola Screening: : Patient negative for fever greater than or equal to 101.5 degrees Fahrenheit, and additional compatible Ebola Virus Disease symptoms Patient denies exposure to infectious person Patient denies travel to an Ebola-affected area in the 21 days before illness onset. Screenin:55 Abuse screen: Denies threats or abuse. Denies injuries from another. Nutritional aj1 screening: No deficits noted. Tuberculosis screening: No symptoms or risk factors identified. 21:38 Fall Risk None identified. aj1 Assessment: 19:55 General: Appears in no apparent distress. uncomfortable, Behavior is calm, cooperative, aj1 appropriate for age. Pain: Complains of pain in face and abdomen. Neuro: Level of Consciousness is awake, alert, obeys commands, Oriented to person, place, time, situation, Speech is normal. Cardiovascular: Patient's skin is warm and dry. Respiratory: Airway is patent Respiratory effort is even, unlabored, Respiratory pattern is regular, symmetrical. GI: Abdomen is flat, non-distended, Bowel sounds present X 4 quads. Abd is soft and non tender X 4 quads. Reports nausea, vomiting. : No signs and/or symptoms were reported regarding the genitourinary system. EENT: No signs and/or symptoms were reported regarding the EENT system. Derm: Skin is pink, warm \\T\\ dry. normal, Patient has redness and swelling to left eye, bridge of nose. Patient states that he was stung 50x by bees. Musculoskeletal: No signs and/or symptoms reported regarding the musculoskeletal system. Circulation, motion, and sensation intact. 21:00 Reassessment: Patient appears in no apparent distress at this time. No changes from aj1 previously documented assessment. Patient and/or family updated on plan of care and expected duration. Pain level reassessed. Patient is alert, oriented x 3, equal unlabored respirations, skin warm/dry/pink. 21:46 Reassessment: Patient is alert, oriented x 3, equal unlabored respirations, skin bb warm/dry/pink. pt verbalized understanding of discharge instructions pt states he has appt with Dr Mcmanus on . Pt ambulated with steady gait. Vital Signs: 19:24 BP 145 / 100; Pulse 106; Resp 18; Temp 98.0(O); Pulse Ox 98% on R/A; Weight 73.94 kg fc (R); Height 6 ft. 1 in. (185.42 cm) (R); Pain 9/10; 21:37 BP 118 / 83; Pulse 86; Resp 18; Pulse Ox 95% on R/A; aj1 19:24 Body Mass Index 21.51 (73.94 kg, 185.42 cm) ED Course: 19:09 Patient arrived in ED. am2 19:22 Triage completed. fc 19:24 Arm band placed on Patient placed in an exam room, on a stretcher. fc 19:27 Larry Bang MD is Attending Physician. ps1 19:29 Roberta Solano RN is Primary Nurse. aj1 19:55 Patient has correct armband on for positive identification. Bed in low position. Call aj1 light in reach. Side rails up X 1. 19:55 No provider procedures requiring assistance completed. aj1 20:15 Inserted saline lock: 22 gauge in right forearm, using aseptic technique. aj1 20:34 Patient moved to radiology via stretcher. kc2 20:34 X-ray completed. Patient tolerated procedure well. kc2 20:34 Patient moved back from radiology. kc2 20:35 Abdomen Acute Series XRAY In Process Unspecified. EDMS 21:07 Aryan Del Castillo MD is Referral Physician. ps1 21:37 IV discontinued, intact, bleeding controlled, No redness/swelling at site. Pressure aj1 dressing applied. Administered Medications: 19:52 Drug: SOLU-Medrol 125 mg Route: IVP; Site: right antecubital; aj1 19:53 Drug: ProTONIX 80 mg Route: IVP; Site: right antecubital; aj1 19:53 Drug: morphine 4 mg Route: IVP; Site: right antecubital; aj1 19:53 Drug: Zofran 4 mg Route: IVP; Site: right antecubital; aj1 19:53 Drug: Benadryl 50 mg Route: IVP; Site: right antecubital; aj1 21:01 Drug: CarafATE 1 grams Route: PO; tl3 Outcome: 21:07 Discharge ordered by . ps1 21:48 Discharged to home ambulatory. bb 21:48 Condition: stable 21:48 Discharge instructions given to patient, Instructed on discharge instructions, follow up and referral plans. medication usage, Demonstrated understanding of instructions, follow-up care, medications, Prescriptions given X 4. 21:49 Patient left the ED. bb Signatures: Dispatcher [employer] EDMS Roberta Solano RN RN aj1 Michelle Bernal RN RN fc Betty Thomas RN RN bb Soo Watts2 Mildred Medina Phillip, MD MD ps1 María Lucas RN RN tl3 Corrections: (The following items were deleted from the chart) 19:26 19:24 Pulse 106bpm; Resp 18bpm; Pulse Ox 98% RA; Temp 98.0F Oral; 73.94 kg Reported; fc Height 6 ft. 1 in. Reported; BMI: 21.5; Pain 9/10; fc
--- NOTE | 2017-11-01 21:08 | EDPHYS ---
Physician Documentation [facility] Name: Tino Amin Jr Age: 52 yrs Sex: Male : 1965 Arrival Date: 11/01/2017 Time: 19:09 Bed 23 Private MD: ED Physician Larry Bang HPI: 11/01 19:38 This 52 yrs old Male presents to ER via Ambulatory with complaints of ps1 Abdominal Pain, Vomiting - Blood, Bee Sting, Back Pain. 19:38 patient was seen and evaluated for the same a couple of days ago and diagnosed with ps1 reflux and peptic ulcer. Today he had abdominal pain and started having blood streaked emesis described as dark with bright red streaks. Additionally he states that he incidentally got stung by a bunch of bees. 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 Additionally has chronic back pain. . Historical: - Allergies: 19:24 No Known Allergies; fc - Home Meds: 19:24 Effexor XR 150 mg oral cp24 1 cap once daily [Active]; Keppra 1,000 mg oral tab 1 tab fc every 12 hours [Active]; Seroquel 600 mg Oral 1 tab nightly [Active]; - PMHx: 19:24 Lung Cancer; Seizures; fc - PSHx: 19:24 cervical fusion; lumbar fusion; dorsal column stimulator implant; Appendectomy; right fc lobectomy; - Immunization history:: Last tetanus immunization: up to date. - Social history:: Smoking status: Patient uses tobacco products, smokes one-half pack cigarettes per day. - Ebola Screening: : Patient negative for fever greater than or equal to 101.5 degrees Fahrenheit, and additional compatible Ebola Virus Disease symptoms Patient denies exposure to infectious person Patient denies travel to an Ebola-affected area in the 21 days before illness onset. ROS: 19:38 Constitutional: Negative for fever, chills, and weight loss, Eyes: Negative for injury, ps1 pain, redness, and discharge, ENT: Negative for injury, pain, and discharge, Cardiovascular: Negative for chest pain, palpitations, and edema, Respiratory: Negative for shortness of breath, cough, wheezing, and pleuritic chest pain. 19:38 MS/Extremity: Negative for injury and deformity, Skin: Negative for injury, rash, and discoloration, Neuro: Negative for headache, weakness, numbness, tingling, and seizure. 19:38 Abdomen/GI: Positive for nausea and vomiting, hematemesis. 19:38 Back: Positive for pain with movement. Exam: 19:38 Constitutional: This is a well developed, well nourished patient who is awake, alert, ps1 and in no acute distress. Head/Face: Normocephalic, atraumatic. Eyes: Pupils equal round and reactive to light, extra-ocular motions intact. Lids and lashes normal. Conjunctiva and sclera are non-icteric and not injected. Neck: Trachea midline, no thyromegaly or masses palpated, and no cervical lymphadenopathy. Supple, full range of motion without nuchal rigidity, or vertebral point tenderness. No Meningismus. Chest/axilla: Normal chest wall appearance and motion. Nontender with no deformity. No lesions are appreciated. Cardiovascular: Regular rate and rhythm. No gallops, murmurs, or rubs. Normal PMI, no JVD. No pulse deficits. Respiratory: Lungs have equal breath sounds bilaterally, clear to auscultation and percussion. No rales, rhonchi or wheezes noted. No increased work of breathing, no retractions or nasal flaring. Abdomen/GI: Soft, non-tender, with normal bowel sounds. No distension or tympany. No guarding or rebound. No evidence of tenderness throughout. MS/ Extremity: Pulses equal, no cyanosis. Neurovascular intact. Full, normal range of motion. Neuro: Awake and alert, GCS 15, oriented to person, place, time, and situation. Cranial nerves II-XII grossly intact. Sensory grossly intact. Psych: Awake, alert, with orientation to person, place and time. Behavior, mood, and affect are within normal limits. 19:38 Skin: urticaria, and multiple bee stings. . Vital Signs: 19:24 BP 145 / 100; Pulse 106; Resp 18; Temp 98.0(O); Pulse Ox 98% on R/A; Weight 73.94 kg fc (R); Height 6 ft. 1 in. (185.42 cm) (R); Pain 9/10; 21:37 BP 118 / 83; Pulse 86; Resp 18; Pulse Ox 95% on R/A; aj1 19:24 Body Mass Index 21.51 (73.94 kg, 185.42 cm) MDM: 19:36 Patient medically screened. ps1 21:09 Data reviewed: vital signs, nurses notes, radiologic studies. ps1 11/01 19:52 Order name: Abdomen Acute Series XRAY; Complete Time: 21:35 ps1 Administered Medications: 19:52 Drug: SOLU-Medrol 125 mg Route: IVP; Site: right antecubital; aj1 19:53 Drug: ProTONIX 80 mg Route: IVP; Site: right antecubital; aj1 19:53 Drug: morphine 4 mg Route: IVP; Site: right antecubital; aj1 19:53 Drug: Zofran 4 mg Route: IVP; Site: right antecubital; aj1 19:53 Drug: Benadryl 50 mg Route: IVP; Site: right antecubital; aj1 21:01 Drug: CarafATE 1 grams Route: PO; tl3 Disposition: 11/01/17 21:07 Discharged to Home. Impression: Peptic ulcer, site unspecified. - Condition is Stable. - Discharge Instructions: Peptic Ulcer Disease. - Prescriptions for Bentyl 10 mg Oral Capsule - take 1 capsule by ORAL route every 6 hours As needed; 40 capsule. Protonix 40 mg Oral Tablet - take 1 tablet by ORAL route once daily; 30 tablet. Zofran 4 mg Oral Tablet - take 1 tablet by ORAL route every 12 hours As needed; 20 tablet. Carafate 1 gram Oral Tablet - take 2 tablet by ORAL route every 12 hours take on an empty stomach, beginning on waking and last dose at bedtime; 100 tablet. - Medication Reconciliation Form, Thank You Letter, Antibiotic Education, Prescription Opioid Use form. - Follow up: Aryan Del Castillo MD; When: As needed; Reason: Further diagnostic work-up, Recheck today's complaints, Continuance of care, Re-evaluation by your physician. Follow up: Emergency Department; When: As needed; Reason: Worsening of condition. - Problem is new. - Symptoms have improved. Signatures: Dispatcher [employer] EDRoberta Navarrete RN RN aj1 Michelle Bernal RN RN fc Betty Thomas RN RN bb Singer, Phillip, MD MD ps1 María Lucas RN RN tl3 Corrections: (The following items were deleted from the chart) 21:49 21:07 11/01/2017 21:07 Discharged to Home. Impression: Peptic ulcer, site unspecified. bb Condition is Stable. Forms are Medication Reconciliation Form, Thank You Letter, Antibiotic Education, Prescription Opioid Use. Follow up: Aryan Del Castillo; When: As needed; Reason: Further diagnostic work-up, Recheck today's complaints, Continuance of care, Re-evaluation by your physician. Follow up: Emergency Department; When: As needed; Reason: Worsening of condition. Problem is new. Symptoms have improved. ps1
--- NOTE | 2017-11-01 21:18 | RAD REPORT ---
EXAM DESCRIPTION: RAD - Abdomen Acute Series - 11/01/2017 8:36 pm CLINICAL HISTORY: Abdominal pain FINDINGS: Subcentimeter nodular density overlies the mid to lower lung bilaterally. Most likely thes e represent nipple shadows. Follow-up chest film in 3 months with nipple marker is recommended Free air is not seen beneath the diaphragm Neurostimulator device is in place. A loop of small bowel is mildly dilated within the left abdomen which may represent a focal ileus or enteritis. Postsurgical changes involve the spine. Phleboliths are present within the pelvis
[2017-11-01 23:19] VITALS: TEMP 98
[2017-11-01 23:20] VITALS: BP 118/83; O2SAT 95
== END 2017-11-01 21:49 | disposition home or self-care (01) ==
LOC: ER 19:07
DX: K27.9 Peptic ulcer, site unspecified, unspecified as acute or chronic, without hemorrhage or perforation (principal); F17.210 Nicotine dependence, cigarettes, uncomplicated; R56.9 Unspecified convulsions; Z85.118 Personal history of other malignant neoplasm of bronchus and lung; L50.9 Urticaria, unspecified; T63.441A Toxic effect of venom of bees, accidental (unintentional), initial encounter; Y92.017 Garden or yard in single-family (private) house as the place of occurrence of the external cause
CPT/HCPCS: 74022; 96374; 96375; 99284; C9113; J2405; J2930

== ENCOUNTER 2018-01-06 12:52 | Emergency (ER) | payer OTHER ==
--- OUTSIDE RECORDS SUMMARY | 2018-01-06 12:56 | XMS REPORT | Clinical Summary ---
:1965 Author Organization [facility] Address [address] [place] [address] Care Team Providers Name Role Phone Asked, [...] (four) 17 018 tablet times a day. QUEtiapine Take 800 mg by 2 09/28/19 Discontinued (SEROquel) 400 MG mouth nightly. 17 018 tablet Take 2 tablets at bedtime busPIRone (BUSPAR) Take 10 mg by Discontinued 10 MG tablet mouth 3 (three) 018 times a day. acetaminophen-codei TK 1 TO 2 TS PO 0 11/28/19 Discontinued ne (TYLENOL WITH Q 6 H PRN P 17 018 CODEINE #3) 300-30 mg per tablet HYDROcodone-acetami Take 1 tablet 10 tablet 0 [...] Overview: Added automatically from request for surgery [id number] Gastrointestinal hemorrhage 02/23/2017 Gastrointestinal hemorrhage with hematemesis 02/23/2017 Overview: Added automatically from request for surgery [id number] Vertigo 12/19/2016 Pneumonia due to infectious organism 12/07/2016 COPD with acute bronchitis 11/25/2016 COPD (chronic obstructive pulmonary disease) 11/09/2016 COPD exacerbation 11/08/2016 Lung mass 11/08/2016 Tobacco dependence 11/08/2016 Resolved Problems Problem Noted Date Resolved Date Leukocytosis 05/14/2017 05/15/2017 Encounters Date Type Specialty Care Team Description 10/08/19 Emergency Emergency Medicine Sarai, Suicidal ideation (Primary Dx ) 18 Osiel Paul MD 09/21/19 Emergency Emergency Medicine Nectar Chronic right-sided thoracic back pain (Primary Dx); 18 Meulen, Narcotic abuse; Karen Drug-seeking behavior MD Joselito 08/09/19 Hospital Radiology [facility] (bronchogenic carcinoma) 18 Encounter MD Meaghan 07/22/19 Transcribe Access [facility] (bronchogenic carcinoma) 18 Orders MD Meaghan (Primary Dx) 07/16/19 Emergency General Internal Spears, Quinn Sciatica of left side ( Primary Dx); 18 - Haris Koo MD Intractable pain 07/17/19 Nadeen, 18 MD Lila Schwab, Aleisha Lance MD 07/16/19 Emergency Emergency Medicine Jacob, Other chronic pain (Primary 18 Osiel Warner, Dx) DO 07/06/19 Emergency General Internal Jacob, Syncope, unspecified syncope type (Primary Dx); 18 - Medicine Osiel Warner, Other chronic pain 07/07/19 DO 18 Karlene Luis MD 05/18/19 Anesthesia Gastroenterology Jovanna, Yun Event Eleazar Salinas MD 05/18/19 Procedure Pass Gastroenterology 18 05/18/19 Surgery Gastroenterology Venkat Kim ESOPHAGOGASTRODUODENOSCOPY 18 MD Raheel (EGD) with bx 05/12/20 [facility] General Internal [facility] Intractable vomiting with nausea, unspecified vomiting type (Primary Dx); 17 - Encounter Medicine MD Edward Pain; 05/19/19 Bavare, Abdominal pain, unspecified abdominal location; 18 Natalio Summers, Essential hypertension; Type 2 diabetes mellitus with hyperglycemia, with long-term current use of insulin Vu Kiser DO 03/08/20 Telephone Family Medicine Juvenal Sidhu MD 03/03/20 Telephone Gastroenterology Juvenal Sidhu MD 02/26/20 Telephone Gastroenterology Juvenal Sidhu MD 02/26/20 Procedure Pass Gastroenterology 17 02/26/20 Procedure Pass Gastroenterology 02/24/20 [facility] Gastrointestinal hemorrhage with hematemesis (Primary Dx); 17 - Medicine MD Edward Gastrointestinal hemorrhage, unspecified gastrointestinal hemorrhage type; 02/26/20 Mcghee, Rosie Pain of upper abdomen; Darron Lehman MD Nausea and vomiting, intractability of vomiting not specified , unspecified vomiting type 02/09/20 Emergency Emergency Medicine Feng Knight, Vision blurred (Primary Dx) 17 02/02/20 Emergency Emergency Medicine Julio Luna Right upper quadrant abdominal pain (Primary Dx); 17 Jose, Other chronic pain 02/01/20 Emergency Emergency Medicine 17 01/06/20 Transcribe Access Mcghee, Rosie Abnormal renal function test 17 Leonardo Lehman MD (Primary Dx) after 01/05/2017 Immunizations Name Dates Previously Given Next Due [...] VACCINE 12/14/2017 05/19/2017 Implants Implanted Type Area Telephone Operator Receptionist Device Expiration Model / Identifier Date Serial / Lot Stimulator Stimulator Stimulator-10/30/2006 Stimulator Hip Implanted: 10/30/2006 (Quantity not on file) Kit [employer] Air Leak 4ml Strl Progel - [id number] Surgical N/A: N/A [employer] [id number] / Implanted: Qty: 1 on 11/24/2016 by [...] GLUCOSE Routine 07/16/2017 Results for 11:29 AM ICT BUSINESS DEVELOPMENT MANAGER this procedure are in the results section. POC GLUCOSE Routine 07/16/2017 Results for 6:52 AM ICT BUSINESS DEVELOPMENT MANAGER this procedure are in the results section. SMEAR REVIEW Routine 07/16/2017 Results for 5:13 AM ICT BUSINESS DEVELOPMENT MANAGER this procedure are in the results section. ESTIMATED GFR Routine 07/16/2017 Results for 5:13 AM ICT BUSINESS DEVELOPMENT MANAGER this procedure are in the results section. BASIC METABOLIC PANEL Routine 07/16/2017 Results for 5:13 AM ICT BUSINESS DEVELOPMENT MANAGER this procedure are in the results section. HC COMPLETE BLD COUNT W/AUTO Routine 07/16/2017 Results for DIFF 5:13 AM ICT BUSINESS DEVELOPMENT MANAGER this procedure are in the results section. KEPPRA (LEVETIRACETAM) LEVEL Routine 07/16/2017 Results for 5:13 AM ICT BUSINESS DEVELOPMENT MANAGER this procedure are in the results section. SMEAR REVIEW STAT 07/15/2017 Results for 8:14 PM ICT BUSINESS DEVELOPMENT MANAGER this procedure are in the results section. ESTIMATED GFR STAT 07/15/2017 Results for 8:14 PM ICT BUSINESS DEVELOPMENT MANAGER this procedure are in the results section. HEPATIC FUNCTION PANEL STAT 07/15/2017 Results for 8:14 PM ICT BUSINESS DEVELOPMENT MANAGER this procedure are in the results section. BASIC METABOLIC PANEL STAT 07/15/2017 Results for 8:14 PM ICT BUSINESS DEVELOPMENT MANAGER this procedure are in the results section. HC COMPLETE BLD COUNT W/AUTO STAT 07/15/2017 Results for DIFF 8:14 PM ICT BUSINESS DEVELOPMENT MANAGER this procedure are in the results section. CT LUMBAR SPINE WO CONTRAST STAT 07/15/2017 Results for 5:12 PM ICT BUSINESS DEVELOPMENT MANAGER this procedure are in the results section. ESTIMATED GFR STAT 07/15/2017 Results for 12:29 PM ICT BUSINESS DEVELOPMENT MANAGER this procedure are in the results section. LIPASE LEVEL STAT 07/15/2017 Results for 12:29 PM ICT BUSINESS DEVELOPMENT MANAGER this procedure are in the results section. COMPREHENSIVE METABOLIC PANEL STAT 07/15/2017 Results for 12:29 PM ICT BUSINESS DEVELOPMENT MANAGER this procedure are in the results section. PARTIAL THROMBOPLASTIN TIME STAT 07/15/2017 Results for (PTT) 12:29 PM ICT BUSINESS DEVELOPMENT MANAGER this procedure are in the results section. PROTHROMBIN TIME WITH INR STAT 07/15/2017 Results for 12:29 PM ICT BUSINESS DEVELOPMENT MANAGER this procedure are in the results section. HC COMPLETE BLD COUNT W/AUTO STAT 07/15/2017 Results for DIFF 12:29 PM ICT BUSINESS DEVELOPMENT MANAGER this procedure are in the results section. POC GLUCOSE Routine 07/07/2017 Results for 11:06 AM ICT BUSINESS DEVELOPMENT MANAGER this procedure are in the results section. POC GLUCOSE Routine 07/07/2017 Results for 6:41 AM ICT BUSINESS DEVELOPMENT MANAGER this procedure are in the results section. ESTIMATED GFR Routine 07/07/2017 Results for 4:58 AM ICT BUSINESS DEVELOPMENT MANAGER this procedure are in the results section. BASIC METABOLIC PANEL Routine 07/07/2017 Results for 4:58 AM ICT BUSINESS DEVELOPMENT MANAGER this procedure are in the results section. HC COMPLETE BLD COUNT W/AUTO Routine 07/07/2017 Results for DIFF 4:58 AM ICT BUSINESS DEVELOPMENT MANAGER this procedure are in the results section. POC GLUCOSE Routine 07/06/2017 Results for 9:12 PM ICT BUSINESS DEVELOPMENT MANAGER this procedure are in the results section. ESTIMATED GFR STAT 07/06/2017 Results for 6:29 PM ICT BUSINESS DEVELOPMENT MANAGER this procedure are in the results section. CREATINE KINASE, TOTAL (CPK) STAT 07/06/2017 Results for 6:29 PM ICT BUSINESS DEVELOPMENT MANAGER this procedure are in the results section. HC COMPLETE BLD COUNT W/AUTO STAT 07/06/2017 Results for DIFF 6:29 PM ICT BUSINESS DEVELOPMENT MANAGER this procedure are in the results section. BASIC METABOLIC PANEL STAT 07/06/2017 Results for 6:29 PM ICT BUSINESS DEVELOPMENT MANAGER this procedure are in the results section. CT HEAD WO CONTRAST STAT 07/06/2017 Results for 6:19 PM ICT BUSINESS DEVELOPMENT MANAGER this procedure are in the results section. ECG 12-LEAD STAT 07/06/2017 Results for 6:18 PM ICT BUSINESS DEVELOPMENT MANAGER this procedure are in the results section. ECG ED PRELIMINARY Routine 07/06/2017 Results for INTERPRETATION 5:38 PM ICT BUSINESS DEVELOPMENT MANAGER this procedure are in the results section. POC GLUCOSE Routine 05/19/2017 Results for 10:56 AM ICT BUSINESS DEVELOPMENT MANAGER this procedure are in the results section. POC GLUCOSE Routine 05/19/2017 Results for 7:34 AM ICT BUSINESS DEVELOPMENT MANAGER this procedure are in the results section. POC GLUCOSE Routine 05/18/2017 Results for 8:37 PM ICT BUSINESS DEVELOPMENT MANAGER this procedure are in the results section. POC GLUCOSE Routine 05/18/2017 Results for 4:48 PM ICT BUSINESS DEVELOPMENT MANAGER this procedure are in the results section. SURGICAL PATHOLOGY REQUEST Routine 05/18/2017 Results for 1:28 PM ICT BUSINESS DEVELOPMENT MANAGER this procedure are in the results section. ESOPHAGOGASTRODUODENOSCOPY (EGD) 05/18/2017 Abdominal pain, 12:15 PM ICT BUSINESS DEVELOPMENT MANAGER unspecified abdominal location POC GLUCOSE Routine 05/18/2017 Results for 6:56 AM ICT BUSINESS DEVELOPMENT MANAGER this procedure are in the results section. ESTIMATED GFR Routine 05/18/2017 Results for 6:03 AM ICT BUSINESS DEVELOPMENT MANAGER this procedure are in the results section. BASIC METABOLIC PANEL Routine 05/18/2017 Results for 6:03 AM ICT BUSINESS DEVELOPMENT MANAGER this procedure are in the results section. POC GLUCOSE Routine 05/17/2017 Results for 9:04 PM ICT BUSINESS DEVELOPMENT MANAGER this procedure are in the results section. POC GLUCOSE Routine 05/17/2017 Results for 3:39 PM ICT BUSINESS DEVELOPMENT MANAGER this procedure are in the results section. POC GLUCOSE Routine 05/17/2017 Results for 11:07 AM ICT BUSINESS DEVELOPMENT MANAGER this procedure are in the results section. POC GLUCOSE Routine 05/17/2017 Results for 7:12 AM ICT BUSINESS DEVELOPMENT MANAGER this procedure are in the results section. ESTIMATED GFR Routine 05/17/2017 Results for 5:59 AM ICT BUSINESS DEVELOPMENT MANAGER this procedure are in the results section. MAGNESIUM LEVEL Routine 05/17/2017 Results for 5:59 AM ICT BUSINESS DEVELOPMENT MANAGER this procedure are in the results section. COMPREHENSIVE METABOLIC PANEL Routine 05/17/2017 Results for 5:59 AM ICT BUSINESS DEVELOPMENT MANAGER this procedure are in the results section. CBC WITH PLATELET AND Routine 05/17/2017 Results for DIFFERENTIAL 5:59 AM ICT BUSINESS DEVELOPMENT MANAGER this procedure are in the results section. POC GLUCOSE Routine 05/16/2017 Results for 7:54 PM ICT BUSINESS DEVELOPMENT MANAGER this procedure are in the results section. ECG ED PRELIMINARY Routine 05/16/2017 Results for INTERPRETATION 5:59 PM ICT BUSINESS DEVELOPMENT MANAGER this procedure are in the results section. POC GLUCOSE Routine 05/16/2017 Results for 3:55 PM ICT BUSINESS DEVELOPMENT MANAGER this procedure are in the results section. POC GLUCOSE Routine 05/16/2017 Results for 11:54 AM ICT BUSINESS DEVELOPMENT MANAGER this procedure are in the results section. POC GLUCOSE Routine 05/16/2017 Results for 6:26 AM ICT BUSINESS DEVELOPMENT MANAGER this procedure are in the results section. ESTIMATED GFR Routine 05/16/2017 Results for 6:23 AM ICT BUSINESS DEVELOPMENT MANAGER this procedure are in the results section. COMPREHENSIVE METABOLIC PANEL Routine 05/16/2017 Results for 6:23 AM ICT BUSINESS DEVELOPMENT MANAGER this procedure are in the results section. HC COMPLETE BLD COUNT W/AUTO Routine 05/16/2017 Results for DIFF 6:23 AM ICT BUSINESS DEVELOPMENT MANAGER this procedure are in the results section. POC GLUCOSE Routine 05/15/2017 Results for 8:54 PM ICT BUSINESS DEVELOPMENT MANAGER this procedure are in the results section. POC GLUCOSE Routine 05/15/2017 Results for 4:46 PM ICT BUSINESS DEVELOPMENT MANAGER this procedure are in the results section. POC GLUCOSE Routine 05/15/2017 Results for 11:33 AM ICT BUSINESS DEVELOPMENT MANAGER this procedure are in the results section. ESTIMATED GFR Routine 05/15/2017 Results for 7:05 AM ICT BUSINESS DEVELOPMENT MANAGER this procedure are in the results section. COMPREHENSIVE METABOLIC PANEL Routine 05/15/2017 Results for 7:05 AM ICT BUSINESS DEVELOPMENT MANAGER this procedure are in the results section. HC COMPLETE BLD COUNT W/AUTO Routine 05/15/2017 Results for DIFF 7:05 AM ICT BUSINESS DEVELOPMENT MANAGER this procedure are in the results section. POC GLUCOSE Routine 05/15/2017 Results for 6:23 AM ICT BUSINESS DEVELOPMENT MANAGER this procedure are in the results section. POC GLUCOSE Routine 05/14/2017 Results for 8:30 PM ICT BUSINESS DEVELOPMENT MANAGER this procedure are in the results section. XR CHEST 2 VW Routine 05/14/2017 Results for 7:47 PM ICT BUSINESS DEVELOPMENT MANAGER this procedure are in the results section. ESTIMATED GFR Routine 05/14/2017 Results for 7:07 PM ICT BUSINESS DEVELOPMENT MANAGER this procedure are in the results section. COMPREHENSIVE METABOLIC PANEL Routine 05/14/2017 Results for 7:07 PM ICT BUSINESS DEVELOPMENT MANAGER this procedure are in the results section. HC COMPLETE BLD COUNT W/AUTO Routine 05/14/2017 Results for DIFF 7:07 PM ICT BUSINESS DEVELOPMENT MANAGER this procedure are in the results section. POC GLUCOSE Routine 05/14/2017 Results for 3:58 PM ICT BUSINESS DEVELOPMENT MANAGER this procedure are in the results section. POC GLUCOSE Routine 05/14/2017 Results for 12:15 PM ICT BUSINESS DEVELOPMENT MANAGER this procedure are in the results section. POC GLUCOSE Routine 05/14/2017 Results for 7:03 AM ICT BUSINESS DEVELOPMENT MANAGER this procedure are in the results section. POC GLUCOSE Routine 05/13/2017 Results for 8:17 PM ICT BUSINESS DEVELOPMENT MANAGER this procedure are in the results section. POC GLUCOSE Routine 05/13/2017 Results for 3:34 PM ICT BUSINESS DEVELOPMENT MANAGER this procedure are in the results section. POC GLUCOSE Routine 05/13/2017 Results for 10:52 AM ICT BUSINESS DEVELOPMENT MANAGER this procedure are in the results section. URINALYSIS SCREEN AND STAT 05/13/2017 Results for MICROSCOPY, WITH REFLEX TO 8:31 AM ICT BUSINESS DEVELOPMENT MANAGER this procedure CULTURE are in the results section. URINE DRUGS OF ABUSE SCREEN STAT 05/13/2017 Results for 8:31 AM ICT BUSINESS DEVELOPMENT MANAGER this procedure are in the results section. URINE CULTURE STAT 05/13/2017 Results for 8:31 AM ICT BUSINESS DEVELOPMENT MANAGER this procedure are in the results section. POC GLUCOSE Routine 05/13/2017 Results for 7:02 AM ICT BUSINESS DEVELOPMENT MANAGER this procedure are in the results section. ESTIMATED GFR Routine 05/13/2017 Results for 5:34 AM ICT BUSINESS DEVELOPMENT MANAGER this procedure are in the results section. BASIC METABOLIC PANEL Routine 05/13/2017 Results for 5:34 AM ICT BUSINESS DEVELOPMENT MANAGER this procedure are in the results section. PROTHROMBIN TIME WITH INR Routine 05/13/2017 Results for 5:34 AM ICT BUSINESS DEVELOPMENT MANAGER this procedure are in the results section. HC COMPLETE BLD COUNT W/AUTO Routine 05/13/2017 Results for DIFF 5:34 AM ICT BUSINESS DEVELOPMENT MANAGER this procedure are in the results section. POC GLUCOSE Routine 05/13/2017 Results for 12:44 AM ICT BUSINESS DEVELOPMENT MANAGER this procedure are in the results section. TROPONIN Timed 05/12/2017 Results for 7:33 PM ICT BUSINESS DEVELOPMENT MANAGER this procedure are in the results section. CT ABDOMEN PELVIS WO CONTRAST STAT 05/12/2017 Results for 4:23 PM ICT BUSINESS DEVELOPMENT MANAGER this procedure are in the results section. INFLUENZA ANTIGEN Routine 05/12/2017 Results for 3:58 PM ICT BUSINESS DEVELOPMENT MANAGER this procedure are in the results section. ECG 12-LEAD STAT 05/12/2017 Results for 3:48 PM ICT BUSINESS DEVELOPMENT MANAGER this procedure are in the results section. B NATRIURETIC PEPTIDE STAT 05/12/2017 Results for 3:45 PM ICT BUSINESS DEVELOPMENT MANAGER this procedure are in the results section. TROPONIN STAT 05/12/2017 Results for 3:45 PM ICT BUSINESS DEVELOPMENT MANAGER this procedure are in the results section. ALCOHOL LEVEL, BLOOD STAT 05/12/2017 Results for 3:45 PM ICT BUSINESS DEVELOPMENT MANAGER this procedure are in the results section. ESTIMATED GFR STAT 05/12/2017 Results for 3:45 PM ICT BUSINESS DEVELOPMENT MANAGER this procedure are in the results section. LIPASE LEVEL STAT 05/12/2017 Results for 3:45 PM ICT BUSINESS DEVELOPMENT MANAGER this procedure are in the results section. COMPREHENSIVE METABOLIC PANEL STAT 05/12/2017 Results for 3:45 PM ICT BUSINESS DEVELOPMENT MANAGER this procedure are in the results section. HC COMPLETE BLD COUNT W/AUTO STAT 05/12/2017 Results for DIFF 3:45 PM ICT BUSINESS DEVELOPMENT MANAGER this procedure are in the results section. [...] this procedure are in the results section. after 01/05/2017 Results Urinalysis screen and microscopy, with reflex to culture (10/07/2017 9:16 AM) Only the most recent of4 resultswithin the time period is included. Specimen site Clean catch [facility] DEPARTMENT OF PATHOLOGY AND GENOMIC MEDICINE Color, UA Yellow [facility] DEPARTMENT OF PATHOLOGY AND GENOMIC MEDICINE Appearance, UA Clear [facility] DEPARTMENT OF PATHOLOGY AND GENOMIC MEDICINE Specific gravity, UA 1.011 1.001 - 1.035 [facility] DEPARTMENT OF PATHOLOGY AND GENOMIC MEDICINE pH, UA 5.0 5.0 - 8.5 [facility] DEPARTMENT OF PATHOLOGY AND GENOMIC MEDICINE Protein, UA Negative Negative [facility] DEPARTMENT OF PATHOLOGY AND GENOMIC MEDICINE Glucose, UA Negative Negative [facility] DEPARTMENT OF PATHOLOGY AND GENOMIC MEDICINE Ketones, UA Negative Negative [facility] DEPARTMENT OF PATHOLOGY AND GENOMIC MEDICINE Bilirubin, UA Negative Negative [facility] DEPARTMENT OF PATHOLOGY AND GENOMIC MEDICINE Blood, UA Negative Negative [facility] DEPARTMENT OF PATHOLOGY AND GENOMIC MEDICINE Nitrite, UA Negative Negative [facility] DEPARTMENT OF PATHOLOGY AND GENOMIC MEDICINE Urobilinogen, UA 2.0 (A) <2.0 [facility] DEPARTMENT OF PATHOLOGY AND GENOMIC MEDICINE Leukocyte esterase, UA Negative Negative [facility] DEPARTMENT OF PATHOLOGY AND GENOMIC MEDICINE Epithelial cells, UA Few /HPF [facility] DEPARTMENT OF PATHOLOGY AND GENOMIC MEDICINE WBC, UA 1 0 - 1 /HPF [facility] DEPARTMENT OF PATHOLOGY AND GENOMIC MEDICINE RBC, UA <1 0 - 5 /HPF [facility] DEPARTMENT OF PATHOLOGY AND GENOMIC MEDICINE Bacteria, UA None seen None seen [facility] DEPARTMENT OF PATHOLOGY AND GENOMIC MEDICINE Yeast, UA None seen [facility] DEPARTMENT OF PATHOLOGY AND GENOMIC MEDICINE Yeast with pseudohyphae, UA None seen [facility] DEPARTMENT OF PATHOLOGY AND GENOMIC MEDICINE Specimen Urine Performing Organization Address City/State/Zipcode Phone Number [facility] DEPARTMENT OF PATHOLOGY AND [place] [address] [facility] Urine drugs of abuse screen (10/07/2017 9:16 AM)Only the most recent of2 resultswithin the time period is included. Amphetamine screen, urine NEG [facility] DEPARTMENT OF PATHOLOGY AND GENOMIC MEDICINE Barbiturate screen, urine NEG [facility] DEPARTMENT OF PATHOLOGY AND GENOMIC MEDICINE Benzodiazepine screen, POS [facility] DEPARTMENT OF urine PATHOLOGY AND GENOMIC MEDICINE Cocaine screen, urine NEG [facility] DEPARTMENT OF PATHOLOGY AND GENOMIC MEDICINE Methadone screen, urine NEG [facility] DEPARTMENT OF PATHOLOGY AND GENOMIC MEDICINE Opiates screen, urine POS [facility] DEPARTMENT OF PATHOLOGY AND GENOMIC MEDICINE Phencyclidine screen, urine NEG [facility] DEPARTMENT OF PATHOLOGY AND GENOMIC MEDICINE Cannabinoid screen, urine POS [facility] DEPARTMENT OF Comment: PATHOLOGY AND GENOMIC Drug screen minimum concentration of detectability MEDICINE Qybckheejinv4309 ng/mL Hjddtcykrevinxgq0640 ng/mL Barbiturates 300 ng/mL Dexpmmvcnrlguml001 ng/mL Nuqezvm272 ng/mL Opxmntkxy435 ng/mL Keqzegt587 ng/mL Phencyclidine 25 ng/mL Mrhplcylafrn73 ng/mL Qrxmjzuexz2386 ng/mL Negative test results indicates presumptive evidence of lack of clinically significant drug concentration in this urine specimen. Positive test results are presumptive evidence of clinically significant drug concentration in this urine specimen. Testing performed for medical purposes only. Specimen Urine Performing Organization Address City/[facility] Hospital[facility] Phone Number [facility] DEPARTMENT OF PATHOLOGY AND [place] [address] [facility] MED[facility]INE Urine culture (10/07/2017 9:16 AM)Only the most recent of3 resultswithin the time period is included. Urine culture SEE COMMENTComment: Bacteriuria [facility] DEPARTMENT OF PATHOLOGY screen negative. AND GENOMIC MEDICINE Specimen Urine Performing Organization Address City/[facility]/Zipcode Phone Number [facility] DEPARTMENT OF PATHOLOGY AND [place] [address] [facility] Estimated GFR (10/07/2017 9:02 AM)Only the most recent of18 resultswithin the time period is included. GFR Non Af Amer 49 (A) mL/min/1.73 m2 [facility] DEPARTMENT OF PATHOLOGY AND GENOMIC MEDICINE GFR Af Amer 59 (A) mL/min/1.73 m2 [facility] DEPARTMENT OF Comment: PATHOLOGY AND GENOMIC Chronic [...] Americans. Specimen Plasma specimen Performing Organization Address City/State/Zipcode Phone Number [facility] DEPARTMENT OF PATHOLOGY AND [address] [place] [address] [facility] CBC with platelet and differential (10/07/2017 9:02 AM)Only the most recent of17 resultswithin the time period is included. WBC 9.1 4.2 - 11.0 k/uL [facility] DEPARTMENT OF PATHOLOGY AND GENOMIC MEDICINE RBC 4.57 4.04 - 5.86 m/uL [facility] DEPARTMENT OF PATHOLOGY AND GENOMIC MEDICINE HGB 14.7 13.0 - 17.3 g/dL [facility] DEPARTMENT OF PATHOLOGY AND GENOMIC MEDICINE HCT 44.6 34.0 - 45.0 % [facility] DEPARTMENT OF PATHOLOGY AND GENOMIC MEDICINE MCV 97.6 80.0 - 98.0 fL [facility] DEPARTMENT OF PATHOLOGY AND GENOMIC MEDICINE MCH 32.2 27.0 - 34.0 pg [facility] DEPARTMENT OF PATHOLOGY AND GENOMIC MEDICINE MCHC 33.0 31.5 - 36.5 g/dL [facility] DEPARTMENT OF PATHOLOGY AND GENOMIC MEDICINE RDW - SD 55.1 (H) 37.0 - 51.0 fL [facility] DEPARTMENT OF PATHOLOGY AND GENOMIC MEDICINE MPV 10.1 7.4 - 10.4 fL [facility] DEPARTMENT OF PATHOLOGY AND GENOMIC MEDICINE Platelet count 124 (L) 150 - 400 k/uL [facility] DEPARTMENT OF PATHOLOGY AND GENOMIC MEDICINE Nucleated RBC 0.00 /100 WBC [facility] DEPARTMENT OF PATHOLOGY AND GENOMIC MEDICINE Neutrophils 80.4 (H) 36.0 - 66.0 % [facility] DEPARTMENT OF PATHOLOGY AND GENOMIC MEDICINE Lymphocytes 11.6 (L) 24.0 - 44.0 % [facility] [facility] DEPARTMENT OF PATHOLOGY AND GENOMIC MEDICINE Monocytes 5.8 0.0 - 6.0 % [facility] DEPARTMENT OF PATHOLOGY AND GENOMIC MEDICINE Eosinophils 1.3 0.0 - 6.0 % [facility] DEPARTMENT OF PATHOLOGY AND GENOMIC MEDICINE Basophils 0.6 0.0 - 1.2 % [facility] DEPARTMENT OF PATHOLOGY AND GENOMIC MEDICINE Immature granulocytes 0.3 0.0 - 1.0 % [facility] DEPARTMENT OF PATHOLOGY AND GENOMIC MEDICINE Specimen Blood Performing Organization Address [facility] Hospital[facility] Phone Number [facility] DEPARTMENT OF PATHOLOGY AND [address] [place] [address]. [address] Thyroid stimulating hormone (10/07/2017 9:02 AM) TSH 2.60 0.38 - 4.82 uIU/mL [facility] DEPARTMENT OF PATHOLOGY AND GENOMIC MEDICINE Specimen Plasma specimen Performing Organization Address [facility] Phone Number [facility] DEPARTMENT OF PATHOLOGY AND [address] [place] [address] T4, free (10/07/2017 9:02 AM) T4, free 1.00 0.70 - 1.61 ng/dL [facility] DEPARTMENT OF PATHOLOGY AND GENOMIC MEDICINE Specimen Plasma specimen Performing Organization Address [facility] Phone Number [facility] DEPARTMENT OF PATHOLOGY AND [address] [place] [address] Alcohol level, blood (10/07/2017 9:02 AM)Only the most recent of2 resultswithin the time period is included. Alcohol None Detected mg/dL [facility] DEPARTMENT OF PATHOLOGY Comment: AND [facility] MEDICINE NormalNone Detected Legal Intoxication in [place] 80 mg/dL (0.08%) Toxic Concentration 200 mg/dL (0.2%) Potentially Fatal 350-500 mg/dL (0.35%-0.5%) Alcohol percent None Detected % [facility] DEPARTMENT OF PATHOLOGY AND GENOMIC MEDICINE Specimen Blood Performing Organization Address [facility] Hospitalcode Phone Number [facility] DEPARTMENT OF PATHOLOGY AND [address] [place] [address] Acetaminophen level (10/07/2017 9:02 AM) Acetaminophen level <2.0 (L) 10.0 - 20.0 ug/mL [facility] DEPARTMENT OF Comment: PATHOLOGY AND GENOMIC Therapeutic 10-30 ug/mL MEDICINE Possible Toxicity 150-200 ug/mL Probable Toxicity >200 ug/mL Specimen Blood Performing Organization Address City/[facility] Hospitalcode Phone Number [facility] DEPARTMENT OF PATHOLOGY AND [place] [address] [facility] Salicylate level (10/07/2017 9:02 AM) Salicylate 7.0 mg/dL [facility] DEPARTMENT OF PATHOLOGY AND GENOMIC Comment: MEDICINE Therapeutic Range: 5 - 30 mg/dL Specimen Blood Performing Organization Address City/[facility] Hospitalcode Phone Number [facility] DEPARTMENT OF PATHOLOGY AND [place] [address] [facility] Comprehensive metabolic panel (10/07/2017 9:02 AM)Only the most recent of12 resultswithin the time period is included. Sodium 140 135 - 150 mEq/L [facility] DEPARTMENT OF PATHOLOGY AND GENOMIC MEDICINE Potassium 3.8 3.5 - 5.0 mEq/L [facility] DEPARTMENT OF PATHOLOGY AND GENOMIC MEDICINE Chloride 109 100 - 109 mEq/L [facility] DEPARTMENT OF PATHOLOGY AND GENOMIC MEDICINE CO2 24 24 - 32 mmol/L [facility] DEPARTMENT OF PATHOLOGY AND GENOMIC MEDICINE Anion gap 7@ANIO 7 - 15 mEq/L [facility] DEPARTMENT OF PATHOLOGY AND GENOMIC MEDICINE BUN 14 7 - 18 mg/dL [facility] DEPARTMENT OF PATHOLOGY AND GENOMIC MEDICINE Creatinine 1.5 0.8 - 1.5 mg/dL [facility] DEPARTMENT OF PATHOLOGY AND GENOMIC MEDICINE Glucose 103 (H) 65 - 100 mg/dL [facility] DEPARTMENT OF PATHOLOGY AND GENOMIC MEDICINE Calcium 8.6 8.6 - 10.7 mg/dL [facility] DEPARTMENT OF PATHOLOGY AND GENOMIC MEDICINE Protein 7.9 6.3 - 8.2 g/dL [facility] DEPARTMENT OF PATHOLOGY AND GENOMIC MEDICINE Albumin 3.4 3.2 - 5.0 g/dL [facility] DEPARTMENT OF PATHOLOGY AND GENOMIC MEDICINE A/G ratio 0.8 0.7 - 3.8 [facility] DEPARTMENT OF PATHOLOGY AND GENOMIC MEDICINE Alkaline phosphatase 153 (H) 30 - 120 U/L [facility] DEPARTMENT OF PATHOLOGY AND GENOMIC MEDICINE AST 21 15 - 37 U/L [facility] DEPARTMENT OF PATHOLOGY AND GENOMIC MEDICINE ALT 17 (L) 30 - 65 U/L [facility] DEPARTMENT OF PATHOLOGY AND GENOMIC MEDICINE Total bilirubin 0.2 0.2 - 1.2 mg/dL [facility] DEPARTMENT OF PATHOLOGY AND GENOMIC MEDICINE Specimen Plasma specimen Performing Organization Address [facility] Hospitalcode Phone Number [facility] DEPARTMENT OF PATHOLOGY AND [place] [address] [facility] [address] Abdomen Pelvis Wo Contrast (09/20/2017 3:27 [...] small paraesophageal varices, compatible with portal hypertension. [id number] Procedure Note Interface, Radiology Results Incoming - [...] small paraesophageal varices, compatible with portal hypertension. [id number] Performing Organization Address City/State/Zipcode Phone Number [facility] [address] [place] [address] Smear review (09/20/2017 3:13 AM)Only the most recent of3 resultswithin the time period is included. Smear review Smear Reviewed [facility] DEPARTMENT OF PATHOLOGY AND GENOMIC MEDICINE Performing Organization Address City/[facility] Hospitalcode Phone Number [facility] DEPARTMENT OF PATHOLOGY AND [address] [place] [address]. [place], [place] [id number] [place] [address] Prothrombin time with INR (09/20/2017 3:13 AM)Only the most recent of4 resultswithin the time period is included. Prothrombin time 14.5 12.0 - 15.0 sec [facility] DEPARTMENT OF PATHOLOGY AND GENOMIC MEDICINE INR 1.11 0.92 - 1.12 [facility] DEPARTMENT OF Comment: PATHOLOGY AND GENOMIC For patients on anticoagulant therapy, reference ranges below: MEDICINE Indication:INR Value Treatment of Venous Thrombosis, 2.0-3.0 pulmonary emboli, or prophylaxis of a venous thrombosis, or systemic emboli. High dose, high risk patients 3.0-4.5 with mechanical valves. NOTE:INR values over 3.0 are sometimes associated with gastrointestinal hemorrhage, especially values over 4.0. Specimen Blood Performing Organization Address [facility] Hospitalcoor Phone Number [facility] DEPARTMENT OF PATHOLOGY AND [address] [facility] [place], [place] [id number] [place] [address] Lipase level (09/20/2017 3:13 AM)Only the most recent of5 resultswithin the time period is included. Lipase 129 65 - 230 U/L [facility] DEPARTMENT OF PATHOLOGY AND GENOMIC MEDICINE Specimen Plasma specimen Performing Organization Address City/[facility] Hospitalcode Phone Number [facility] DEPARTMENT OF PATHOLOGY AND [address] [facility] [place], [place] [address] [place] [address] ECG 12 lead (09/20/2017 2:43 AM)Only the most recent of4 resultswithin the time period is included. Ventricular rate 77 [facility] Atrial rate 77 [facility] MS interval 144 [facility] QRSD interval 94 [facility] QT interval 418 [facility] QTC interval 473 [facility] MUSE P axis 1 32 [facility] MUSE QRS axis 1 94 [facility] MUSE T wave axis 85 [facility] MUSE EKG impression Normal sinus rhythm-Rightward axis-Borderline [facility] MUSE ECG-In automated comparison with ECG of 06-JUL-2017 18:18,-No significant change was found- Performing Organization Address City/State/Zipcode Phone Number [facility] MUSE [address] [place] [address] ECG ED Preliminary Interpretation - NOT AN ORDER (09/20/2017 2:07 AM)Only the most recent of3 resultswithin the time period is included. Narrative Performed At Karen Brantley MD 09/21/20173:47 AM ECG ED Preliminary Interpretation - Not an Order Performed by: KAREN BRANTLEY Authorized by: KAREN BRANTLEY ECG reviewed by ED Physician in the absence of a splunk architect: yes Previous ECG: Previous ECG:Compared to current Comparison ECG info:06/16/17 Similarity:No change Interpretation: Interpretation: normal Rate: ECG rate:77 ECG rate assessment: normal Rhythm: Rhythm: sinus rhythm QRS: QRS axis:Right Comments: Normal sinus rhythm. Right axis deviation. PET/CT Skull Base To Mid Thigh (08/08/2017 1:45 PM) Narrative Performed At [facility] THIGH Date and place of service: 08/08/2017 10:00 AM at [facility] DOSE: 11.8 mCi of 96-Phukfd-9-Deoxyglucose (FDG) was injected intravenously into left wrist done infiltration at a serum glucose level of90 mg/dl. TECHNIQUE: PROCEDURE: Following injection of 28-Dycqfe-3-Deoxyglucose (FDG) and a standard uptake., The patient was imaged on a [employer] whole body PET CT scanner. Multiple 6 [...] dose COMPARISON: October 26, 2016 done at [facility]. 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 Status post right lower lobectomy November,. No history of recent chemotherapy or radiation therapy. For restaging. FINDINGS: [facility] with the [facility] scan from [...] arterial hypertension as before. Cirrhosis as before. [id number] Procedure Note Hm Interface, Radiology Results Incoming - 08/08/2017 4:30 PM CDT EXAMINATION: PET CT SKULL BASE TO MID THIGH Date and place of service: 08/08/2017 10:00 AM at [facility] DOSE: 11.8 mCi of 60-Lkmkkb-8-Deoxyglucose (FDG) was injected intravenously into left wrist done infiltration at a serum glucose level of 90 mg/dl. TECHNIQUE: PROCEDURE: Following injection of 14-Objiyh-8-Deoxyglucose (FDG) and a standard uptake., The patient was imaged on a [employer] whole body PET CT scanner. Multiple 6 [...] dose COMPARISON: October 26, 2016 done at [facility]. CLINICAL HISTORY: Bronchogenic carcinoma on the [...] arterial hypertension as before. Cirrhosis as before. [facility]-[id number] Performing Organization Address City/[facility]/Zipcode Phone Number [facility] [address] [place] [address] POC glucose (08/08/2017 11:36 AM)Only the most recent of38 resultswithin the time period is included. POC glucose 90 65 - 100 mg/dL [facility] DEPARTMENT OF PATHOLOGY AND Comment: [employer] MEDICINE Meter ID: [id number] Ash Collector: Vu Aponte Performing Organization Address City/[facility]/Zipcode Phone Number [facility] DEPARTMENT OF PATHOLOGY AND [facility] [place] [address] [employer] MEDICINE Keppra (Levetiracetam) level (07/16/2017 5:13 AM) Levetiracetam 27 12 - 46 ug/mL [facility] Comment: INTERPRETIVE INFORMATION: Keppra (Levetiracetam) Therapeutic Range:12-46 ug/mL Toxic:Not well Established Pharmacokinetics of levetiracetam are affected by renal function. Adverse effects may include somnolence, weakness, headache and vomiting. Performed by [employer], [address] [place], [place] [id number] [email or web address], Joni Roper MD - Lab. Director Specimen Serum Performing Organization Address City/[facility] Hospitalcode Phone Number [facility] [address] [place] [address] Basic metabolic panel (07/16/2017 5:13 AM)Only the most recent of6 resultswithin the time period is included. Sodium 134 (L) 135 - 150 mEq/L [facility] DEPARTMENT OF PATHOLOGY AND GENOMIC MEDICINE Potassium 4.2 3.5 - 5.0 mEq/L [facility] DEPARTMENT OF PATHOLOGY AND GENOMIC MEDICINE Chloride 102 100 - 109 mEq/L [facility] DEPARTMENT OF PATHOLOGY AND GENOMIC MEDICINE CO2 22 (L) 24 - 32 mmol/L [facility] DEPARTMENT OF PATHOLOGY AND GENOMIC MEDICINE Anion gap 10 7 - 15 mEq/L [facility] DEPARTMENT OF Comment: PATHOLOGY AND GENOMIC Starting from August , anion gap calculation MEDICINE no longer incorporates potassium. Please note the change. BUN 17 7 - 18 mg/dL [facility] DEPARTMENT OF PATHOLOGY AND GENOMIC [facility] Creatinine 1.2 0.8 - 1.5 mg/dL [facility] DEPARTMENT OF PATHOLOGY AND GENOMIC [facility] Glucose 139 (H) 65 - 100 mg/dL [facility] DEPARTMENT OF PATHOLOGY AND GENOMIC MEDICINE Calcium 9.4 8.6 - 10.7 mg/dL [facility] DEPARTMENT OF PATHOLOGY AND GENOMIC MEDICINE Specimen Plasma specimen Performing Organization Address City/[facility] Hospitalcode Phone Number [facility] PATHOLOGY AND [facility] Center[facility] [address]errano. [place], [place] [id number] [place] [address] Hepatic function panel (07/15/2017 8:14 PM) Albumin 3.8 3.2 - 5.0 g/dL [facility] DEPARTMENT OF PATHOLOGY AND [facility] Total bilirubin 0.8 0.2 - 1.2 mg/dL [facility] DEPARTMENT OF PATHOLOGY AND GENOMIC [facility] Bilirubin direct 0.2 0.0 - 0.4 mg/dL [facility] DEPARTMENT OF PATHOLOGY AND GENOMIC [facility] Alkaline phosphatase 231 (H) 30 - 120 U/L [facility] DEPARTMENT OF PATHOLOGY AND [employer] [facility] Protein 9.7 (H) 6.3 - 8.2 g/dL [facility] DEPARTMENT OF PATHOLOGY AND GENOMIC MEDICINE ALT 17 (L) 30 - 65 U/L [facility] DEPARTMENT OF PATHOLOGY AND GENOMIC MEDICINE AST 29 15 - 37 U/L [facility] DEPARTMENT OF PATHOLOGY AND GENOMIC MEDICINE Specimen Plasma specimen Performing Organization Address City/[facility] Hospitalcode Phone Number [facility] PATHOLOGY AND [facility] [address] [place], [place] [id number] [place] [address] CT Lumbar Spine Wo Contrast (07/15/2017 5:12 PM) Narrative Performed At EXAMINATION: CT LUMBAR SPINE WO CONTRAST RADIANT CLINICAL HISTORY: pain COMPARISON: CT myelogram [...] canal and neural foraminal stenosis at L3-4. [id number] Procedure Note Hm Interface, Radiology Results Incoming - 07/15/2017 5:24 PM ICT BUSINESS DEVELOPMENT MANAGER EXAMINATION: CT LUMBAR SPINE WO CONTRAST CLINICAL [...] canal and neural foraminal stenosis at L3-4. [id number] Performing Organization Address City/[facility]/Zipcode Phone Number [facility] [address] [place] [address] Partial thromboplastin time, activated (07/15/2017 12:29 PM) PTT 29.2 23.0 - 36.0 sec [facility] DEPARTMENT OF Comment: PATHOLOGY AND GENOMIC PTT therapeutic range for unfractionated heparin is MEDICINE 61.0-112.0 seconds which corresponds to Anti-Xa 0.3-0.7 U/ml. Note:Change in Panic Value The PTT Panic Value is changing from 110 sec. to 100 sec. due to new instrumentation and reagents. Correlation studies have been performed to validate this result. Specimen Blood Performing Organization Address City/[facility]/Zipcode Phone Number [facility] DEPARTMENT OF PATHOLOGY AND [place] [address] [employer] [facility] Creatine kinase, total (CPK) (07/06/2017 6:29 PM) Creatine kinase 134 61 - 224 U/L [facility] DEPARTMENT OF PATHOLOGY AND GENOMIC MEDICINE Specimen Plasma specimen Performing Organization Address City/State/Zipcode Phone Number [facility] DEPARTMENT OF PATHOLOGY AND [place] [address] Head Wo Contrast (07/06/2017 6:19 PM) Narrative Performed At EXAMINATION: CT HEAD WO [...] sinuses. IMPRESSION: No acute intracranial abnormality identified. [id number] Procedure Note Hm Interface, Radiology Results Incoming - 07/06/2017 6:27 PM [employer]CT BUSINESS DEVELOPMENT MANAGER EXAMINATION: CT HEAD WO CONTRAST CLINICAL HISTORY: [...] sinuses. IMPRESSION: No acute intracranial abnormality identified. [id number] Performing Organization Address City/[facility]/Zipcode Phone Number [facility] [address] [place] [address] Surgical pathology request (05/18/2017 1:28 PM) [facility] DEPARTMENT OF PATHOLOGY AND GENOMIC MEDICINE Surgical pathology report See link below for PDF [facility] DEPARTMENT OF Lab Report PATHOLOGY AND GENOMIC MEDICINE Result status This is Final Report to [facility] DEPARTMENT OF [id number] PATHOLOGY AND GENOMIC MEDICINE Performing Organization Address City/[facility] Hospitalcode Phone Number [facility] DEPARTMENT OF PATHOLOGY AND [address] [place] [address] GENOMIC MEDICINE Magnesium level (05/17/2017 5:59 AM) Magnesium 2.00 1.60 - 2.40 mg/dL [facility] DEPARTMENT OF PATHOLOGY AND GENOMIC MEDICINE Specimen Plasma specimen Performing Organization Address [facility] Hospitalcode Phone Number [facility] DEPARTMENT OF PATHOLOGY AND [address] [place] [address] GENOMIC MEDICINE XR Chest 2 Vw (05/14/2017 7:47 PM)Only the most recent of2 resultswithin the time period is included. Narrative Performed At EXAMINATION:[facility]IN[facility] H[facility]:sob cough todayleukocytosisR basilar crackles IMPRESSION: Aortic arch calcified. Heart size is normal. Lungs are clear of acute infiltrate. There has been a prior partial pulmonary resection in the right side. There are no effusions. There is an intraspinal catheter present, and there is hardware in cervical spine. [id number] Procedure Note Hm Interface, Radiology Results Incoming - 05/14/2017 8:23 PM ICT BUSINESS DEVELOPMENT MANAGER EXAMINATION: XR CHEST 2 VW CLINICAL HISTORY: sob cough today leukocytosis R basilar crackles IMPRESSION: Aortic arch calcified. Heart size is normal. Lungs are clear of acute infiltrate. There has been a prior partial pulmonary resection in the right side. There are no effusions. There is an intraspinal catheter present, and there is hardware in cervical spine. [id number] Performing Organization Address City/State/Zipcode Phone Number [facility] [address] [place] [address] Troponin (05/12/2017 7:33 PM)Only the most recent of2 resultswithin the time period is included. Troponin <0.01 0.00 - 0.60 ng/mL [facility] DEPARTMENT OF PATHOLOGY Comment: AND [employer] MEDICINE 0.11 - 1.49 ng/mlMay indicate increased risk of acute coronary syndrome. >=1.5 ng/mlConsistent with acute myocardial infarction. The diagnostic value of a single normal or non-diagnostic result is questionable.Serial samples at 2-6 hour intervals are required to rule out acute myocardial injury. Specimen Plasma specimen Performing Organization Address [facility] Hospitalcode Phone Number [facility] DEPARTMENT OF PATHOLOGY AND [address] [place] [address] [place] Influenza antigen (05/12/2017 3:58 PM) Influenza antigen Negative for Influenza A/B antigen. [facility] DEPARTMENT OF PATHOLOGY Comment: AND [place] Specimen Information Specimen Source: Nares Specimen Site: Right Specimen Nares - Right Performing Organization Address City/[facility]/Zipcode Phone Number [facility] DEPARTMENT OF PATHOLOGY AND [address] [place] [address] [place] B natriuretic peptide (05/12/2017 3:45 PM) BNP 43 0 - 100 pg/mL [facility] DEPARTMENT OF PATHOLOGY AND [employer] [facility]IC[facility] Specimen Blood Performing Organization Address City/[facility]/Zipcode Phone Number [facility] DEPARTMENT OF PATHOLOGY AND [address] [place] [address] [facility] MEDICINE US Abdomen Complete (02/25/2017 7:28 AM) Narrative Performed At EXAM: US ABDOMEN COMPLETE [facility] CLINICAL DATA:ABDOMINAL PAIN COMPARISON: 07/11/2015 FINDINGS: LIVER:The [...] 1. Cirrhosis with splenomegaly. 2.Status post cholecystectomy. [id number] Procedure Note Interface, Radiology Results Incoming - [...] Cirrhosis with splenomegaly. 2. Status post cholecystectomy. [id number] Performing Organization Address City/State/Zipcode Phone Number [address] [address] Total iron binding capacity (02/25/2017 5:33 AM)Only the most recent of2 resultswithin the time period is included. Iron level 86 76 - 198 ug/dL [facility] DEPARTMENT OF PATHOLOGY AND GENOMIC MEDICINE Iron binding capacity 252 (L) 271 - 474 ug/dL [facility] DEPARTMENT OF PATHOLOGY AND GENOMIC MEDICINE % Saturation 34.1 20.0 - 40.0 % [facility] DEPARTMENT OF PATHOLOGY AND GENOMIC MEDICINE Specimen Blood Performing Organization Address City/[facility] Phone Number [facility] DEPARTMENT OF PATHOLOGY AND [address] [place] [address]. [address] Hepatitis C antibody (02/25/2017 5:33 AM)Only the most recent of2 resultswithin the time period is included. Hepatitis C Ab Non-reactive Non-reactive [facility] DEPARTMENT OF PATHOLOGY AND GENOMIC MEDICINE Specimen Blood Performing Organization Address [facility] Phone Number [facility] DEPARTMENT OF PATHOLOGY AND [address] [facility] Alpha-1 antitrypsin level (02/25/2017 5:33 AM)Only the most recent of2 resultswithin the time period is included. Alpha-1 antitrypsin 134 90 - 200 mg/dL [facility] DEPARTMENT OF PATHOLOGY AND GENOMIC MEDICINE Specimen Plasma specimen Performing Organization Address [facility] [facility] Phone Number [facility] DEPARTMENT OF PATHOLOGY AND [address] [place], [place] [id number] [facility] Hepatitis A antibody IgM (02/25/2017 5:33 AM) Hepatitis A IgM Non-reactive Non-reactive [facility] DEPARTMENT OF PATHOLOGY AND GENOMIC MEDICINE Specimen Blood Performing Organization Address [facility] Phone Number [facility] DEPARTMENT OF PATHOLOGY AND [address] [facility]. [place] [phone] [place] [address] Ceruloplasmin level (02/25/2017 5:33 AM)Only the most recent of2 resultswithin the time period is included. Ceruloplasmin 26 15 - 30 mg/dL [facility] DEPARTMENT OF PATHOLOGY AND GENOMIC MEDICINE Specimen Plasma specimen Performing Organization Address City/[facility] Phone Number [facility] DEPARTMENT OF PATHOLOGY AND [address] [place], [place] [phone] [facility] Alpha fetoprotein (02/25/2017 5:33 AM)Only the most recent of2 resultswithin the time period is included. Alpha fetoprotein 3.5 0.0 - 8.3 ng/mL [facility] DEPARTMENT OF Comment: PATHOLOGY AND GENOMIC The Kelly 8000 AFP immunoassay was used. MEDICINE Results obtained with different assay methods or kits should not be used interchangeably and may be different. Specimen Serum Performing Organization Address City/[facility] Phone Number [facility] DEPARTMENT OF PATHOLOGY AND [address] [place] [address] Hepatitis B core antibody IgM (02/25/2017 5:33 AM)Only the most recent of2 resultswithin the time period is included. Hepatitis B core IgM Non-reactive Non-reactive [facility] DEPARTMENT OF PATHOLOGY AND [facility] MEDICINE Specimen Blood Performing Organization Address City/[facility] Phone Number [facility] DEPARTMENT OF PATHOLOGY AND [address] Hepatitis B surface antibody (02/25/2017 5:33 AM)Only the most recent of2 resultswithin the time period is included. Hepatitis B surface Ab Non-reactive Non-reactive [facility] DEPARTMENT OF PATHOLOGY AND [facility] MEDICINE Specimen Blood Performing Organization Address City/[facility] Phone Number [facility] DEPARTMENT OF PATHOLOGY AND [address] Hepatitis B surface antigen (02/25/2017 5:33 AM)Only the most recent of2 resultswithin the time period is included. Hepatitis B surface Ag Non-reactive Non-reactive [facility] DEPARTMENT OF PATHOLOGY AND [facility] MEDICINE Specimen Blood Performing Organization Address City/[facility] Phone Number [facility] DEPARTMENT OF PATHOLOGY AND [address] CARLOS (02/25/2017 5:33 AM)Only the most recent of2 resultswithin the time period is included. CARLOS screen Not Detected Not-Detected [facility] DEPARTMENT OF PATHOLOGY AND GENOMIC MEDICINE Specimen Blood Performing Organization Address City/[facility]/Zipcode Phone Number [facility] DEPARTMENT OF PATHOLOGY AND [address] [place] [address] Ferritin level (02/25/2017 5:33 AM)Only the most recent of2 resultswithin the time period is included. Ferritin level 143 18 - 158 ng/mL [facility] DEPARTMENT OF PATHOLOGY AND GENOMIC MEDICINE Specimen Serum Performing Organization Address City/State/Zipcode Phone Number [facility] DEPARTMENT OF PATHOLOGY AND [place] [address] Abdomen Pelvis W Wo Contrast (02/25/2017 [...] visualized on liver protocol CT. 2. Splenomegaly. [facility]-[id number] Procedure Note Interface, Radiology Results Incoming - 02/25/2017 1:55 AM [...] visualized on liver protocol CT. 2. Splenomegaly. [facility]-[id number] Performing Organization Address [facility] Phone Number [facility] [address] [place] [address] Ammonia level (02/24/2017 5:45 PM)Only the most recent of2 resultswithin the time period is included. Ammonia 33 3 - 37 umol/L [facility] DEPARTMENT OF PATHOLOGY AND GENOMIC MEDICINE Specimen Plasma specimen Performing Organization Address [facility] Phone Number [facility] DEPARTMENT OF PATHOLOGY AND [facility] [place], [place] [phone] [place] [address] MEDICINE Anti smooth muscle Ab titer (02/24/2017 1:27 PM) Anti smooth muscle Ab titer 1:80 (A) Not-Detected [facility] DEPARTMENT OF PATHOLOGY AND GENOMIC MEDICINE Specimen Blood Performing Organization Address [facility] Phone Number [facility] DEPARTMENT OF PATHOLOGY AND [address] [place] [address] [facility] Anti smooth muscle Ab screen (02/24/2017 1:27 PM) Anti smooth muscle Ab screen Detected (A) Not-Detected [facility] DEPARTMENT OF PATHOLOGY AND GENOMIC MEDICINE Specimen Blood Performing Organization Address City/[facility]/Zipcode Phone Number [facility] DEPARTMENT OF PATHOLOGY AND [address] [place] [address] [facility] MEDICINE Hemoglobin & hematocrit (02/24/2017 1:27 PM) HGB 14.4 13.0 - 17.3 g/dL [facility] DEPARTMENT OF PATHOLOGY AND GENOMIC MEDICINE HCT 44.0 34.0 - 45.0 % [facility] DEPARTMENT OF PATHOLOGY AND GENOMIC MEDICINE Specimen Blood Performing Organization Address City/[facility] Phone Number [facility] DEPARTMENT OF PATHOLOGY AND [address] Lactic acid level (02/23/2017 10:17 PM)Only the most recent of4 resultswithin the time period is included. Lactic acid 1.4 0.5 - 2.2 mmol/L [facility] DEPARTMENT OF PATHOLOGY AND GENOMIC MEDICINE Specimen Blood Performing Organization Address [facility] Phone Number [facility] DEPARTMENT OF PATHOLOGY AND [address] Bilirubin direct (02/23/2017 7:49 PM)Only the most recent of2 resultswithin the time period is included. Bilirubin direct 0.1 0.0 - 0.4 mg/dL [facility] DEPARTMENT OF PATHOLOGY AND GENOMIC MEDICINE Specimen Plasma specimen Narrative Performed At ME RESULT CALLED TO GURDEEP CONTEH [facility] DEPARTMENT OF PATHOLOGY AND GENOMIC NP02/23/201720:25 BY DJ MEDICINE Performing Organization Address [facility] Phone Number [facility] DEPARTMENT OF PATHOLOGY AND [address] [place] [phone] [place] [address] Amylase level (02/23/2017 7:49 PM)Only the most recent of2 resultswithin the time period is included. Amylase 59 34 - 122 U/L [facility] DEPARTMENT OF PATHOLOGY AND GENOMIC MEDICINE Specimen Plasma specimen Performing Organization Address City/[facility] Phone Number [facility] DEPARTMENT OF PATHOLOGY AND [address] Chest W Contrast Abdomen W Contrast Pelvis W Contrast (02/01/2017 9:31 PM) Narrative Performed At EXAMINATION:CT CHEST W CONTRAST ABDOMEN W CONTRAST PELVIS W CONTRAST HM RADIANT CLINICAL HISTORY:RLL chest pain TECHNIQUE: Multiple [...] with splenomegaly Diverticulosis without evidence of diverticulitis [facility]-[id number] Procedure Note [facility], Radiology Results Incoming - 02/01/2017 9:42 PM [...] with splenomegaly Diverticulosis without evidence of diverticulitis [facility]-[id number] [facility] Organization Address City/State/Zipcode Phone Number [facility] [address] [place] [address] after 01/05/2017 Insurance Payer Benefit Plan / Group Subscriber ID Type Phone Address [employer]ET[employer] MEDICARE AETNA MEDICARE HMO/PPO [facility] xxxxxxxx HMO
--- OUTSIDE RECORDS SUMMARY | 2018-01-06 12:57 | XMS REPORT ---
:1965 [facility] Address [address] [place] [address] Care Team Providers Name Role Phone BRE [...] race is not provided, and the patient isAfrican-Guamanian, multiply by 1.212. If sex is not provided, and thepatient is female, multiply by 0.742. Results for patients <18 years ofage have not been validated by the MDRD study and should be interpretedwith caution.eGFR Result Interpretation:eGFR > or=60 is in the Normal RangeeGFR < 60 may mean kidney diseaseeGFR < 15 may mean kidney failureRanges recommended by the National Kidney Foundation,http://nkdep.nih.go v [id number] 04:50:00 Test Item Value Reference Range Comments [...] THC (test code=THC) POSITIVE Negative CBC with [id number] 03:53:00 Test Item Value Reference Range Comments [...] Lymph Abs (test code=ALYMPH) 1.7 K/cumm 0.5-4.6 [place] Abs (test code=AMONO) 0.7 K/cumm 0.0-1.2 Eos Abs (test code=AEOS) 0.16 K/cumm 0.00-0.74 Baso Abs (test code=ABASO) 0.1 K/cumm 0.00-0.21
[2018-01-06 13:58] LABS: Absolute Lymphocytes (CBC) 1.2 K/uL (0.7-4.9); Absolute Monocytes 0.5 K/uL (0.1-1.3); Absolute Neutrophil 6.4 K/uL (1.8-8.0); Basophils % 1.1 % (0-1.3); Eosinophils % 3.9 % (0-4.4); Hematocrit 42.9 % (39.6-49.0); Lymphocytes % 14.1 % (15.3-44.8); MCH 33.4 pg (27.0-35.0); MCV 97.7 fL (80-100); MPV 9.5 fL (7.6-11.3); Monocytes % 5.7 % (3.3-12.3); RBC Red Blood Cell Count 4.39 M/uL (4.33-5.43)
[2018-01-06 14:02] LABS: Protime INR 1.03
[2018-01-06] MEDS ORDERED: ONDANSETRON 4 MG/2 ML VIAL ONE (14:06)
[2018-01-06] MEDS ORDERED: MORPHINE 4 MG/ML SYR ONE (14:06)
[2018-01-06 14:21] LABS: Albumin 3.5 g/dL (3.4-5.0); Bilirubin Direct 0.1 mg/dL (0-0.2); Bilirubin Total 0.4 mg/dL (0.2-1.0); Potassium 3.7 mmol/L (3.5-5.1)
[2018-01-06 14:38] LABS: Urine Blood NEGATIVE (NEG); Urine Glucose NEGATIVE (NEG); Urine Protein NEGATIVE (NEG); Urine pH 5.5 (5.0-7.0)
[2018-01-06] MEDS ORDERED: LEVALBUTEROL 1.25 MG/3 ML NEB ONE (14:51)
--- NOTE | 2018-01-06 14:58 | RAD REPORT ---
EXAM DESCRIPTION: Sherry Lockwood (2 Views)01/06/2018 2:05 pm CLINICAL HISTORY: Chest pain COMPARISON: October 2017 FINDINGS: A 12 millimeter nodular opacity overlying the right base is more prominent than the prior exam. The remainder lungs appear clear of acute infiltrate. Mild scarring within the lungs is seen. The lungs are mildly hyperaerated. The The heart is normal size A neurostimulator device is in place IMPRESSION: A 12 millimeter nodular opacity overlying the right base is more prominent than on the p rior exam. It probably represents a nipple shadow. However as a pulmonary nodule also has this appear ance it is recommended that the patient have frontal and oblique views of the chest with a right nipp le marker
[2018-01-06] MEDS ORDERED: AZITHROMYCIN 250 MG TAB ONE (15:41)
[2018-01-06] MEDS ORDERED: CEFTRIAXONE/SWI 1gm 2 GM/20 ML SYR ONE (15:41)
--- NOTE | 2018-01-06 15:49 | ER ---
Nurse's Notes [facility] Name: Tino Amin Jr Age: 52 yrs Sex: Male : 1965 Arrival Date: 01/06/2018 Time: 12:57 Bed 15 Private MD: Tommy Mcmanus Diagnosis: Cough;Dyspnea;chest pain Presentation: 01/06 12:58 Presenting complaint: Patient states: right sided chest tightness with intermittent sv radiation to the left side. c/o lightheadedness, dizziness, weakness, dyspnea for "a couple of weeks.". Transition of care: patient was not received from another setting of care. Onset of symptoms was December 2017. Care prior to arrival: None. 12:58 Method Of Arrival: Wheelchair sv 12:58 Acuity: YULISSA 3 sv 13:15 Risk Assessment: Do you want to hurt yourself or someone else? Patient reports no jl7 desire to harm self or others. Initial Sepsis Screen: Does the patient meet any 2 criteria? No. Patient's initial sepsis screen is negative. Does the patient have a suspected source of infection? Yes: Productive cough/pneumonia. Historical: - Allergies: 13:06 No Known Allergies; sv - PMHx: 13:06 Lung Cancer; Seizures; Hypertension; COPD; Emphysema; PTSD; sv - PSHx: 13:06 cervical fusion; lumbar fusion; dorsal column stimulator implant; Appendectomy; right sv lower lobe lobectomy; right great toe; collarbone; Cholecystectomy; - Immunization history:: Adult Immunizations up to date. - Social history:: Smoking status: Patient uses tobacco products, smokes one pack cigarettes per day. - Ebola Screening: : No symptoms or risks identified at this time. - Hospitalizations: : No recent hospitalization is reported. Screenin:24 Abuse screen: Denies threats or abuse. Denies injuries from another. Nutritional jl7 screening: No deficits noted. Tuberculosis screening: No symptoms or risk factors identified. Fall Risk IV access (20 points). Total Milligan Fall Scale indicates No Risk (0-24 pts). Assessment: 13:05 General: Appears in no apparent distress. uncomfortable, Behavior is calm, cooperative, jl7 appropriate for age. Pain: Complains of pain in anterior aspect of right upper chest Pain radiates to right submandibular area and right sternocleidomastoid Pain currently is 9 out of 10 on a pain scale. Quality of pain is described as burning, sharp, Pain began a couple of weeks ago Is intermittent. Neuro: Level of Consciousness is awake, alert, obeys commands, Oriented to person, place, time, situation. Cardiovascular: Heart tones present Patient's skin is warm and dry. Respiratory: Reports shortness of breath Airway is patent Respiratory effort is even, unlabored, Respiratory pattern is regular, symmetrical, Breath sounds are clear bilaterally. GI: No signs and/or symptoms were reported involving the gastrointestinal system. : No signs and/or symptoms were reported regarding the genitourinary system. EENT: No signs and/or symptoms were reported regarding the EENT system. Derm: Skin is pink, warm \\T\\ dry. 14:00 Reassessment: Patient and/or family updated on plan of care and expected duration. Pain jl7 level reassessed. Patient is alert, oriented x 3, equal unlabored respirations, skin warm/dry/pink. 14:40 Reassessment: Patient appears in no apparent distress at this time. Patient is alert, jl7 oriented x 3, equal unlabored respirations, skin warm/dry/pink. Patient states symptoms have improved. 15:30 Reassessment: No changes from previously documented assessment. Patient and/or family jl7 updated on plan of care and expected duration. Pain level reassessed. Patient is alert, oriented x 3, equal unlabored respirations, skin warm/dry/pink. Vital Signs: 13:06 BP 133 / 90; Pulse 68; Resp 18; Temp 96.8; Pulse Ox 98% ; Weight 76.2 kg; Height 6 ft. sv 1 in. (185.42 cm); Pain 8/10; 14:05 BP 115 / 98; Pulse 66; Resp 18 S; Pulse Ox 96% on R/A; jl7 14:41 BP 128 / 90; Pulse 64; Resp 16; Pulse Ox 99% ; Pain 4/10; jl7 16:13 BP 130 / 91; Pulse 66; Resp 16; Pulse Ox 99% on R/A; jl7 13:06 Body Mass Index 22.16 (76.20 kg, 185.42 cm) sv ED Course: 12:57 Patient arrived in ED. sb2 12:57 Tommy Mcmanus DO is Private Physician. sb2 12:58 Arm band placed on right wrist. Patient placed in an exam room, on a stretcher. sv 13:04 Triage completed. sv 13:07 Mika Moreland MD is Attending Physician. wa 13:08 Kita Hartley, MARIO is Primary Nurse. jl7 13:10 EKG done, by business services tech. reviewed by Mika Moreland MD. at1 13:24 Patient has correct armband on for positive identification. Bed in low position. Call jl7 light in reach. Side rails up X 1. night monitor on. Pulse ox on. NIBP on. 13:24 Patient maintains SpO2 saturation greater than 95% on room air. jl7 13:35 Radiology exam delayed due to IV insertion attempt and/or patient not having jb2 appropriate IV at this time. 13:45 Patient moved to radiology via wheelchair. jb2 13:49 Initial lab(s) drawn, by me, sent to lab. Urine collected: clean catch specimen, clear. jl7 Inserted saline lock: 22 gauge in right forearm, using aseptic technique. Blood collected. 13:54 X-ray completed. Patient tolerated procedure well. az 13:55 XRAY Chest Pa And Lat (2 Views) In Process Unspecified. EDMS 13:57 Patient moved back from radiology. az 14:05 Urine collected: clean catch specimen, clear. mh5 15:59 IV discontinued, Pressure dressing applied. 5 16:13 No provider procedures requiring assistance completed. jl7 16:16 IV discontinued, intact, bleeding controlled, No redness/swelling at site. jl7 Administered Medications: 14:10 Drug: Zofran 4 mg Route: IVP; Site: right forearm; jl7 14:39 Follow up: Response: No adverse reaction jl7 14:12 Drug: morphine 4 mg Route: IVP; Site: right forearm; jl7 14:41 Follow up: Response: No adverse reaction; Pain is decreased jl7 14:49 Drug: Xopenex 1.25 mg Route: Inhalation; jl7 15:35 Drug: Rocephin - (cefTRIAXone) 2 grams Route: IVPB; Infused Over: 30 mins; Site: right jl7 forearm; 15:40 Follow up: Response: No adverse reaction; IV Status: Completed infusion jl7 16:15 Follow up: Response: No adverse reaction jl7 15:46 Drug: Zithromax 500 mg Route: PO; jl7 16:14 Follow up: Response: No adverse reaction jl7 Outcome: 15:48 Discharge ordered by . valentine 16:13 Discharged to home ambulatory. jl7 16:13 Condition: stable 16:13 Discharge instructions given to patient, Instructed on discharge instructions, follow up and referral plans. medication usage, Demonstrated understanding of instructions, follow-up care, medications, Prescriptions given X 3. 16:16 Patient left the ED. jl7 Signatures: Dispatcher [employer] EDBambi Jules, RN Rodo Desir jb2 Mildred Ervin, item repair manager EKG [facility] Ruby Gunn 5 Kita Hartley RN RN jl7 Mika Moreland MD MD wa Billeau, Sheri sb2 Martha Leiva
--- NOTE | 2018-01-06 15:49 | EDPHYS ---
Physician Documentation [facility] Name: Tino Amin Jr Age: 52 yrs Sex: Male : 1965 Arrival Date: 01/06/2018 Time: 12:57 Bed 15 Private MD: Tommy Mcmanus ED Physician Mika Moreland HPI: 01/06 14:37 This 52 yrs old Male presents to ER via Wheelchair with complaints of Chest wa Tightness, Breathing Difficulty. 14:37 The patient or guardian reports chest pain that is located primarily in the R side wa chest, chest tightness. SOB. . Onset: 2 week(s) ago. The pain does not radiate. Associated signs and symptoms: Pertinent positives: cough, shortness of breath, Pertinent negatives: abdominal pain, diaphoresis, dizziness, headache, lower extremity pain, lower extremity swelling, lightheadedness, nausea, near syncope, palpitations, syncope, vomiting. The chest pain is described as sharp. Duration: The patient or guardian reports a single episode, that is still ongoing, and worsening. Modifying factors: The symptoms are alleviated by nothing. the symptoms are aggravated by nothing. Severity of pain: At its worst the pain was moderate in the emergency department the pain is actually worse moderately. The patient has experienced similar episodes in the past, several times. The patient has not recently seen a physician. states has h/o COPD and pna. Historical: - Allergies: 13:06 No Known Allergies; sv - PMHx: 13:06 Lung Cancer; Seizures; Hypertension; COPD; Emphysema; PTSD; sv - PSHx: 13:06 cervical fusion; lumbar fusion; dorsal column stimulator implant; Appendectomy; right sv lower lobe lobectomy; right great toe; collarbone; Cholecystectomy; - Immunization history:: Adult Immunizations up to date. - Social history:: Smoking status: Patient uses tobacco products, smokes one pack cigarettes per day. - Ebola Screening: : No symptoms or risks identified at this time. - Hospitalizations: : No recent hospitalization is reported. ROS: 14:40 Constitutional: Negative for fever, chills, and weight loss, Eyes: Negative for injury, wa pain, redness, and discharge, ENT: Negative for injury, pain, and discharge, Neck: Negative for injury, pain, and swelling, Abdomen/GI: Negative for abdominal pain, nausea, vomiting, diarrhea, and constipation, Back: Negative for injury and pain, : Negative for injury, bleeding, discharge, and swelling, MS/Extremity: Negative for injury and deformity, Skin: Negative for injury, rash, and discoloration, Neuro: Negative for headache, weakness, numbness, tingling, and seizure, Psych: Negative for depression, anxiety, suicide ideation, homicidal ideation, and hallucinations. 14:40 Cardiovascular: Positive for chest pain, with cough, Negative for edema, orthopnea. 14:40 Respiratory: Positive for cough, shortness of breath, Negative for cough, orthopnea, pleurisy. Exam: 14:40 Constitutional: This is a well developed, well nourished patient who is awake, alert, wa and in no acute distress. Head/Face: Normocephalic, atraumatic. Eyes: Pupils equal round and reactive to light, extra-ocular motions intact. Lids and lashes normal. Conjunctiva and sclera are non-icteric and not injected. Cornea within normal limits. Periorbital areas with no swelling, redness, or edema. ENT: Nares patent. No nasal discharge, no septal abnormalities noted. Tympanic membranes are normal and external auditory canals are clear. Oropharynx with no redness, swelling, or masses, exudates, or evidence of obstruction, uvula midline. Mucous membranes moist. Neck: Trachea midline, no thyromegaly or masses palpated, and no cervical lymphadenopathy. Supple, full range of motion without nuchal rigidity, or vertebral point tenderness. No Meningismus. Chest/axilla: Normal chest wall appearance and motion. Nontender with no deformity. No lesions are appreciated. Cardiovascular: Regular rate and rhythm with a normal S1 and S2. No gallops, murmurs, or rubs. Normal PMI, no JVD. No pulse deficits. Abdomen/GI: Soft, non-tender, with normal bowel sounds. No distension or tympany. No guarding or rebound. No evidence of tenderness throughout. Back: No spinal tenderness. No costovertebral tenderness. Full range of motion. Skin: Warm, dry with normal turgor. Normal color with no rashes, no lesions, and no evidence of cellulitis. MS/ Extremity: Pulses equal, no cyanosis. Neurovascular intact. Full, normal range of motion. Neuro: Awake and alert, GCS 15, oriented to person, place, time, and situation. Cranial nerves II-XII grossly intact. Motor strength 5/5 in all extremities. Sensory grossly intact. Cerebellar exam normal. Normal gait. Psych: Awake, alert, with orientation to person, place and time. Behavior, mood, and affect are within normal limits. 14:40 Respiratory: the patient does not display signs of respiratory distress, Respirations: normal, Breath sounds: mild coarseness noted bilaterally, Respiratory rate: normal Vital Signs: 13:06 BP 133 / 90; Pulse 68; Resp 18; Temp 96.8; Pulse Ox 98% ; Weight 76.2 kg; Height 6 ft. sv 1 in. (185.42 cm); Pain 8/10; 14:05 BP 115 / 98; Pulse 66; Resp 18 S; Pulse Ox 96% on R/A; jl7 14:41 BP 128 / 90; Pulse 64; Resp 16; Pulse Ox 99% ; Pain 4/10; jl7 16:13 BP 130 / 91; Pulse 66; Resp 16; Pulse Ox 99% on R/A; jl7 13:06 Body Mass Index 22.16 (76.20 kg, 185.42 cm) sv MDM: 13:07 Patient medically screened. nm 14:43 Differential diagnosis: abnormal EKG, acute myocardial infarction, coronary artery wa disease chest wall pain, pericarditis, pleurisy, pneumonia, pulmonary embolus, stable angina, unstable angina, pt a smoker. will r/o acute infectious process. 15:43 Data reviewed: vital signs, nurses notes, lab test result(s), EKG, radiologic studies. wa Test interpretation: by ED physician or midlevel provider: EKG: HR 64. nml sinus. no acute ischemic changes. CXR: R lung nodule. 15:47 Test interpretation: by ED physician or midlevel provider: labs noted for elevated alk wa phos. . 01/06 13:25 Order name: Hepatic Function; Complete Time: 14:45 01/06 13:25 Order name: Blood Culture Adult (2) nm 01/06 13:25 Order name: BMP; Complete Time: 14:45 01/06 13:25 Order name: CBC with Diff; Complete Time: 14:45 01/06 13:25 Order name: Lipase; Complete Time: 14:45 01/06 13:25 Order name: Magnesium; Complete Time: 14:45 01/06 13:25 Order name: XRAY Chest Pa And Lat (2 Views); Complete Time: 15:13 nm 01/06 13:25 Order name: NT PRO-BNP; Complete Time: 14:45 nm 01/06 13:25 Order name: PT-INR; Complete Time: 14:45 nm 01/06 13:25 Order name: Troponin (emerg Dept Use Only); Complete Time: 14:45 nm 01/06 14:11 Order name: Urine Dipstick--Ancillary (enter results); Complete Time: 14:44 eb 01/06 13:03 Order name: EKG; Complete Time: 13:03 sv 01/06 13:03 Order name: EKG - Nurse/Tech; Complete Time: 13:22 01/06 13:25 Order name: Cardiac monitoring; Complete Time: 13:49 nm 01/06 13:25 Order name: IV Saline Lock; Complete Time: 13:49 nm 01/06 13:25 Order name: Labs collected and sent; Complete Time: 13:49 nm 01/06 13:25 Order name: O2 Per Protocol; Complete Time: 13:49 nm 01/06 13:25 Order name: O2 Sat Monitoring; Complete Time: 13:49 nm 01/06 13:25 Order name: Urine Dipstick-Ancillary (obtain specimen); Complete Time: 13:49 nm Administered Medications: 14:10 Drug: Zofran 4 mg Route: IVP; Site: right forearm; jl7 14:39 Follow up: Response: No adverse reaction jl7 14:12 Drug: morphine 4 mg Route: IVP; Site: right forearm; jl7 14:41 Follow up: Response: No adverse reaction; Pain is decreased jl7 14:49 Drug: Xopenex 1.25 mg Route: Inhalation; jl7 15:35 Drug: Rocephin - (cefTRIAXone) 2 grams Route: IVPB; Infused Over: 30 mins; Site: right jl7 forearm; 15:40 Follow up: Response: No adverse reaction; IV Status: Completed infusion jl7 16:15 Follow up: Response: No adverse reaction jl7 15:46 Drug: Zithromax 500 mg Route: PO; jl7 16:14 Follow up: Response: No adverse reaction jl7 Disposition: 01/06/18 15:48 Discharged to Home. Impression: Cough, Dyspnea, chest pain. - Condition is Stable. - Prescriptions for Augmentin 875- 125 mg Oral Tablet - take 1 tablet by ORAL route every 12 hours for 7 days; 14 tablet. Albuterol Sulfate 2.5 mg /3 mL (0.083 %) Inhalation Solution for Nebulization - inhale 1 unit by NEBULIZATION route every 8 hours As needed; 1 box. Albuterol Sulfate 90 mcg/actuation - inhale 1-2 puff by INHALATION route every 4-6 hours; 1 Inhaler. - Medication Reconciliation Form, Thank You Letter, Antibiotic Education, Prescription Opioid Use form. - Follow up: Private Physician; When: 1 - 2 days; Reason: Re-evaluation by your physician. - Problem is new. - Symptoms have improved. - Notes: quit smoking. take medicines as prescribed. follow up with your doctor on Tuesday for further evaluation. return here if your symptoms worsen Signatures: Dispatcher [employer] Bambi Genao RN RN Kita Hartley RN RN jl7 Mika Moreland MD MD wa Corrections: (The following items were deleted from the chart) 16:16 15:48 01/06/2018 15:48 Discharged to Home. Impression: Cough; Dyspnea; chest pain. jl7 Condition is Stable. Forms are Medication Reconciliation Form, Thank You Letter, Antibiotic Education, Prescription Opioid Use. Follow up: Private Physician; When: 1 - 2 days; Reason: Re-evaluation by your physician. Problem is new. Symptoms have improved. wa
[2018-01-06 16:20] VITALS: TEMP 96.8
[2018-01-06 16:23] VITALS: O2SAT 99
[2018-01-06 16:24] VITALS: BP 130/91
--- NOTE | 2018-01-07 08:35 | EKG ---
Test Date: 2018-01-06 Test Time: 13:04:31 [facility] Officer: SIMON MEASUREMENT RESULTS: Intervals: Rate: 64 MT: 180 QRSD: 86 QT: 408 QTc: 420 [place]: P: 17 MT: 180 QRS: 78 T: 54 INTERPRETIVE STATEMENTS: Normal sinus rhythm Normal ECG Compared to ECG 10/25/2017 10:38:39 No significant changes Electronically Signed On 01-07-18 08:34:00 CDT by Joselito Felix
== END 2018-01-06 16:16 | disposition home or self-care (01) ==
LOC: ER 12:52
DX: R06.00 Dyspnea, unspecified (principal); R05 Cough; R07.89 Other chest pain; J44.9 Chronic obstructive pulmonary disease, unspecified; Z85.118 Personal history of other malignant neoplasm of bronchus and lung; I10 Essential (primary) hypertension; F43.10 Post-traumatic stress disorder, unspecified; Z98.1 Arthrodesis status; F17.210 Nicotine dependence, cigarettes, uncomplicated
CPT/HCPCS: 36415; 71046; 80048; 80076; 81003; 83690; 83735; 83880; 84484; 85025; 85610; 87040 ×2; 93005; 96374; 96375; 99285; J0696; J2405

== ENCOUNTER 2018-01-31 17:40 | Emergency (ER) | payer OTHER ==
--- OUTSIDE RECORDS SUMMARY | 2018-01-31 17:43 | XMS REPORT | Clinical Summary ---
:1965 Author Organization [facility] Address [address] [place] [address] Care Team Providers Name Role Phone Asked, [...] Overview: Added automatically from request for surgery [id number] Gastrointestinal hemorrhage 02/23/2017 Gastrointestinal hemorrhage with hematemesis 02/23/2017 Overview: Added automatically from request for surgery [id number] Vertigo 12/19/2016 Pneumonia due to infectious organism 12/07/2016 COPD with acute bronchitis 11/25/2016 COPD (chronic obstructive pulmonary disease) 11/09/2016 COPD exacerbation 11/08/2016 Lung mass 11/08/2016 Tobacco dependence 11/08/2016 Resolved Problems Problem Noted Date Resolved Date Leukocytosis 05/14/2017 05/15/2017 Encounters Date Type Specialty Care Team Description 10/08/19 Emergency Emergency Medicine Sarai, Suicidal ideation (Primary Dx ) 18 Osiel Paul MD 09/21/19 Emergency Emergency Medicine Herman Chronic right-sided thoracic back pain (Primary Dx); 18 Meulen, Narcotic abuse; Karen Drug-seeking behavior MD Joselito 08/09/19 Hospital Radiology [facility] (bronchogenic carcinoma) 18 Encounter MD Meaghan 07/22/19 Transcribe Access [facility] (bronchogenic carcinoma) 18 Orders MD Meaghan (Primary [...] 18 MD Raheel (EGD) with bx 05/12/20 [facility] General Internal [facility] Intractable vomiting with nausea, unspecified vomiting type [...] Gastroenterology 17 02/26/20 Procedure Pass Gastroenterology 02/24/20 [facility] Gastrointestinal hemorrhage with hematemesis (Primary Dx); [...] chronic pain 02/01/20 Emergency Emergency Medicine 17 after 01/30/2017 Immunizations Name Dates Previously Given Next Due [...] VACCINE 12/14/2017 05/19/2017 Implants Implanted Type Area Guide Setter Device Expiration Model / Identifier Date Serial / Lot Stimulator Stimulator Stimulator-10/30/2006 Stimulator Hip Implanted: 10/30/2006 (Quantity not on file) Kit [employer] Air Leak 4ml Strl Progel - [id number] Surgical N/A: N/A [employer] [id number] / Implanted: Qty: 1 on 11/24/2016 by [...] this procedure are in the results section. ZZESTIMATED GFR STAT 10/07/2017 Results for 9:02 AM [...] this procedure are in the results section. ZZESTIMATED GFR STAT 09/20/2017 Results for 3:13 AM [...] GLUCOSE Routine 07/16/2017 Results for 11:29 AM QUARTER SEAMER this procedure are in the results section. POC GLUCOSE Routine 07/16/2017 Results for 6:52 AM QU[employer]TER SEAMER this procedure are in the results section. SMEAR REVIEW Routine 07/16/2017 Results for 5:13 AM QUARTER SEAMER this procedure are in the results section. ZZESTIMATED GFR Routine 07/16/2017 Results for 5:13 AM QUARTER SEAMER this procedure are in the results section. BASIC METABOLIC PANEL Routine 07/16/2017 Results for 5:13 AM QUARTER SEAMER this procedure are in the results section. HC COMPLETE BLD COUNT W/AUTO Routine 07/16/2017 Results for DIFF 5:13 AM QUARTER SEAMER this procedure are in the results section. KEPPRA (LEVETIRACETAM) LEVEL Routine 07/16/2017 Results for 5:13 AM QUARTER SEAMER this procedure are in the results section. SMEAR REVIEW STAT 07/15/2017 Results for 8:14 PM QU[employer]TER SEAMER this procedure are in the results section. ZZESTIMATED GFR STAT 07/15/2017 Results for 8:14 PM QU[employer]TER SEAMER this procedure are in the results section. HEPATIC FUNCTION PANEL STAT 07/15/2017 Results for 8:14 PM QUARTER SEAMER this procedure are in the results section. BASIC METABOLIC PANEL STAT 07/15/2017 Results for 8:14 PM QUARTER SEAMER this procedure are in the results section. HC COMPLETE BLD COUNT W/AUTO STAT 07/15/2017 Results for DIFF 8:14 PM QUARTER SEAMER this procedure are in the results section. CT LUMBAR SPINE WO CONTRAST STAT 07/15/2017 Results for 5:12 PM QU[employer] SEAMER this procedure are in the results section. ZZESTIMATED GFR STAT 07/15/2017 Results for 12:29 PM QU[employer]TER SEAMER this procedure are in the results section. LIPASE LEVEL STAT 07/15/2017 Results for 12:29 PM QUARTER SEAMER this procedure are in the results section. COMPREHENSIVE METABOLIC PANEL STAT 07/15/2017 Results for 12:29 PM QUARTER SEAMER this procedure are in the results section. PARTIAL THROMBOPLASTIN TIME STAT 07/15/2017 Results for (PTT) 12:29 PM QUARTER SEAMER this procedure are in the results section. PROTHROMBIN TIME WITH INR STAT 07/15/2017 Results for 12:29 PM QU[employer]TER SE[employer]ER this procedure are in the results section. HC COMPLETE BLD COUNT W/AUTO STAT 07/15/2017 Results for DIFF 12:29 PM QUARTER SEAMER this procedure are in the results section. POC GLUCOSE Routine 07/07/2017 Results for 11:06 AM QU[employer]TER SE[employer]ER this procedure are in the results section. POC GLUCOSE Routine 07/07/2017 Results for 6:41 AM QUARTER SEAMER this procedure are in the results section. ZZESTIMATED GFR Routine 07/07/2017 Results for 4:58 AM QUARTER SEAMER this procedure are in the results section. BASIC METABOLIC PANEL Routine 07/07/2017 Results for 4:58 AM QUARTER SEAMER this procedure are in the results section. HC COMPLETE BLD COUNT W/AUTO Routine 07/07/2017 Results for DIFF 4:58 AM QUARTER SEAMER this procedure are in the results section. POC GLUCOSE Routine 07/06/2017 Results for 9:12 PM QUARTER SEAMER this procedure are in the results section. ZZESTIMATED GFR STAT 07/06/2017 Results for 6:29 PM QUARTER SEAMER this procedure are in the results section. CREATINE KINASE, TOTAL (CPK) STAT 07/06/2017 Results for 6:29 PM QUARTER SEAMER this procedure are in the results section. HC COMPLETE BLD COUNT W/AUTO STAT 07/06/2017 Results for DIFF 6:29 PM QUARTER SEAMER this procedure are in the results section. BASIC METABOLIC PANEL STAT 07/06/2017 Results for 6:29 PM QUARTER SEAMER this procedure are in the results section. CT HEAD WO CONTRAST STAT 07/06/2017 Results for 6:19 PM QUARTER SEAMER this procedure are in the results section. ECG 12-LEAD STAT 07/06/2017 Results for 6:18 PM QUARTER SEAMER this procedure are in the results section. ECG ED PRELIMINARY Routine 07/06/2017 Results for INTERPRETATION 5:38 PM QUARTER SEAMER this procedure are in the results section. POC GLUCOSE Routine 05/19/2017 Results for 10:56 AM QUARTER SEAMER this procedure are in the results section. POC GLUCOSE Routine 05/19/2017 Results for 7:34 AM QUARTER SEAMER this procedure are in the results section. POC GLUCOSE Routine 05/18/2017 Results for 8:37 PM QU[employer]TER SEAMER this procedure are in the results section. POC GLUCOSE Routine 05/18/2017 Results for 4:48 PM QUARTER SEAMER this procedure are in the results section. SURGICAL PATHOLOGY REQUEST Routine 05/18/2017 Results for 1:28 PM QUARTER SEAMER this procedure are in the results section. ESOPHAGOGASTRODUODENOSCOPY (EGD) 05/18/2017 Abdominal pain, 12:15 PM QU[employer]TER SEAMER unspecified abdominal location POC GLUCOSE Routine 05/18/2017 Results for 6:56 AM QUARTER SEAMER this procedure are in the results section. ZZESTIMATED GFR Routine 05/18/2017 Results for 6:03 AM QUARTER SEAMER this procedure are in the results section. BASIC METABOLIC PANEL Routine 05/18/2017 Results for 6:03 AM QUARTER SEAMER this procedure are in the results section. POC GLUCOSE Routine 05/17/2017 Results for 9:04 PM QUARTER SEAMER this procedure are in the results section. POC GLUCOSE Routine 05/17/2017 Results for 3:39 PM QUARTER SEAMER this procedure are in the results section. POC GLUCOSE Routine 05/17/2017 Results for 11:07 AM QUARTER SEAMER this procedure are in the results section. POC GLUCOSE Routine 05/17/2017 Results for 7:12 AM QUARTER SEAMER this procedure are in the results section. ZZESTIMATED GFR Routine 05/17/2017 Results for 5:59 AM QUARTER SEAMER this procedure are in the results section. MAGNESIUM LEVEL Routine 05/17/2017 Results for 5:59 AM QUARTER SEAMER this procedure are in the results section. COMPREHENSIVE METABOLIC PANEL Routine 05/17/2017 Results for 5:59 AM QUARTER SEAMER this procedure are in the results section. CBC WITH PLATELET AND Routine 05/17/2017 Results for DIFFERENTIAL 5:59 AM QUARTER SEAMER this procedure are in the results section. POC GLUCOSE Routine 05/16/2017 Results for 7:54 PM QUARTER SEAMER this procedure are in the results section. ECG ED PRELIMINARY Routine 05/16/2017 Results for INTERPRETATION 5:59 PM QUARTER SEAMER this procedure are in the results section. POC GLUCOSE Routine 05/16/2017 Results for 3:55 PM QUARTER SEAMER this procedure are in the results section. POC GLUCOSE Routine 05/16/2017 Results for 11:54 AM QUARTER SEAMER this procedure are in the results section. POC GLUCOSE Routine 05/16/2017 Results for 6:26 AM QUARTER SEAMER this procedure are in the results section. ZZESTIMATED GFR Routine 05/16/2017 Results for 6:23 AM QUARTER SEAMER this procedure are in the results section. COMPREHENSIVE METABOLIC PANEL Routine 05/16/2017 Results for 6:23 AM QUARTER SEAMER this procedure are in the results section. HC COMPLETE BLD COUNT W/AUTO Routine 05/16/2017 Results for DIFF 6:23 AM QUARTER SEAMER this procedure are in the results section. POC GLUCOSE Routine 05/15/2017 Results for 8:54 PM QUARTER SEAMER this procedure are in the results section. POC GLUCOSE Routine 05/15/2017 Results for 4:46 PM QUARTER SEAMER this procedure are in the results section. POC GLUCOSE Routine 05/15/2017 Results for 11:33 AM QUARTER SEAMER this procedure are in the results section. ZZESTIMATED GFR Routine 05/15/2017 Results for 7:05 AM QUARTER SEAMER this procedure are in the results section. COMPREHENSIVE METABOLIC PANEL Routine 05/15/2017 Results for 7:05 AM QUARTER SEAMER this procedure are in the results section. HC COMPLETE BLD COUNT W/AUTO Routine 05/15/2017 Results for DIFF 7:05 AM QUARTER SEAMER this procedure are in the results section. POC GLUCOSE Routine 05/15/2017 Results for 6:23 AM QUARTER SEAMER this procedure are in the results section. POC GLUCOSE Routine 05/14/2017 Results for 8:30 PM QUARTER SEAMER this procedure are in the results section. XR CHEST 2 VW Routine 05/14/2017 Results for 7:47 PM QUARTER SEAMER this procedure are in the results section. ZZESTIMATED GFR Routine 05/14/2017 Results for 7:07 PM QUARTER SEAMER this procedure are in the results section. COMPREHENSIVE METABOLIC PANEL Routine 05/14/2017 Results for 7:07 PM QUARTER SEAMER this procedure are in the results section. HC COMPLETE BLD COUNT W/AUTO Routine 05/14/2017 Results for DIFF 7:07 PM QUARTER SEAMER this procedure are in the results section. POC GLUCOSE Routine 05/14/2017 Results for 3:58 PM QUARTER SEAMER this procedure are in the results section. POC GLUCOSE Routine 05/14/2017 Results for 12:15 PM QUARTER SEAMER this procedure are in the results section. POC GLUCOSE Routine 05/14/2017 Results for 7:03 AM QUARTER SEAMER this procedure are in the results section. POC GLUCOSE Routine 05/13/2017 Results for 8:17 PM QUARTER SEAMER this procedure are in the results section. POC GLUCOSE Routine 05/13/2017 Results for 3:34 PM QUARTER SEAMER this procedure are in the results section. POC GLUCOSE Routine 05/13/2017 Results for 10:52 AM QUARTER SEAMER this procedure are in the results section. URINALYSIS SCREEN AND STAT 05/13/2017 Results for MICROSCOPY, WITH REFLEX TO 8:31 AM QUARTER SEAMER this procedure CULTURE are in the results section. URINE DRUGS OF ABUSE SCREEN STAT 05/13/2017 Results for 8:31 AM QUARTER SEAMER this procedure are in the results section. URINE CULTURE STAT 05/13/2017 Results for 8:31 AM QUARTER SEAMER this procedure are in the results section. POC GLUCOSE Routine 05/13/2017 Results for 7:02 AM QUARTER SEAMER this procedure are in the results section. ZZESTIMATED GFR Routine 05/13/2017 Results for 5:34 AM QUARTER SEAMER this procedure are in the results section. BASIC METABOLIC PANEL Routine 05/13/2017 Results for 5:34 AM QUARTER SEAMER this procedure are in the results section. PROTHROMBIN TIME WITH INR Routine 05/13/2017 Results for 5:34 AM QUARTER SEAMER this procedure are in the results section. HC COMPLETE BLD COUNT W/AUTO Routine 05/13/2017 Results for DIFF 5:34 AM QUARTER SEAMER this procedure are in the results section. POC GLUCOSE Routine 05/13/2017 Results for 12:44 AM QUARTER SEAMER this procedure are in the results section. TROPONIN Timed 05/12/2017 Results for 7:33 PM QUARTER SEAMER this procedure are in the results section. CT ABDOMEN PELVIS WO CONTRAST STAT 05/12/2017 Results for 4:23 PM QUARTER SEAMER this procedure are in the results section. INFLUENZA ANTIGEN Routine 05/12/2017 Results for 3:58 PM QUARTER SEAMER this procedure are in the results section. ECG 12-LEAD STAT 05/12/2017 Results for 3:48 PM QUARTER SEAMER this procedure are in the results section. B NATRIURETIC PEPTIDE STAT 05/12/2017 Results for 3:45 PM QUARTER SEAMER this procedure are in the results section. TROPONIN STAT 05/12/2017 Results for 3:45 PM QUARTER SEAMER this procedure are in the results section. ALCOHOL LEVEL, BLOOD STAT 05/12/2017 Results for 3:45 PM QUARTER SEAMER this procedure are in the results section. ZZESTIMATED GFR STAT 05/12/2017 Results for 3:45 PM QUARTER SEAMER this procedure are in the results section. LIPASE LEVEL STAT 05/12/2017 Results for 3:45 PM QUARTER SEAMER this procedure are in the results section. COMPREHENSIVE METABOLIC PANEL STAT 05/12/2017 Results for 3:45 PM QUARTER SEAMER this procedure are in the results section. HC COMPLETE BLD COUNT W/AUTO STAT 05/12/2017 Results for DIFF 3:45 PM QUARTER SEAMER this procedure are in the results section. POC GLUCOSE Routine 02/25/2017 Results for 8:01 AM CDT this procedure are in the results section. US ABDOMEN COMPLETE STAT 02/25/2017 Results for 7:28 AM CDT this procedure are in the results section. ZZESTIMATED GFR Routine 02/25/2017 Results for 5:33 AM [...] this procedure are in the results section. ZZESTIMATED GFR STAT 02/23/2017 Results for 7:49 PM [...] this procedure are in the results section. ZZESTIMATED GFR STAT 02/08/2017 Results for 3:06 PM [...] this procedure are in the results section. ZZESTIMATED GFR STAT 02/01/2017 Results for 2:06 PM [...] procedure are in the results section. after 01/30/2017 Results Urinalysis screen and microscopy, with reflex to culture (10/07/2017 9:16 AM) Only the most recent of4 resultswithin the time period is included. Specimen site Clean catch [facility] DEPARTMENT OF PATHOLOGY AND GENOMIC MEDICINE Color, UA Yellow [facility] DEPARTMENT OF PATHOLOGY AND GENOMIC MEDICINE Appearance, UA Clear [facility] DEPARTMENT OF PATHOLOGY AND GENOMIC MEDICINE Specific gravity, UA 1.011 1.001 - 1.035 [facility] DEPARTMENT OF PATHOLOGY AND GENOMIC MEDICINE pH, UA 5.0 5.0 - 8.5 [facility] DEPARTMENT OF PATHOLOGY AND GENOMIC MEDICINE Protein, UA Negative Negative [facility] DEPARTMENT OF PATHOLOGY AND GENOMIC MEDICINE Glucose, UA Negative Negative [facility] DEPARTMENT OF PATHOLOGY AND GENOMIC MEDICINE Ketones, UA Negative Negative [facility] DEPARTMENT OF PATHOLOGY AND GENOMIC MEDICINE Bilirubin, UA Negative Negative [facility] DEPARTMENT OF PATHOLOGY AND GENOMIC MEDICINE Blood, UA Negative Negative [facility] DEPARTMENT OF PATHOLOGY AND GENOMIC MEDICINE Nitrite, UA Negative Negative [facility] DEPARTMENT OF PATHOLOGY AND GENOMIC MEDICINE Urobilinogen, UA 2.0 (A) <2.0 [facility] DEPARTMENT OF PATHOLOGY AND GENOMIC MEDICINE Leukocyte esterase, UA Negative Negative [facility] DEPARTMENT OF PATHOLOGY AND GENOMIC MEDICINE Epithelial cells, UA Few /HPF [facility] DEPARTMENT OF PATHOLOGY AND GENOMIC MEDICINE WBC, UA 1 0 - 1 /HPF [facility] DEPARTMENT OF PATHOLOGY AND GENOMIC MEDICINE RBC, UA <1 0 - 5 /HPF [facility] DEPARTMENT OF PATHOLOGY AND GENOMIC MEDICINE Bacteria, UA None seen None seen [facility] DEPARTMENT OF PATHOLOGY AND GENOMIC MEDICINE Yeast, UA None seen [facility] DEPARTMENT OF PATHOLOGY AND GENOMIC MEDICINE Yeast with pseudohyphae, UA None seen [facility] DEPARTMENT OF PATHOLOGY AND GENOMIC MEDICINE Specimen Urine Performing Organization Address City/State/Zipcode Phone Number [facility] DEPARTMENT OF PATHOLOGY AND [address] [place] [address] [facility] Urine drugs of abuse screen (10/07/2017 9:16 AM)Only the most recent of2 resultswithin the time period is included. Amphetamine screen, urine NEG [facility] DEPARTMENT OF PATHOLOGY AND GENOMIC MEDICINE Barbiturate screen, urine NEG [facility] DEPARTMENT OF PATHOLOGY AND GENOMIC MEDICINE Benzodiazepine screen, POS [facility] DEPARTMENT OF urine PATHOLOGY AND GENOMIC MEDICINE Cocaine screen, urine NEG [facility] DEPARTMENT OF PATHOLOGY AND GENOMIC MEDICINE Methadone screen, urine NEG [facility] DEPARTMENT OF PATHOLOGY AND GENOMIC MEDICINE Opiates screen, urine POS [facility] DEPARTMENT OF PATHOLOGY AND GENOMIC MEDICINE Phencyclidine screen, urine NEG [facility] DEPARTMENT OF PATHOLOGY AND GENOMIC MEDICINE Cannabinoid screen, urine POS [facility] DEPARTMENT OF Comment: PATHOLOGY AND GENOMIC Drug screen minimum concentration of detectability MEDICINE Lnalqlxfnlcy5827 ng/mL Ihowvpbgrvwuaeqf6361 ng/mL Barbiturates 300 ng/mL Qpjswqeefalwuor311 ng/mL Yukeqgg427 ng/mL Qpppzxfjd680 ng/mL Ecinnze012 ng/mL Phencyclidine 25 ng/mL Brogdipymqkw00 ng/mL Cydpljxvrf0109 ng/mL Negative test results indicates presumptive evidence of lack of clinically significant drug concentration in this urine specimen. Positive test results are presumptive evidence of clinically significant drug concentration in this urine specimen. Testing performed for medical purposes only. Specimen Urine Performing Organization Address City/[facility]/Zipcode Phone Number [facility] DEPARTMENT OF PATHOLOGY AND [address] [place] [address] [facility] MEDICINE Urine culture (10/07/2017 9:16 AM)Only the most recent of3 resultswithin the time period is included. Urine culture SEE COMMENTComment: Bacteriuria [facility] DEPARTMENT OF PATHOLOGY screen negative. AND GENOMIC MEDICINE Specimen Urine Performing Organization Address City/State/Zipcode Phone Number [facility] DEPARTMENT OF PATHOLOGY AND [address] [place] [address] [facility] Estimated GFR (10/07/2017 9:02 AM)Only the most recent of18 resultswithin the time period is included. GFR Non Af Amer 49 (A) mL/min/1.73 m2 [facility] DEPARTMENT OF PATHOLOGY AND GENOMIC MEDICINE GFR Af Amer 59 (A) mL/min/1.73 m2 [facility] DEPARTMENT OF Comment: PATHOLOGY AND GENOMIC Chronic [...] specimen Performing Organization Address City/State/Zipcode Phone Number [facility] DEPARTMENT OF PATHOLOGY AND [facility] [place] [address] [facility] CBC with platelet and differential (10/07/2017 9:02 AM)Only the most recent of17 resultswithin the time period is included. WBC 9.1 4.2 - 11.0 k/uL [facility] DEPARTMENT OF PATHOLOGY AND GENOMIC MEDICINE RBC 4.57 4.04 - 5.86 m/uL [facility] DEPARTMENT OF PATHOLOGY AND GENOMIC MEDICINE HGB 14.7 13.0 - 17.3 g/dL [facility] DEPARTMENT OF PATHOLOGY AND GENOMIC MEDICINE HCT 44.6 34.0 - 45.0 % [facility] DEPARTMENT OF PATHOLOGY AND GENOMIC MEDICINE MCV 97.6 80.0 - 98.0 fL [facility] DEPARTMENT OF PATHOLOGY AND GENOMIC MEDICINE MCH 32.2 27.0 - 34.0 pg [facility] DEPARTMENT OF PATHOLOGY AND GENOMIC MEDICINE MCHC 33.0 31.5 - 36.5 g/dL [facility] DEPARTMENT OF PATHOLOGY AND GENOMIC MEDICINE RDW - SD 55.1 (H) 37.0 - 51.0 fL [facility] DEPARTMENT OF PATHOLOGY AND GENOMIC MEDICINE MPV 10.1 7.4 - 10.4 fL [facility] DEPARTMENT OF PATHOLOGY AND GENOMIC MEDICINE Platelet count 124 (L) 150 - 400 k/uL [facility] DEPARTMENT OF PATHOLOGY AND GENOMIC MEDICINE Nucleated RBC 0.00 /100 WBC [facility] DEPARTMENT OF PATHOLOGY AND GENOMIC MEDICINE Neutrophils 80.4 (H) 36.0 - 66.0 % [facility] DEPARTMENT OF PATHOLOGY AND GENOMIC MEDICINE Lymphocytes 11.6 (L) 24.0 - 44.0 % [facility] DEPARTMENT OF PATHOLOGY AND GENOMIC MEDICINE Monocytes 5.8 0.0 - 6.0 % [facility] DEPARTMENT OF PATHOLOGY AND GENOMIC MEDICINE Eosinophils 1.3 0.0 - 6.0 % [facility] DEPARTMENT OF PATHOLOGY AND GENOMIC MEDICINE Basophils 0.6 0.0 - 1.2 % [facility] DEPARTMENT OF PATHOLOGY AND GENOMIC MEDICINE Immature granulocytes 0.3 0.0 - 1.0 % [facility] DEPARTMENT OF PATHOLOGY AND GENOMIC MEDICINE Specimen Blood Performing Organization Address City/[facility] Phone Number [facility] DEPARTMENT OF PATHOLOGY AND [address] [place] [address]. [address] Thyroid stimulating hormone (10/07/2017 9:02 AM) TSH 2.60 0.38 - 4.82 uIU/mL [facility] DEPARTMENT OF PATHOLOGY AND GENOMIC MEDICINE Specimen Plasma specimen Performing Organization Address City/[facility] Mex[facility]ocode Phone Number [facility] DEPARTMENT OF PATHOLOGY AND [address] [place] [address]. [address] T4, free (10/07/2017 9:02 AM) T4, free 1.00 0.70 - 1.61 ng/dL [facility] DEPARTMENT OF PATHOLOGY AND GENOMIC MEDICINE Specimen Plasma specimen Performing Organization Address City/[facility] Phone Number [facility] DEPARTMENT OF PATHOLOGY AND [address] [place] [address]. [address] Alcohol level, blood (10/07/2017 9:02 AM)Only the most recent of2 resultswithin the time period is included. Alcohol None Detected mg/dL [facility] DEPARTMENT OF PATHOLOGY Comment: AND [facility] MEDICINE NormalNone Detected Legal Intoxication in [place] 80 mg/dL (0.08%) Toxic Concentration 200 mg/dL (0.2%) Potentially Fatal 350-500 mg/dL (0.35%-0.5%) Alcohol percent None Detected % [facility] DEPARTMENT OF PATHOLOGY AND GENOMIC MEDICINE Specimen Blood Performing Organization Address City/[facility] Mex[facility]ocode Phone Number [facility] DEPARTMENT OF PATHOLOGY AND [address] [place] [address]. [address] Acetaminophen level (10/07/2017 9:02 AM) Acetaminophen level <2.0 (L) 10.0 - 20.0 ug/mL [facility] DEPARTMENT OF Comment: PATHOLOGY AND GENOMIC Therapeutic 10-30 ug/mL MEDICINE Possible Toxicity 150-200 ug/mL Probable Toxicity >200 ug/mL Specimen Blood Performing Organization Address [facility]/Zipcode Phone Number [facility] DEPARTMENT OF PATHOLOGY AND [place] [address] [facility] Salicylate level (10/07/2017 9:02 AM) Salicylate 7.0 mg/dL [facility] DEPARTMENT OF PATHOLOGY AND GENOMIC Comment: MEDICINE Therapeutic Range: 5 - 30 mg/dL Specimen Blood Performing Organization Address [facility] Mexicocode Phone Number [facility] DEPARTMENT OF PATHOLOGY AND [place] [address] [facility] Comprehensive metabolic panel (10/07/2017 9:02 AM)Only the most recent of12 resultswithin the time period is included. Sodium 140 135 - 150 mEq/L [facility] DEPARTMENT OF PATHOLOGY AND GENOMIC MEDICINE Potassium 3.8 3.5 - 5.0 mEq/L [facility] DEPARTMENT OF PATHOLOGY AND GENOMIC MEDICINE Chloride 109 100 - 109 mEq/L [facility] DEPARTMENT OF PATHOLOGY AND GENOMIC MEDICINE CO2 24 24 - 32 mmol/L [facility] DEPARTMENT OF PATHOLOGY AND GENOMIC MEDICINE Anion gap 7@ANIO 7 - 15 mEq/L [facility] DEPARTMENT OF PATHOLOGY AND GENOMIC MEDICINE BUN 14 7 - 18 mg/dL [facility] DEPARTMENT OF PATHOLOGY AND GENOMIC MEDICINE Creatinine 1.5 0.8 - 1.5 mg/dL [facility] DEPARTMENT OF PATHOLOGY AND GENOMIC MEDICINE Glucose 103 (H) 65 - 100 mg/dL [facility] DEPARTMENT OF PATHOLOGY AND GENOMIC MEDICINE Calcium 8.6 8.6 - 10.7 mg/dL [facility] DEPARTMENT OF PATHOLOGY AND GENOMIC MEDICINE Protein 7.9 6.3 - 8.2 g/dL [facility] DEPARTMENT OF PATHOLOGY AND GENOMIC MEDICINE Albumin 3.4 3.2 - 5.0 g/dL [facility] DEPARTMENT OF PATHOLOGY AND GENOMIC MEDICINE A/G ratio 0.8 0.7 - 3.8 [facility] DEPARTMENT OF PATHOLOGY AND GENOMIC MEDICINE Alkaline phosphatase 153 (H) 30 - 120 U/L [facility] DEPARTMENT OF PATHOLOGY AND GENOMIC MEDICINE AST 21 15 - 37 U/L [facility] DEPARTMENT OF PATHOLOGY AND GENOMIC MEDICINE ALT 17 (L) 30 - 65 U/L [facility] DEPARTMENT OF PATHOLOGY AND GENOMIC MEDICINE Total bilirubin 0.2 0.2 - 1.2 mg/dL [facility] DEPARTMENT OF PATHOLOGY AND GENOMIC MEDICINE Specimen Plasma specimen Performing Organization Address [facility]/Zipcode Phone Number [facility] DEPARTMENT OF PATHOLOGY AND [address] [place] [address]. [place] [address] Abdomen Pelvis Wo Contrast (09/20/2017 3:27 [...] small paraesophageal varices, compatible with portal hypertension. [facility]-[id number] Procedure Note Interface, Radiology Results Incoming - [...] small paraesophageal varices, compatible with portal hypertension. [facility]-[id number] Performing Organization Address City/State/Zipcode Phone Number [facility] [address] [place] [address] Smear review (09/20/2017 3:13 AM)Only the most recent of3 resultswithin the time period is included. Smear review Smear Reviewed [facility] DEPARTMENT OF PATHOLOGY AND GENOMIC MEDICINE Performing Organization Address City/[facility] Mexicocode Phone Number [facility] DEPARTMENT OF PATHOLOGY AND [facility]. [place] [id number] [employer] [facility] Prothrombin time with INR (09/20/2017 3:13 AM)Only the most recent of4 resultswithin the time period is included. Prothrombin time 14.5 12.0 - 15.0 sec [facility] DEPARTMENT OF PATHOLOGY AND GENOMIC MEDICINE INR 1.11 0.92 - 1.12 [facility] DEPARTMENT OF Comment: PATHOLOGY AND GENOMIC For patients on anticoagulant therapy, reference ranges below: MEDICINE Indication:INR Value Treatment of Venous Thrombosis, 2.0-3.0 pulmonary emboli, or prophylaxis of a venous thrombosis, or systemic emboli. High dose, high risk patients 3.0-4.5 with mechanical valves. NOTE:INR values over 3.0 are sometimes associated with gastrointestinal hemorrhage, especially values over 4.0. Specimen Blood Performing Organization Address [facility] Mex[facility]ode Phone Number [facility] DEPARTMENT OF PATHOLOGY AND [address] [place] [id number] [place] [address] Lipase level (09/20/2017 3:13 AM)Only the most recent of5 resultswithin the time period is included. Lipase 129 65 - 230 U/L [facility] DEPARTMENT OF PATHOLOGY AND GENOMIC MEDICINE Specimen Plasma specimen Performing Organization Address [facility] Mex[facility]ode Phone Number [facility] DEPARTMENT OF PATHOLOGY AND [address] [place] [address] [employer] [facility] ECG 12 lead (09/20/2017 2:43 AM)Only the most recent of4 resultswithin the time period is included. Ventricular rate 77 [facility] Atrial rate 77 [facility] [place] interval 144 [facility] QRSD interval 94 [facility] QT interval 418 [facility] QTC interval 473 [facility] P axis 1 32 [facility] QRS axis 1 94 [facility] T wave axis 85 [facility] EKG impression Normal sinus rhythm-Rightward axis-Borderline [facility] MUSE ECG-In automated comparison with ECG of 06-JUL-2017 18:18,-No significant change was found- Performing Organization Address City/State/Zipcode Phone Number [facility] MUSE [address] [place] [address] ECG ED Preliminary Interpretation - NOT AN ORDER (09/20/2017 2:07 AM)Only the most recent of3 resultswithin the time period is included. Narrative Performed At Karen Brantley MD 09/21/20173:47 AM ECG ED Preliminary Interpretation - Not an Order Performed by: KAREN BRANTLEY Authorized by: KAREN BRANTLEY ECG reviewed by ED Physician in the absence of a automatic i threading machine feeder: yes Previous ECG: Previous ECG:Compared to current Comparison ECG info:06/16/17 Similarity:No change Interpretation: Interpretation: normal Rate: ECG rate:77 ECG rate assessment: normal Rhythm: Rhythm: sinus rhythm QRS: QRS axis:Right Comments: Normal sinus rhythm. Right axis deviation. PET/CT Skull Base To Mid Thigh (08/08/2017 1:45 PM) Narrative Performed At EXAMINATION: [facility] PET CT SKULL BASE TO MID THIGH Date and place of service: 08/08/2017 10:00 AM at [facility] DOSE: 11.8 mCi of 98-Piwalr-7-Deoxyglucose (FDG) was injected intravenously into left wrist done infiltration at a serum glucose level of90 mg/dl. TECHNIQUE: PROCEDURE: Following injection of 87-Ddwoqx-6-Deoxyglucose (FDG) and a standard uptake., The patient was imaged on a [employer] whole body PET CT scanner. Multiple 6 [...] dose COMPARISON: October 26, 2016 done at [facility]. 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 Status post right lower lobectomy November,. No history of recent chemotherapy or radiation therapy. For restaging. FINDINGS: Software fusion [facility] with the CAT scan [...] arterial hypertension as before. Cirrhosis as before. [facility]-[id number] Procedure Note Interface, Radiology Results Incoming - 08/08/2017 4:30 PM CDT EXAMINATION: PET CT SKULL BASE TO MID THIGH Date and place of service: 08/08/2017 10:00 AM at [facility] DOSE: 11.8 mCi of 56-Ckpleh-7-Deoxyglucose (FDG) was injected intravenously into left wrist done infiltration at a serum glucose level of 90 mg/dl. TECHNIQUE: PROCEDURE: Following injection of 79-Uypqje-5-Deoxyglucose (FDG) and a standard uptake., The patient was imaged on a [employer] whole body PET CT scanner. Multiple 6 [...] dose COMPARISON: October 26, 2016 done at [facility]. CLINICAL HISTORY: Bronchogenic carcinoma on the [...] arterial hypertension as before. Cirrhosis as before. [facility]-[id number] Performing Organization Address City/State/Zipcode Phone Number [facility] [address] [place] [address] POC glucose (08/08/2017 11:36 AM)Only the most recent of38 resultswithin the time period is included. POC glucose 90 65 - 100 mg/dL [facility] DEPARTMENT OF PATHOLOGY AND Comment: GENOMIC MEDICINE Meter ID: [id number] Tobacco Dipper: Vu Aponte Performing Organization Address City/[facility]/Zipcode Phone Number [facility] DEPARTMENT OF PATHOLOGY AND [address] [place] [address] [facility] Keppra (Levetiracetam) level (07/16/2017 5:13 AM) Levetiracetam 27 12 - 46 ug/mL [facility] Comment: INTERPRETIVE INFORMATION: Keppra (Levetiracetam) Therapeutic Range:12-46 ug/mL Toxic:Not well Established Pharmacokinetics of levetiracetam are affected by renal function. Adverse effects may include somnolence, weakness, headache and vomiting. Performed by [employer], [address] [place], [place] [id number] [email or web address], Joni Roper MD - Lab. Director Specimen Serum Performing Organization Address [facility] Mex[facility]osd Phone Number [facility] [address] [place] [address] Basic metabolic panel (07/16/2017 5:13 AM)Only the most recent of6 resultswithin the time period is included. Sodium 134 (L) 135 - 150 mEq/L [facility] DEPARTMENT OF PATHOLOGY AND GENOMIC MEDICINE Potassium 4.2 3.5 - 5.0 mEq/L [facility] DEPARTMENT OF PATHOLOGY AND GENOMIC MEDICINE Chloride 102 100 - 109 mEq/L [facility] DEPARTMENT OF PATHOLOGY AND GENOMIC MEDICINE CO2 22 (L) 24 - 32 mmol/L [facility] DEPARTMENT OF PATHOLOGY AND GENOMIC MEDICINE Anion gap 10 7 - 15 mEq/L [facility] DEPARTMENT OF Comment: PATHOLOGY AND GENOMIC Starting from August , anion gap calculation MEDICINE no longer incorporates potassium. Please note the change. BUN 17 7 - 18 mg/dL [facility] DEPARTMENT OF PATHOLOGY AND GENOMIC [facility] Creatinine 1.2 0.8 - 1.5 mg/dL [facility] DEPARTMENT OF PATHOLOGY AND GENOMIC MEDICINE Glucose 139 (H) 65 - 100 mg/dL [facility] DEPARTMENT OF PATHOLOGY AND GENOMIC MEDICINE Calcium 9.4 8.6 - 10.7 mg/dL [facility] DEPARTMENT OF PATHOLOGY AND GENOMIC [facility] Specimen Plasma specimen Performing Organization Address City/State/[facility] Mex[facility]ode Phone Number [facility] DEPARTMENT PATHOLOGY AND [facility] [place] [address] [facility] Hepatic function panel (07/15/2017 8:14 PM) Albumin 3.8 3.2 - 5.0 g/dL [facility] DEPARTMENT OF PATHOLOGY AND GENOMIC MEDICINE Total bilirubin 0.8 0.2 - 1.2 mg/dL [facility] DEPARTMENT OF PATHOLOGY AND GENOMIC MEDICINE Bilirubin direct 0.2 0.0 - 0.4 mg/dL [facility] DEPARTMENT OF PATHOLOGY AND GENOMIC MEDICINE Alkaline phosphatase 231 (H) 30 - 120 U/L [facility] DEPARTMENT OF PATHOLOGY AND GENOMIC MEDICINE Protein 9.7 (H) 6.3 - 8.2 g/dL [facility] DEPARTMENT OF PATHOLOGY AND GENOMIC MEDICINE ALT 17 (L) 30 - 65 U/L [facility] DEPARTMENT OF PATHOLOGY AND GENOMIC MEDICINE AST 29 15 - 37 U/L [facility] DEPARTMENT OF PATHOLOGY AND GENOMIC MEDICINE Specimen Plasma specimen Performing Organization Address City/State/[facility] Mexicocode Phone Number [facility] PATHOLOGY AND [facility] [place] [address] [facility] [address] Lumbar Spine Wo Contrast (07/15/2017 5:12 [...] canal and neural foraminal stenosis at L3-4. [id number] Procedure Note Interface, Radiology Results Incoming - 07/15/2017 5:24 PM QUARTER SEAMER EXAMINATION: CT LUMBAR SPINE WO CONTRAST CLINICAL [...] canal and neural foraminal stenosis at L3-4. [facility]-[id number] Performing Organization Address City/[facility]/Zipcode Phone Number [facility] [address] [place] [address] Partial thromboplastin time, activated (07/15/2017 12:29 PM) PTT 29.2 23.0 - 36.0 sec [facility] DEPARTMENT OF Comment: PATHOLOGY AND GENOMIC PTT therapeutic range for unfractionated heparin is MEDICINE 61.0-112.0 seconds which corresponds to Anti-Xa 0.3-0.7 U/ml. Note:Change in Panic Value The PTT Panic Value is changing from 110 sec. to 100 sec. due to new instrumentation and reagents. Correlation studies have been performed to validate this result. Specimen Blood Performing Organization Address City/[facility]/Zipcode Phone Number [facility] DEPARTMENT OF PATHOLOGY AND [address] [place] [address] [facility] Creatine kinase, total (CPK) (07/06/2017 6:29 PM) Creatine kinase 134 61 - 224 U/L [facility] DEPARTMENT OF PATHOLOGY AND GENOMIC MEDICINE Specimen Plasma specimen Performing Organization Address City/State/Zipcode Phone Number [facility] DEPARTMENT OF PATHOLOGY AND [address] [place] [address] [facility] [address] Head Wo Contrast (07/06/2017 6:19 PM) [...] sinuses. IMPRESSION: No acute intracranial abnormality identified. [id number] Procedure Note Interface, Radiology Results Incoming - 07/06/2017 6:27 PM QUARTER SEAMER EXAMINATION: CT HEAD WO CONTRAST CLINICAL HISTORY: [...] sinuses. IMPRESSION: No acute intracranial abnormality identified. [id number] Performing Organization Address City/[facility] Mex[facility]osd Phone Number [facility] [address] [place] [address] Surgical pathology request (05/18/2017 1:28 PM) [facility] DEPARTMENT OF PATHOLOGY AND GENOMIC MEDICINE Surgical pathology report See link below for PDF [facility] DEPARTMENT OF Lab Report PATHOLOGY AND GENOMIC MEDICINE Result status This is Final Report to [facility] DEPARTMENT OF [id number] PATHOLOGY AND GENOMIC MEDICINE Performing Organization Address City/[facility] Mex[facility]ode Phone Number [facility] DEPARTMENT OF PATHOLOGY AND [address] [facility] [place] [address] GENOMIC MEDICINE Magnesium level (05/17/2017 5:59 AM) Magnesium 2.00 1.60 - 2.40 mg/dL [facility] DEPARTMENT OF PATHOLOGY AND GENOMIC MEDICINE Specimen Plasma specimen Performing Organization Address [facility]d Phone Number [facility] DEPARTMENT OF PATHOLOGY AND [address] [facility] [place] [address] GENOMIC MEDICINE XR Chest 2 Vw (05/14/2017 [...] and there is hardware in cervical spine. [facility]-[id number] Procedure Note Hm Interface, Radiology Results Incoming - 05/14/2017 8:23 PM QUARTER SEAMER EXAMINATION: XR CHEST 2 VW CLINICAL HISTORY: sob cough today leukocytosis R basilar crackles IMPRESSION: Aortic arch calcified. Heart size is normal. Lungs are clear of acute infiltrate. There has been a prior partial pulmonary resection in the right side. There are no effusions. There is an intraspinal catheter present, and there is hardware in cervical spine. [facility]-[id number] Performing Organization Address City/State/Zipcode Phone Number [facility] [address] [place] [address] Troponin (05/12/2017 7:33 PM)Only the most recent of2 resultswithin the time period is included. Troponin <0.01 0.00 - 0.60 ng/mL [facility] DEPARTMENT OF PATHOLOGY Comment: AND [employer] [facility] 0.11 - 1.49 ng/mlMay indicate increased risk of acute coronary syndrome. >=1.5 ng/mlConsistent with acute myocardial infarction. The diagnostic value of a single normal or non-diagnostic result is questionable.Serial samples at 2-6 hour intervals are required to rule out acute myocardial injury. Specimen Plasma specimen Performing Organization Address City/[facility]/Zipcode Phone Number [facility] DEPARTMENT OF PATHOLOGY AND [address] [place] [address] [employer] Influenza antigen (05/12/2017 3:58 PM) Influenza antigen Negative for Influenza A/B antigen. [facility] DEPARTMENT OF PATHOLOGY Comment: AND [employer] Specimen Information Specimen Source: Nares Specimen Site: Right Specimen Nares - Right Performing Organization Address City/State/Zipcode Phone Number [facility] DEPARTMENT OF PATHOLOGY AND [address] [place] [address] [employer] B natriuretic peptide (05/12/2017 3:45 PM) BNP 43 0 - 100 pg/mL [facility] DEPARTMENT OF PATHOLOGY AND GENOMIC MEDICINE Specimen Blood Performing Organization Address City/State/Zipcode Phone Number [facility] DEPARTMENT OF PATHOLOGY AND [address] [place] [address]. [place] [address] GENOMIC MEDICINE US Abdomen Complete (02/25/2017 7:28 AM) [...] 1. Cirrhosis with splenomegaly. 2.Status post cholecystectomy. [id number] Procedure Note Interface, Radiology Results Incoming - [...] Cirrhosis with splenomegaly. 2. Status post cholecystectomy. [id number] Performing Organization Address City/[facility]/Zipcode Phone Number [facility] [address] [place] [address] Total iron binding capacity (02/25/2017 5:33 AM)Only the most recent of2 resultswithin the time period is included. Iron level 86 76 - 198 ug/dL [facility] DEPARTMENT OF PATHOLOGY AND GENOMIC MEDICINE Iron binding capacity 252 (L) 271 - 474 ug/dL [facility] DEPARTMENT OF PATHOLOGY AND GENOMIC MEDICINE % Saturation 34.1 20.0 - 40.0 % [facility] DEPARTMENT OF PATHOLOGY AND GENOMIC MEDICINE Specimen Blood Performing Organization Address City/[facility] Mex[facility]ode Phone Number [facility] DEPARTMENT OF PATHOLOGY AND [address] Hepatitis C antibody (02/25/2017 5:33 AM)Only the most recent of2 resultswithin the time period is included. Hepatitis C Ab Non-reactive Non-reactive [facility] DEPARTMENT OF PATHOLOGY AND GENOMIC MEDICINE Specimen Blood Performing Organization Address City/[facility] Phone Number [facility] DEPARTMENT OF PATHOLOGY AND [address] Alpha-1 antitrypsin level (02/25/2017 5:33 AM)Only the most recent of2 resultswithin the time period is included. Alpha-1 antitrypsin 134 90 - 200 mg/dL [facility] DEPARTMENT OF PATHOLOGY AND GENOMIC MEDICINE Specimen Plasma specimen Performing Organization Address City/[facility] Phone Number [facility] DEPARTMENT OF PATHOLOGY AND [address] [place] [address] [facility] Hepatitis A antibody IgM (02/25/2017 5:33 AM) Hepatitis A IgM Non-reactive Non-reactive [facility] DEPARTMENT OF PATHOLOGY AND GENOMIC MEDICINE Specimen Blood Performing Organization Address City/[facility]/Zipcode Phone Number [facility] DEPARTMENT OF PATHOLOGY AND [address] Ceruloplasmin level (02/25/2017 5:33 AM)Only the most recent of2 resultswithin the time period is included. Ceruloplasmin 26 15 - 30 mg/dL [facility] DEPARTMENT OF PATHOLOGY AND GENOMIC MEDICINE Specimen Plasma specimen Performing Organization Address City/State/Zipcode Phone Number [facility] DEPARTMENT OF PATHOLOGY AND [address] [place] [address] Alpha fetoprotein (02/25/2017 5:33 AM)Only the most recent of2 resultswithin the time period is included. Alpha fetoprotein 3.5 0.0 - 8.3 ng/mL [facility] DEPARTMENT OF Comment: PATHOLOGY AND GENOMIC The Kelly 8000 AFP immunoassay was used. MEDICINE Results obtained with different assay methods or kits should not be used interchangeably and may be different. Specimen Serum Performing Organization Address City/[facility] Mex[facility]ode Phone Number [facility] DEPARTMENT OF PATHOLOGY AND [address] [place] [address] Hepatitis B core antibody IgM (02/25/2017 5:33 AM)Only the most recent of2 resultswithin the time period is included. Hepatitis B core IgM Non-reactive Non-reactive [facility] DEPARTMENT OF PATHOLOGY AND GENOMIC MEDICINE Specimen Blood Performing Organization Address [facility] Mex[facility]ode Phone Number [facility] DEPARTMENT OF PATHOLOGY AND [address] Hepatitis B surface antibody (02/25/2017 5:33 AM)Only the most recent of2 resultswithin the time period is included. Hepatitis B surface Ab Non-reactive Non-reactive [facility] DEPARTMENT OF PATHOLOGY AND GENOMIC MEDICINE Specimen Blood Performing Organization Address [facility] Mex[facility]ode Phone Number [facility] DEPARTMENT OF PATHOLOGY AND [address] Hepatitis B surface antigen (02/25/2017 5:33 AM)Only the most recent of2 resultswithin the time period is included. Hepatitis B surface Ag Non-reactive Non-reactive [facility] DEPARTMENT OF PATHOLOGY AND GENOMIC MEDICINE Specimen Blood Performing Organization Address City/[facility] Phone Number [facility] DEPARTMENT OF PATHOLOGY AND [address] CARLOS (02/25/2017 5:33 AM)Only the most recent of2 resultswithin the time period is included. CARLOS screen Not Detected Not-Detected [facility] DEPARTMENT OF PATHOLOGY AND GENOMIC MEDICINE Specimen Blood Performing Organization Address City/[facility] Mex[facility] Phone Number [facility] DEPARTMENT OF PATHOLOGY AND [address] [place] [address] Ferritin level (02/25/2017 5:33 AM)Only the most recent of2 resultswithin the time period is included. Ferritin level 143 18 - 158 ng/mL [facility] DEPARTMENT OF PATHOLOGY AND GENOMIC MEDICINE Specimen Serum Performing Organization Address City/State/Zipcode Phone Number [facility] DEPARTMENT OF PATHOLOGY AND [address] [place] [address] [employer] Abdomen Pelvis W Wo Contrast [...] visualized on liver protocol CT. 2. Splenomegaly. [facility]-[id number] Procedure Note Interface, Radiology Results Incoming - [...] visualized on liver protocol CT. 2. Splenomegaly. [facility]-[id number] Performing Organization Address [facility] Phone Number [facility] [address] [place] [address] Ammonia level (02/24/2017 5:45 PM)Only the most recent of2 resultswithin the time period is included. Ammonia 33 3 - 37 umol/L [facility] DEPARTMENT OF PATHOLOGY AND GENOMIC MEDICINE Specimen Plasma specimen Performing Organization Address [facility] Phone Number [facility] DEPARTMENT OF PATHOLOGY AND [address] [place] [address] [employer] [facility] Anti smooth muscle Ab titer (02/24/2017 1:27 PM) Anti smooth muscle Ab titer 1:80 (A) Not-Detected [facility] DEPARTMENT OF PATHOLOGY AND GENOMIC MEDICINE Specimen Blood Performing Organization Address [facility] Phone Number [facility] DEPARTMENT OF PATHOLOGY AND [address] [place] [address] [facility] Anti smooth muscle Ab screen (02/24/2017 1:27 PM) Anti smooth muscle Ab screen Detected (A) Not-Detected [facility] DEPARTMENT OF PATHOLOGY AND GENOMIC MEDICINE Specimen Blood Performing Organization Address City/State/Zipcode Phone Number [facility] DEPARTMENT OF PATHOLOGY AND [address] [place] [address] [facility] Hemoglobin & hematocrit (02/24/2017 1:27 PM) HGB 14.4 13.0 - 17.3 g/dL [facility] DEPARTMENT OF PATHOLOGY AND GENOMIC MEDICINE HCT 44.0 34.0 - 45.0 % [facility] DEPARTMENT OF PATHOLOGY AND GENOMIC MEDICINE Specimen Blood Performing Organization Address City/[facility] Phone Number [facility] DEPARTMENT OF PATHOLOGY AND [address] [place], [place] [id number] [place] [address] Lactic acid level (02/23/2017 10:17 PM)Only the most recent of4 resultswithin the time period is included. Lactic acid 1.4 0.5 - 2.2 mmol/L [facility] DEPARTMENT OF PATHOLOGY AND GENOMIC MEDICINE Specimen Blood Performing Organization Address City/[facility] Phone Number [facility] DEPARTMENT OF PATHOLOGY AND [address] [place], [place] [id number] [place] [address] Bilirubin direct (02/23/2017 7:49 PM)Only the most recent of2 resultswithin the time period is included. Bilirubin direct 0.1 0.0 - 0.4 mg/dL [facility] DEPARTMENT OF PATHOLOGY AND GENOMIC MEDICINE Specimen Plasma specimen Narrative Performed At HI RESULT CALLED TO GURDEEP CONTEH [facility] DEPARTMENT OF PATHOLOGY AND GENOMIC NP02/23/201720:25 BY DJ MEDICINE Performing Organization Address [facility] Phone Number [facility] DEPARTMENT OF PATHOLOGY AND [address] [place] [address] [facility] Amylase level (02/23/2017 7:49 PM)Only the most recent of2 resultswithin the time period is included. Amylase 59 34 - 122 U/L [facility] DEPARTMENT OF PATHOLOGY AND GENOMIC MEDICINE Specimen Plasma specimen Performing Organization Address City/[facility] Phone Number [facility] DEPARTMENT OF PATHOLOGY AND [address] [place] [address] [facility] [address] Chest W Contrast Abdomen W Contrast [...] with splenomegaly Diverticulosis without evidence of diverticulitis [facility]-[id number] Procedure Note Interface, Radiology Results 02/01/2017 9:42 [...] with splenomegaly Diverticulosis without evidence of diverticulitis [facility]-[id number] [facility] Organization Address City/State/Zipcode Phone Number [facility] [address] [place] [address] after 01/30/2017 Insurance Payer Benefit Plan / Group Subscriber ID Type Phone Address AETNA MEDICARE AETNA MEDICARE HMO/PPO [facility] xxxxxxxx HMO
--- OUTSIDE RECORDS SUMMARY | 2018-01-31 17:44 | XMS REPORT ---
:1965 [facility] Address [address] [place] [address] Care Team Providers Name Role Phone BRE [...] race is not provided, and the patient isAfrican-Palauan, multiply by 1.212. If sex is not provided, and thepatient is female, multiply by 0.742. Results for patients <18 years ofage have not been validated by the MDRD study and should be interpretedwith caution.eGFR Result Interpretation:eGFR > or=60 is in the Normal RangeeGFR < 60 may mean kidney diseaseeGFR < 15 may mean kidney failureRanges recommended by the National Kidney Foundation,http://nkdep.nih.go v [id number] 04:50:00 Test Item Value Reference Range Comments [...] THC (test code=THC) POSITIVE Negative CBC with [id number] 03:53:00 Test Item Value Reference Range Comments [...] Lymph Abs (test code=ALYMPH) 1.7 K/cumm 0.5-4.6 Dillon Abs (test code=AMONO) 0.7 K/cumm 0.0-1.2 Eos Abs (test code=AEOS) 0.16 K/cumm 0.00-0.74 Baso Abs (test code=ABASO) 0.1 K/cumm 0.00-0.21
--- NOTE | 2018-01-31 18:05 | RAD REPORT ---
EXAM DESCRIPTION: CT - Ct Stroke Brain Wo Cont - 01/31/2018 5:57 pm CLINICAL HISTORY: Right-sided headache, CVA symptoms, transient alteration of awareness CLINICAL HISTORY: None. TECHNIQUE: Axial 5 millimeter thick images of the head were obtained without IV contrast. All CT scans are performed using dose optimization technique as appropriate and may include automated exposure control or mA/KV adjustment according to patient size. FINDINGS: No intracranial hemorrhage, mass, or cerebral edema. No acute cortical based infarction se en. No cortical edema or sulcal effacement. Atrophy and chronic ischemic changes are present. Finding s are not severe but are considered advanced for the patient's age. Ventricles are in proportion to v olume loss. Arterial and physiologic calcifications are present. Barnes matter-white matter differentia tion is preserved. Visualized portions of the mastoid air cells, paranasal sinuses, and orbits are unremarkable. IMPRESSION: No CT evidence of acute intracranial process. Atrophy and chronic ischemic changes are present. These are not severe but are considered advanced gi arabella the patient's age.
[2018-01-31 18:15] LABS: Absolute Lymphocytes (CBC) 1.1 K/uL (0.7-4.9); Absolute Monocytes 0.7 K/uL (0.1-1.3); Absolute Neutrophil 6.8 K/uL (1.8-8.0); Basophils % 0.9 % (0-1.3); Eosinophils % 1.7 % (0-4.4); Hematocrit 46.4 % (39.6-49.0); Lymphocytes % 12.6 % (15.3-44.8); MCH 33.1 pg (27.0-35.0); MCV 98.3 fL (80-100); MPV 8.8 fL (7.6-11.3); Monocytes % 7.8 % (3.3-12.3); RBC Red Blood Cell Count 4.72 M/uL (4.33-5.43)
[2018-01-31 18:18] LABS: Protime INR 0.96
[2018-01-31 18:29] LABS: ALT/SGPT 27 U/L (12-78); AST/SGOT 33 U/L (15-37); Albumin 3.9 g/dL (3.4-5.0); Alkaline Phosphatase 186 U/L (45-117); BUN Blood Urea Nitrogen 16 mg/dL (7-18); Bicarbonate 26 mmol/L (21-32); Bilirubin Direct 0.1 mg/dL (0-0.2); Bilirubin Total 0.4 mg/dL (0.2-1.0); Creatine Phosphokinase 104 U/L (39-308); Glucose Level 131 mg/dL (74-106); Magnesium 2.2 mg/dL (1.8-2.4); NT PRO-BNP 298 pg/mL (<125); Potassium 4.1 mmol/L (3.5-5.1); Protein, Total 8.7 g/dL (6.4-8.2); Sodium Level 139 mmol/L (136-145); Troponin (Emerg Dept Use Only) < 0.02 ng/mL (0.0-0.045)
[2018-01-31] MEDS ORDERED: NA CHLORIDE 0.9% 1,000 ML ONE (18:33)
[2018-01-31] MEDS ORDERED: IBUPROFEN 200 MG TAB PO ONE (18:59)
--- NOTE | 2018-01-31 19:19 | RAD REPORT ---
EXAM DESCRIPTION: RAD - Chest Single View - 01/31/2018 6:15 pm CLINICAL HISTORY: Code stroke chest film COMPARISON: January 06 TECHNIQUE: AP portable chest image was obtained 1804 hours . FINDINGS: Chronic interstitial lung disease is present. Pattern is not substantially different from comparison. Fullness in each hilum has not changed. An acute infiltrate, mass or failure not suspecte d. Shallow inspiration does accentuate each lung base. Heart and vasculature are normal. No measurabl e pleural effusion and no pneumothorax. No gross bony abnormality seen. No acute aortic findings susp ected. IMPRESSION: Shallow inspiration film without acute cardiopulmonary finding. No significant change from comparison.
--- NOTE | 2018-01-31 19:53 | EDPHYS ---
Physician Documentation [facility] Name: Tino Amin Jr Age: 52 yrs Sex: Male : 1965 Arrival Date: 01/31/2018 Time: 17:44 Bed 3 Private MD: ED Physician Steve Hobson HPI: 01/31 21:34 This 52 yrs old Male presents to ER via Wheelchair with complaints of S/S of kdr Possible Stroke. 21:34 The patient's problem is reported as altered mental status. kdr 21:34 The patient states that he as working out in the yard today and he became very hot and kdr then confused. He has had this before. He c/o BELL, blurry vision, light in his eyes. He has no focal deficits or c/o other than those mentioned. Onset: The symptoms/episode began/occurred gradually, just prior to arrival. Severity of symptoms: At their worst the symptoms were mild moderate just prior to arrival, in the emergency department the symptoms are unchanged. The patient has not experienced similar symptoms in the past. Historical: - Home Meds: 18:21 Effexor XR 150 mg Oral cp24 1 cap once daily [Active]; Keppra 1,000 mg Oral tab 1 tab hb every 12 hours [Active]; Seroquel 600 mg Oral 1 tab nightly [Active]; - PMHx: 18:21 COPD; Emphysema; Hypertension; lunch cancer; Lung Cancer; PTSD; Seizures; hb - PSHx: 18:21 lumbar fusion; cervical fusion; dorsal column stimulator implant; Appendectomy; right hb lower lobe lobectomy; right great toe; collarbone; Cholecystectomy; - Immunization history:: Adult Immunizations up to date. - Social history:: Smoking status: Patient/guardian denies using tobacco. - Ebola Screening: : No symptoms or risks identified at this time. ROS: 21:34 Constitutional: Negative for fever, chills, and weight loss, Eyes: Negative for injury, kdr pain, redness, and discharge, - he does c/o blurry vision and flashing lights ENT: Negative for injury, pain, and discharge, Neck: Negative for injury, pain, and swelling, Cardiovascular: Negative for chest pain, palpitations, and edema, Respiratory: Negative for shortness of breath, cough, wheezing, and pleuritic chest pain, Abdomen/GI: Negative for abdominal pain, nausea, vomiting, diarrhea, and constipation, Back: Negative for injury and pain, : Negative for injury, bleeding, discharge, and swelling, MS/Extremity: Negative for injury and deformity, Skin: Negative for injury, rash, and discoloration, Psych: Negative for depression, anxiety, suicide ideation, homicidal ideation, and hallucinations, Allergy/Immunology: Negative for hives, rash, and allergies, Endocrine: Negative for neck swelling, polydipsia, polyuria, polyphagia, and marked weight changes, Hematologic/Lymphatic: Negative for swollen nodes, abnormal bleeding, and unusual bruising. 21:34 Neuro: Positive for altered mental status, headache, visual changes, weakness, Negative for dizziness, gait disturbance, hearing loss, loss of consciousness, numbness, seizure activity, speech changes, syncope, near syncope, tinnitus, tremor. Exam: 18:08 Radiologist reports: Negative kdr 21:34 Constitutional: This is a well developed, well nourished patient who is awake, alert, kdr and in no acute distress. Head/Face: Normocephalic, atraumatic. Eyes: Pupils equal round and reactive to light, extra-ocular motions intact. Lids and lashes normal. Conjunctiva and sclera are non-icteric and not injected. Cornea within normal limits. Periorbital areas with no swelling, redness, or edema. Neck: Trachea midline, no thyromegaly or masses palpated, and no cervical lymphadenopathy. Supple, full range of motion without nuchal rigidity, or vertebral point tenderness. No Meningismus. Chest/axilla: Normal chest wall appearance and motion. Nontender with no deformity. No lesions are appreciated. Cardiovascular: Regular rate and rhythm with a normal S1 and S2. No gallops, murmurs, or rubs. Normal PMI, no JVD. No pulse deficits. Respiratory: Lungs have equal breath sounds bilaterally, clear to auscultation and percussion. No rales, rhonchi or wheezes noted. No increased work of breathing, no retractions or nasal flaring. Abdomen/GI: Soft, non-tender, with normal bowel sounds. No distension or tympany. No guarding or rebound. No evidence of tenderness throughout. Back: No spinal tenderness. No costovertebral tenderness. Full range of motion. Skin: Warm, dry with normal turgor. Normal color with no rashes, no lesions, and no evidence of cellulitis. MS/ Extremity: Pulses equal, no cyanosis. Neurovascular intact. Full, normal range of motion. Psych: Awake, alert, with orientation to person, place and time. Behavior, mood, and affect are within normal limits. 21:34 Neuro: Orientation: appropriate for stated age, to person, place, time, situation, Mentation: able to follow commands, slow to respond, confused, Memory: appropriate for stated age, Cranial nerves: CN II- XII are normal as tested, extraocular movements are intact, Facial palsy and sensory deficits are absent. Motor: is normal. Vital Signs: 17:52 BP 122 / 79; Pulse 82; Resp 22; Temp 98.2(O); Pulse Ox 92% on R/A; Weight 74.84 kg; hb Height 6 ft. 1 in. (185.42 cm); 18:26 BP 121 / 91; Pulse 80; Resp 18; Pulse Ox 94% on R/A; hb 19:16 BP 133 / 84; Pulse 71; Pulse Ox 96% on R/A; ak1 17:52 Body Mass Index 21.77 (74.84 kg, 185.42 cm) hb NIH Stroke Scale Scores: 18:08 NIHSS Score: 0 kdr 18:10 NIHSS Score: 0 hb MDM: 19:52 Patient medically screened. kdr 21:34 Data reviewed: vital signs, nurses notes, lab test result(s), radiologic studies. kdr Counseling: I had a detailed discussion with the patient and/or guardian regarding: the historical points, exam findings, and any diagnostic results supporting the discharge/admit diagnosis, lab results, radiology results, the need for outpatient follow up. ED course: The patient was stable in the ED and though no real findings on the laboratory evaluation, the patient continued to ask for pain medication. 01/31 18:05 Order name: Basic Metabolic Panel; Complete Time: 18:52 kdr 01/31 18:05 Order name: CBC with Diff; Complete Time: 18:52 kdr 01/31 18:05 Order name: LFT's; Complete Time: 18:52 kdr 01/31 18:05 Order name: Magnesium; Complete Time: 18:52 kdr 01/31 18:05 Order name: NT PRO-BNP; Complete Time: 18:52 kdr 01/31 18:05 Order name: PT-INR; Complete Time: 18:52 kdr 01/31 18:05 Order name: Troponin (emerg Dept Use Only); Complete Time: 18:52 kdr 01/31 17:47 Order name: CT Stroke Brain w/o Contrast; Complete Time: 18:10 bd 01/31 18:04 Order name: XRAY Chest (1 view); Complete Time: 19:50 bd 01/31 18:04 Order name: Cardiac monitoring; Complete Time: 18:19 bd 01/31 18:04 Order name: EKG - Nurse/Tech; Complete Time: 18:19 bd 01/31 18:04 Order name: IV Saline Lock; Complete Time: 18:19 bd 01/31 18:04 Order name: Labs collected and sent; Complete Time: 18:19 bd 01/31 18:04 Order name: O2 Per Protocol; Complete Time: 18:19 bd 01/31 18:04 Order name: O2 Sat Monitoring; Complete Time: 18:20 bd 01/31 18:05 Order name: EKG; Complete Time: 18:06 kdr 01/31 18:05 Order name: Cardiac monitoring; Complete Time: 18:19 kdr 01/31 18:05 Order name: CPK; Complete Time: 18:52 kdr 01/31 18:09 Order name: PTT, Activated Partial Thromb; Complete Time: 18:52 EDMS 01/31 18:05 Order name: EKG - Nurse/Tech; Complete Time: 18:19 kdr 01/31 18:05 Order name: IV Saline Lock; Complete Time: 18:18 kdr 01/31 18:05 Order name: Labs collected and sent; Complete Time: 18:19 kdr 01/31 18:05 Order name: O2 Per Protocol; Complete Time: 18:19 kdr 01/31 18:05 Order name: O2 Sat Monitoring; Complete Time: 18:19 kdr Administered Medications: 18:57 Drug: Ibuprofen 800 mg Route: PO; hb 19:24 Follow up: Response: No adverse reaction ak1 19:24 Drug: NS 0.9% 1000 ml Route: IV; Rate: 1 bolus; Site: right antecubital; ak1 20:04 Follow up: IV Status: Completed infusion ak1 Point of Care Testing: Blood Glucose: 17:54 Blood Glucose: 112 mg/dL; hb Ranges: Critical Glucose Levels:Adult <50 mg/dl or >400 mg/dl <40 mg/dl or >180 mg/dl Disposition: 01/31/18 19:52 Discharged to Home. Impression: Altered mental status, unspecified. - Condition is Stable. - Discharge Instructions: Confusion, Heat Exhaustion Information. - Medication Reconciliation Form, Thank You Letter form. - Follow up: Private Physician; When: 2 - 3 days; Reason: If symptoms return, Further diagnostic work-up, Recheck today's complaints, Continuance of care, Re-evaluation by your physician. - Problem is new. - Symptoms have improved. NIH Stroke Scale - NIH Stroke Score Date: 01/31/2018 Time: 18:08 Total Score = 0 1a. Level of Consciousness (LOC) - 0(Alert) 1b. Level of Consciousness (LOC) (Year \T\ Age) - 0(Both) 1c. LOC Commands (Open \T\ Closes Eyes/Heel Painter) - 0(Both) 2. Best Gaze (Lateral Gaze Paresis) - 0(Normal) 3. Visual Field Loss - 0(No visual loss) 4. Facial Palsy - 0(Normal) 5a. Left Arm: Motor (10-second hold) - 0(No drift) 5b. Right Arm: Motor (10-second hold) - 0(No drift) 6a. Left Leg: Motor (5-second hold - always test supine) - 0(No drift) 6b. Right Leg: Motor (5-second hold - always test supine) - 0(No drift) 7. Limb Ataxia (finger/nose \T\ heel/moralez - test with eyes open) - 0(Absent) 8. Sensory Loss (pinprick arms/legs/face) - 0(Normal) 9. Best Language: Aphasia (description/naming/reading) - 0(No aphasia) 10. Dysarthria (speech clarity - read or repeat words) - 0(Normal) 11. Extinction and Inattention (visual/tactile/auditory/spatial/personal) - 0(No abnormality) Initials: [facility] NIH Stroke Scale - NIH Stroke Score Date: 01/31/2018 Time: 18:10 Total Score = 0 1a. Level of Consciousness (LOC) - 0(Alert) 1b. Level of Consciousness (LOC) (Year \T\ Age) - 0(Both) 1c. LOC Commands (Open \T\ Closes Eyes/Heel Painter) - 0(Both) 2. Best Gaze (Lateral Gaze Paresis) - 0(Normal) 3. Visual Field Loss - 0(No visual loss) 4. Facial Palsy - 0(Normal) 5a. Left Arm: Motor (10-second hold) - 0(No drift) 5b. Right Arm: Motor (10-second hold) - 0(No drift) 6a. Left Leg: Motor (5-second hold - always test supine) - 0(No drift) 6b. Right Leg: Motor (5-second hold - always test supine) - 0(No drift) 7. Limb Ataxia (finger/nose \T\ heel/moralez - test with eyes open) - 0(Absent) 8. Sensory Loss (pinprick arms/legs/face) - 0(Normal) 9. Best Language: Aphasia (description/naming/reading) - 0(No aphasia) 10. Dysarthria (speech clarity - read or repeat words) - 0(Normal) 11. Extinction and Inattention (visual/tactile/auditory/spatial/personal) - 0(No abnormality) Initials: hb Signatures: Dispatcher [employer] EDOK Pat Ch Kevin, MD MD kdr Liliane Varghese RN RN ak1 Chica Concepcion, MARIO RN hb Corrections: (The following items were deleted from the chart) 18:10 18:04 PROTIME (+INR)+COAG.LAB.BRZ ordered. EDOK EDOK 18:15 18:06 Chest Single View+RAD.RAD.BRZ ordered. EDOK EDOK 19:23 18:04 CBC+H.LAB.BRZ ordered. [facility] EDOK 20:12 19:52 01/31/2018 19:52 Discharged to Home. Impression: Altered mental status, ak1 unspecified. Condition is Stable. Forms are Medication Reconciliation Form, Thank You Letter, Antibiotic Education, Prescription Opioid Use. Follow up: Private Physician; When: 2 - 3 days; Reason: If symptoms return, Further diagnostic work-up, Recheck today's complaints, Continuance of care, Re-evaluation by your physician. Problem is new. Symptoms have improved. kdr
--- NOTE | 2018-01-31 19:53 | ER ---
Nurse's Notes [facility] Name: Tino Amin Jr Age: 52 yrs Sex: Male : 1965 Arrival Date: 01/31/2018 Time: 17:44 Bed 3 Private MD: Diagnosis: Altered mental status, unspecified Presentation: 01/31 17:44 Presenting complaint: Patient states: right sided head pain and neck pain, pt sees sv lights in his eyes. Pt is alert to person and situation, he believes he is in [place]. Transition of care: patient was not received from another setting of care. An acute neurological deficit is present. The charge nurse has been notified. Onset of symptoms was January 31, 2018 at 11:00. Care prior to arrival: None. 17:44 Method Of Arrival: Wheelchair sv 17:44 Acuity: YULISSA 2 sv 18:22 Pre-hospital glucose is not applicable to this patient. Risk Assessment: Do you want to hb hurt yourself or someone else? Patient reports no desire to harm self or others. Initial Sepsis Screen: Does the patient meet any 2 criteria? No. Patient's initial sepsis screen is negative. Does the patient have a suspected source of infection? No. Patient's initial sepsis screen is negative. Triage Assessment: 17:59 The onset of the patients symptoms was January 31, 2018 at 11:00. General: Appears in hb no apparent distress. Behavior is calm, cooperative. Pain: Denies pain. EENT: No signs and/or symptoms were reported regarding the EENT system. Neuro: Level of Consciousness is awake, obeys commands, confused, Oriented to person, Reports dizziness, confusion. Cardiovascular: Heart tones S1 S2 present Capillary refill < 3 seconds Patient's skin is warm and dry. Respiratory: Airway is patent Trachea midline Respiratory effort is even, unlabored, Respiratory pattern is regular, symmetrical, Breath sounds are clear bilaterally. GI: No signs and/or symptoms were reported involving the gastrointestinal system. : No signs and/or symptoms were reported regarding the genitourinary system. Derm: No signs and/or symptoms reported regarding the dermatologic system. Skin is intact. Musculoskeletal: No signs and/or symptoms reported regarding the musculoskeletal system. Stroke Activation: Symptom onset > 6 hours Physician: Stroke Attending; Name: ; Notified At: ; Arrived At: Physician: Chief Stroke Resident; Name: ; Notified At: ; Arrived At: Physician: Stroke Resident; Name: ; Notified At: ; Arrived At: Physician: ED Attending; Name: ; Notified At: ; Arrived At: Physician: ED Resident; Name: ; Notified At: ; Arrived At: Stroke Activation: Symptom onset > 6 hours Physician: Stroke Attending; Name: ; Notified At: ; Arrived At: Physician: Chief Stroke Resident; Name: ; Notified At: ; Arrived At: Physician: Stroke Resident; Name: ; Notified At: ; Arrived At: Physician: ED Attending; Name: ; Notified At: ; Arrived At: Physician: ED Resident; Name: ; Notified At: ; Arrived At: Stroke Activation: Physician: Stroke Attending; Name: Dr. Hobsno; Notified At: 17:44; Arrived At: 17:46 Physician: Chief Stroke Resident; Name: ; Notified At: 17:44; Arrived At: Physician: Stroke Resident; Name: ; Notified At: 17:44; Arrived At: Physician: ED Attending; Name: ; Notified At: 17:44; Arrived At: Physician: ED Resident; Name: ; Notified At: 17:44; Arrived At: Historical: - Home Meds: 18:21 Effexor XR 150 mg Oral cp24 1 cap once daily [Active]; Keppra 1,000 mg Oral tab 1 tab hb every 12 hours [Active]; Seroquel 600 mg Oral 1 tab nightly [Active]; - PMHx: 18:21 COPD; Emphysema; Hypertension; lunch cancer; Lung Cancer; PTSD; Seizures; hb - PSHx: 18:21 lumbar fusion; cervical fusion; dorsal column stimulator implant; Appendectomy; right hb lower lobe lobectomy; right great toe; collarbone; Cholecystectomy; - Immunization history:: Adult Immunizations up to date. - Social history:: Smoking status: Patient/guardian denies using tobacco. - Ebola Screening: : No symptoms or risks identified at this time. Screenin:00 Abuse screen: Denies threats or abuse. Denies injuries from another. Nutritional hb screening: No deficits noted. Tuberculosis screening: No symptoms or risk factors identified. Fall Risk Total Milligan Fall Scale indicates Low Risk Score (25-44 pts). Fall prevention measures have been instituted. Side Rails Up X 2 Frequent Obs/Assesments occuring As available Patient and Family Educated on Fall Prevention Program and strategies. Assessment: 17:52 Reassessment: Back from CT at this time, Dr. Hobson at bedside assessing patient. hb 17:56 Reassessment: Dr. Rubio reported to Arcadio Ritchie [employer]OCK [employer] INSULATOR who spoke to Dr. Hobson that CT results are negative for acute abnormality. 18:26 Patient has been NPO before screening. The patient is alert, and able to follow hb commands. The patient does not exhibit slurred or garbled speech. The patient is not exhibiting difficulty speaking. The patient does not exhibit difficulty understanding words. The patient is able to swallow own secretions with no drooling or need for suction. Patient tolerated one teaspoon of water. No drooling, immediate coughing, gurgling, or clearing of the throat was noted. The patient tolerated 90mL of water. No drooling, immediate coughing, gurgling, or clearing of the throat was noted. The patient passed the bedside swallow screening. Oral medications may be given as ordered. Contact Physician for further diet orders. Provider notified of bedside swallow screening results: Steve Hobson MD. T-PA (Activase) Screening: Contraindications: Patient reports onset of signs and symptoms of stroke greater than 6 hours ago: Yes. 19:16 Reassessment: Patient appears in no apparent distress at this time. ak1 20:04 Reassessment: pt to request pain medication. ERP assessed pt, discharge papers printed. ak1 20:11 Reassessment: pt refusing to leave. pt refused wheelchair. pt throwing EKG leads. pt ak1 escorted out by kennel technician. . Vital Signs: 17:52 BP 122 / 79; Pulse 82; Resp 22; Temp 98.2(O); Pulse Ox 92% on R/A; Weight 74.84 kg; hb Height 6 ft. 1 in. (185.42 cm); 18:26 BP 121 / 91; Pulse 80; Resp 18; Pulse Ox 94% on R/A; hb 19:16 BP 133 / 84; Pulse 71; Pulse Ox 96% on R/A; ak1 17:52 Body Mass Index 21.77 (74.84 kg, 185.42 cm) hb NIH Stroke Scale Scores: 18:08 NIHSS Score: 0 kdr 18:10 NIHSS Score: 0 hb ED Course: 17:44 Patient arrived in ED. sv 17:46 Triage completed. sv 17:50 Steve Hobson MD is Attending Physician. kdr 17:50 Arm band placed on. hb 17:54 Inserted saline lock: 22 gauge in right antecubital area, using aseptic technique. hb Blood collected. Patient maintains SpO2 saturation greater than 95% on room air. 17:57 CT Stroke Brain w/o Contrast In Process Unspecified. EDMS 17:58 EKG done, by installation and repair technician. reviewed by Steve Hobson MD. sm3 18:01 Patient has correct armband on for positive identification. Placed in gown. Bed in low hb position. Call light in reach. Side rails up X2. 18:15 XRAY Chest (1 view) In Process Unspecified. EDMS 18:57 Chica Concepcion, RN is Primary Nurse. hb 19:25 No provider procedures requiring assistance completed. ak1 20:11 IV discontinued, intact, bleeding controlled, No redness/swelling at site. Pressure ak1 dressing applied. Administered Medications: 18:57 Drug: Ibuprofen 800 mg Route: PO; hb 19:24 Follow up: Response: No adverse reaction ak1 19:24 Drug: NS 0.9% 1000 ml Route: IV; Rate: 1 bolus; Site: right antecubital; ak1 20:04 Follow up: IV Status: Completed infusion ak1 Point of Care Testing: Blood Glucose: 17:54 Blood Glucose: 112 mg/dL; hb Ranges: Outcome: 19:52 Discharge ordered by . kdr 20:05 Discharged to home via wheelchair. ak1 20:05 Condition: stable 20:05 Discharge instructions given to patient, Instructed on discharge instructions, follow up and referral plans. Demonstrated understanding of instructions, follow-up care. 20:12 Patient left the ED. ak1 NIH Stroke Scale - NIH Stroke Score Date: 01/31/2018 Time: 18:08 Total Score = 0 1a. Level of Consciousness (LOC) - 0(Alert) 1b. Level of Consciousness (LOC) (Year \T\ Age) - 0(Both) 1c. LOC Commands (Open \T\ Closes Eyes/Balancing Machine Set Up Worker) - 0(Both) 2. Best Gaze (Lateral Gaze Paresis) - 0(Normal) 3. Visual Field Loss - 0(No visual loss) 4. Facial Palsy - 0(Normal) 5a. Left Arm: Motor (10-second hold) - 0(No drift) 5b. Right Arm: Motor (10-second hold) - 0(No drift) 6a. Left Leg: Motor (5-second hold - always test supine) - 0(No drift) 6b. Right Leg: Motor (5-second hold - always test supine) - 0(No drift) 7. Limb Ataxia (finger/nose \T\ heel/moralez - test with eyes open) - 0(Absent) 8. Sensory Loss (pinprick arms/legs/face) - 0(Normal) 9. Best Language: Aphasia (description/naming/reading) - 0(No aphasia) 10. Dysarthria (speech clarity - read or repeat words) - 0(Normal) 11. Extinction and Inattention (visual/tactile/auditory/spatial/personal) - 0(No abnormality) Initials: [facility] NIH Stroke Scale - NIH Stroke Score Date: 01/31/2018 Time: 18:10 Total Score = 0 1a. Level of Consciousness (LOC) - 0(Alert) 1b. Level of Consciousness (LOC) (Year \T\ Age) - 0(Both) 1c. LOC Commands (Open \T\ Closes Eyes/Balancing Machine Set Up Worker) - 0(Both) 2. Best Gaze (Lateral Gaze Paresis) - 0(Normal) 3. Visual Field Loss - 0(No visual loss) 4. Facial Palsy - 0(Normal) 5a. Left Arm: Motor (10-second hold) - 0(No drift) 5b. Right Arm: Motor (10-second hold) - 0(No drift) 6a. Left Leg: Motor (5-second hold - always test supine) - 0(No drift) 6b. Right Leg: Motor (5-second hold - always test supine) - 0(No drift) 7. Limb Ataxia (finger/nose \T\ heel/moralez - test with eyes open) - 0(Absent) 8. Sensory Loss (pinprick arms/legs/face) - 0(Normal) 9. Best Language: Aphasia (description/naming/reading) - 0(No aphasia) 10. Dysarthria (speech clarity - read or repeat words) - 0(Normal) 11. Extinction and Inattention (visual/tactile/auditory/spatial/personal) - 0(No abnormality) Initials: hb Signatures: Dispatcher [employer] Bambi Genao, RN Steve Hassan MD MD kdr Krenek, Amber, RN RN ak1 Chica Concepcion RN RN hb Montes, Shakira 3
[2018-01-31 20:18] VITALS: TEMP 98.2
[2018-01-31 20:20] VITALS: BP 133/84; O2SAT 96
--- NOTE | 2018-02-01 11:49 | EKG ---
Test Date: 2018-01-31 Test Time: 17:55:46 Food Safety Field Specialist: SARAH BETH MEASUREMENT RESULTS: Intervals: Rate: 76 TX: 164 QRSD: 96 QT: 394 QTc: 443 [place]: P: 32 TX: 164 QRS: 87 T: 68 INTERPRETIVE STATEMENTS: Normal sinus rhythm Normal ECG Compared to ECG 01/06/2018 13:04:31 No significant changes Electronically Signed On 02-01-18 11:46:36 CDT by Eric Pimentel
== END 2018-01-31 20:12 | disposition home or self-care (01) ==
LOC: ER 17:40
DX: R41.82 Altered mental status, unspecified (principal); R51 Headache; I10 Essential (primary) hypertension; J44.9 Chronic obstructive pulmonary disease, unspecified; G40.909 Epilepsy, unspecified, not intractable, without status epilepticus; Z85.118 Personal history of other malignant neoplasm of bronchus and lung; Z90.2 Acquired absence of lung [part of]
CPT/HCPCS: 36415; 70450; 71045; 80048; 80076; 82550; 82962; 83735; 83880; 84484; 85025; 85610; 85730; 93005; 96360; 99284; J7030

== ENCOUNTER 2018-03-01 12:20 | Emergency (ER) | payer OTHER ==
--- OUTSIDE RECORDS SUMMARY | 2018-03-01 12:26 | XMS REPORT | Clinical Summary ---
:1965 Author Organization [facility] Address [address] [place] [address] Care Team Providers Name Role Phone Asked, [...] 018 CODEINE #3) 300-30 mg per tablet gabapentin Take 1 tablet 90 tablet 0 [...] 05/14/2017 Type 2 diabetes mellitus with hyperglycemia ([facility]) 05/14/2017 DEBRA (acute kidney injury) ([facility]) 05/14/2017 Seizure disorder ([facility]) 05/14/2017 Intractable vomiting with nausea 05/12/2017 Abdominal pain 05/12/2017 Overview: Added automatically from request for surgery [id number] Gastrointestinal hemorrhage 02/23/2017 Gastrointestinal hemorrhage with hematemesis 02/23/2017 Overview: Added automatically from request for surgery [id number] Vertigo 12/19/2016 Pneumonia due to infectious organism 12/07/2016 COPD with acute bronchitis ([facility]) 11/25/2016 COPD (chronic obstructive pulmonary disease) ([facility]) 11/09/2016 COPD exacerbation ([facility]) 11/08/2016 Lung mass 11/08/2016 Tobacco dependence 11/08/2016 Resolved Problems Problem Noted Date Resolved Date Leukocytosis 05/14/2017 05/15/2017 Encounters Date Type Specialty Care Team Description 10/08/19 Emergency Emergency Medicine Sarai, Suicidal ideation (Primary Dx ) 18 Osiel Paul MD 09/21/19 Emergency Emergency Medicine [place] Chronic right-sided thoracic back pain (Primary Dx); [...] Jacob, Other chronic pain (Primary 18 Osiel BDanny, Dx) DO 07/06/19 Emergency General Internal Jacob, Syncope, unspecified syncope type (Primary Dx); 18 - Medicine Osiel Warner, Other chronic pain 07/07/19 DO 18 Karlene Luis MD 05/18/19 Anesthesia Gastroenterology Jovanna, 18 Event Eleazar Salinas MD 05/18/19 Procedure Pass Gastroenterology 18 05/18/19 Surgery Gastroenterology Venkat Kim ESOPHAGOGASTRODUODENOSCOPY 18 MD Raheel (EGD) with bx 05/12/20 [facility] Intractable vomiting with nausea, unspecified vomiting type (Primary Dx); 17 - Encounter Medicine MD Edward Pain; 05/19/19 [place], Abdominal pain, unspecified abdominal location; 18 Natalio Summers Essential hypertension; Type 2 diabetes mellitus with hyperglycemia, with long-term current use of insulin uV Kiser, 03/08/20 Telephone Family Medicine Juvenal Sidhu MD 03/03/20 Telephone Gastroenterology Juvenal Sidhu MD after 02/28/2017 Immunizations Name Dates Previously Given Next Due [...] VACCINE 12/14/2017 05/19/2017 Implants Implanted Type Area Console Assembler Device Expiration Model / Identifier Date Serial / Lot Stimulator Stimulator Stimulator-10/30/2006 Stimulator Hip Implanted: 10/30/2006 (Quantity not on file) Kit [employer] Air Leak 4ml Strl Progel - [id number] Surgical N/A: N/A [employer] [id number] / Implanted: Qty: 1 on 11/24/2016 by [...] GLUCOSE Routine 07/16/2017 Results for 11:29 AM LAP LAYER this procedure are in the results section. POC GLUCOSE Routine 07/16/2017 Results for 6:52 AM [employer]ER this procedure are in the results section. SMEAR REVIEW Routine 07/16/2017 Results for 5:13 AM [employer]ER this procedure are in the results section. ZZESTIMATED GFR Routine 07/16/2017 Results for 5:13 AM [employer]ER this procedure are in the results section. BASIC METABOLIC PANEL Routine 07/16/2017 Results for 5:13 AM [employer]ER this procedure are in the results section. HC COMPLETE BLD COUNT W/AUTO Routine 07/16/2017 Results for DIFF 5:13 AM [employer]ER this procedure are in the results section. KEPPRA (LEVETIRACETAM) LEVEL Routine 07/16/2017 Results for 5:13 AM [employer]ER this procedure are in the results section. SMEAR REVIEW STAT 07/15/2017 Results for 8:14 PM [employer]ER this procedure are in the results section. ZZESTIMATED GFR STAT 07/15/2017 Results for 8:14 PM [employer]ER this procedure are in the results section. HEPATIC FUNCTION PANEL STAT 07/15/2017 Results for 8:14 PM [employer]ER this procedure are in the results section. BASIC METABOLIC PANEL STAT 07/15/2017 Results for 8:14 PM [employer]ER this procedure are in the results section. HC COMPLETE BLD COUNT W/AUTO STAT 07/15/2017 Results for DIFF 8:14 PM [employer] this procedure are in the results section. CT LUMBAR SPINE WO CONTRAST STAT 07/15/2017 Results for 5:12 PM [employer]ER this procedure are in the results section. ZZESTIMATED GFR STAT 07/15/2017 Results for 12:29 PM [employer]ER this procedure are in the results section. LIPASE LEVEL STAT 07/15/2017 Results for 12:29 PM [employer]ER this procedure are in the results section. COMPREHENSIVE METABOLIC PANEL STAT 07/15/2017 Results for 12:29 PM [employer]ER this procedure are in the results section. PARTIAL THROMBOPLASTIN TIME STAT 07/15/2017 Results for (PTT) 12:29 PM [employer]ER this procedure are in the results section. PROTHROMBIN TIME WITH INR STAT 07/15/2017 Results for 12:29 PM [employer]ER this procedure are in the results section. HC COMPLETE BLD COUNT W/AUTO STAT 07/15/2017 Results for DIFF 12:29 PM [employer]ER this procedure are in the results section. POC GLUCOSE Routine 07/07/2017 Results for 11:06 AM [employer]ER this procedure are in the results section. POC GLUCOSE Routine 07/07/2017 Results for 6:41 AM [employer]ER this procedure are in the results section. ZZESTIMATED GFR Routine 07/07/2017 Results for 4:58 AM [employer]ER this procedure are in the results section. BASIC METABOLIC PANEL Routine 07/07/2017 Results for 4:58 AM [employer]ER this procedure are in the results section. HC COMPLETE BLD COUNT W/AUTO Routine 07/07/2017 Results for DIFF 4:58 AM [employer]ER this procedure are in the results section. POC GLUCOSE Routine 07/06/2017 Results for 9:12 PM [employer]ER this procedure are in the results section. ZZESTIMATED GFR STAT 07/06/2017 Results for 6:29 PM [employer]ER this procedure are in the results section. CREATINE KINASE, TOTAL (CPK) STAT 07/06/2017 Results for 6:29 PM [employer]ER this procedure are in the results section. HC COMPLETE BLD COUNT W/AUTO STAT 07/06/2017 Results for DIFF 6:29 PM [employer]ER this procedure are in the results section. BASIC METABOLIC PANEL STAT 07/06/2017 Results for 6:29 PM [employer]ER this procedure are in the results section. CT HEAD WO CONTRAST STAT 07/06/2017 Results for 6:19 PM [employer]ER this procedure are in the results section. ECG 12-LEAD STAT 07/06/2017 Results for 6:18 PM [employer]ER this procedure are in the results section. ECG ED PRELIMINARY Routine 07/06/2017 Results for INTERPRETATION 5:38 PM [employer]ER this procedure are in the results section. POC GLUCOSE Routine 05/19/2017 Results for 10:56 AM LAP [employer]ER this procedure are in the results section. POC GLUCOSE Routine 05/19/2017 Results for 7:34 AM [employer]ER this procedure are in the results section. POC GLUCOSE Routine 05/18/2017 Results for 8:37 PM [employer]ER this procedure are in the results section. POC GLUCOSE Routine 05/18/2017 Results for 4:48 PM [employer] this procedure are in the results section. SURGICAL PATHOLOGY REQUEST Routine 05/18/2017 Results for 1:28 PM [employer]ER this procedure are in the results section. ESOPHAGOGASTRODUODENOSCOPY (EGD) 05/18/2017 Abdominal pain, 12:15 PM [employer]ER unspecified abdominal location POC GLUCOSE Routine 05/18/2017 Results for 6:56 AM [employer]ER this procedure are in the results section. ZZESTIMATED GFR Routine 05/18/2017 Results for 6:03 AM [employer]ER this procedure are in the results section. BASIC METABOLIC PANEL Routine 05/18/2017 Results for 6:03 AM [employer]ER this procedure are in the results section. POC GLUCOSE Routine 05/17/2017 Results for 9:04 PM [employer]ER this procedure are in the results section. POC GLUCOSE Routine 05/17/2017 Results for 3:39 PM [employer]ER this procedure are in the results section. POC GLUCOSE Routine 05/17/2017 Results for 11:07 AM [employer]ER this procedure are in the results section. POC GLUCOSE Routine 05/17/2017 Results for 7:12 AM [employer]ER this procedure are in the results section. ZZESTIMATED GFR Routine 05/17/2017 Results for 5:59 AM [employer]ER this procedure are in the results section. MAGNESIUM LEVEL Routine 05/17/2017 Results for 5:59 AM [employer]ER this procedure are in the results section. COMPREHENSIVE METABOLIC PANEL Routine 05/17/2017 Results for 5:59 AM [employer]ER this procedure are in the results section. CBC WITH PLATELET AND Routine 05/17/2017 Results for DIFFERENTIAL 5:59 AM [employer]ER this procedure are in the results section. POC GLUCOSE Routine 05/16/2017 Results for 7:54 PM [employer]ER this procedure are in the results section. ECG ED PRELIMINARY Routine 05/16/2017 Results for INTERPRETATION 5:59 PM [employer]ER this procedure are in the results section. POC GLUCOSE Routine 05/16/2017 Results for 3:55 PM [employer]ER this procedure are in the results section. POC GLUCOSE Routine 05/16/2017 Results for 11:54 AM [employer]ER this procedure are in the results section. POC GLUCOSE Routine 05/16/2017 Results for 6:26 AM [employer]ER this procedure are in the results section. ZZESTIMATED GFR Routine 05/16/2017 Results for 6:23 AM [employer]ER this procedure are in the results section. COMPREHENSIVE METABOLIC PANEL Routine 05/16/2017 Results for 6:23 AM [employer]ER this procedure are in the results section. HC COMPLETE BLD COUNT W/AUTO Routine 05/16/2017 Results for DIFF 6:23 AM [employer]ER this procedure are in the results section. POC GLUCOSE Routine 05/15/2017 Results for 8:54 PM [employer]ER this procedure are in the results section. POC GLUCOSE Routine 05/15/2017 Results for 4:46 PM [employer]ER this procedure are in the results section. POC GLUCOSE Routine 05/15/2017 Results for 11:33 AM [employer]ER this procedure are in the results section. ZZESTIMATED GFR Routine 05/15/2017 Results for 7:05 AM [employer]ER this procedure are in the results section. COMPREHENSIVE METABOLIC PANEL Routine 05/15/2017 Results for 7:05 AM [employer]ER this procedure are in the results section. HC COMPLETE BLD COUNT W/AUTO Routine 05/15/2017 Results for DIFF 7:05 AM [employer]ER this procedure are in the results section. POC GLUCOSE Routine 05/15/2017 Results for 6:23 AM [employer]ER this procedure are in the results section. POC GLUCOSE Routine 05/14/2017 Results for 8:30 PM [employer]ER this procedure are in the results section. XR CHEST 2 VW Routine 05/14/2017 Results for 7:47 PM [employer]ER this procedure are in the results section. ZZESTIMATED GFR Routine 05/14/2017 Results for 7:07 PM [employer]ER this procedure are in the results section. COMPREHENSIVE METABOLIC PANEL Routine 05/14/2017 Results for 7:07 PM [employer] L[employer]ER this procedure are in the results section. HC COMPLETE BLD COUNT W/AUTO Routine 05/14/2017 Results for DIFF 7:07 PM LAP L[employer]ER this procedure are in the results section. POC GLUCOSE Routine 05/14/2017 Results for 3:58 PM [employer] L[employer]ER this procedure are in the results section. POC GLUCOSE Routine 05/14/2017 Results for 12:15 PM LAP L[employer]ER this procedure are in the results section. POC GLUCOSE Routine 05/14/2017 Results for 7:03 AM LAP LAYER this procedure are in the results section. POC GLUCOSE Routine 05/13/2017 Results for 8:17 PM [employer]ER this procedure are in the results section. POC GLUCOSE Routine 05/13/2017 Results for 3:34 PM LAP LAYER this procedure are in the results section. POC GLUCOSE Routine 05/13/2017 Results for 10:52 AM LAP [employer]ER this procedure are in the results section. URINALYSIS SCREEN AND STAT 05/13/2017 Results for MICROSCOPY, WITH REFLEX TO 8:31 AM LAP LAYER this procedure CULTURE are in the results section. URINE DRUGS OF ABUSE SCREEN STAT 05/13/2017 Results for 8:31 AM LAP LAYER this procedure are in the results section. URINE CULTURE STAT 05/13/2017 Results for 8:31 AM LAP [employer]ER this procedure are in the results section. POC GLUCOSE Routine 05/13/2017 Results for 7:02 AM LAP L[employer]ER this procedure are in the results section. ZZESTIMATED GFR Routine 05/13/2017 Results for 5:34 AM LAP L[employer]ER this procedure are in the results section. BASIC METABOLIC PANEL Routine 05/13/2017 Results for 5:34 AM LAP [employer]ER this procedure are in the results section. PROTHROMBIN TIME WITH INR Routine 05/13/2017 Results for 5:34 AM LAP LAYER this procedure are in the results section. HC COMPLETE BLD COUNT W/AUTO Routine 05/13/2017 Results for DIFF 5:34 AM LAP LAYER this procedure are in the results section. POC GLUCOSE Routine 05/13/2017 Results for 12:44 AM [employer] L[employer]ER this procedure are in the results section. TROPONIN Timed 05/12/2017 Results for 7:33 PM LAP LAYER this procedure are in the results section. CT ABDOMEN PELVIS WO CONTRAST STAT 05/12/2017 Results for 4:23 PM LAP LAYER this procedure are in the results section. INFLUENZA ANTIGEN Routine 05/12/2017 Results for 3:58 PM [employer]ER this procedure are in the results section. ECG 12-LEAD STAT 05/12/2017 Results for 3:48 PM LAP L[employer]ER this procedure are in the results section. B NATRIURETIC PEPTIDE STAT 05/12/2017 Results for 3:45 PM LAP [employer]ER this procedure are in the results section. TROPONIN STAT 05/12/2017 Results for 3:45 PM [employer] L[employer]ER this procedure are in the results section. ALCOHOL LEVEL, BLOOD STAT 05/12/2017 Results for 3:45 PM LAP LAYER this procedure are in the results section. ZZESTIMATED GFR STAT 05/12/2017 Results for 3:45 PM LAP [employer]ER this procedure are in the results section. LIPASE LEVEL STAT 05/12/2017 Results for 3:45 PM [employer] L[employer]ER this procedure are in the results section. COMPREHENSIVE METABOLIC PANEL STAT 05/12/2017 Results for 3:45 PM LAP L[employer]ER this procedure are in the results section. HC COMPLETE BLD COUNT W/AUTO STAT 05/12/2017 Results for DIFF 3:45 PM LAP LAYER this procedure are in the results section. after 02/28/2017 Results Urinalysis screen and microscopy, with reflex to culture (10/07/2017 9:16 AM) Only the most recent of2 resultswithin the time period is included. Specimen site Clean catch [facility] DEPARTMENT OF PATHOLOGY AND GENOMIC MEDICINE Color, UA Yellow [facility] DEPARTMENT OF PATHOLOGY AND GENOMIC MEDICINE Appearance, UA Clear [facility] DEPARTMENT OF PATHOLOGY AND GENOMIC MEDICINE Specific gravity, UA 1.011 1.001 - 1.035 [facility] DEPARTMENT OF PATHOLOGY AND GENOMIC MEDICINE pH, UA 5.0 5.0 - 8.5 [facility] DEPARTMENT OF PATHOLOGY AND GENOMIC MEDICINE Protein, UA Negative Negative [facility] DEPARTMENT OF PATHOLOGY AND GENOMIC MEDICINE Glucose, UA Negative Negative [facility] DEPARTMENT OF PATHOLOGY AND GENOMIC MEDICINE Ketones, UA Negative Negative [facility] DEPARTMENT OF PATHOLOGY AND GENOMIC MEDICINE Bilirubin, UA Negative Negative [facility] DEPARTMENT OF PATHOLOGY AND GENOMIC MEDICINE Blood, UA Negative Negative [facility] DEPARTMENT OF PATHOLOGY AND GENOMIC MEDICINE Nitrite, UA Negative Negative [facility] DEPARTMENT OF PATHOLOGY AND GENOMIC MEDICINE Urobilinogen, UA 2.0 (A) <2.0 [facility] DEPARTMENT OF PATHOLOGY AND GENOMIC MEDICINE Leukocyte esterase, UA Negative Negative [facility] DEPARTMENT OF PATHOLOGY AND GENOMIC MEDICINE Epithelial cells, UA Few /HPF [facility] DEPARTMENT OF PATHOLOGY AND GENOMIC MEDICINE WBC, UA 1 0 - 1 /HPF [facility] DEPARTMENT OF PATHOLOGY AND GENOMIC MEDICINE RBC, UA <1 0 - 5 /HPF [facility] DEPARTMENT OF PATHOLOGY AND GENOMIC MEDICINE Bacteria, UA None seen None seen [facility] DEPARTMENT OF PATHOLOGY AND GENOMIC MEDICINE Yeast, UA None seen [facility] DEPARTMENT OF PATHOLOGY AND GENOMIC MEDICINE Yeast with pseudohyphae, UA None seen [facility] DEPARTMENT OF PATHOLOGY AND GENOMIC MEDICINE Specimen Urine Performing Organization Address City/State/Zipcode Phone Number [facility] DEPARTMENT OF PATHOLOGY AND [facility] [place] [address] [facility] Urine drugs of abuse screen (10/07/2017 9:16 AM)Only the most recent of2 resultswithin the time period is included. Amphetamine screen, urine NEG [facility] DEPARTMENT OF PATHOLOGY AND GENOMIC MEDICINE Barbiturate screen, urine NEG [facility] DEPARTMENT OF PATHOLOGY AND GENOMIC MEDICINE Benzodiazepine screen, POS [facility] DEPARTMENT OF urine PATHOLOGY AND GENOMIC MEDICINE Cocaine screen, urine NEG [facility] DEPARTMENT OF PATHOLOGY AND GENOMIC MEDICINE Methadone screen, urine NEG [facility] DEPARTMENT OF PATHOLOGY AND GENOMIC MEDICINE Opiates screen, urine POS [facility] DEPARTMENT OF PATHOLOGY AND GENOMIC MEDICINE Phencyclidine screen, urine NEG [facility] DEPARTMENT OF PATHOLOGY AND GENOMIC MEDICINE Cannabinoid screen, urine POS [facility] DEPARTMENT OF Comment: PATHOLOGY AND GENOMIC Drug screen minimum concentration of detectability MEDICINE Mfgzxtnsibgt3184 ng/mL Flvibnozqzbpxzuq5799 ng/mL Barbiturates 300 ng/mL Kcdhatyuvyyeweh617 ng/mL Orhcdfk577 ng/mL Aucnsipph940 ng/mL Deeauab961 ng/mL Phencyclidine 25 ng/mL Gxghklhdoyjr46 ng/mL Psqefnxsdt5091 ng/mL Negative test results indicates presumptive evidence of lack of clinically significant drug concentration in this urine specimen. Positive test results are presumptive evidence of clinically significant drug concentration in this urine specimen. Testing performed for medical purposes only. Specimen Urine Performing Organization Address City/[facility]/Zipcode Phone Number [facility] DEPARTMENT PATHOLOGY AND [facility] [address] [place], [place] [phone] [place] [address] Urine culture (10/07/2017 9:16 AM)Only the most recent of2 resultswithin the time period is included. Urine culture SEE COMMENTComment: Bacteriuria [facility] DEPARTMENT OF PATHOLOGY screen negative. AND GENOMIC MEDICINE Specimen Urine Performing Organization Address City/State/Zipcode Phone Number [facility] DEPARTMENT OF PATHOLOGY AND [address] [place] [address] dax [employer] [facility] Estimated GFR (10/07/2017 9:02 AM)Only the most recent of14 resultswithin the time period is included. GFR Non Af Amer 49 (A) mL/min/1.73 m2 [facility] DEPARTMENT OF PATHOLOGY AND GENOMIC MEDICINE GFR Af Amer 59 (A) mL/min/1.73 m2 [facility] DEPARTMENT OF Comment: PATHOLOGY AND GENOMIC Chronic [...] specimen Performing Organization Address City/State/Zipcode Phone Number [facility] PATHOLOGY AND [facility] [address]. [place], [place] [phone] [place] [address] CBC with platelet and differential (10/07/2017 9:02 AM)Only the most recent of13 resultswithin the time period is included. WBC 9.1 4.2 - 11.0 k/uL [facility] DEPARTMENT OF PATHOLOGY AND GENOMIC MEDICINE RBC 4.57 4.04 - 5.86 m/uL [facility] DEPARTMENT OF PATHOLOGY AND GENOMIC MEDICINE HGB 14.7 13.0 - 17.3 g/dL [facility] DEPARTMENT OF PATHOLOGY AND GENOMIC MEDICINE HCT 44.6 34.0 - 45.0 % [facility] DEPARTMENT OF PATHOLOGY AND GENOMIC MEDICINE MCV 97.6 80.0 - 98.0 fL [facility] DEPARTMENT OF PATHOLOGY AND GENOMIC MEDICINE MCH 32.2 27.0 - 34.0 pg [facility] DEPARTMENT OF PATHOLOGY AND GENOMIC MEDICINE MCHC 33.0 31.5 - 36.5 g/dL [facility] DEPARTMENT OF PATHOLOGY AND GENOMIC MEDICINE RDW - SD 55.1 (H) 37.0 - 51.0 fL [facility] DEPARTMENT OF PATHOLOGY AND GENOMIC MEDICINE MPV 10.1 7.4 - 10.4 fL [facility] DEPARTMENT OF PATHOLOGY AND GENOMIC MEDICINE Platelet count 124 (L) 150 - 400 k/uL [facility] DEPARTMENT OF PATHOLOGY AND GENOMIC MEDICINE Nucleated RBC 0.00 /100 WBC [facility] DEPARTMENT OF PATHOLOGY AND GENOMIC MEDICINE Neutrophils 80.4 (H) 36.0 - 66.0 % [facility] DEPARTMENT OF PATHOLOGY AND GENOMIC MEDICINE Lymphocytes 11.6 (L) 24.0 - 44.0 % [facility] DEPARTMENT OF PATHOLOGY AND GENOMIC MEDICINE Monocytes 5.8 0.0 - 6.0 % [facility] DEPARTMENT OF PATHOLOGY AND GENOMIC MEDICINE Eosinophils 1.3 0.0 - 6.0 % [facility] DEPARTMENT OF PATHOLOGY AND GENOMIC MEDICINE Basophils 0.6 0.0 - 1.2 % [facility] DEPARTMENT OF PATHOLOGY AND GENOMIC MEDICINE Immature granulocytes 0.3 0.0 - 1.0 % [facility] DEPARTMENT OF PATHOLOGY AND GENOMIC MEDICINE Specimen Blood Performing Organization Address City/[facility] Phone Number [facility] DEPARTMENT OF PATHOLOGY AND [address] [place] [address] Thyroid stimulating hormone (10/07/2017 9:02 AM) TSH 2.60 0.38 - 4.82 uIU/mL [facility] DEPARTMENT OF PATHOLOGY AND GENOMIC MEDICINE Specimen Plasma specimen Performing Organization Address [facility] Phone Number [facility] DEPARTMENT OF PATHOLOGY AND [address] [place] [address] T4, free (10/07/2017 9:02 AM) T4, free 1.00 0.70 - 1.61 ng/dL [facility] DEPARTMENT OF PATHOLOGY AND GENOMIC MEDICINE Specimen Plasma specimen Performing Organization Address [facility] Phone Number [facility] PATHOLOGY AND [address] [place] [address] Alcohol level, blood (10/07/2017 9:02 AM)Only the most recent of2 resultswithin the time period is included. Alcohol None Detected mg/dL [facility] DEPARTMENT OF PATHOLOGY Comment: AND [facility] MEDICINE NormalNone Detected Legal Intoxication in [place] 80 mg/dL (0.08%) Toxic Concentration 200 mg/dL (0.2%) Potentially Fatal 350-500 mg/dL (0.35%-0.5%) Alcohol percent None Detected % [facility] DEPARTMENT OF PATHOLOGY AND GENOMIC MEDICINE Specimen Blood Performing Organization Address City/[facility] Phone Number [facility] DEPARTMENT OF PATHOLOGY AND Nazario Millard [address]. [place], [place] [phone] [place] [address] Acetaminophen level (10/07/2017 9:02 AM) Acetaminophen level <2.0 (L) 10.0 - 20.0 ug/mL [facility] DEPARTMENT OF Comment: PATHOLOGY AND GENOMIC Therapeutic 10-30 ug/mL MEDICINE Possible Toxicity 150-200 ug/mL Probable Toxicity >200 ug/mL Specimen Blood Performing Organization Address City/[facility]/Zipcode Phone Number [facility] DEPARTMENT OF PATHOLOGY AND Nazario Mill[address] [place], [place] [phone] [place] [address] Salicylate level (10/07/2017 9:02 AM) Salicylate 7.0 mg/dL [facility] DEPARTMENT OF PATHOLOGY AND GENOMIC Comment: MEDICINE Therapeutic Range: 5 - 30 mg/dL Specimen Blood Performing Organization Address City/[facility] Centercode Phone Number [facility] DEPARTMENT OF PATHOLOGY AND [facility] Centerjazmyne [address] [place] [phone] [place] [address] Comprehensive metabolic panel (10/07/2017 9:02 AM)Only the most recent of8 resultswithin the time period is included. Sodium 140 135 - 150 mEq/L [facility] DEPARTMENT OF PATHOLOGY AND GENOMIC MEDICINE Potassium 3.8 3.5 - 5.0 mEq/L [facility] DEPARTMENT OF PATHOLOGY AND GENOMIC MEDICINE Chloride 109 100 - 109 mEq/L [facility] DEPARTMENT OF PATHOLOGY AND GENOMIC MEDICINE CO2 24 24 - 32 mmol/L [facility] DEPARTMENT OF PATHOLOGY AND GENOMIC MEDICINE Anion gap 7@ANIO 7 - 15 mEq/L [facility] DEPARTMENT OF PATHOLOGY AND GENOMIC MEDICINE BUN 14 7 - 18 mg/dL [facility] DEPARTMENT OF PATHOLOGY AND GENOMIC MEDICINE Creatinine 1.5 0.8 - 1.5 mg/dL [facility] DEPARTMENT OF PATHOLOGY AND GENOMIC MEDICINE Glucose 103 (H) 65 - 100 mg/dL [facility] DEPARTMENT OF PATHOLOGY AND GENOMIC MEDICINE Calcium 8.6 8.6 - 10.7 mg/dL [facility] DEPARTMENT OF PATHOLOGY AND GENOMIC MEDICINE Protein 7.9 6.3 - 8.2 g/dL [facility] DEPARTMENT OF PATHOLOGY AND GENOMIC MEDICINE Albumin 3.4 3.2 - 5.0 g/dL [facility] DEPARTMENT OF PATHOLOGY AND GENOMIC MEDICINE A/G ratio 0.8 0.7 - 3.8 [facility] DEPARTMENT OF PATHOLOGY AND GENOMIC MEDICINE Alkaline phosphatase 153 (H) 30 - 120 U/L [facility] DEPARTMENT OF PATHOLOGY AND GENOMIC MEDICINE AST 21 15 - 37 U/L [facility] DEPARTMENT OF PATHOLOGY AND GENOMIC MEDICINE ALT 17 (L) 30 - 65 U/L [facility] DEPARTMENT OF PATHOLOGY AND GENOMIC MEDICINE Total bilirubin 0.2 0.2 - 1.2 mg/dL [facility] DEPARTMENT OF PATHOLOGY AND GENOMIC MEDICINE Specimen Plasma specimen Performing Organization Address City/State/Zipcode Phone Number [facility] DEPARTMENT OF PATHOLOGY AND [address] [place], [place] [address] [address] [facility] [address] Abdomen Pelvis Wo Contrast (09/20/2017 3:27 AM)Only the most recent of2 resultswithin the [...] small paraesophageal varices, compatible with portal hypertension. [facility]-[id number] Procedure Note Interface, Radiology Results Incoming - [...] small paraesophageal varices, compatible with portal hypertension. [facility]-[id number] Performing Organization Address City/State/Zipcode Phone Number [facility] [address] [place] [address] Smear review (09/20/2017 3:13 AM)Only the most recent of3 resultswithin the time period is included. Smear review Smear Reviewed [facility] DEPARTMENT OF PATHOLOGY AND GENOMIC MEDICINE Performing Organization Address City/[facility] Centercode Phone Number [facility] DEPARTMENT OF PATHOLOGY AND [facility] [place] [address] dax [employer] [facility] Prothrombin time with INR (09/20/2017 3:13 AM)Only the most recent of3 resultswithin the time period is included. Prothrombin time 14.5 12.0 - 15.0 sec [facility] DEPARTMENT OF PATHOLOGY AND GENOMIC MEDICINE INR 1.11 0.92 - 1.12 [facility] DEPARTMENT OF Comment: PATHOLOGY AND GENOMIC For patients on anticoagulant therapy, reference ranges below: MEDICINE Indication:INR Value Treatment of Venous Thrombosis, 2.0-3.0 pulmonary emboli, or prophylaxis of a venous thrombosis, or systemic emboli. High dose, high risk patients 3.0-4.5 with mechanical valves. NOTE:INR values over 3.0 are sometimes associated with gastrointestinal hemorrhage, especially values over 4.0. Specimen Blood Performing Organization Address City/[facility]/Zipcode Phone Number [facility] DEPARTMENT OF PATHOLOGY AND [address] [place] [address] dax [employer] MEDICINE Lipase level (09/20/2017 3:13 AM)Only the most recent of3 resultswithin the time period is included. Lipase 129 65 - 230 U/L [facility] DEPARTMENT OF PATHOLOGY AND GENOMIC MEDICINE Specimen Plasma specimen Performing Organization Address City/[facility]/Zipcode Phone Number [facility] DEPARTMENT OF PATHOLOGY AND [facility] [place] [address] GENOMIC MEDICINE ECG 12 lead (09/20/2017 2:43 AM)Only the most recent of3 resultswithin the time period is included. Ventricular rate 77 [facility]USE Atrial rate 77 [facility] WV interval 144 [facility] QRSD interval 94 [facility] QT interval 418 [facility] QTC interval 473 [facility] P axis 1 32 [facility] MUSE QRS axis 1 94 [facility] MUSE T wave axis 85 H MUSE EKG impression Normal sinus rhythm-Rightward axis-Borderline [facility] MUSE ECG-In automated comparison with ECG of 06-JUL-2017 18:18,-No significant change was found- Performing Organization Address City/[facility] Centercode Phone Number [facility] MUSE [address] [place] [address] ECG ED Preliminary Interpretation - NOT AN ORDER (09/20/2017 2:07 AM)Only the most recent of3 resultswithin the time period is included. Narrative Performed At Karen Brantley MD 09/21/20173:47 AM ECG ED Preliminary Interpretation - Not an Order Performed by: KAREN BRANTLEY Authorized by: KAREN BRANTLEY ECG reviewed by ED Physician in the absence of a chicken handler: yes Previous ECG: Previous ECG:Compared to current Comparison ECG info:06/16/17 Similarity:No change Interpretation: Interpretation: normal Rate: ECG rate:77 ECG rate assessment: normal Rhythm: Rhythm: sinus rhythm QRS: QRS axis:Right Comments: Normal sinus rhythm. Right axis deviation. PET/CT Skull Base To Mid Thigh (08/08/2017 1:45 PM) Narrative Performed At [facility]IN[facility] SKULL [facility]ASE TO MID THIGH Date and place of service: 08/08/2017 10:00 AM at [facility] DOSE: 11.8 mCi of 70-Rznscd-5-Deoxyglucose (FDG) was injected intravenously into left wrist done infiltration at a serum glucose level of90 mg/dl. TECHNIQUE: PROCEDURE: Following injection of 32-Ivurwh-3-Deoxyglucose (FDG) and a standard uptake., The patient was imaged on a [employer] whole body PET CT scanner. Multiple 6 [...] dose COMPARISON: October 26, 2016 done at [facility]. 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 Status post right lower lobectomy November,. No history of recent chemotherapy or radiation therapy. For restaging. FINDINGS: Software fusion was performed of the [facility] with the CAT scan from [...] arterial hypertension as before. Cirrhosis as before. [facility]-[id number] Procedure Note Hm Interface, Radiology Results Incoming - 08/08/2017 4:30 PM CDT EXAMINATION: PET CT SKULL BASE TO MID THIGH Date and place of service: 08/08/2017 10:00 AM at [facility] DOSE: 11.8 mCi of 59-Wotevj-1-Deoxyglucose (FDG) was injected intravenously into left wrist done infiltration at a serum glucose level of 90 mg/dl. TECHNIQUE: PROCEDURE: Following injection of 74-Exqtvq-3-Deoxyglucose (FDG) and a standard uptake., The patient was imaged on a [employer] whole body PET CT scanner. Multiple 6 [...] dose COMPARISON: October 26, 2016 done at [facility]. CLINICAL HISTORY: Bronchogenic carcinoma on [...] arterial hypertension as before. Cirrhosis as before. [facility]-[id number] Performing Organization Address City/[facility]/Zipcode Phone Number [facility] [address] [place] [address] POC glucose (08/08/2017 11:36 AM)Only the most recent of32 resultswithin the time period is included. POC glucose 90 65 - 100 mg/dL [facility] DEPARTMENT OF PATHOLOGY AND Comment: GENOMIC MEDICINE Meter ID: [id number] Pin Sorter And Bagger: Vu Aponte Performing Organization Address City/[facility]/Zipcode Phone Number [facility] DEPARTMENT OF PATHOLOGY AND [address] [place] [address] GENOMIC MEDICINE Keppra (Levetiracetam) level (07/16/2017 5:13 AM) Levetiracetam 27 12 - 46 ug/mL [facility] Comment: INTERPRETIVE INFORMATION: Keppra (Levetiracetam) Therapeutic Range:12-46 ug/mL Toxic:Not well Established Pharmacokinetics of levetiracetam are affected by renal function. Adverse effects may include somnolence, weakness, headache and vomiting. Performed by [employer], [address] [place] [id number] [email or web address], Joni Roper MD - Lab. Director Specimen Serum Performing Organization Address City/State/Zipcode Phone Number [facility] [address] [place] [address] Basic metabolic panel (07/16/2017 5:13 AM)Only the most recent of6 resultswithin the time period is included. Sodium 134 (L) 135 - 150 mEq/L [facility] DEPARTMENT OF PATHOLOGY AND GENOMIC MEDICINE Potassium 4.2 3.5 - 5.0 mEq/L [facility] DEPARTMENT OF PATHOLOGY AND GENOMIC MEDICINE Chloride 102 100 - 109 mEq/L [facility] DEPARTMENT OF PATHOLOGY AND GENOMIC MEDICINE CO2 22 (L) 24 - 32 mmol/L [facility] DEPARTMENT OF PATHOLOGY AND dax [employer] MEDICINE Anion gap 10 7 - 15 mEq/L [facility] DEPARTMENT OF Comment: PATHOLOGY AND GENOMIC Starting from August , anion gap calculation MEDICINE no longer incorporates potassium. Please note the change. BUN 17 7 - 18 mg/dL [facility] DEPARTMENT OF PATHOLOGY AND GENOMIC MEDICINE Creatinine 1.2 0.8 - 1.5 mg/dL [facility] DEPARTMENT OF PATHOLOGY AND GENOMIC MEDICINE Glucose 139 (H) 65 - 100 mg/dL [facility] DEPARTMENT OF PATHOLOGY AND GENOMIC MEDICINE Calcium 9.4 8.6 - 10.7 mg/dL [facility] DEPARTMENT OF PATHOLOGY AND dax [employer] MEDICINE Specimen Plasma specimen Performing Organization Address [facility] Centercode Phone Number [facility] PATHOLOGY AND [address] [place] [address]. [place] [address] [facility] Hepatic function panel (07/15/2017 8:14 PM) Albumin 3.8 3.2 - 5.0 g/dL [facility] DEPARTMENT OF PATHOLOGY AND GENOMIC MEDICINE Total bilirubin 0.8 0.2 - 1.2 mg/dL [facility] DEPARTMENT OF PATHOLOGY AND GENOMIC MEDICINE Bilirubin direct 0.2 0.0 - 0.4 mg/dL [facility] DEPARTMENT OF PATHOLOGY AND GENOMIC MEDICINE Alkaline phosphatase 231 (H) 30 - 120 U/L [facility] DEPARTMENT OF PATHOLOGY AND GENOMIC MEDICINE Protein 9.7 (H) 6.3 - 8.2 g/dL [facility] DEPARTMENT OF PATHOLOGY AND GENOMIC MEDICINE ALT 17 (L) 30 - 65 U/L [facility] DEPARTMENT OF PATHOLOGY AND GENOMIC MEDICINE AST 29 15 - 37 U/L [facility] DEPARTMENT OF PATHOLOGY AND dax [employer] MEDICINE Specimen Plasma specimen Performing Organization Address City/[facility]/Zipcode Phone Number [facility] PATHOLOGY AND [address] [place] [address] [facility] [address] Lumbar Spine Wo Contrast (07/15/2017 5:12 [...] canal and neural foraminal stenosis at L3-4. [id number] Procedure Note Interface, Radiology Results [facility] - 07/15/2017 5:24 PM LAP LAYER EXAMINATION: CT LUMBAR SPINE WO CONTRAST CLINICAL [...] canal and neural foraminal stenosis at L3-4. [id number] Performing Organization Address City/State/Zipcode Phone Number [facility] [address] [place] [address] Partial thromboplastin time, activated (07/15/2017 12:29 PM) PTT 29.2 23.0 - 36.0 sec [facility] DEPARTMENT OF Comment: PATHOLOGY AND GENOMIC PTT therapeutic range for unfractionated heparin is MEDICINE 61.0-112.0 seconds which corresponds to Anti-Xa 0.3-0.7 U/ml. Note:Change in Panic Value The PTT Panic Value is changing from 110 sec. to 100 sec. due to new instrumentation and reagents. Correlation studies have been performed to validate this result. Specimen Blood Performing Organization Address City/State/Zipcode Phone Number [facility] DEPARTMENT OF PATHOLOGY AND [address] [place], [place] [id number] [place] [address] Creatine kinase, total (CPK) (07/06/2017 6:29 PM) Creatine kinase 134 61 - 224 U/L [facility] DEPARTMENT OF PATHOLOGY AND [facility] Specimen Plasma specimen Performing Organization Address City/[facility] Centercode Phone Number [facility] DEPARTMENT OF PATHOLOGY AND [address] [place], [place] [id number] [place] [address] CT Head Wo Contrast (07/06/2017 6:19 PM) [...] sinuses. IMPRESSION: No acute intracranial abnormality identified. [id number] Procedure Note Interface, Radiology Results Incoming - 07/06/2017 6:27 PM LAP LAYER EXAMINATION: CT HEAD WO CONTRAST CLINICAL HISTORY: [...] sinuses. IMPRESSION: No acute intracranial abnormality identified. [facility]-[id number] Performing Organization Address City/State/Zipcode Phone Number [facility] [address] [place] [address] Surgical pathology request (05/18/2017 1:28 PM) [facility] DEPARTMENT OF PATHOLOGY AND GENOMIC MEDICINE Surgical pathology report See link below for PDF [facility] DEPARTMENT OF Lab Report PATHOLOGY AND GENOMIC MEDICINE Result status This is Final Report to [facility] DEPARTMENT OF [id number] PATHOLOGY AND GENOMIC MEDICINE Performing Organization Address City/State/Zipcode Phone Number [facility] DEPARTMENT OF PATHOLOGY AND [facility] [place] [address] GENOMIC MEDICINE Magnesium level (05/17/2017 5:59 AM) Magnesium 2.00 1.60 - 2.40 mg/dL [facility] DEPARTMENT OF PATHOLOGY AND [employer] Specimen Plasma specimen Performing Organization Address City/State/Zipcode Phone Number [facility] DEPARTMENT OF PATHOLOGY AND [address] [place] [address] GENOMIC MEDICINE XR Chest 2 Vw (05/14/2017 7:47 PM) Narrative Performed At EXAMINATION:XR CHEST 2 VW RADIANT CLINICAL HISTORY:sob cough todayleukocytosisR basilar crackles IMPRESSION: Aortic arch calcified. Heart size is normal. Lungs are clear of acute infiltrate. There has been a prior partial pulmonary resection in the right side. There are no effusions. There is an intraspinal catheter present, and there is hardware in cervical spine. [id number] Procedure Note Hm Interface, Radiology Results Incoming - 05/14/2017 8:23 PM LAP LAYER EXAMINATION: XR CHEST 2 VW CLINICAL HISTORY: sob cough today leukocytosis R basilar crackles IMPRESSION: Aortic arch calcified. Heart size is normal. Lungs are clear of acute infiltrate. There has been a prior partial pulmonary resection in the right side. There are no effusions. There is an intraspinal catheter present, and there is hardware in cervical spine. [facility]-[id number] Performing Organization Address City/[facility]/Zipcode Phone Number [facility] [address] [place] [address] Troponin (05/12/2017 7:33 PM)Only the most recent of2 resultswithin the time period is included. Troponin <0.01 0.00 - 0.60 ng/mL [facility] DEPARTMENT OF PATHOLOGY Comment: AND dax [employer] MEDICINE 0.11 - 1.49 ng/mlMay indicate increased risk of acute coronary syndrome. >=1.5 ng/mlConsistent with acute myocardial infarction. The diagnostic value of a single normal or non-diagnostic result is questionable.Serial samples at 2-6 hour intervals are required to rule out acute myocardial injury. Specimen Plasma specimen Performing Organization Address City/State/Zipcode Phone Number [facility] DEPARTMENT OF PATHOLOGY AND [address] [place] [address] dax [employer] MEDICINE Influenza antigen (05/12/2017 3:58 PM) Influenza antigen Negative for Influenza A/B antigen. [facility] DEPARTMENT OF PATHOLOGY Comment: AND GENOMIC MEDICINE Specimen Information Specimen Source: Nares Specimen Site: Right Specimen Nares - Right Performing Organization Address City/State/Zipcode Phone Number [facility] DEPARTMENT OF PATHOLOGY AND [address] [place] [address] GENOMIC MEDICINE B natriuretic peptide (05/12/2017 3:45 PM) BNP 43 0 - 100 pg/mL [facility] DEPARTMENT OF PATHOLOGY AND GENOMIC MEDICINE Specimen Blood Performing Organization Address City/State/Zipcode Phone Number [facility] DEPARTMENT OF PATHOLOGY AND [address] [place] [address] GENOMIC MEDICINE after 02/28/2017 Insurance Payer Benefit Plan / Group Subscriber ID Type Phone Address [employer]ETNA MEDICARE AETNA MEDICARE HMO/PPO [facility] xxxxxxxx HMO [id number] [phone] [place] [address]
--- OUTSIDE RECORDS SUMMARY | 2018-03-01 12:27 | XMS REPORT ---
:1965 Author Organization [facility] Address [address] [place] [address] Care Team Providers Name Role Phone BRE [...] race is not provided, and the patient isAfrican-Kittitian, multiply by 1.212. If sex is not provided, and thepatient is female, multiply by 0.742. Results for patients <18 years ofage have not been validated by the MDRD study and should be interpretedwith caution.eGFR Result Interpretation:eGFR > or=60 is in the Normal RangeeGFR < 60 may mean kidney diseaseeGFR < 15 may mean kidney failureRanges recommended by the National Kidney Foundation,http://nkdep.nih.go v [id number] 04:50:00 Test Item Value Reference Range Comments [...] THC (test code=THC) POSITIVE Negative CBC with [id number] 03:53:00 Test Item Value Reference Range Comments [...] Lymph Abs (test code=ALYMPH) 1.7 K/cumm 0.5-4.6 Dougherty Abs (test code=AMONO) 0.7 K/cumm 0.0-1.2 Eos Abs (test code=AEOS) 0.16 K/cumm 0.00-0.74 Baso Abs (test code=ABASO) 0.1 K/cumm 0.00-0.21
[2018-03-01] MEDS ORDERED: HYDROCODONE/APAP 10/325 TAB ONE (14:05)
--- NOTE | 2018-03-01 14:23 | RAD REPORT ---
EXAM DESCRIPTION: RAD - Lumbar Spine 3 Views - 03/01/2018 2:09 pm CLINICAL HISTORY: Fall, back pain COMPARISON: None. FINDINGS: A three-view lumbar spine examination was performed. Lumbar bodies are normal in height. N o lytic, sclerotic or expansile bony destructive process. L4 shows a very slight retrolisthesis relat samantha to L5. This is a fused level. Pedicle screws and rods are in place spanning L4-S1. No fracture of the hardware. Graft material is present in the L4-5 and L5-S1 disc levels. The slight retrolisthesis of L4 is believed to be chronic well-healed fusion. There is heterotopic bone posteriorly at the fac et joints and hardware. Slight retrolisthesis of L3 on L4. L3-4 mild to moderate facet joint degenerative changes are present . Mild endplate spurring changes are present. No disc space narrowing. No pars defects identified. IMPRESSION: L4-S1 fusion changes appearing well healed with no hardware fracture. Central canal or f oraminal encroachment changes may be present but no acute findings seen. Slight retrolisthesis of L3 on L4 with mild to moderate facet degenerative change. No compression fracture or acute finding identifiable.
--- NOTE | 2018-03-01 14:24 | RAD REPORT ---
EXAM DESCRIPTION: RAD - Hip Right 2 View - 03/01/2018 2:09 pm CLINICAL HISTORY: Right hip pain COMPARISON: None. FINDINGS: AP and frog-leg views of the right hip were obtained. There is no fracture or dislocation . No AVN or focal femoral head abnormality. Degenerative change at the hip joint is minimal. There i s slight narrowing of the joint space. Arterial tree calcifications are present. IMPRESSION: Negative right hip examination for acute findings. Minimal degenerative change present.
--- NOTE | 2018-03-01 14:24 | RAD REPORT ---
EXAM DESCRIPTION: RAD - Pelvis - 03/01/2018 2:09 pm CLINICAL HISTORY: Leg pain, back pain COMPARISON: None. TECHNIQUE: AP imaging of the pelvis was obtained. FINDINGS: No fracture of the bony pelvis. No fracture, dislocation or other acute hip joint finding. No significant SI joint findings. No gross hip joint abnormality seen. Hip joints are detailed furth er in separate reports. Lumbosacral fusion changes are present detailed on separate report. No soft tissue abnormality. Numerous phleboliths are seen in the lower left pelvis. IMPRESSION: Negative pelvis for acute or significant findings.
--- NOTE | 2018-03-01 14:25 | RAD REPORT ---
EXAM DESCRIPTION: RAD - Hip Left 2 View - 03/01/2018 2:09 pm CLINICAL HISTORY: Fall, hip pain COMPARISON: None. FINDINGS: AP and frogleg views of the left hip were obtained. There is no fracture or dislocation. N o AVN or focal femoral head abnormality. There is sclerotic and minimal spurring changes along the agarwal perior acetabulum. Joint space narrowing is present. Minimal spurring along the superior articular ma rgin of the femoral head. No soft tissue abnormality. Arterial tree calcifications are present. IMPRESSION: Mild to moderate for age degenerative change at the left hip joint. No acute or destruct samantha finding.
--- NOTE | 2018-03-01 14:33 | ER ---
Nurse's Notes [facility] Name: Tino Amin Jr Age: 52 yrs Sex: Male : 1965 Arrival Date: 03/01/2018 Time: 12:23 Bed 18 Private MD: None, None Diagnosis: Contusion of left hip;Contusion of right hip;Contusion of lower back and pelvis Presentation: 03/01 12:32 Presenting complaint: Patient states: Reports bilateral leg and lower back pain since aj fall 3 days ago. Ambulatory with cane. Transition of care: patient was not received from another setting of care. Onset of symptoms was February 26, 2018. Risk Assessment: Do you want to hurt yourself or someone else? Patient reports no desire to harm self or others. Initial Sepsis Screen: Does the patient meet any 2 criteria? No. Patient's initial sepsis screen is negative. Does the patient have a suspected source of infection? No. Patient's initial sepsis screen is negative. Care prior to arrival: None. 12:32 Method Of Arrival: Ambulatory 12:32 Acuity: YULISSA 3 Triage Assessment: 12:36 General: Appears in no apparent distress. comfortable, Behavior is calm, cooperative, aj appropriate for age. Pain: Complains of pain in buttocks, right leg and left leg. Neuro: Level of Consciousness is awake, alert, obeys commands, Oriented to person, place, time, situation, Appropriate for age. Respiratory: Airway is patent Respiratory effort is even, unlabored, Respiratory pattern is regular, symmetrical. Derm: Skin is intact, is healthy with good turgor, Skin is pink, warm \T\ dry. normal. Musculoskeletal: Reports pain in buttocks, right leg and left leg. Historical: - Allergies: 12:36 No Known Allergies; aj - Home Meds: 12:36 Effexor XR 150 mg Oral cp24 1 cap once daily [Active]; Keppra 1,000 mg Oral tab 1 tab aj every 12 hours [Active]; Seroquel 600 mg Oral 1 tab nightly [Active]; 12:36 Hutchins 10-325 mg Oral tab 1 tab every 4 hours [Active]; Diazepam Oral [Active]; aj - PMHx: 12:36 COPD; Emphysema; Hypertension; lunch cancer; PTSD; Seizures; aj 12:36 Chronic pain; aj - PSHx: 12:36 lumbar fusion; cervical fusion; dorsal column stimulator implant; Appendectomy; right aj lower lobe lobectomy; right great toe; collarbone; Cholecystectomy; - Immunization history:: Adult Immunizations up to date. - Ebola Screening: : Patient negative for fever greater than or equal to 101.5 degrees Fahrenheit, and additional compatible Ebola Virus Disease symptoms Patient denies exposure to infectious person Patient denies travel to an Ebola-affected area in the 21 days before illness onset No symptoms or risks identified at this time. - Social history:: Smoking status: Patient/guardian denies using tobacco, Patient/guardian denies using alcohol. - Family history:: not pertinent. - Hospitalizations: : No recent hospitalization is reported. Screenin:42 Abuse screen: Denies threats or abuse. Abuse screen: Denies injuries from another. hj Nutritional screening: No deficits noted. Tuberculosis screening: No symptoms or risk factors identified. Fall Risk None identified. Assessment: 12:42 General: Appears in no apparent distress. uncomfortable, Behavior is calm, cooperative, hj appropriate for age. Pain: Complains of pain in left leg and right leg. Neuro: Level of Consciousness is awake, alert, obeys commands, Oriented to person, place, time, situation, Appropriate for age. Cardiovascular: Capillary refill < 3 seconds Patient's skin is warm and dry. Respiratory: Airway is patent Respiratory effort is even, unlabored, Respiratory pattern is regular, symmetrical. GI: No signs and/or symptoms were reported involving the gastrointestinal system. : No signs and/or symptoms were reported regarding the genitourinary system. EENT: No signs and/or symptoms were reported regarding the EENT system. Derm: No signs and/or symptoms reported regarding the dermatologic system. Musculoskeletal: Reports pain in right leg and left leg. Vital Signs: 12:36 BP 109 / 85; Pulse 84; Resp 17; Temp 97.4; Pulse Ox 99% on R/A; Weight 83.01 kg; Height aj 6 ft. 1 in. (185.42 cm); 14:25 BP 110 / 87; Pulse 86; Resp 18; Pulse Ox 99% on R/A; hj 12:36 Body Mass Index 24.14 (83.01 kg, 185.42 cm) ED Course: 12:23 Patient arrived in ED. mr 12:23 None, None is Private Physician. mr 12:35 Triage completed. aj 12:36 Arm band placed on left wrist. Patient placed in an exam room. aj 12:40 Nicholas Mason MD is Attending Physician. rn 12:41 Neil De La Cruz RN is Primary Nurse. hj 12:42 Patient has correct armband on for positive identification. Placed in gown. Bed in low hj position. Call light in reach. Side rails up X 1. 13:18 Patient moved to radiology via stretcher. jb2 14:10 XRAY Lumbar Spine (3 Views) In Process Unspecified. EDMS 14:10 XRAY Pelvis In Process Unspecified. EDMS 14:10 XRAY Hip LEFT 2 view In Process Unspecified. EDMS 14:10 XRAY Hip RIGHT 2 view In Process Unspecified. EDMS 14:39 No provider procedures requiring assistance completed. Patient did not have IV access hj during this emergency room visit. Administered Medications: 03:58 Drug: Hutchins 10 mg-325 mg 1 tabs Route: PO; hj 14:02 Follow up: Response: No adverse reaction hj Outcome: 14:32 Discharge ordered by . rn 14:41 Discharged to home with crutches. hj 14:41 Condition: stable 14:41 Discharge instructions given to patient, Instructed on discharge instructions, follow up and referral plans. Demonstrated understanding of instructions, follow-up care. 14:41 Patient left the ED. hj 14:47 Patient left the ED. hj 14:53 Patient left the ED. hj Signatures: Dispatcher [employer] Mildred Hooper RN RN aj Romina Dumont Jesse jb2 Nicholas Mason MD MD rn Joaquin, Henry, RN RN
--- NOTE | 2018-03-01 14:33 | EDPHYS ---
Physician Documentation [facility] Name: Tino Amin Jr Age: 52 yrs Sex: Male : 1965 Arrival Date: 03/01/2018 Time: 12:23 Bed 18 Private MD: None, None ED Physician Nicholas Mason HPI: 03/01 12:46 This 52 yrs old Male presents to ER via Ambulatory with complaints of Leg rn Pain. 12:46 The patient presents with an injury, pain. The complaints affect the pelvis, right leg rn and left leg. Onset: The symptoms/episode began/occurred 3 day(s) ago. Modifying factors: The symptoms are alleviated by remaining still, the symptoms are aggravated by movement. Associated signs and symptoms: Pertinent negatives fever, warmth, weakness. Severity of symptoms: At their worst the symptoms were mild, in the emergency department the symptoms are unchanged. The patient has experienced similar episodes in the past. Reports chronic pain of back/neck/legs, but fell backward, slipped 3 days ago, landed on back and left side, has been ambulatory since then but reports persistent pain has him concerned. States due to chronic pain can't tell if really injured. . Historical: - Allergies: 12:36 No Known Allergies; aj - Home Meds: 12:36 Effexor XR 150 mg Oral cp24 1 cap once daily [Active]; Keppra 1,000 mg Oral tab 1 tab aj every 12 hours [Active]; Seroquel 600 mg Oral 1 tab nightly [Active]; 12:36 Fleetwood 10-325 mg Oral tab 1 tab every 4 hours [Active]; Diazepam Oral [Active]; aj - PMHx: 12:36 COPD; Emphysema; Hypertension; lunch cancer; PTSD; Seizures; aj 12:36 Chronic pain; aj - PSHx: 12:36 lumbar fusion; cervical fusion; dorsal column stimulator implant; Appendectomy; right aj lower lobe lobectomy; right great toe; collarbone; Cholecystectomy; - Immunization history:: Adult Immunizations up to date. - Ebola Screening: : Patient negative for fever greater than or equal to 101.5 degrees Fahrenheit, and additional compatible Ebola Virus Disease symptoms Patient denies exposure to infectious person Patient denies travel to an Ebola-affected area in the 21 days before illness onset No symptoms or risks identified at this time. - Social history:: Smoking status: Patient/guardian denies using tobacco, Patient/guardian denies using alcohol. - Family history:: not pertinent. - Hospitalizations: : No recent hospitalization is reported. ROS: 12:46 Constitutional: Negative for fever, chills, and weight loss, Eyes: Negative for injury, rn pain, redness, and discharge, Neck: Negative for injury, pain, and swelling, Cardiovascular: Negative for chest pain, palpitations, and edema, Respiratory: Negative for shortness of breath, cough, wheezing, and pleuritic chest pain, Abdomen/GI: Negative for abdominal pain, nausea, vomiting, diarrhea, and constipation, Back: + low back injury and pain MS/Extremity: + bilateral hip pain Skin: Negative for injury, rash, and discoloration, Neuro: Negative for headache, weakness, numbness, tingling, and seizure. Exam: 12:46 Constitutional: This is a well developed, well nourished patient who is awake, alert, rn and in no acute distress. Sitting upright in stretcher Head/Face: Normocephalic, atraumatic. Neck: no bony tenderness Back: No spinal tenderness. No ecchymosis. MS/ Extremity: Pulses equal, no cyanosis. Neurovascular intact. Mild painful ROM bilateral hips without deformity or shortening/rotation. Neuro: Awake and alert, GCS 15, oriented to person, place, time, and situation. Motor strength 5/5 in all extremities. Sensory grossly intact. Vital Signs: 12:36 BP 109 / 85; Pulse 84; Resp 17; Temp 97.4; Pulse Ox 99% on R/A; Weight 83.01 kg; Height aj 6 ft. 1 in. (185.42 cm); 14:25 BP 110 / 87; Pulse 86; Resp 18; Pulse Ox 99% on R/A; hj 12:36 Body Mass Index 24.14 (83.01 kg, 185.42 cm) aj MDM: 12:40 Patient medically screened. rn 14:27 Differential diagnosis: closed fracture, contusion. Data reviewed: vital signs, nurses rn notes, radiologic studies, plain films, and as a result, I will discharge patient. Counseling: I had a detailed discussion with the patient and/or guardian regarding: the historical points, exam findings, and any diagnostic results supporting the discharge/admit diagnosis, radiology results, the need for outpatient follow up, to return to the emergency department if symptoms worsen or persist or if there are any questions or concerns that arise at home. Response to treatment: the patient's symptoms have mildly improved after treatment, and as a result, I will discharge patient. Special discussion: I discussed with the patient/guardian in detail that at this point there is no indication for admission to the hospital. It is understood, however, that if the symptoms persist or worsen the patient needs to return immediately for re-evaluation. 03/01 12:46 Order name: XRAY Lumbar Spine (3 Views); Complete Time: 14:26 rn 03/01 12:46 Order name: XRAY Pelvis; Complete Time: 14: rn 03/01 12:46 Order name: XRAY Hip LEFT 2 view; Complete Time: 14: rn 03/01 12:46 Order name: XRAY Hip RIGHT 2 view; Complete Time: 14: rn Administered Medications: 03:58 Drug: Fleetwood 10 mg-325 mg 1 tabs Route: PO; hj 14:02 Follow up: Response: No adverse reaction hj Disposition: 03/01/18 14:32 Discharged to Home. Impression: Contusion of left hip, Contusion of right hip, Contusion of lower back and pelvis. - Condition is Stable. - Discharge Instructions: Contusion, Hip Pain. - Prescriptions for Tylenol- Codeine #3 300-30 mg Oral Tablet - take 1 tablet by ORAL route every 6 hours As needed; 10 tablet. - Medication Reconciliation Form, Thank You Letter, Antibiotic Education, Prescription Opioid Use form. - Follow up: Private Physician; When: As needed; Reason: Recheck today's complaints, Re-evaluation by your physician. - Problem is new. - Symptoms have improved. Signatures: Dispatcher [employer] EDMildred Cuenca RN RN aj Nieto, Roman, MD MD rn Joaquin, Henry, RN RN hj Corrections: (The following items were deleted from the chart) 14:41 14:32 03/01/2018 14:32 Discharged to Home. Impression: Contusion of left hip; Contusion hj of right hip; Contusion of lower back and pelvis. Condition is Stable. Forms are Medication Reconciliation Form, Thank You Letter, Antibiotic Education, Prescription Opioid Use. Follow up: Private Physician; When: As needed; Reason: Recheck today's complaints, Re-evaluation by your physician. Problem is new. Symptoms have improved. rn 14:47 14:41 03/01/2018 14:32 Discharged to Home. Impression: Contusion of left hip; Contusion hj of right hip; Contusion of lower back and pelvis. Condition is Stable. Discharge Instructions: Contusion, Hip Pain. Forms are Medication Reconciliation Form, Thank You Letter, Antibiotic Education, Prescription Opioid Use. Follow up: Private Physician; When: As needed; Reason: Recheck today's complaints, Re-evaluation by your physician. Problem is new. Symptoms have improved. hj 14:53 14:47 03/01/2018 14:32 Discharged to Home. Impression: Contusion of left hip; Contusion hj of right hip; Contusion of lower back and pelvis. Condition is Stable. Discharge Instructions: Contusion, Hip Pain. Prescriptions for Tramadol 50 mg Oral Tablet - take 1 tablet by ORAL route every 8 hours as needed; 10 tablet. and Forms are Medication Reconciliation Form, Thank You Letter, Antibiotic Education, Prescription Opioid Use. Follow up: Private Physician; When: As needed; Reason: Recheck today's complaints, Re-evaluation by your physician. Problem is new. Symptoms have improved. hj
[2018-03-01 14:45] VITALS: TEMP 97.4; O2SAT 99
[2018-03-01 14:46] VITALS: BP 110/87
== END 2018-03-01 14:53 | disposition home or self-care (01) ==
LOC: ER 12:20
DX: S30.0XXA Contusion of lower back and pelvis, initial encounter (principal); S70.02XA Contusion of left hip, initial encounter; S70.01XA Contusion of right hip, initial encounter; W01.0XXA Fall on same level from slipping, tripping and stumbling without subsequent striking against object, initial encounter; Y93.89 Activity, other specified; Y92.9 Unspecified place or not applicable; Z85.118 Personal history of other malignant neoplasm of bronchus and lung; Z90.2 Acquired absence of lung [part of]; I10 Essential (primary) hypertension; G40.909 Epilepsy, unspecified, not intractable, without status epilepticus; J44.9 Chronic obstructive pulmonary disease, unspecified; F43.10 Post-traumatic stress disorder, unspecified
CPT/HCPCS: 72100; 72170; 99283

== ENCOUNTER 2018-05-03 13:52 | Emergency (ER) | payer OTHER ==
[2018-05-03] MEDS ORDERED: KETOROLAC 30 MG/ML INJ ONE (15:01)
[2018-05-03 15:22] LABS: Absolute Lymphocytes (CBC) 0.7 K/uL (0.7-4.9); Absolute Monocytes 0.9 K/uL (0.1-1.3); Absolute Neutrophil 5.8 K/uL (1.8-8.0); Basophils % 0.3 % (0-1.3); Eosinophils % 2.7 % (0-4.4); Hematocrit 44.6 % (39.6-49.0); Lymphocytes % 9.3 % (15.3-44.8); MPV 7.9 fL (7.6-11.3); Monocytes % 11.6 % (3.3-12.3)
--- NOTE | 2018-05-03 15:22 | RAD REPORT ---
EXAM DESCRIPTION: RAD - Chest Single View - 05/03/2018 3:16 pm CLINICAL HISTORY: CHEST PAIN Chest pain. COMPARISON: Chest Single View dated 01/31/2018; Chest Pa And Lat (2 Views) dated 01/06/2018; Abdomen A cute Series dated 11/01/2017; Chest Single View dated 10/25/2017 FINDINGS: Portable technique limits examination quality. Emphysematous changes are present throughout the lungs. No focal infiltrate detected. The heart is no rmal in size. No displaced fractures.
[2018-05-03 15:23] LABS: Protime INR 1.04
[2018-05-03 15:37] LABS: ALT/SGPT 30 U/L (12-78); AST/SGOT 22 U/L (15-37); Albumin 3.6 g/dL (3.4-5.0); Alkaline Phosphatase 183 U/L (45-117); BUN Blood Urea Nitrogen 18 mg/dL (7-18); Bicarbonate 23 mmol/L (21-32); Bilirubin Direct < 0.1 mg/dL (0-0.2); Bilirubin Total 0.4 mg/dL (0.2-1.0); Glucose Level 80 mg/dL (74-106); Magnesium 2.1 mg/dL (1.8-2.4); NT PRO-BNP 91 pg/mL (<125); Potassium 4.4 mmol/L (3.5-5.1); Protein, Total 8.2 g/dL (6.4-8.2); Sodium Level 139 mmol/L (136-145); Troponin (Emerg Dept Use Only) < 0.02 ng/mL (0.0-0.045)
[2018-05-03] MEDS ORDERED: DIPHENHYDRAMINE 25 MG TAB/CAP ONE (15:50)
[2018-05-03] MEDS ORDERED: MORPHINE 4 MG/ML SYR ONE ×2 (15:51→17:51)
--- NOTE | 2018-05-03 17:15 | EKG ---
Test Date: 2018-05-03 Test Time: 14:00:41 [employer]: BAKARI MEASUREMENT RESULTS: Intervals: Rate: 81 [place]: 148 QRSD: 88 QT: 374 QTc: 434 [place]: P: 35 [place]: 148 QRS: 83 T: 59 INTERPRETIVE STATEMENTS: Normal sinus rhythm Normal ECG Compared to ECG 01/31/2018 17:55:46 No significant changes Electronically Signed On 05-03-18 17:15:08 THERMAL CUTTING MACHINE OPERATOR by Joselito Felix
--- NOTE | 2018-05-03 18:21 | EDPHYS ---
Physician Documentation [facility] Name: Tino Amin Jr Age: 52 yrs Sex: Male : 1965 Arrival Date: 05/03/2018 Time: 13:53 Bed 18 Private MD: Yonathan [facility] ED Physician Steve Hobson HPI: 05/03 14:48 This 52 yrs old Male presents to ER via Ambulatory with complaints of Chest jmm Pain > 30 y/o. 14:48 The patient or guardian reports chest pain that is located primarily in the substernal jmm area. Onset: gradually, 2 day(s) ago. The pain does not radiate. The chest pain is described as sharp, stabbing. Duration: The patient or guardian reports a single episode, that is still ongoing. Modifying factors: The symptoms are alleviated by nothing. the symptoms are aggravated by nothing. This is a 52 year old male with a history of chronic pain, COPD, emphysema, HTN, PTSD, that presents to the ED with complaints of worsening chronic pain along with 2 days of substernal chest pain described as stabbing. Patient smokes tobacco. . Historical: - Allergies: 14:16 No Known Allergies; ph - Home Meds: 14:16 diazepam Oral [Active]; [place]aw 10-325 mg Oral tab 1 tab every 4 hours [Active]; Seroquel ph 600 mg Oral 1 tab nightly [Active]; - PMHx: 14:16 Chronic pain; COPD; Emphysema; Hypertension; PTSD; Seizures; ph - PSHx: 14:16 lumbar fusion; cervical fusion; dorsal column stimulator implant; Appendectomy; right ph lower lobe lobectomy; right great toe; collarbone; Cholecystectomy; - Immunization history:: Adult Immunizations up to date. - Social history:: Smoking status: unknown. ROS: 14:48 Constitutional: Negative for fever, chills, and weight loss. jmm 14:48 Cardiovascular: Positive for chest pain. 14:48 Respiratory: Negative for shortness of breath. 14:48 Neuro: Positive for headache. 14:48 All other systems are negative. Exam: 14:48 Head/Face: atraumatic. Eyes: EOMI, no conjunctival erythema appreciated ENT: Moist jmm Mucus Membranes Neck: Trachea midline, Supple Chest/axilla: Normal chest wall appearance and motion. Cardiovascular: Regular rate and rhythm. No edema appreciated Respiratory: Normal respirations, no respiratory distress appreciated Abdomen/GI: Non distended, soft Back: Normal ROM Skin: General appearance color normal MS/ Extremity: Moves all extremities, no obvious deformities appreciated, no edema noted to the lower extremities Neuro: Awake and alert, normal gait Psych: Behavior is normal, Mood is normal, Patient is cooperative and pleasant 14:48 Constitutional: The patient appears in no acute distress, alert, awake. Vital Signs: 14:13 BP 121 / 95; Pulse 82; Resp 18; Temp 98.7(TE); Pulse Ox 98% on R/A; Weight 81.65 kg; ph Height 6 ft. 1 in. (185.42 cm); Pain 10/10; 15:29 BP 102 / 73; Pulse 74; Resp 18; Pulse Ox 99% on R/A; Pain 10/10; em 16:21 BP 115 / 84; Pulse 75; Resp 16; Pulse Ox 95% on R/A; dh3 18:11 BP 118 / 79; Pulse 69; Resp 18; Pulse Ox 99% on R/A; Pain 6/10; em 14:13 Body Mass Index 23.75 (81.65 kg, 185.42 cm) ph MDM: 14:47 Patient medically screened. [facility] 18:00 HEART Score: History: Slightly Suspicious (0), ECG: Significant ST-deviation (2), Age: [facility] > 45 and < 65 years (1), Risk Factors: 1 or 2 risk factors (1), Troponin: < or = 1 x Normal Limit (0). Data reviewed: vital signs, nurses notes, lab test result(s), radiologic studies, plain films. 18:00 ED course: Patient's symptoms have improved in the emergency department. On [facility] reevaluation I discussed results with the patient whom then mentioned he had complaints of dizziness. I discussed with the patient for need for further evaluation. Patient was made aware of the risks of leaving the ED prior to full evaluation for dizziness. Patient understood. Heart score indicates low likelihood of major cardiac event. patient advised of the need to follow up with PCP or cardiology for further evaluation. patient given strict return precautions. patient understood and agrees with the plan of care. . 05/03 14:47 Order name: Basic Metabolic Panel; Complete Time: 15:38 [facility] 05/03 14:47 Order name: CBC with Diff; Complete Time: 15:33 [facility] 05/03 14:47 Order name: LFT's; Complete Time: 15:38 [facility] 05/03 14:47 Order name: Magnesium; Complete Time: 15:38 [facility] 05/03 14:47 Order name: NT PRO-BNP; Complete Time: 15:38 [facility] 05/03 14:47 Order name: PT-INR; Complete Time: 15:33 [facility] 05/03 14:47 Order name: Troponin (emerg Dept Use Only); Complete Time: 15:38 [facility] 05/03 14:47 Order name: XRAY Chest (1 view); Complete Time: 15:33 [facility] 05/03 14:47 Order name: EKG; Complete Time: 14:49 [facility] 05/03 17:12 Order name: Troponin (emerg Dept Use Only); Complete Time: 17:52 [facility] 05/03 14:47 Order name: Cardiac monitoring; Complete Time: 14:50 [facility] 05/03 14:47 Order name: EKG - Nurse/Tech; Complete Time: 14:51 [facility] 05/03 14:47 Order name: IV Saline Lock; Complete Time: 14:51 [facility] 05/03 14:47 Order name: Labs collected and sent; Complete Time: 14:51 [facility] 05/03 14:47 Order name: O2 Per Protocol; Complete Time: 14:51 [facility] 05/03 14:47 Order name: O2 Sat Monitoring; Complete Time: 14:51 [facility] 05/03 17:48 Order name: EKG Electrocardiogram EDMS Administered Medications: 15:05 Drug: Ketorolac 15 mg Route: IVP; Site: right antecubital; ss 15:26 Follow up: Response: No adverse reaction; Pain is unchanged, physician notified em 15:45 Drug: diphenhydrAMINE 25 mg Route: PO; em 17:11 Follow up: Response: No adverse reaction em 15:50 Drug: morphine 4 mg Route: IVP; Site: right forearm; ss 17:11 Follow up: Response: No adverse reaction; Pain is decreased em 17:52 Drug: morphine 4 mg Route: IVP; Site: right forearm; em 18:11 Follow up: Response: No adverse reaction; Pain is decreased em Disposition: 05/04 07:39 Co-signature as Attending Physician, Steve Hobson MD I agree with the assessment and kdr plan of care. Disposition: 05/03/18 18:21 Discharged to Home. Impression: Chest pain, unspecified, Chronic pain syndrome. - Condition is Stable. - Discharge Instructions: Nonspecific Chest Pain, Chronic Pain. - Medication Reconciliation Form, Thank You Letter, Antibiotic Education, Prescription Opioid Use form. - Follow up: Tommy Mcmanus DO; When: 1 - 2 days; Reason: Recheck today's complaints, Continuance of care, Re-evaluation by your physician. Signatures: Dispatcher [employer] EDMS Steve Hobson MD MD kdr Mickail, Joel, PA PA madhum Alexis Gurrola, SPECIAL SERVICES COORDINATOR SPECIAL SERVICES COORDINATOR em Noemi Potter RN RN ss Romy Farah RN RN ph Corrections: (The following items were deleted from the chart) 05/03 18:26 18:21 05/03/2018 18:21 Discharged to Home. Impression: Chest pain, unspecified; Chronic ss pain syndrome. Condition is Stable. Forms are Medication Reconciliation Form, Thank You Letter, Antibiotic Education, Prescription Opioid Use. Follow up: Tommy Mcmanus; When: 1 - 2 days; Reason: Recheck today's complaints, Continuance of care, Re-evaluation by your physician. power
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
--- NOTE | 2018-05-04 05:59 | EKG ---
Test Date: 2018-05-03 Test Time: 17:24:04 General Helper: SARAH BETH MEASUREMENT RESULTS: Intervals: Rate: 76 TX: 170 QRSD: 82 QT: 390 QTc: 438 [place]: P: 77 TX: 170 QRS: 102 T: 71 INTERPRETIVE STATEMENTS: Normal sinus rhythm Rightward axis Borderline ECG Compared to ECG 05/03/2018 14:00:41 Right-axis deviation now present Electronically Signed On 05-04-18 05:58:39 PROCESS MECHANIC by Joselito Felix
--- OUTSIDE RECORDS SUMMARY | 2018-05-05 16:03 | XMS REPORT ---
:1965 [facility] [address] [place] [address] Care Team Providers Name Role Phone BRE [...] race is not provided, and the patient isAfrican-Turkish, multiply by 1.212. If sex is not provided, and thepatient is female, multiply by 0.742. Results for patients <18 years ofage have not been validated by the MDRD study and should be interpretedwith caution.eGFR Result Interpretation:eGFR > or=60 is in the Normal RangeeGFR < 60 may mean kidney diseaseeGFR < 15 may mean kidney failureRanges recommended by the National Kidney Foundation,http://nkdep.nih.go v [id number] 04:50:00 Test Item Value Reference Range Comments [...] THC (test code=THC) POSITIVE Negative CBC with [id number] 03:53:00 Test Item Value Reference Range Comments [...] Lymph Abs (test code=ALYMPH) 1.7 K/cumm 0.5-4.6 Worth Abs (test code=AMONO) 0.7 K/cumm 0.0-1.2 Eos Abs (test code=AEOS) 0.16 K/cumm 0.00-0.74 Baso Abs (test code=ABASO) 0.1 K/cumm 0.00-0.21
--- OUTSIDE RECORDS SUMMARY | 2018-05-05 16:03 | XMS REPORT | Clinical Summary ---
:1965 Author Organization [facility] Address [address] [place] [address] Care Team Providers Name Role Phone Asked, No Pcp Primary Care Provider Unavailable Allergies No Known Allergies Medications Medication Sig Dispensed Refills Start End Status Date Date metFORMIN XR Take 1,000 mg 0 10/02/19 Active (GLUCOPHAGE-XR) 500 by mouth daily. 17 mg 24 hr tablet insulin GLARGINE Inject 20 Units 0 Active (LANTUS) 100 under the skin unit/mL injection nightly. (vial) levETIRAcetam Take 1,000 mg 0 Active (KEPPRA) 1000 MG by mouth 2 tablet (two) times a day. venlafaxine XR Take 150 mg by 0 Active (EFFEXOR-XR) 150 MG mouth daily. 24 hr capsule diazePAM (VALIUM) Take 10 mg by 0 06/16/19 Active 10 MG tablet mouth 3 (three) 18 times a day. QUEtiapine Take 600 mg by 0 06/16/19 Active (SEROquel) 300 MG mouth nightly. 18 tablet traMADol (ULTRAM) Take 50 mg by 0 Active 50 mg tablet mouth every 6 (six) hours as needed for moderate pain. gabapentin Take 800 mg by 2 07/07/19/08/15 Discontinued (NEURONTIN) 800 mg mouth 4 (four) 17 018 tablet times a day. QUEtiapine Take 800 mg by 2 09/28/19 Discontinued (SEROquel) 400 MG mouth nightly. 17 018 tablet Take 2 tablets at bedtime busPIRone (BUSPAR) Take 10 mg by 0 Discontinued 10 MG tablet mouth 3 (three) [...] Overview: Added automatically from request for surgery [id number] Gastrointestinal hemorrhage 02/23/2017 Gastrointestinal hemorrhage with hematemesis 02/23/2017 Overview: Added automatically from request for surgery [id number] Vertigo 12/19/2016 Pneumonia due to infectious organism 12/07/2016 COPD with acute bronchitis 11/25/2016 COPD (chronic obstructive pulmonary disease) 11/09/2016 COPD exacerbation 11/08/2016 Lung mass 11/08/2016 Tobacco dependence 11/08/2016 Resolved Problems Problem Noted Date Resolved Date Leukocytosis 05/14/2017 05/15/2017 Encounters Date Type Specialty Care Team Description 10/08/19 Emergency Emergency Medicine Sarai, Suicidal ideation (Primary Dx ) 18 Osiel Paul MD 09/21/19 Emergency Emergency Medicine [place] Chronic right-sided thoracic back pain (Primary Dx); 18 Cynthia, Narcotic abuse; Karen Drug-seeking behavior MD Joselito 08/09/19 Hospital Radiology Eduard Ingram (bronchogenic carcinoma) 18 Encounter MD Meaghan 07/22/19 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) 18 Leonardo Harding MD (Primary Dx) 07/16/19 Emergency General Internal [place], [...] 07/07/19 DO 18 Karlene Luis MD 05/18/19 Surgery Gastroenterology Venkat Kim ESOPHAGOGASTRODUODENOSCOPY 18 MD Raheel (EGD) with bx 05/18/19 Anesthesia Gastroenterology Jovanna, 18 Event Eleazar Salinas MD 05/12/20 [facility] Internal [facility] Intractable vomiting with nausea, unspecified vomiting type (Primary Dx); 17 - Encounter Medicine MD Edward Pain; 05/19/19 [place], Abdominal pain, unspecified abdominal location; 18 Natalio Summers, Essential hypertension; Type 2 diabetes mellitus with hyperglycemia, with long-term current use of insulin Vu Kiser DO after 05/02/2017 Immunizations Name Dates Previously Given Next Due [...] Assigned at Date Recorded Not on file Job Start Date Occupation Industry Not on file Not on file Not on file Travel History Travel Start Travel End No recent travel history available. Last Filed Vital Signs Vital Sign Reading [...] Maintenance Due Date Last Done Comments DIABETIC RETINAL EYE EXAM 1965 DIABETIC FOOT EXAM 1973 COLON CANCER SCREENING 2013 SHINGLES VACCINES (1 of 2) 2013 INFLUENZA VACCINE 12/14/2017 05/19/2017 Implants Implanted Type Area Handle And Vent Machine Operator Device Shelf Model / Identifier Expiration Serial / Date Lot Stimulator Stimulator Stimulator-10/30/2006 Stimulator Hip Implanted: 10/30/2006 (Quantity not on file) Kit [employer] Air Leak 4ml Strl Progel - [id number] Surgical N/A: N/A [employer] [id number] / Implanted: Qty: 1 on 11/24/2016 by [...] GLUCOSE Routine 07/16/2017 Results for 11:29 AM [employer] this procedure are in the results section. POC GLUCOSE Routine 07/16/2017 Results for 6:52 AM [employer] this procedure are in the results section. SMEAR REVIEW Routine 07/16/2017 Results for 5:13 AM [employer] this procedure are in the results section. ZZESTIMATED GFR Routine 07/16/2017 Results for 5:13 AM [employer] this procedure are in the results section. BASIC METABOLIC PANEL Routine 07/16/2017 Results for 5:13 AM [employer] this procedure are in the results section. HC COMPLETE BLD COUNT W/AUTO Routine 07/16/2017 Results for DIFF 5:13 AM [employer] this procedure are in the results section. KEPPRA (LEVETIRACETAM) LEVEL Routine 07/16/2017 Results for 5:13 AM [employer] this procedure are in the results section. SMEAR REVIEW STAT 07/15/2017 Results for 8:14 PM [employer] this procedure are in the results section. ZZESTIMATED GFR STAT 07/15/2017 Results for 8:14 PM [employer] this procedure are in the results section. HEPATIC FUNCTION PANEL STAT 07/15/2017 Results for 8:14 PM [employer] this procedure are in the results section. BASIC METABOLIC PANEL STAT 07/15/2017 Results for 8:14 PM [employer] this procedure are in the results section. HC COMPLETE BLD COUNT W/AUTO STAT 07/15/2017 Results for DIFF 8:14 PM [employer] this procedure are in the results section. CT LUMBAR SPINE WO CONTRAST STAT 07/15/2017 Results for 5:12 PM [employer] this procedure are in the results section. ZZESTIMATED GFR STAT 07/15/2017 Results for 12:29 PM [employer] this procedure are in the results section. LIPASE LEVEL STAT 07/15/2017 Results for 12:29 PM [employer] this procedure are in the results section. COMPREHENSIVE METABOLIC PANEL STAT 07/15/2017 Results for 12:29 PM [employer] this procedure are in the results section. PARTIAL THROMBOPLASTIN TIME STAT 07/15/2017 Results for (PTT) 12:29 PM [employer] this procedure are in the results section. PROTHROMBIN TIME WITH INR STAT 07/15/2017 Results for 12:29 PM [employer] this procedure are in the results section. HC COMPLETE BLD COUNT W/AUTO STAT 07/15/2017 Results for DIFF 12:29 PM [employer] this procedure are in the results section. POC GLUCOSE Routine 07/07/2017 Results for 11:06 AM [employer] this procedure are in the results section. POC GLUCOSE Routine 07/07/2017 Results for 6:41 AM [employer] this procedure are in the results section. ZZESTIMATED GFR Routine 07/07/2017 Results for 4:58 AM [employer] this procedure are in the results section. BASIC METABOLIC PANEL Routine 07/07/2017 Results for 4:58 AM [employer] this procedure are in the results section. HC COMPLETE BLD COUNT W/AUTO Routine 07/07/2017 Results for DIFF 4:58 AM [employer] this procedure are in the results section. POC GLUCOSE Routine 07/06/2017 Results for 9:12 PM [employer] this procedure are in the results section. ZZESTIMATED GFR STAT 07/06/2017 Results for 6:29 PM [employer] this procedure are in the results section. CREATINE KINASE, TOTAL (CPK) STAT 07/06/2017 Results for 6:29 PM [employer] this procedure are in the results section. HC COMPLETE BLD COUNT W/AUTO STAT 07/06/2017 Results for DIFF 6:29 PM [employer] this procedure are in the results section. BASIC METABOLIC PANEL STAT 07/06/2017 Results for 6:29 PM [employer] this procedure are in the results section. CT HEAD WO CONTRAST STAT 07/06/2017 Results for 6:19 PM [employer] this procedure are in the results section. ECG 12-LEAD STAT 07/06/2017 Results for 6:18 PM [employer] this procedure are in the results section. ECG ED PRELIMINARY Routine 07/06/2017 Results for INTERPRETATION 5:38 PM [employer] this procedure are in the results section. POC GLUCOSE Routine 05/19/2017 Results for 10:56 AM [employer] this procedure are in the results section. POC GLUCOSE Routine 05/19/2017 Results for 7:34 AM [employer] this procedure are in the results section. POC GLUCOSE Routine 05/18/2017 Results for 8:37 PM [employer] this procedure are in the results section. POC GLUCOSE Routine 05/18/2017 Results for 4:48 PM [employer] this procedure are in the results section. SURGICAL PATHOLOGY REQUEST Routine 05/18/2017 Results for 1:28 PM [employer] this procedure are in the results section. ESOPHAGOGASTRODUODENOSCOPY (EGD) 05/18/2017 Abdominal pain, 12:15 PM [employer] unspecified abdominal location Intractable vomiting with nausea, unspecified vomiting type POC GLUCOSE Routine 05/18/2017 Results for 6:56 AM [employer] this procedure are in the results section. ZZESTIMATED GFR Routine 05/18/2017 Results for 6:03 AM [employer] this procedure are in the results section. BASIC METABOLIC PANEL Routine 05/18/2017 Results for 6:03 AM [employer] this procedure are in the results section. POC GLUCOSE Routine 05/17/2017 Results for 9:04 PM [employer] this procedure are in the results section. POC GLUCOSE Routine 05/17/2017 Results for 3:39 PM [employer] this procedure are in the results section. POC GLUCOSE Routine 05/17/2017 Results for 11:07 AM [employer] this procedure are in the results section. POC GLUCOSE Routine 05/17/2017 Results for 7:12 AM [employer] this procedure are in the results section. ZZESTIMATED GFR Routine 05/17/2017 Results for 5:59 AM [employer] this procedure are in the results section. MAGNESIUM LEVEL Routine 05/17/2017 Results for 5:59 AM [employer] this procedure are in the results section. COMPREHENSIVE METABOLIC PANEL Routine 05/17/2017 Results for 5:59 AM [employer] this procedure are in the results section. CBC WITH PLATELET AND Routine 05/17/2017 Results for DIFFERENTIAL 5:59 AM [employer] this procedure are in the results section. POC GLUCOSE Routine 05/16/2017 Results for 7:54 PM [employer] this procedure are in the results section. ECG ED PRELIMINARY Routine 05/16/2017 Results for INTERPRETATION 5:59 PM [employer] this procedure are in the results section. POC GLUCOSE Routine 05/16/2017 Results for 3:55 PM [employer] this procedure are in the results section. POC GLUCOSE Routine 05/16/2017 Results for 11:54 AM [employer] this procedure are in the results section. POC GLUCOSE Routine 05/16/2017 Results for 6:26 AM [employer] this procedure are in the results section. ZZESTIMATED GFR Routine 05/16/2017 Results for 6:23 AM [employer] this procedure are in the results section. COMPREHENSIVE METABOLIC PANEL Routine 05/16/2017 Results for 6:23 AM [employer] this procedure are in the results section. HC COMPLETE BLD COUNT W/AUTO Routine 05/16/2017 Results for DIFF 6:23 AM [employer] this procedure are in the results section. POC GLUCOSE Routine 05/15/2017 Results for 8:54 PM [employer] this procedure are in the results section. POC GLUCOSE Routine 05/15/2017 Results for 4:46 PM [employer] this procedure are in the results section. POC GLUCOSE Routine 05/15/2017 Results for 11:33 AM [employer] this procedure are in the results section. ZZESTIMATED GFR Routine 05/15/2017 Results for 7:05 AM [employer] this procedure are in the results section. COMPREHENSIVE METABOLIC PANEL Routine 05/15/2017 Results for 7:05 AM [employer] this procedure are in the results section. HC COMPLETE BLD COUNT W/AUTO Routine 05/15/2017 Results for DIFF 7:05 AM [employer] this procedure are in the results section. POC GLUCOSE Routine 05/15/2017 Results for 6:23 AM [employer] this procedure are in the results section. POC GLUCOSE Routine 05/14/2017 Results for 8:30 PM [employer] this procedure are in the results section. XR CHEST 2 VW Routine 05/14/2017 Results for 7:47 PM [employer] this procedure are in the results section. ZZESTIMATED GFR Routine 05/14/2017 Results for 7:07 PM [employer] this procedure are in the results section. COMPREHENSIVE METABOLIC PANEL Routine 05/14/2017 Results for 7:07 PM [employer] this procedure are in the results section. HC COMPLETE BLD COUNT W/AUTO Routine 05/14/2017 Results for DIFF 7:07 PM [employer] this procedure are in the results section. POC GLUCOSE Routine 05/14/2017 Results for 3:58 PM [employer] this procedure are in the results section. POC GLUCOSE Routine 05/14/2017 Results for 12:15 PM [employer] this procedure are in the results section. POC GLUCOSE Routine 05/14/2017 Results for 7:03 AM [employer]AGE ME[employer]IC this procedure are in the results section. POC GLUCOSE Routine 05/13/2017 Results for 8:17 PM [employer] this procedure are in the results section. POC GLUCOSE Routine 05/13/2017 Results for 3:34 PM [employer] this procedure are in the results section. POC GLUCOSE Routine 05/13/2017 Results for 10:52 AM [employer] this procedure are in the results section. URINALYSIS SCREEN AND STAT 05/13/2017 Results for MICROSCOPY, WITH REFLEX TO 8:31 AM [employer] this procedure CULTURE are in the results section. URINE DRUGS OF ABUSE SCREEN STAT 05/13/2017 Results for 8:31 AM [employer] this procedure are in the results section. URINE CULTURE STAT 05/13/2017 Results for 8:31 AM [employer] this procedure are in the results section. POC GLUCOSE Routine 05/13/2017 Results for 7:02 AM [employer] ME[employer] this procedure are in the results section. ZZESTIMATED GFR Routine 05/13/2017 Results for 5:34 AM [employer]AGE [employer] this procedure are in the results section. BASIC METABOLIC PANEL Routine 05/13/2017 Results for 5:34 AM [employer] this procedure are in the results section. PROTHROMBIN TIME WITH INR Routine 05/13/2017 Results for 5:34 AM [employer] ME[employer] this procedure are in the results section. HC COMPLETE BLD COUNT W/AUTO Routine 05/13/2017 Results for DIFF 5:34 AM [employer] this procedure are in the results section. POC GLUCOSE Routine 05/13/2017 Results for 12:44 AM [employer] this procedure are in the results section. TROPONIN Timed 05/12/2017 Results for 7:33 PM [employer] this procedure are in the results section. CT ABDOMEN PELVIS WO CONTRAST STAT 05/12/2017 Results for 4:23 PM [employer] this procedure are in the results section. INFLUENZA ANTIGEN Routine 05/12/2017 Results for 3:58 PM [employer] this procedure are in the results section. ECG 12-LEAD STAT 05/12/2017 Results for 3:48 PM [employer] this procedure are in the results section. B NATRIURETIC PEPTIDE STAT 05/12/2017 Results for 3:45 PM [employer] this procedure are in the results section. TROPONIN STAT 05/12/2017 Results for 3:45 PM [employer] this procedure are in the results section. ALCOHOL LEVEL, BLOOD STAT 05/12/2017 Results for 3:45 PM [employer] this procedure are in the results section. ZZESTIMATED GFR STAT 05/12/2017 Results for 3:45 PM [employer] this procedure are in the results section. LIPASE LEVEL STAT 05/12/2017 Results for 3:45 PM [employer] this procedure are in the results section. COMPREHENSIVE METABOLIC PANEL STAT 05/12/2017 Results for 3:45 PM [employer]AGE ME[employer]IC this procedure are in the results section. HC COMPLETE BLD COUNT W/AUTO STAT 05/12/2017 Results for DIFF 3:45 PM [employer]AGE [employer] this procedure are in the results section. after 05/02/2017 Results Urinalysis screen and microscopy, with reflex to culture (10/07/2017 9:16 AM CDT)Only the most recent of2 resultswithin the time period is included. Specimen site Clean catch [facility] DEPARTMENT OF PATHOLOGY AND GENOMIC MEDICINE Color, UA Yellow [facility] DEPARTMENT OF PATHOLOGY AND GENOMIC MEDICINE Appearance, UA Clear [facility] DEPARTMENT OF PATHOLOGY AND GENOMIC MEDICINE Specific gravity, UA 1.011 1.001 - 1.035 [facility] DEPARTMENT OF PATHOLOGY AND GENOMIC MEDICINE pH, UA 5.0 5.0 - 8.5 [facility] DEPARTMENT OF PATHOLOGY AND GENOMIC MEDICINE Protein, UA Negative Negative [facility] DEPARTMENT OF PATHOLOGY AND GENOMIC MEDICINE Glucose, UA Negative Negative [facility] DEPARTMENT OF PATHOLOGY AND GENOMIC MEDICINE Ketones, UA Negative Negative [facility] DEPARTMENT OF PATHOLOGY AND GENOMIC MEDICINE Bilirubin, UA Negative Negative [facility] DEPARTMENT OF PATHOLOGY AND GENOMIC MEDICINE Blood, UA Negative Negative [facility] DEPARTMENT OF PATHOLOGY AND GENOMIC MEDICINE Nitrite, UA Negative Negative [facility] DEPARTMENT OF PATHOLOGY AND GENOMIC MEDICINE Urobilinogen, UA 2.0 (A) <2.0 [facility] DEPARTMENT OF PATHOLOGY AND GENOMIC MEDICINE Leukocyte esterase, UA Negative Negative [facility] DEPARTMENT OF PATHOLOGY AND GENOMIC MEDICINE Epithelial cells, UA Few /HPF [facility] DEPARTMENT OF PATHOLOGY AND GENOMIC MEDICINE WBC, UA 1 0 - 1 /HPF [facility] DEPARTMENT OF PATHOLOGY AND GENOMIC MEDICINE RBC, UA <1 0 - 5 /HPF [facility] DEPARTMENT OF PATHOLOGY AND GENOMIC MEDICINE Bacteria, UA None seen None seen [facility] DEPARTMENT OF PATHOLOGY AND GENOMIC MEDICINE Yeast, UA None seen [facility] DEPARTMENT OF PATHOLOGY AND GENOMIC MEDICINE Yeast with pseudohyphae, UA None seen [facility] DEPARTMENT OF PATHOLOGY AND GENOMIC MEDICINE Specimen Urine Performing Organization Address City/State/Zipcode Phone Number [facility] DEPARTMENT OF PATHOLOGY AND [address] [place], [place] [id number] [place] [address] Urine drugs of abuse screen (10/07/2017 9:16 AM CDT)Only the most recent of2 resultswithin the time period is included. Amphetamine screen, urine NEG [facility] DEPARTMENT OF PATHOLOGY AND GENOMIC MEDICINE Barbiturate screen, urine NEG [facility] DEPARTMENT OF PATHOLOGY AND GENOMIC MEDICINE Benzodiazepine screen, POS [facility] DEPARTMENT OF urine PATHOLOGY AND GENOMIC MEDICINE Cocaine screen, urine NEG [facility] DEPARTMENT OF PATHOLOGY AND GENOMIC MEDICINE Methadone screen, urine NEG [facility] DEPARTMENT OF PATHOLOGY AND GENOMIC MEDICINE Opiates screen, urine POS [facility] DEPARTMENT OF PATHOLOGY AND GENOMIC MEDICINE Phencyclidine screen, urine NEG [facility] DEPARTMENT OF PATHOLOGY AND GENOMIC MEDICINE Cannabinoid screen, urine POS [facility] DEPARTMENT OF Comment: PATHOLOGY AND GENOMIC Drug screen minimum concentration of detectability MEDICINE Zcqecordjmrg7961 ng/mL Oevbijdmfkryicme0005 ng/mL Barbiturates 300 ng/mL Uympuehqprgporu309 ng/mL Vnxvpvq650 ng/mL Zavyygofc767 ng/mL Otndcni600 ng/mL Phencyclidine 25 ng/mL Qadlfdpxouxb84 ng/mL Cryymnywjw2446 ng/mL Negative test results indicates presumptive evidence of lack of clinically significant drug concentration in this urine specimen. Positive test results are presumptive evidence of clinically significant drug concentration in this urine specimen. Testing performed for medical purposes only. Specimen Urine Performing Organization Address City/State/Zipcode Phone Number [facility] DEPARTMENT OF PATHOLOGY AND [address] [place] [address] [facility] Urine culture (10/07/2017 9:16 AM CDT)Only the most recent of2 resultswithin the time period is included. Urine culture SEE COMMENTComment: Bacteriuria [facility] DEPARTMENT OF PATHOLOGY screen negative. AND GENOMIC MEDICINE Specimen Urine Performing Organization Address City/State/Zipcode Phone Number [facility] DEPARTMENT OF PATHOLOGY AND [address] [place] [address] [employer] Estimated GFR (10/07/2017 9:02 AM CDT)Only the most recent of14 resultswithin the time period is included. GFR Non Af Amer 49 (A) mL/min/1.73 m2 [facility] DEPARTMENT OF PATHOLOGY AND GENOMIC MEDICINE GFR Af Amer 59 (A) mL/min/1.73 m2 [facility] DEPARTMENT OF Comment: PATHOLOGY AND GENOMIC Chronic [...] specimen Performing Organization Address City/State/Zipcode Phone Number [facility] PATHOLOGY AND [place] [address] [employer] CBC with platelet and differential (10/07/2017 9:02 AM CDT)Only the most recent of13 resultswithin the time period is included. WBC 9.1 4.2 - 11.0 k/uL [facility] DEPARTMENT OF PATHOLOGY AND GENOMIC MEDICINE RBC 4.57 4.04 - 5.86 m/uL [facility] DEPARTMENT OF PATHOLOGY AND GENOMIC MEDICINE HGB 14.7 13.0 - 17.3 g/dL [facility] DEPARTMENT OF PATHOLOGY AND GENOMIC MEDICINE HCT 44.6 34.0 - 45.0 % [facility] DEPARTMENT OF PATHOLOGY AND GENOMIC MEDICINE MCV 97.6 80.0 - 98.0 fL [facility] DEPARTMENT OF PATHOLOGY AND GENOMIC MEDICINE MCH 32.2 27.0 - 34.0 pg [facility] DEPARTMENT OF PATHOLOGY AND GENOMIC MEDICINE MCHC 33.0 31.5 - 36.5 g/dL [facility] DEPARTMENT OF PATHOLOGY AND GENOMIC MEDICINE RDW - SD 55.1 (H) 37.0 - 51.0 fL [facility] DEPARTMENT OF PATHOLOGY AND GENOMIC MEDICINE MPV 10.1 7.4 - 10.4 fL [facility] DEPARTMENT OF PATHOLOGY AND GENOMIC MEDICINE Platelet count 124 (L) 150 - 400 k/uL [facility] DEPARTMENT OF PATHOLOGY AND GENOMIC MEDICINE Nucleated RBC 0.00 /100 WBC [facility] DEPARTMENT OF PATHOLOGY AND GENOMIC MEDICINE Neutrophils 80.4 (H) 36.0 - 66.0 % [facility] DEPARTMENT OF PATHOLOGY AND GENOMIC MEDICINE Lymphocytes 11.6 (L) 24.0 - 44.0 % [facility] DEPARTMENT OF PATHOLOGY AND GENOMIC MEDICINE Monocytes 5.8 0.0 - 6.0 % [facility] DEPARTMENT OF PATHOLOGY AND GENOMIC MEDICINE Eosinophils 1.3 0.0 - 6.0 % [facility] DEPARTMENT OF PATHOLOGY AND GENOMIC MEDICINE Basophils 0.6 0.0 - 1.2 % [facility] DEPARTMENT OF PATHOLOGY AND GENOMIC MEDICINE Immature granulocytes 0.3 0.0 - 1.0 % [facility] DEPARTMENT OF PATHOLOGY AND GENOMIC MEDICINE Specimen Blood Performing Organization Address City/[facility] Phone Number [facility] DEPARTMENT OF PATHOLOGY AND [address] [place] [address] Thyroid stimulating hormone (10/07/2017 9:02 AM CDT) TSH 2.60 0.38 - 4.82 uIU/mL [facility] DEPARTMENT OF PATHOLOGY AND GENOMIC MEDICINE Specimen Plasma specimen Performing Organization Address City/[facility] Phone Number [facility] DEPARTMENT OF PATHOLOGY AND [address] [place] [address] T4, free (10/07/2017 9:02 AM CDT) T4, free 1.00 0.70 - 1.61 ng/dL [facility] DEPARTMENT OF PATHOLOGY AND GENOMIC MEDICINE Specimen Plasma specimen Performing Organization Address City/[facility] Phone Number [facility] DEPARTMENT OF PATHOLOGY AND [address] [place] [address] Alcohol level, blood (10/07/2017 9:02 AM CDT)Only the most recent of2 resultswithin the time period is included. Alcohol None Detected mg/dL [facility] DEPARTMENT OF PATHOLOGY Comment: AND GENOMIC MEDICINE NormalNone Detected Legal Intoxication in [place] 80 mg/dL (0.08%) Toxic Concentration 200 mg/dL (0.2%) Potentially Fatal 350-500 mg/dL (0.35%-0.5%) Alcohol percent None Detected % [facility] DEPARTMENT OF PATHOLOGY AND GENOMIC MEDICINE Specimen Blood Performing Organization Address City/[facility]/Zipcode Phone Number [facility] DEPARTMENT OF PATHOLOGY AND [address] [place], [place] [phone] [place] [address] Acetaminophen level (10/07/2017 9:02 AM CDT) Acetaminophen level <2.0 (L) 10.0 - 20.0 ug/mL [facility] DEPARTMENT OF Comment: PATHOLOGY AND GENOMIC Therapeutic 10-30 ug/mL MEDICINE Possible Toxicity 150-200 ug/mL Probable Toxicity >200 ug/mL Specimen Blood Performing Organization Address City/State/Zipcode Phone Number [facility] DEPARTMENT OF PATHOLOGY AND [address] [place], [place] [phone] [place] [address] Salicylate level (10/07/2017 9:02 AM CDT) Salicylate 7.0 mg/dL [facility] DEPARTMENT OF PATHOLOGY AND GENOMIC Comment: MEDICINE Therapeutic Range: 5 - 30 mg/dL Specimen Blood Performing Organization Address City/[facility] Center[facility] Phone Number [facility] DEPARTMENT OF PATHOLOGY AND [address] [place], [place] [phone] [place] [address] Comprehensive metabolic panel (10/07/2017 9:02 AM CDT)Only the most recent of8 resultswithin the time period is included. Sodium 140 135 - 150 mEq/L [facility] DEPARTMENT OF PATHOLOGY AND GENOMIC MEDICINE Potassium 3.8 3.5 - 5.0 mEq/L [facility] DEPARTMENT OF PATHOLOGY AND GENOMIC MEDICINE Chloride 109 100 - 109 mEq/L [facility] DEPARTMENT OF PATHOLOGY AND GENOMIC MEDICINE CO2 24 24 - 32 mmol/L [facility] DEPARTMENT OF PATHOLOGY AND GENOMIC MEDICINE Anion gap 7@ANIO 7 - 15 mEq/L [facility] DEPARTMENT OF PATHOLOGY AND GENOMIC MEDICINE BUN 14 7 - 18 mg/dL [facility] DEPARTMENT OF PATHOLOGY AND GENOMIC MEDICINE Creatinine 1.5 0.8 - 1.5 mg/dL [facility] DEPARTMENT OF PATHOLOGY AND GENOMIC MEDICINE Glucose 103 (H) 65 - 100 mg/dL [facility] DEPARTMENT OF PATHOLOGY AND GENOMIC MEDICINE Calcium 8.6 8.6 - 10.7 mg/dL [facility] DEPARTMENT OF PATHOLOGY AND GENOMIC MEDICINE Protein 7.9 6.3 - 8.2 g/dL [facility] DEPARTMENT OF PATHOLOGY AND GENOMIC MEDICINE Albumin 3.4 3.2 - 5.0 g/dL [facility] DEPARTMENT OF PATHOLOGY AND GENOMIC MEDICINE A/G ratio 0.8 0.7 - 3.8 [facility] DEPARTMENT OF PATHOLOGY AND GENOMIC MEDICINE Alkaline phosphatase 153 (H) 30 - 120 U/L [facility] DEPARTMENT OF PATHOLOGY AND GENOMIC MEDICINE AST 21 15 - 37 U/L [facility] DEPARTMENT OF PATHOLOGY AND GENOMIC MEDICINE ALT 17 (L) 30 - 65 U/L [facility] DEPARTMENT OF PATHOLOGY AND GENOMIC MEDICINE Total bilirubin 0.2 0.2 - 1.2 mg/dL [facility] DEPARTMENT OF PATHOLOGY AND GENOMIC MEDICINE Specimen Plasma specimen Performing Organization Address City/State/Zipcode Phone Number [facility] DEPARTMENT OF PATHOLOGY AND [facility] [place] [address] [facility] CT Abdomen Pelvis Wo Contrast (09/20/2017 3:27 AM CDT)Only the most recent of2 resultswithin the time [...] small paraesophageal varices, compatible with portal hypertension. [facility]-[id number] Procedure Note Hm Interface, Radiology Results Incoming [...] small paraesophageal varices, compatible with portal hypertension. [facility]-[id number] Performing Organization Address City/State/Zipcode Phone Number [facility] [address] [place] [address] Smear review (09/20/2017 3:13 AM CDT)Only the most recent of3 resultswithin the time period is included. Smear review Smear Reviewed [facility] DEPARTMENT OF PATHOLOGY AND GENOMIC MEDICINE Performing Organization Address City/[facility] Centerbcode Phone Number [facility] DEPARTMENT OF PATHOLOGY AND [address] [place] [address] [employer] MEDICINE Prothrombin time with INR (09/20/2017 3:13 AM CDT)Only the most recent of3 resultswithin the time period is included. Prothrombin time 14.5 12.0 - 15.0 sec [facility] DEPARTMENT OF PATHOLOGY AND GENOMIC MEDICINE INR 1.11 0.92 - 1.12 [facility] DEPARTMENT OF Comment: PATHOLOGY AND GENOMIC For patients on anticoagulant therapy, reference ranges below: MEDICINE Indication:INR Value Treatment of Venous Thrombosis, 2.0-3.0 pulmonary emboli, or prophylaxis of a venous thrombosis, or systemic emboli. High dose, high risk patients 3.0-4.5 with mechanical valves. NOTE:INR values over 3.0 are sometimes associated with gastrointestinal hemorrhage, especially values over 4.0. Specimen Blood Performing Organization Address City/[facility] Centerbcode Phone Number [facility] DEPARTMENT OF PATHOLOGY AND [address] [place] [address] [employer] Lipase level (09/20/2017 3:13 AM CDT)Only the most recent of3 resultswithin the time period is included. Lipase 129 65 - 230 U/L [facility] DEPARTMENT OF PATHOLOGY AND GENOMIC MEDICINE Specimen Plasma specimen Performing Organization Address City/[facility]/Zipcode Phone Number [facility] DEPARTMENT OF PATHOLOGY AND [facility] [place] [address] GENOMIC MEDICINE ECG 12 lead (09/20/2017 2:43 AM CDT)Only the most recent of3 resultswithin the time period is included. Ventricular rate 77 [facility] Atrial rate 77 [facility] MT interval 144 [facility] QRSD interval 94 [facility] QT interval 418 [facility] QTC interval 473 [facility] P axis 1 32 [facility] QRS axis 1 94 [facility] T wave axis 85 [facility] EKG impression Normal sinus rhythm-Rightward axis-Borderline [facility] MUSE ECG-In automated comparison with ECG of 06-JUL-2017 18:18,-No significant change was found- Performing Organization Address City/[facility] Centerbcode Phone Number [facility] MUSE [address] [place] [address] ECG ED Preliminary Interpretation - NOT AN ORDER (09/20/2017 2:07 AM CDT)Only the most recent of3 resultswithin the time period is included. Narrative Performed At Karen Brantley MD 09/21/20173:47 AM ECG ED Preliminary Interpretation - Not an Order Performed by: KAREN BRANTLEY Authorized by: KAREN BRANTLEY ECG reviewed by ED Physician in the absence of a stained glass installer: yes Previous ECG: Previous ECG:Compared to current Comparison ECG info:06/16/17 Similarity:No change Interpretation: Interpretation: normal Rate: ECG rate:77 ECG rate assessment: normal Rhythm: Rhythm: sinus rhythm QRS: QRS axis:Right Comments: Normal sinus rhythm. Right axis deviation. PET/CT Skull Base To Mid Thigh (08/08/2017 1:45 PM CDT) Narrative Performed At [facility] MID THIGH Date and place of service: 08/08/2017 10:00 AM at [facility] DOSE: 11.8 mCi of 54-Ouodgh-8-Deoxyglucose (FDG) was injected intravenously into left wrist done infiltration at a serum glucose level of90 mg/dl. TECHNIQUE: PROCEDURE: Following injection of 33-Ixzwam-0-Deoxyglucose (FDG) and a standard uptake., The patient was imaged on a [employer] whole body PET CT scanner. Multiple 6 [...] dose COMPARISON: October 26, 2016 done at [facility]. 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 Status post right lower lobectomy November,. No history of recent chemotherapy or radiation therapy. For restaging. FINDINGS: Software fusion was performed of the nuclear medicineFD PET scan with the CAT scan from [...] arterial hypertension as before. Cirrhosis as before. [facility]-[id number] Procedure Note Hm Interface, Radiology Results Incoming - 08/08/2017 4:30 PM CDT EXAMINATION: PET CT SKULL BASE TO MID THIGH Date and place of service: 08/08/2017 10:00 AM at [facility] DOSE: 11.8 mCi of 31-Rrthao-1-Deoxyglucose (FDG) was injected intravenously into left wrist done infiltration at a serum glucose level of 90 mg/dl. TECHNIQUE: PROCEDURE: Following injection of 90-Iszxnl-7-Deoxyglucose (FDG) and a standard uptake., The patient was imaged on a [employer] whole body PET CT scanner. Multiple 6 [...] dose COMPARISON: October 26, 2016 done at [facility]. CLINICAL HISTORY: Bronchogenic carcinoma on [...] arterial hypertension as before. Cirrhosis as before. [facility]-[id number] Performing Organization Address City/State/Zipcode Phone Number [facility] [address] [place] [address] POC glucose (08/08/2017 11:36 AM CDT)Only the most recent of32 resultswithin the time period is included. POC glucose 90 65 - 100 mg/dL [facility] DEPARTMENT OF PATHOLOGY AND Comment: GENOMIC MEDICINE Meter ID: [id number] [employer] Sander: Vu Aponte Performing Organization Address City/State/Zipcode Phone Number [facility] DEPARTMENT OF PATHOLOGY AND [address] [place] [address] GENOMIC MEDICINE Keppra (Levetiracetam) level (07/16/2017 5:13 AM SALVAGE MECHANIC) Levetiracetam 27 12 - 46 ug/mL [employer] [facility] Comment: INTERPRETIVE INFORMATION: Keppra (Levetiracetam) Therapeutic Range:12-46 ug/mL Toxic:Not well Established Pharmacokinetics of levetiracetam are affected by renal function. Adverse effects may include somnolence, weakness, headache and vomiting. Performed by [facility], [address] [place] [id number] [email or web address] ([facility]), Joni Roper MD - Lab. Director Specimen Serum Performing Organization Address City/[facility]/Zipcode Phone Number [facility] [address] [place] [address] Basic metabolic panel (07/16/2017 5:13 AM SALVAGE MECHANIC)Only the most recent of6 resultswithin the time period is included. Sodium 134 (L) 135 - 150 mEq/L [facility] DEPARTMENT OF PATHOLOGY AND GENOMIC MEDICINE Potassium 4.2 3.5 - 5.0 mEq/L [facility] DEPARTMENT OF PATHOLOGY AND GENOMIC MEDICINE Chloride 102 100 - 109 mEq/L [facility] DEPARTMENT OF PATHOLOGY AND GENOMIC MEDICINE CO2 22 (L) 24 - 32 mmol/L [facility] DEPARTMENT OF PATHOLOGY AND GENOMIC MEDICINE Anion gap 10 7 - 15 mEq/L [facility] DEPARTMENT OF Comment: PATHOLOGY AND GENOMIC Starting from August , anion gap calculation MEDICINE no longer incorporates potassium. Please note the change. BUN 17 7 - 18 mg/dL [facility] DEPARTMENT OF PATHOLOGY AND GENOMIC MEDICINE Creatinine 1.2 0.8 - 1.5 mg/dL [facility] DEPARTMENT OF PATHOLOGY AND GENOMIC MEDICINE Glucose 139 (H) 65 - 100 mg/dL [facility] DEPARTMENT OF PATHOLOGY AND GENOMIC MEDICINE Calcium 9.4 8.6 - 10.7 mg/dL [facility] DEPARTMENT OF PATHOLOGY AND GENOMIC MEDICINE Specimen Plasma specimen Performing Organization Address [facility] Centerbcode Phone Number [facility] DEPARTMENT OF PATHOLOGY AND [facility] [place] [address] GENOMIC MEDICINE Hepatic function panel (07/15/2017 8:14 PM SALVAGE MECHANIC) Albumin 3.8 3.2 - 5.0 g/dL [facility] DEPARTMENT OF PATHOLOGY AND GENOMIC MEDICINE Total bilirubin 0.8 0.2 - 1.2 mg/dL [facility] DEPARTMENT OF PATHOLOGY AND GENOMIC MEDICINE Bilirubin direct 0.2 0.0 - 0.4 mg/dL [facility] DEPARTMENT OF PATHOLOGY AND GENOMIC MEDICINE Alkaline phosphatase 231 (H) 30 - 120 U/L [facility] DEPARTMENT OF PATHOLOGY AND GENOMIC MEDICINE Protein 9.7 (H) 6.3 - 8.2 g/dL [facility] DEPARTMENT OF PATHOLOGY AND GENOMIC MEDICINE ALT 17 (L) 30 - 65 U/L [facility] DEPARTMENT OF PATHOLOGY AND GENOMIC MEDICINE AST 29 15 - 37 U/L [facility] DEPARTMENT OF PATHOLOGY AND GENOMIC MEDICINE Specimen Plasma specimen Performing Organization Address City/[facility]/Zipcode Phone Number [facility] DEPARTMENT OF PATHOLOGY AND [address] [place], [place] [address] [place] [address] [employer] [facility] CT Lumbar Spine Wo Contrast (07/15/2017 5:12 PM SALVAGE MECHANIC) Narrative Performed At EXAMINATION: CT LUMBAR SPINE [...] canal and neural foraminal stenosis at L3-4. [id number] Procedure Note Interface, Radiology Results Incoming - 07/15/2017 5:24 PM SALVAGE MECHANIC EXAMINATION: CT LUMBAR SPINE WO CONTRAST CLINICAL [...] canal and neural foraminal stenosis at L3-4. [id number] Performing Organization Address City/State/Zipcode Phone Number [facility] [address] [place] [address] Partial thromboplastin time, activated (07/15/2017 12:29 PM SALVAGE MECHANIC) PTT 29.2 23.0 - 36.0 sec [facility] DEPARTMENT OF Comment: PATHOLOGY AND GENOMIC PTT therapeutic range for unfractionated heparin is MEDICINE 61.0-112.0 seconds which corresponds to Anti-Xa 0.3-0.7 U/ml. Note:Change in Panic Value The PTT Panic Value is changing from 110 sec. to 100 sec. due to new instrumentation and reagents. Correlation studies have been performed to validate this result. Specimen Blood Performing Organization Address City/[facility]/Zipcode Phone Number [facility] DEPARTMENT OF PATHOLOGY AND [address] [facility] [address] [place], [place] [phone] [place] [address] Creatine kinase, total (CPK) (07/06/2017 6:29 PM SALVAGE MECHANIC) Creatine kinase 134 61 - 224 U/L [facility] DEPARTMENT OF PATHOLOGY AND [facility] MEDICINE Specimen Plasma specimen Performing Organization Address City/[facility] Centerbcode Phone Number [facility] DEPARTMENT OF PATHOLOGY AND [address] [facility] [address] [place], [place] [id number] [place] [address] CT Head Wo Contrast (07/06/2017 6:19 PM SALVAGE MECHANIC) Narrative Performed At EXAMINATION: CT HEAD WO [...] sinuses. IMPRESSION: No acute intracranial abnormality identified. [id number] Procedure Note [facility] [place] [place], Radiology Results Incoming - 07/06/2017 6:27 PM SALVAGE MECHANIC EXAMINATION: CT HEAD WO CONTRAST CLINICAL HISTORY: [...] sinuses. IMPRESSION: No acute intracranial abnormality identified. [facility]-[id number] Performing Organization Address City/State/Zipcode Phone Number [facility] [address] [place] [address] Surgical pathology request (05/18/2017 1:28 PM SALVAGE MECHANIC) [facility] DEPARTMENT OF PATHOLOGY AND GENOMIC MEDICINE Surgical pathology report See link below for PDF [facility] DEPARTMENT OF Lab Report PATHOLOGY AND GENOMIC MEDICINE Result status This is Final Report to [facility] DEPARTMENT OF [id number] PATHOLOGY AND GENOMIC MEDICINE Performing Organization Address City/State/Zipcode Phone Number [facility] DEPARTMENT OF PATHOLOGY AND [address] [place] [address] [employer] MEDICINE Magnesium level (05/17/2017 5:59 AM SALVAGE MECHANIC) Magnesium 2.00 1.60 - 2.40 mg/dL [facility] DEPARTMENT OF PATHOLOGY AND [employer] MEDICINE Specimen Plasma specimen Performing Organization Address City/State/Zipcode Phone Number [facility] DEPARTMENT OF PATHOLOGY AND [address] [place] [address] GENOMIC MEDICINE XR Chest 2 Vw (05/14/2017 7:47 PM SALVAGE MECHANIC) Narrative Performed At EXAMINATION:XR CHEST 2 VW HM RADIANT CLINICAL HISTORY:sob cough todayleukocytosisR basilar crackles IMPRESSION: Aortic arch calcified. Heart size is normal. Lungs are clear of acute infiltrate. There has been a prior partial pulmonary resection in the right side. There are no effusions. There is an intraspinal catheter present, and there is hardware in cervical spine. [id number] Procedure Note Hm Interface, Radiology Results Incoming - 05/14/2017 8:23 PM SALVAGE MECHANIC EXAMINATION: XR CHEST 2 VW CLINICAL HISTORY: sob cough today leukocytosis R basilar crackles IMPRESSION: Aortic arch calcified. Heart size is normal. Lungs are clear of acute infiltrate. There has been a prior partial pulmonary resection in the right side. There are no effusions. There is an intraspinal catheter present, and there is hardware in cervical spine. [facility]-[id number] Performing Organization Address [facility]/Zipcode Phone Number [facility] [address] [place] [address] Troponin (05/12/2017 7:33 PM SALVAGE MECHANIC)Only the most recent of2 resultswithin the time period is included. Troponin <0.01 0.00 - 0.60 ng/mL [facility] DEPARTMENT OF PATHOLOGY Comment: AND GENOMIC MEDICINE 0.11 - 1.49 ng/mlMay indicate increased risk of acute coronary syndrome. >=1.5 ng/mlConsistent with acute myocardial infarction. The diagnostic value of a single normal or non-diagnostic result is questionable.Serial samples at 2-6 hour intervals are required to rule out acute myocardial injury. Specimen Plasma specimen Performing Organization Address City/State/Zipcode Phone Number [facility] DEPARTMENT OF PATHOLOGY AND [address] [place] [address] [employer] [facility] Influenza antigen (05/12/2017 3:58 PM SALVAGE MECHANIC) Influenza antigen Negative for Influenza A/B antigen. [facility] DEPARTMENT OF PATHOLOGY Comment: AND GENOMIC MEDICINE Specimen Information Specimen Source: Nares Specimen Site: Right Specimen Nares - Right Performing Organization Address City/State/Zipcode Phone Number [facility] DEPARTMENT OF PATHOLOGY AND [address] [place] [address] GENOMIC MEDICINE B natriuretic peptide (05/12/2017 3:45 PM SALVAGE MECHANIC) BNP 43 0 - 100 pg/mL [facility] DEPARTMENT OF PATHOLOGY AND GENOMIC MEDICINE Specimen Blood Performing Organization Address City/State/Zipcode Phone Number [facility] DEPARTMENT OF PATHOLOGY AND [address] [place] [address] GENOMIC MEDICINE after 05/02/2017 Insurance Payer Benefit Plan / Group Subscriber ID Type Phone Address [employer] MEDICARE A[employer] MEDICARE HMO/PPO [facility] xxxxxxxx HMO Advance Directives Patient has advance care planning documents on file. For more information, please contact:Eder Phipps[address] [place] [address]
== END 2018-05-03 18:26 | disposition home or self-care (01) ==
LOC: ER 13:52
DX: G89.4 Chronic pain syndrome (principal); I10 Essential (primary) hypertension; J44.9 Chronic obstructive pulmonary disease, unspecified; G40.909 Epilepsy, unspecified, not intractable, without status epilepticus; F43.10 Post-traumatic stress disorder, unspecified; Z72.0 Tobacco use
CPT/HCPCS: 36415; 71045; 80048; 80076; 83735; 83880; 84484; 85025; 85610; 93005; 99285

== ENCOUNTER 2018-05-15 10:35 | Emergency (ER) | payer OTHER ==
--- OUTSIDE RECORDS SUMMARY | 2018-05-15 10:39 | XMS REPORT | Clinical Summary ---
:1965 Author Organization [facility] Address [address] [place] [address] Care Team Providers Name Role Phone Asked, [...] Overview: Added automatically from request for surgery [id number] Gastrointestinal hemorrhage 02/23/2017 Gastrointestinal hemorrhage with hematemesis 02/23/2017 Overview: Added automatically from request for surgery [id number] Vertigo 12/19/2016 Pneumonia due to infectious organism 12/07/2016 COPD with acute bronchitis 11/25/2016 COPD (chronic obstructive pulmonary disease) 11/09/2016 COPD exacerbation 11/08/2016 Lung mass 11/08/2016 Tobacco dependence 11/08/2016 Resolved Problems Problem Noted Date Resolved Date Leukocytosis 05/14/2017 05/15/2017 Encounters Date Type Specialty Care Team Description 10/08/19 Emergency Emergency Medicine Sarai, Suicidal ideation (Primary Dx ) 18 Osiel Paul MD 09/21/19 Emergency Emergency Medicine [place] Chronic right-sided thoracic back pain (Primary Dx); [...] Jovanna, 18 Event Eleazar Salinas MD 05/12/20 [facility] Internal [facility] Intractable vomiting with nausea, unspecified vomiting type (Primary Dx); 17 - Encounter Medicine MD Edward Pain; 05/19/19 [place], Abdominal pain, unspecified abdominal location; 18 Natalio Summers, Essential hypertension; Type 2 diabetes mellitus with hyperglycemia, with long-term current use of insulin Vu Kiser DO after 05/14/2017 Immunizations Name Dates Previously Given Next Due [...] VACCINE 12/14/2017 05/19/2017 Implants Implanted Type Area Institutional Nutrition Consultant Device Shelf Model / Identifier Expiration Serial / Date Lot Stimulator Stimulator Stimulator-10/30/2006 Stimulator Hip Implanted: 10/30/2006 (Quantity not on file) Kit [employer] Air Leak 4ml Strl Progel - [id number] Surgical N/A: N/A [employer] [id number] / Implanted: Qty: 1 on 11/24/2016 by [...] GLUCOSE Routine 07/16/2017 Results for 11:29 AM MANAGER REIMBURSEMENT this procedure are in the results section. POC GLUCOSE Routine 07/16/2017 Results for 6:52 AM MANAGER REIMBURSEMENT this procedure are in the results section. SMEAR REVIEW Routine 07/16/2017 Results for 5:13 AM MANAGER REIMBURSEMENT this procedure are in the results section. ZZESTIMATED GFR Routine 07/16/2017 Results for 5:13 AM MANAGER REIMBURSEMENT this procedure are in the results section. BASIC METABOLIC PANEL Routine 07/16/2017 Results for 5:13 AM MANAGER REIMBURSEMENT this procedure are in the results section. HC COMPLETE BLD COUNT W/AUTO Routine 07/16/2017 Results for DIFF 5:13 AM MANAGER REIMBURSEMENT this procedure are in the results section. KEPPRA (LEVETIRACETAM) LEVEL Routine 07/16/2017 Results for 5:13 AM MANAGER REIMBURSEMENT this procedure are in the results section. SMEAR REVIEW STAT 07/15/2017 Results for 8:14 PM MANAGER REIMBURSEMENT this procedure are in the results section. ZZESTIMATED GFR STAT 07/15/2017 Results for 8:14 PM MANAGER REIMBURSEMENT this procedure are in the results section. HEPATIC FUNCTION PANEL STAT 07/15/2017 Results for 8:14 PM MANAGER REIMBURSEMENT this procedure are in the results section. BASIC METABOLIC PANEL STAT 07/15/2017 Results for 8:14 PM MANAGER REIMBURSEMENT this procedure are in the results section. HC COMPLETE BLD COUNT W/AUTO STAT 07/15/2017 Results for DIFF 8:14 PM MANAGER REIMBURSEMENT this procedure are in the results section. CT LUMBAR SPINE WO CONTRAST STAT 07/15/2017 Results for 5:12 PM MANAGER REIMBURSEMENT this procedure are in the results section. ZZESTIMATED GFR STAT 07/15/2017 Results for 12:29 PM MANAGER REIMBURSEMENT this procedure are in the results section. LIPASE LEVEL STAT 07/15/2017 Results for 12:29 PM MANAGER REIMBURSEMENT this procedure are in the results section. COMPREHENSIVE METABOLIC PANEL STAT 07/15/2017 Results for 12:29 PM MANAGER REIMBURSEMENT this procedure are in the results section. PARTIAL THROMBOPLASTIN TIME STAT 07/15/2017 Results for (PTT) 12:29 PM MANAGER REIMBURSEMENT this procedure are in the results section. PROTHROMBIN TIME WITH INR STAT 07/15/2017 Results for 12:29 PM MANAGER REIMBURSEMENT this procedure are in the results section. HC COMPLETE BLD COUNT W/AUTO STAT 07/15/2017 Results for DIFF 12:29 PM MANAGER REIMBURSEMENT this procedure are in the results section. POC GLUCOSE Routine 07/07/2017 Results for 11:06 AM MANAGER REIMBURSEMENT this procedure are in the results section. POC GLUCOSE Routine 07/07/2017 Results for 6:41 AM MANAGER REIMBURSEMENT this procedure are in the results section. ZZESTIMATED GFR Routine 07/07/2017 Results for 4:58 AM MANAGER REIMBURSEMENT this procedure are in the results section. BASIC METABOLIC PANEL Routine 07/07/2017 Results for 4:58 AM MANAGER REIMBURSEMENT this procedure are in the results section. HC COMPLETE BLD COUNT W/AUTO Routine 07/07/2017 Results for DIFF 4:58 AM MANAGER REIMBURSEMENT this procedure are in the results section. POC GLUCOSE Routine 07/06/2017 Results for 9:12 PM MANAGER REIMBURSEMENT this procedure are in the results section. ZZESTIMATED GFR STAT 07/06/2017 Results for 6:29 PM MANAGER REIMBURSEMENT this procedure are in the results section. CREATINE KINASE, TOTAL (CPK) STAT 07/06/2017 Results for 6:29 PM MANAGER REIMBURSEMENT this procedure are in the results section. HC COMPLETE BLD COUNT W/AUTO STAT 07/06/2017 Results for DIFF 6:29 PM MANAGER REIMBURSEMENT this procedure are in the results section. BASIC METABOLIC PANEL STAT 07/06/2017 Results for 6:29 PM MANAGER REIMBURSEMENT this procedure are in the results section. CT HEAD WO CONTRAST STAT 07/06/2017 Results for 6:19 PM MANAGER REIMBURSEMENT this procedure are in the results section. ECG 12-LEAD STAT 07/06/2017 Results for 6:18 PM MANAGER REIMBURSEMENT this procedure are in the results section. ECG ED PRELIMINARY Routine 07/06/2017 Results for INTERPRETATION 5:38 PM MANAGER REIMBURSEMENT this procedure are in the results section. POC GLUCOSE Routine 05/19/2017 Results for 10:56 AM MANAGER REIMBURSEMENT this procedure are in the results section. POC GLUCOSE Routine 05/19/2017 Results for 7:34 AM MANAGER REIMBURSEMENT this procedure are in the results section. POC GLUCOSE Routine 05/18/2017 Results for 8:37 PM MANAGER REIMBURSEMENT this procedure are in the results section. POC GLUCOSE Routine 05/18/2017 Results for 4:48 PM MANAGER REIMBURSEMENT this procedure are in the results section. SURGICAL PATHOLOGY REQUEST Routine 05/18/2017 Results for 1:28 PM MANAGER REIMBURSEMENT this procedure are in the results section. ESOPHAGOGASTRODUODENOSCOPY (EGD) 05/18/2017 Abdominal pain, 12:15 PM MANAGER REIMBURSEMENT unspecified abdominal location Intractable vomiting with nausea, unspecified vomiting type POC GLUCOSE Routine 05/18/2017 Results for 6:56 AM MANAGER REIMBURSEMENT this procedure are in the results section. ZZESTIMATED GFR Routine 05/18/2017 Results for 6:03 AM MANAGER REIMBURSEMENT this procedure are in the results section. BASIC METABOLIC PANEL Routine 05/18/2017 Results for 6:03 AM MANAGER REIMBURSEMENT this procedure are in the results section. POC GLUCOSE Routine 05/17/2017 Results for 9:04 PM MANAGER REIMBURSEMENT this procedure are in the results section. POC GLUCOSE Routine 05/17/2017 Results for 3:39 PM MANAGER REIMBURSEMENT this procedure are in the results section. POC GLUCOSE Routine 05/17/2017 Results for 11:07 AM MANAGER REIMBURSEMENT this procedure are in the results section. POC GLUCOSE Routine 05/17/2017 Results for 7:12 AM MANAGER REIMBURSEMENT this procedure are in the results section. ZZESTIMATED GFR Routine 05/17/2017 Results for 5:59 AM MANAGER REIMBURSEMENT this procedure are in the results section. MAGNESIUM LEVEL Routine 05/17/2017 Results for 5:59 AM MANAGER REIMBURSEMENT this procedure are in the results section. COMPREHENSIVE METABOLIC PANEL Routine 05/17/2017 Results for 5:59 AM MANAGER REIMBURSEMENT this procedure are in the results section. CBC WITH PLATELET AND Routine 05/17/2017 Results for DIFFERENTIAL 5:59 AM MANAGER REIMBURSEMENT this procedure are in the results section. POC GLUCOSE Routine 05/16/2017 Results for 7:54 PM MANAGER REIMBURSEMENT this procedure are in the results section. ECG ED PRELIMINARY Routine 05/16/2017 Results for INTERPRETATION 5:59 PM MANAGER REIMBURSEMENT this procedure are in the results section. POC GLUCOSE Routine 05/16/2017 Results for 3:55 PM MANAGER REIMBURSEMENT this procedure are in the results section. POC GLUCOSE Routine 05/16/2017 Results for 11:54 AM MANAGER REIMBURSEMENT this procedure are in the results section. POC GLUCOSE Routine 05/16/2017 Results for 6:26 AM MANAGER REIMBURSEMENT this procedure are in the results section. ZZESTIMATED GFR Routine 05/16/2017 Results for 6:23 AM MANAGER REIMBURSEMENT this procedure are in the results section. COMPREHENSIVE METABOLIC PANEL Routine 05/16/2017 Results for 6:23 AM MANAGER REIMBURSEMENT this procedure are in the results section. HC COMPLETE BLD COUNT W/AUTO Routine 05/16/2017 Results for DIFF 6:23 AM MANAGER REIMBURSEMENT this procedure are in the results section. POC GLUCOSE Routine 05/15/2017 Results for 8:54 PM MANAGER REIMBURSEMENT this procedure are in the results section. POC GLUCOSE Routine 05/15/2017 Results for 4:46 PM MANAGER REIMBURSEMENT this procedure are in the results section. POC GLUCOSE Routine 05/15/2017 Results for 11:33 AM MANAGER REIMBURSEMENT this procedure are in the results section. ZZESTIMATED GFR Routine 05/15/2017 Results for 7:05 AM MANAGER REIMBURSEMENT this procedure are in the results section. COMPREHENSIVE METABOLIC PANEL Routine 05/15/2017 Results for 7:05 AM MANAGER REIMBURSEMENT this procedure are in the results section. HC COMPLETE BLD COUNT W/AUTO Routine 05/15/2017 Results for DIFF 7:05 AM MANAGER REIMBURSEMENT this procedure are in the results section. POC GLUCOSE Routine 05/15/2017 Results for 6:23 AM MANAGER REIMBURSEMENT this procedure are in the results section. POC GLUCOSE Routine 05/14/2017 Results for 8:30 PM MANAGER REIMBURSEMENT this procedure are in the results section. XR CHEST 2 VW Routine 05/14/2017 Results for 7:47 PM MANAGER REIMBURSEMENT this procedure are in the results section. ZZESTIMATED GFR Routine 05/14/2017 Results for 7:07 PM MANAGER REIMBURSEMENT this procedure are in the results section. COMPREHENSIVE METABOLIC PANEL Routine 05/14/2017 Results for 7:07 PM MANAGER REIMBURSEMENT this procedure are in the results section. HC COMPLETE BLD COUNT W/AUTO Routine 05/14/2017 Results for DIFF 7:07 PM MANAGER REIMBURSEMENT this procedure are in the results section. POC GLUCOSE Routine 05/14/2017 Results for 3:58 PM MANAGER REIMBURSEMENT this procedure are in the results section. POC GLUCOSE Routine 05/14/2017 Results for 12:15 PM MANAGER REIMBURSEMENT this procedure are in the results section. POC GLUCOSE Routine 05/14/2017 Results for 7:03 AM MANAGER REIMBURSEMENT this procedure are in the results section. after 05/14/2017 Results Urinalysis screen and microscopy, with reflex to culture (10/07/2017 9:16 AM CDT) Specimen site Clean catch [facility] DEPARTMENT OF PATHOLOGY AND GENOMIC MEDICINE Color, UA Yellow [facility] DEPARTMENT OF PATHOLOGY AND GENOMIC MEDICINE Appearance, UA Clear [facility] DEPARTMENT OF PATHOLOGY AND GENOMIC MEDICINE Specific gravity, UA 1.011 1.001 - 1.035 [facility] DEPARTMENT OF PATHOLOGY AND GENOMIC MEDICINE pH, UA 5.0 5.0 - 8.5 [facility] DEPARTMENT OF PATHOLOGY AND GENOMIC MEDICINE Protein, UA Negative Negative [facility] DEPARTMENT OF PATHOLOGY AND GENOMIC MEDICINE Glucose, UA Negative Negative [facility] DEPARTMENT OF PATHOLOGY AND GENOMIC MEDICINE Ketones, UA Negative Negative [facility] DEPARTMENT OF PATHOLOGY AND GENOMIC MEDICINE Bilirubin, UA Negative Negative [facility] DEPARTMENT OF PATHOLOGY AND GENOMIC MEDICINE Blood, UA Negative Negative [facility] DEPARTMENT OF PATHOLOGY AND GENOMIC MEDICINE Nitrite, UA Negative Negative [facility] DEPARTMENT OF PATHOLOGY AND GENOMIC MEDICINE Urobilinogen, UA 2.0 (A) <2.0 [facility] DEPARTMENT OF PATHOLOGY AND GENOMIC MEDICINE Leukocyte esterase, UA Negative Negative [facility] DEPARTMENT OF PATHOLOGY AND GENOMIC MEDICINE Epithelial cells, UA Few /HPF [facility] DEPARTMENT OF PATHOLOGY AND GENOMIC MEDICINE WBC, UA 1 0 - 1 /HPF [facility] DEPARTMENT OF PATHOLOGY AND GENOMIC MEDICINE RBC, UA <1 0 - 5 /HPF [facility] DEPARTMENT OF PATHOLOGY AND GENOMIC MEDICINE Bacteria, UA None seen None seen [facility] DEPARTMENT OF PATHOLOGY AND GENOMIC MEDICINE Yeast, UA None seen [facility] DEPARTMENT OF PATHOLOGY AND GENOMIC MEDICINE Yeast with pseudohyphae, UA None seen [facility] DEPARTMENT OF PATHOLOGY AND GENOMIC MEDICINE Specimen Urine Performing Organization Address City/[facility] Phone Number [facility] DEPARTMENT OF PATHOLOGY AND [address] [place] [address] [facility] Urine drugs of abuse screen (10/07/2017 9:16 AM CDT) Amphetamine screen, urine NEG [facility] DEPARTMENT OF PATHOLOGY AND GENOMIC MEDICINE Barbiturate screen, urine NEG [facility] DEPARTMENT OF PATHOLOGY AND GENOMIC MEDICINE Benzodiazepine screen, POS [facility] DEPARTMENT OF urine PATHOLOGY AND GENOMIC MEDICINE Cocaine screen, urine NEG [facility] DEPARTMENT OF PATHOLOGY AND GENOMIC MEDICINE Methadone screen, urine NEG [facility] DEPARTMENT OF PATHOLOGY AND GENOMIC MEDICINE Opiates screen, urine POS [facility] DEPARTMENT OF PATHOLOGY AND GENOMIC MEDICINE Phencyclidine screen, urine NEG [facility] DEPARTMENT OF PATHOLOGY AND GENOMIC MEDICINE Cannabinoid screen, urine POS [facility] DEPARTMENT OF Comment: PATHOLOGY AND GENOMIC Drug screen minimum concentration of detectability MEDICINE Kdhfnuqdbskj3406 ng/mL Afynnjjrubhsdyym7992 ng/mL Barbiturates 300 ng/mL Fecjkqhrccojbbo898 ng/mL Tffdlgf864 ng/mL Ufzbxlwli354 ng/mL Vkyhmcx068 ng/mL Phencyclidine 25 ng/mL Raxaektkjabv53 ng/mL Jpsolcwdbs1326 ng/mL Negative test results indicates presumptive evidence of lack of clinically significant drug concentration in this urine specimen. Positive test results are presumptive evidence of clinically significant drug concentration in this urine specimen. Testing performed for medical purposes only. Specimen Urine Performing Organization Address [facility] Hospitalcode Phone Number [facility] DEPARTMENT OF PATHOLOGY AND [address] [place] [address] [facility] MEDICINE Urine culture (10/07/2017 9:16 AM CDT) Urine culture SEE COMMENTComment: Bacteriuria [facility] DEPARTMENT OF PATHOLOGY screen negative. AND GENOMIC MEDICINE Specimen Urine Performing Organization Address City/[facility]/Zipcode Phone Number [facility] DEPARTMENT OF PATHOLOGY AND [address] [place] [address] [facility] MEDICINE Estimated GFR (10/07/2017 9:02 AM CDT)Only the most recent of12 resultswithin the time period is included. GFR Non Af Amer 49 (A) mL/min/1.73 m2 [facility] DEPARTMENT OF PATHOLOGY AND GENOMIC MEDICINE GFR Af Amer 59 (A) mL/min/1.73 m2 [facility] DEPARTMENT OF Comment: PATHOLOGY AND GENOMIC Chronic [...] specimen Performing Organization Address City/State/Zipcode Phone Number [facility] DEPARTMENT OF PATHOLOGY AND [facility] [place] [address] [employer] [facility] CBC with platelet and differential (10/07/2017 9:02 AM CDT)Only the most recent of11 resultswithin the time period is included. WBC 9.1 4.2 - 11.0 k/uL [facility] DEPARTMENT OF PATHOLOGY AND GENOMIC MEDICINE RBC 4.57 4.04 - 5.86 m/uL [facility] DEPARTMENT OF PATHOLOGY AND GENOMIC MEDICINE HGB 14.7 13.0 - 17.3 g/dL [facility] DEPARTMENT OF PATHOLOGY AND GENOMIC MEDICINE HCT 44.6 34.0 - 45.0 % [facility] DEPARTMENT OF PATHOLOGY AND GENOMIC MEDICINE MCV 97.6 80.0 - 98.0 fL [facility] DEPARTMENT OF PATHOLOGY AND GENOMIC MEDICINE MCH 32.2 27.0 - 34.0 pg [facility] DEPARTMENT OF PATHOLOGY AND GENOMIC MEDICINE MCHC 33.0 31.5 - 36.5 g/dL [facility] DEPARTMENT OF PATHOLOGY AND GENOMIC MEDICINE RDW - SD 55.1 (H) 37.0 - 51.0 fL [facility] DEPARTMENT OF PATHOLOGY AND GENOMIC MEDICINE MPV 10.1 7.4 - 10.4 fL [facility] DEPARTMENT OF PATHOLOGY AND GENOMIC MEDICINE Platelet count 124 (L) 150 - 400 k/uL [facility] DEPARTMENT OF PATHOLOGY AND GENOMIC MEDICINE Nucleated RBC 0.00 /100 WBC [facility] DEPARTMENT OF PATHOLOGY AND GENOMIC MEDICINE Neutrophils 80.4 (H) 36.0 - 66.0 % [facility] DEPARTMENT OF PATHOLOGY AND GENOMIC MEDICINE Lymphocytes 11.6 (L) 24.0 - 44.0 % [facility] DEPARTMENT OF PATHOLOGY AND GENOMIC MEDICINE Monocytes 5.8 0.0 - 6.0 % [facility] DEPARTMENT OF PATHOLOGY AND GENOMIC MEDICINE Eosinophils 1.3 0.0 - 6.0 % [facility] DEPARTMENT OF PATHOLOGY AND GENOMIC MEDICINE Basophils 0.6 0.0 - 1.2 % [facility] DEPARTMENT OF PATHOLOGY AND GENOMIC MEDICINE Immature granulocytes 0.3 0.0 - 1.0 % [facility] DEPARTMENT OF PATHOLOGY AND GENOMIC MEDICINE Specimen Blood Performing Organization Address [facility]code Phone Number [facility] DEPARTMENT OF PATHOLOGY AND [address] [place] [address] Thyroid stimulating hormone (10/07/2017 9:02 AM CDT) TSH 2.60 0.38 - 4.82 uIU/mL [facility] DEPARTMENT OF PATHOLOGY AND GENOMIC MEDICINE Specimen Plasma specimen Performing Organization Address [facility] Phone Number [facility] DEPARTMENT OF PATHOLOGY AND [address] [place] [address] T4, free (10/07/2017 9:02 AM CDT) T4, free 1.00 0.70 - 1.61 ng/dL [facility] DEPARTMENT OF PATHOLOGY AND GENOMIC MEDICINE Specimen Plasma specimen Performing Organization Address [facility] Phone Number [facility] DEPARTMENT OF PATHOLOGY AND [address] [place] [address] Alcohol level, blood (10/07/2017 9:02 AM CDT) Alcohol None Detected mg/dL [facility] DEPARTMENT OF PATHOLOGY Comment: AND [facility] MEDICINE NormalNone Detected Legal Intoxication in [place] 80 mg/dL (0.08%) Toxic Concentration 200 mg/dL (0.2%) Potentially Fatal 350-500 mg/dL (0.35%-0.5%) Alcohol percent None Detected % [facility] DEPARTMENT OF PATHOLOGY AND GENOMIC MEDICINE Specimen Blood Performing Organization Address [facility] Phone Number [facility] DEPARTMENT OF PATHOLOGY AND [address] [place] [address] Acetaminophen level (10/07/2017 9:02 AM CDT) Acetaminophen level <2.0 (L) 10.0 - 20.0 ug/mL [facility] DEPARTMENT OF Comment: PATHOLOGY AND GENOMIC Therapeutic 10-30 ug/mL MEDICINE Possible Toxicity 150-200 ug/mL Probable Toxicity >200 ug/mL Specimen Blood Performing Organization Address [facility] Phone Number [facility] DEPARTMENT OF PATHOLOGY AND [place] [address] [facility] Salicylate level (10/07/2017 9:02 AM CDT) Salicylate 7.0 mg/dL [facility] DEPARTMENT OF PATHOLOGY AND GENOMIC Comment: MEDICINE Therapeutic Range: 5 - 30 mg/dL Specimen Blood Performing Organization Address [facility] Phone Number [facility] DEPARTMENT OF PATHOLOGY AND [place] [place] [address] [facility] Comprehensive metabolic panel (10/07/2017 9:02 AM CDT)Only the most recent of7 resultswithin the time period is included. Sodium 140 135 - 150 mEq/L [facility] DEPARTMENT OF PATHOLOGY AND GENOMIC MEDICINE Potassium 3.8 3.5 - 5.0 mEq/L [facility] DEPARTMENT OF PATHOLOGY AND GENOMIC MEDICINE Chloride 109 100 - 109 mEq/L [facility] DEPARTMENT OF PATHOLOGY AND GENOMIC MEDICINE CO2 24 24 - 32 mmol/L [facility] DEPARTMENT OF PATHOLOGY AND GENOMIC MEDICINE Anion gap 7@ANIO 7 - 15 mEq/L [facility] DEPARTMENT OF PATHOLOGY AND GENOMIC MEDICINE BUN 14 7 - 18 mg/dL [facility] DEPARTMENT OF PATHOLOGY AND GENOMIC MEDICINE Creatinine 1.5 0.8 - 1.5 mg/dL [facility] DEPARTMENT OF PATHOLOGY AND GENOMIC MEDICINE Glucose 103 (H) 65 - 100 mg/dL [facility] DEPARTMENT OF PATHOLOGY AND GENOMIC MEDICINE Calcium 8.6 8.6 - 10.7 mg/dL [facility] DEPARTMENT OF PATHOLOGY AND GENOMIC MEDICINE Protein 7.9 6.3 - 8.2 g/dL [facility] DEPARTMENT OF PATHOLOGY AND GENOMIC MEDICINE Albumin 3.4 3.2 - 5.0 g/dL [facility] DEPARTMENT OF PATHOLOGY AND GENOMIC MEDICINE A/G ratio 0.8 0.7 - 3.8 [facility] DEPARTMENT OF PATHOLOGY AND GENOMIC MEDICINE Alkaline phosphatase 153 (H) 30 - 120 U/L [facility] DEPARTMENT OF PATHOLOGY AND GENOMIC MEDICINE AST 21 15 - 37 U/L [facility] DEPARTMENT OF PATHOLOGY AND GENOMIC MEDICINE ALT 17 (L) 30 - 65 U/L [facility] DEPARTMENT OF PATHOLOGY AND GENOMIC MEDICINE Total bilirubin 0.2 0.2 - 1.2 mg/dL [facility] DEPARTMENT OF PATHOLOGY AND GENOMIC MEDICINE Specimen Plasma specimen Performing Organization Address City/[facility]code Phone Number [facility] DEPARTMENT OF PATHOLOGY AND [address] [place] [address] [facility] [address] Abdomen Pelvis Wo Contrast (09/20/2017 3:27 AM CDT) Narrative Performed At EXAMINATION:CT ABDOMEN PELVIS WO [...] small paraesophageal varices, compatible with portal hypertension. [facility]-[id number] Procedure Note Interface, Radiology Results Incoming - [...] small paraesophageal varices, compatible with portal hypertension. [facility]-[id number] Performing Organization Address City/State/Zipcode Phone Number [facility] [address] [place] [address] Smear review (09/20/2017 3:13 AM CDT)Only the most recent of3 resultswithin the time period is included. Smear review Smear Reviewed [facility] DEPARTMENT OF PATHOLOGY AND GENOMIC MEDICINE Performing Organization Address City/[facility] Phone Number [facility] DEPARTMENT OF PATHOLOGY AND [address] [place] [address]. [place], [place] [id number] [place] [address] Prothrombin time with INR (09/20/2017 3:13 AM CDT)Only the most recent of2 resultswithin the time period is included. Prothrombin time 14.5 12.0 - 15.0 sec [facility] DEPARTMENT OF PATHOLOGY AND GENOMIC MEDICINE INR 1.11 0.92 - 1.12 [facility] DEPARTMENT OF Comment: PATHOLOGY AND GENOMIC For patients on anticoagulant therapy, reference ranges below: MEDICINE Indication:INR Value Treatment of Venous Thrombosis, 2.0-3.0 pulmonary emboli, or prophylaxis of a venous thrombosis, or systemic emboli. High dose, high risk patients 3.0-4.5 with mechanical valves. NOTE:INR values over 3.0 are sometimes associated with gastrointestinal hemorrhage, especially values over 4.0. Specimen Blood Performing Organization Address [facility] Phone Number [facility] DEPARTMENT OF PATHOLOGY AND [address] [place] [address]. [place], [place] [id number] [place] [address] Lipase level (09/20/2017 3:13 AM CDT)Only the most recent of2 resultswithin the time period is included. Lipase 129 65 - 230 U/L [facility] DEPARTMENT OF PATHOLOGY AND GENOMIC MEDICINE Specimen Plasma specimen Performing Organization Address City/[facility]/Zipcode Phone Number [facility] DEPARTMENT OF PATHOLOGY AND [address] [facility] [place], [place] [id number] [place] [address] ECG 12 lead (09/20/2017 2:43 AM CDT)Only the most recent of2 resultswithin the time period is included. Ventricular rate 77 [facility] Atrial rate 77 [facility] [place] interval 144 [facility] QRSD interval 94 [facility] QT interval 418 [facility] QTC interval 473 [facility] P axis 1 32 [facility] MUSE QRS axis 1 94 [facility] MUSE T wave axis 85 [facility] MUSE EKG impression Normal sinus rhythm-Rightward axis-Borderline [facility] MUSE ECG-In automated comparison with ECG of 06-JUL-2017 18:18,-No significant change was found- Performing Organization Address City/State/Zipcode Phone Number [facility] MUSE [address] [place] [address] ECG ED Preliminary Interpretation - NOT AN ORDER (09/20/2017 2:07 AM CDT)Only the most recent of3 resultswithin the time period is included. Narrative Performed At Karen Brantley MD 09/21/20173:47 AM ECG ED Preliminary Interpretation - Not an Order Performed by: KAREN BRANTLEY Authorized by: KAREN BRANTLEY ECG reviewed by ED Physician in the absence of a luncheonette operator: yes Previous ECG: Previous ECG:Compared to current Comparison ECG info:06/16/17 Similarity:No change Interpretation: Interpretation: normal Rate: ECG rate:77 ECG rate assessment: normal Rhythm: Rhythm: sinus rhythm QRS: QRS axis:Right Comments: Normal sinus rhythm. Right axis deviation. PET/CT Skull Base To Mid Thigh (08/08/2017 1:45 PM CDT) Narrative Performed At EXAMINATION: [facility] PET CT SKULL BASE TO MID THIGH Date and place of service: 08/08/2017 10:00 AM at [facility] DOSE: 11.8 mCi of 74-Jhuydy-4-Deoxyglucose (FDG) was injected intravenously into left wrist done infiltration at a serum glucose level of90 mg/dl. TECHNIQUE: PROCEDURE: Following injection of 92-Olhcqi-6-Deoxyglucose (FDG) and a standard uptake., The patient was imaged on a [employer] whole body PET CT scanner. Multiple 6 [...] dose COMPARISON: October 26, 2016 done at [facility]. 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 Status post right lower lobectomy November,. No history of recent chemotherapy or radiation therapy. For restaging. FINDINGS: Software fusion [facility] with the CAT scan [...] arterial hypertension as before. Cirrhosis as before. [id number] Procedure Note Hm Interface, Radiology Results Incoming - 08/08/2017 4:30 PM CDT EXAMINATION: PET CT SKULL BASE TO MID THIGH Date and place of service: 08/08/2017 10:00 AM at [facility] DOSE: 11.8 mCi of 26-Gkhrir-6-Deoxyglucose (FDG) was injected intravenously into left wrist done infiltration at a serum glucose level of 90 mg/dl. TECHNIQUE: PROCEDURE: Following injection of 78-Sxjasv-3-Deoxyglucose (FDG) and a standard uptake., The patient was imaged on a [employer] whole body PET CT scanner. Multiple 6 [...] dose COMPARISON: October 26, 2016 done at [facility]. CLINICAL HISTORY: Bronchogenic carcinoma on [...] arterial hypertension as before. Cirrhosis as before. [id number] Performing Organization Address City/[facility]/Zipcode Phone Number [facility] [address] [place] [address] POC glucose (08/08/2017 11:36 AM CDT)Only the most recent of27 resultswithin the time period is included. POC glucose 90 65 - 100 mg/dL [facility] DEPARTMENT OF PATHOLOGY AND Comment: [facility] Meter ID: [id number] Aviation Ordnance Officer: Vu Aponte Performing Organization Address City/[facility]/Zipcode Phone Number [facility] DEPARTMENT OF PATHOLOGY AND [facility] [place] [address] [facility] Keppra (Levetiracetam) level (07/16/2017 5:13 AM MANAGER REIMBURSEMENT) Levetiracetam 27 12 - 46 ug/mL [facility] Comment: INTERPRETIVE INFORMATION: Keppra (Levetiracetam) Therapeutic Range:12-46 ug/mL Toxic:Not well Established Pharmacokinetics of levetiracetam are affected by renal function. Adverse effects may include somnolence, weakness, headache and vomiting. Performed by [facility], [address] [place], [place] [id number] [email or web address], Joni Roper MD - Lab. Director Specimen Serum Performing Organization Address [facility] Phone Number [facility] [address] [place] [address] Basic metabolic panel (07/16/2017 5:13 AM MANAGER REIMBURSEMENT)Only the most recent of5 resultswithin the time period is included. Sodium 134 (L) 135 - 150 mEq/L [facility] DEPARTMENT OF PATHOLOGY AND GENOMIC MEDICINE Potassium 4.2 3.5 - 5.0 mEq/L [facility] DEPARTMENT OF PATHOLOGY AND GENOMIC MEDICINE Chloride 102 100 - 109 mEq/L [facility] DEPARTMENT OF PATHOLOGY AND GENOMIC MEDICINE CO2 22 (L) 24 - 32 mmol/L [facility] DEPARTMENT OF PATHOLOGY AND [facility] MEDICINE Anion gap 10 7 - 15 mEq/L [facility] DEPARTMENT OF Comment: PATHOLOGY AND GENOMIC Starting from August , anion gap calculation MEDICINE no longer incorporates potassium. Please note the change. BUN 17 7 - 18 mg/dL [facility] DEPARTMENT OF PATHOLOGY AND GENOMIC MEDICINE Creatinine 1.2 0.8 - 1.5 mg/dL [facility] DEPARTMENT OF PATHOLOGY AND GENOMIC MEDICINE Glucose 139 (H) 65 - 100 mg/dL [facility] DEPARTMENT OF PATHOLOGY AND GENOMIC MEDICINE Calcium 9.4 8.6 - 10.7 mg/dL [facility] DEPARTMENT OF PATHOLOGY AND GENOMIC MEDICINE Specimen Plasma specimen Performing Organization Address City/[facility] Phone Number [facility] DEPARTMENT PATHOLOGY AND [address] [place] [address]. [place], [place] [id number] [place] [address] Hepatic function panel (07/15/2017 8:14 PM MANAGER REIMBURSEMENT) Albumin 3.8 3.2 - 5.0 g/dL [facility] DEPARTMENT OF PATHOLOGY AND GENOMIC [facility] Total bilirubin 0.8 0.2 - 1.2 mg/dL [facility] DEPARTMENT OF PATHOLOGY AND GENOMIC MEDICINE Bilirubin direct 0.2 0.0 - 0.4 mg/dL [facility] DEPARTMENT OF PATHOLOGY AND GENOMIC MEDICINE Alkaline phosphatase 231 (H) 30 - 120 U/L [facility] DEPARTMENT OF PATHOLOGY AND [facility] Protein 9.7 (H) 6.3 - 8.2 g/dL [facility] DEPARTMENT OF PATHOLOGY AND GENOMIC MEDICINE ALT 17 (L) 30 - 65 U/L [facility] DEPARTMENT OF PATHOLOGY AND GENOMIC MEDICINE AST 29 15 - 37 U/L [facility] DEPARTMENT OF PATHOLOGY AND GENOMIC MEDICINE Specimen Plasma specimen Performing Organization Address City/[facility] Phone Number [facility] DEPARTMENT PATHOLOGY AND [address] [place] [address]. [place], [place] [id number] [place] [address] CT Lumbar Spine Wo Contrast (07/15/2017 5:12 PM MANAGER REIMBURSEMENT) Narrative Performed At EXAMINATION: CT LUMBAR SPINE [...] canal and neural foraminal stenosis at L3-4. [id number] Procedure Note Hm Interface, Radiology Results Incoming - 07/15/2017 5:24 PM MANAGER REIMBURSEMENT EXAMINATION: CT LUMBAR SPINE WO CONTRAST CLINICAL [...] canal and neural foraminal stenosis at L3-4. [facility]-[id number] Performing Organization Address [facility]/Zipcode Phone Number [facility] [address] [place] [address] Partial thromboplastin time, activated (07/15/2017 12:29 PM MANAGER REIMBURSEMENT) PTT 29.2 23.0 - 36.0 sec [facility] DEPARTMENT OF Comment: PATHOLOGY AND GENOMIC PTT therapeutic range for unfractionated heparin is MEDICINE 61.0-112.0 seconds which corresponds to Anti-Xa 0.3-0.7 U/ml. Note:Change in Panic Value The PTT Panic Value is changing from 110 sec. to 100 sec. due to new instrumentation and reagents. Correlation studies have been performed to validate this result. Specimen Blood Performing Organization Address City/[facility]/Zipcode Phone Number [facility] DEPARTMENT OF PATHOLOGY AND [address] [place] [address] GENOMIC MEDICINE Creatine kinase, total (CPK) (07/06/2017 6:29 PM MANAGER REIMBURSEMENT) Creatine kinase 134 61 - 224 U/L [facility] DEPARTMENT OF PATHOLOGY AND GENOMIC MEDICINE Specimen Plasma specimen Performing Organization Address City/State/Zipcode Phone Number [facility] DEPARTMENT OF PATHOLOGY AND [place] [address] [facility] MEDICINE CT Head Wo Contrast (07/06/2017 6:19 PM MANAGER REIMBURSEMENT) Narrative Performed At EXAMINATION: CT HEAD WO [...] sinuses. IMPRESSION: No acute intracranial abnormality identified. [id number] Procedure Note Hm Interface, Radiology Results Incoming - 07/06/2017 6:27 PM MANAGER REIMBURSEMENT EXAMINATION: CT HEAD WO CONTRAST CLINICAL HISTORY: [...] sinuses. IMPRESSION: No acute intracranial abnormality identified. [facility]-[id number] Performing Organization Address City/[facility] Phone Number [facility] [address] [place] [address] Surgical pathology request (05/18/2017 1:28 PM MANAGER REIMBURSEMENT) [facility] DEPARTMENT OF PATHOLOGY AND GENOMIC MEDICINE Surgical pathology report See link below for PDF [facility] DEPARTMENT OF Lab Report PATHOLOGY AND GENOMIC MEDICINE Result status This is Final Report to [facility] DEPARTMENT OF [id number] PATHOLOGY AND GENOMIC MEDICINE Performing Organization Address [facility] Phone Number [facility] DEPARTMENT OF PATHOLOGY AND [address] [place] [address]. [place] [address] GENOMIC MEDICINE Magnesium level (05/17/2017 5:59 AM MANAGER REIMBURSEMENT) Magnesium 2.00 1.60 - 2.40 mg/dL [facility] DEPARTMENT OF PATHOLOGY AND GENOMIC MEDICINE Specimen Plasma specimen Performing Organization Address City/[facility] Phone Number [facility] DEPARTMENT OF PATHOLOGY AND [facility] [place] [address] GENOMIC MEDICINE XR Chest 2 Vw (05/14/2017 7:47 PM MANAGER REIMBURSEMENT) Narrative Performed At EXAMINATION:[facility] CLINICAL HISTORY:sob cough todayleukocytosisR basilar crackles IMPRESSION: Aortic arch calcified. Heart size is normal. Lungs are clear of acute infiltrate. There has been a prior partial pulmonary resection in the right side. There are no effusions. There is an intraspinal catheter present, and there is hardware in cervical spine. [facility]-[id number] Procedure Note Hm Interface, Radiology Results Incoming - 05/14/2017 8:23 PM MANAGER REIMBURSEMENT EXAMINATION: XR CHEST 2 VW CLINICAL HISTORY: sob cough today leukocytosis R basilar crackles IMPRESSION: Aortic arch calcified. Heart size is normal. Lungs are clear of acute infiltrate. There has been a prior partial pulmonary resection in the right side. There are no effusions. There is an intraspinal catheter present, and there is hardware in cervical spine. [facility]-[id number] Performing Organization Address City/State/Zipcode Phone Number [facility] [address] [place] [address] after 05/14/2017 Insurance Payer Benefit Plan / Group Subscriber ID Type Phone Address AETNA MEDICARE AETNA MEDICARE HMO/PPO [facility] xxxxxxxx HMO Advance Directives Patient has advance care planning documents on file. For more information, please contact:Eder Phipps[address] [place] [address]
--- OUTSIDE RECORDS SUMMARY | 2018-05-15 10:39 | XMS REPORT ---
:1965 Author Organization [facility] Address [address] [place] [address] Care Team Providers Name Role Phone BRE [...] race is not provided, and the patient isAfrican-Moldovan, multiply by 1.212. If sex is not provided, and thepatient is female, multiply by 0.742. Results for patients <18 years ofage have not been validated by the MDRD study and should be interpretedwith caution.eGFR Result Interpretation:eGFR > or=60 is in the Normal RangeeGFR < 60 may mean kidney diseaseeGFR < 15 may mean kidney failureRanges recommended by the National Kidney Foundation,http://nkdep.nih.go v [id number] 04:50:00 Test Item Value Reference Range Comments [...] THC (test code=THC) POSITIVE Negative CBC with [id number] 03:53:00 Test Item Value Reference Range Comments [...] Lymph Abs (test code=ALYMPH) 1.7 K/cumm 0.5-4.6 [place]ler Abs (test code=AMONO) 0.7 K/cumm 0.0-1.2 Eos Abs (test code=AEOS) 0.16 K/cumm 0.00-0.74 Baso Abs (test code=ABASO) 0.1 K/cumm 0.00-0.21
[2018-05-15 11:14] LABS: Absolute Monocytes 0.5 K/uL (0.1-1.3); Absolute Neutrophil 7.7 K/uL (1.8-8.0); Basophils % 0.6 % (0-1.3); Eosinophils % 1.1 % (0-4.4); Hematocrit 48.4 % (39.6-49.0); Lymphocytes % 10.6 % (15.3-44.8); MPV 9.2 fL (7.6-11.3); Monocytes % 5.2 % (3.3-12.3); RBC Red Blood Cell Count 5.03 M/uL (4.33-5.43)
[2018-05-15] MEDS ORDERED: PANTOPRAZOLE 40 MG INJ ONE (11:19)
[2018-05-15] MEDS ORDERED: ONDANSETRON 4 MG/2 ML VIAL ONE (11:19)
[2018-05-15] MEDS ORDERED: CEFTRIAXONE/SWI 1gm 1 GM/10 ML SYR ONE (11:20)
[2018-05-15] MEDS ORDERED: OCTREOTIDE ACETATE 100 MCG/ML ONE (11:20)
[2018-05-15 11:22] LABS: Protime INR 0.99
[2018-05-15] MEDS ORDERED: PANTOPRAZOLE INJ 80 MG in NA CHLORIDE 0.9% 250 ML IV ONE (11:30)
[2018-05-15 11:36] LABS: Albumin 4.1 g/dL (3.4-5.0); Bilirubin Direct 0.1 mg/dL (0-0.2); Bilirubin Total 0.3 mg/dL (0.2-1.0); Potassium 4.4 mmol/L (3.5-5.1); Protein, Total 8.6 g/dL (6.4-8.2)
--- NOTE | 2018-05-15 11:57 | EKG ---
Test Date: 2018-05-15 Test Time: 10:41:12 Telegraphic Typewriter Mechanic: SARAH BETH MEASUREMENT RESULTS: Intervals: Rate: 83 TX: 148 QRSD: 84 QT: 368 QTc: 432 [place]: P: 37 TX: 148 QRS: 95 T: 64 INTERPRETIVE STATEMENTS: Normal sinus rhythm Rightward axis Borderline ECG Compared to ECG 05/03/2018 17:24:04 No significant changes Electronically Signed On 05-15-18 11:57:00 TAX PROCESSOR by Joselito Felix
--- NOTE | 2018-05-15 12:00 | EDPHYS ---
Physician Documentation [facility] Name: Tino Amin Jr Age: 52 yrs Sex: Male : 1965 Arrival Date: 05/15/2018 Time: 10:37 Bed 8 Private MD: ED Physician Nicholas Mason HPI: 05/15 10:58 This 52 yrs old Male presents to ER via EMS with complaints of upper GI rn bleeding. 10:58 The patient presents to the emergency department vomiting blood, a small amount, blood rn streaked emesis, coffee grounds in nature, with multiple such episodes. Onset: The symptoms/episode began/occurred 2 day(s) ago. Abdominal pain: described as sharp, stabbing, located in the epigastric area, that does not radiate. Modifying factors: The symptoms are alleviated by nothing, the symptoms are aggravated by nothing. Severity of symptoms: At their worst the symptoms were moderate in the emergency department the symptoms are unchanged. The patient has experienced similar episodes in the past. The patient has not recently seen a physician. REports 2-3 days of vomiting blood-streaked emesis, + dark black stool, feels generalized weakness, no syncope/sob/chest pain. Has hx of alcoholic cirrhosis and chronic pain. Has had upper GI bleed before. . Historical: - Allergies: 10:41 No Known Allergies; hb - Home Meds: 10:41 Effexor XR 150 mg Oral cp24 1 cap once daily [Active]; diazepam Oral [Active]; Keppra hb 1,000 mg Oral tab 1 tab every 12 hours [Active]; [place] 10-325 mg Oral tab 1 tab every 4 hours [Active]; Seroquel 600 mg Oral 1 tab nightly [Active]; - PMHx: 10:41 Chronic pain; COPD; Emphysema; Hypertension; PTSD; Seizures; hb - PSHx: 10:41 lumbar fusion; cervical fusion; dorsal column stimulator implant; Appendectomy; right hb lower lobe lobectomy; right great toe; collarbone; Cholecystectomy; - Immunization history:: Adult Immunizations up to date. - Social history:: Smoking status: Patient uses tobacco products, smokes one-half pack cigarettes per day. - Ebola Screening: : No symptoms or risks identified at this time. - Family history:: not pertinent. - Hospitalizations: : No recent hospitalization is reported. ROS: 10:58 Constitutional: Negative for fever, chills, and weight loss, Eyes: Negative for injury, rn pain, redness, and discharge, Cardiovascular: Negative for chest pain, palpitations, and edema, Respiratory: Negative for shortness of breath, cough, wheezing, and pleuritic chest pain, Abdomen/GI: Negative for diarrhea, and constipation, MS/Extremity: Negative for injury and deformity, Skin: Negative for injury, rash, and discoloration, Neuro: Negative for headache, numbness, tingling, and seizure. Exam: 10:58 Constitutional: This is a well developed, well nourished patient who is awake, alert, rn and in no acute distress. Head/Face: Normocephalic, atraumatic. Eyes: Pupils equal round and reactive to light, extra-ocular motions intact. ENT: No oral bleeding, + dry coffee ground/blood around mouth Cardiovascular: Regular rate and rhythm with a normal S1 and S2. No gallops, murmurs, or rubs. No JVD. No pulse deficits. Respiratory: Lungs have equal breath sounds bilaterally, clear to auscultation. No increased work of breathing, no retractions or nasal flaring. Abdomen/GI: soft, mild epigastric tenderness, no rebound MS/ Extremity: Pulses equal, no cyanosis. Neurovascular intact. Full, normal range of motion. Equal circumference. Neuro: Awake and alert, GCS 15, oriented to person, place, time, and situation. Cranial nerves II-XII grossly intact. Motor strength 5/5 in all extremities. Sensory grossly intact. Cerebellar exam normal. Vital Signs: 10:38 BP 123 / 93; Pulse 88; Resp 16; Temp 98.1; Pulse Ox 100% on R/A; Pain 9/10; hb 15:00 BP 129 / 80; Pulse 75; Resp 17; Pulse Ox 100% on R/A; sg MDM: 10:42 Patient medically screened. rn 11:56 Differential diagnosis: gastritis, varices, PUD, UGIB. Data reviewed: vital signs, rn nurses notes, lab test result(s), and as a result, I will admit patient. Counseling: I had a detailed discussion with the patient and/or guardian regarding: the historical points, exam findings, and any diagnostic results supporting the discharge/admit diagnosis, lab results, the need to transfer to another facility, for higher level of care, [facility] does not immediately have the required specialist. Response to treatment: the patient's symptoms have markedly improved after treatment, and as a result, I will admit patient. Admission orders: after a detailed discussion of the patient's condition and case, the admit orders are written by me. ED course: Pt with UGIB, + hx of cirrhosis, possible variceal vs gastric ulcers, no further hematemesis here, stable vitals, pain addressed, and feels better, NO GI here, will have to transfer to [place] for further care/EGD. . 05/15 10:51 Order name: CBC with Diff; Complete Time: 11:24 rn 05/15 10:51 Order name: Basic Metabolic Panel; Complete Time: 11:49 rn 05/15 10:51 Order name: Protime (+inr); Complete Time: 11:49 rn 05/15 10:51 Order name: Ptt, Activated; Complete Time: 11:49 rn 05/15 10:51 Order name: Lipase; Complete Time: 11:49 rn 05/15 10:51 Order name: LFT's; Complete Time: 11:49 rn 05/15 10:51 Order name: Type And Screen; Complete Time: 11:59 rn 05/15 10:51 Order name: IV Start; Complete Time: 11:14 rn 05/15 10:51 Order name: EKG; Complete Time: 10:52 rn 05/15 10:51 Order name: EKG - Nurse/Tech; Complete Time: 11:59 rn Administered Medications: 12:00 Drug: Zofran 4 mg Route: IVP; Site: right forearm; sg 13:00 Follow up: Response: No adverse reaction sg 12:00 Drug: Octreotide 50 mcg Route: IV; Rate: calculated rate; Site: right forearm; sg 12:00 Drug: ProTONIX 40 mg Route: IVP; Site: right forearm; sg 13:00 Follow up: Response: No adverse reaction sg 12:10 Drug: Demerol 25 mg Route: IVP; Site: right forearm; sg 13:00 Follow up: Response: No adverse reaction; Pain is decreased sg 12:17 Drug: ProTONIX 8 mg/hr Route: IV; Rate: 25 ml/hr; Site: right forearm; sg 12:17 Drug: Rocephin - (cefTRIAXone) 1 grams Route: IVPB; Infused Over: 30 mins; Site: right sg forearm; 12:17 Drug: NS 0.9% 1000 ml Route: IV; Rate: 1000 ml; Site: right forearm; sg 13:30 Follow up: Response: No adverse reaction; IV Status: Completed infusion; IV Intake: sg 990ml 12:30 Drug: Octreotide Infusion (50 mcg/hr) - (Octreotide 500 mcg, NS 0.9% 500 ml) Route: IV; sg Rate: 50 ml/hr; Site: left antecubital; 15:10 Drug: Demerol - Meperidine 12.5 mg Route: IVP; Site: right forearm; sg 16:00 Follow up: Response: No adverse reaction; Pain is decreased sg Disposition: 05/15/18 11:58 Transfer ordered to [facility]. Diagnosis are Acute upper GI Bleed, Hematemesis. - Reason for transfer: Higher level of care. - Accepting physician is . - Condition is Stable. - Problem is new. - Symptoms have improved. Signatures: Dispatcher [employer] EDMS Richie Kidd RN RN sg Nicholas Mason MD MD rn Baxter, Heather, RN RN Corrections: (The following items were deleted from the chart) 15:22 11:58 05/15/2018 11:58 Transfer ordered to [facility]. Diagnosis is sg Acute upper GI Bleed; Hematemesis. Reason for transfer: Higher level of care. Accepting physician is . Condition is Stable. Problem is new. Symptoms have improved. rn
--- NOTE | 2018-05-15 12:00 | ER ---
Nurse's Notes [facility] Name: Tino Amin Jr Age: 52 yrs Sex: Male : 1965 Arrival Date: 05/15/2018 Time: 10:37 Bed 8 Private MD: Diagnosis: Acute upper GI Bleed;Hematemesis Presentation: 05/15 10:38 Presenting complaint: EMS states: RUQ pain and black tarry stools x 2 days, blood hb streaked vomit x 1 today. Transition of care: patient was not received from another setting of care. Onset of symptoms was May 14, 2018. Risk Assessment: Do you want to hurt yourself or someone else? Patient reports no desire to harm self or others. Initial Sepsis Screen: Does the patient meet any 2 criteria? No. Patient's initial sepsis screen is negative. Does the patient have a suspected source of infection? No. Patient's initial sepsis screen is negative. Care prior to arrival: None. 10:38 Method Of Arrival: EMS: [facility] 10:38 Acuity: YULISSA 3 hb Historical: - Allergies: 10:41 No Known Allergies; hb - Home Meds: 10:41 Effexor XR 150 mg Oral cp24 1 cap once daily [Active]; diazepam Oral [Active]; Keppra hb 1,000 mg Oral tab 1 tab every 12 hours [Active]; [place] 10-325 mg Oral tab 1 tab every 4 hours [Active]; Seroquel 600 mg Oral 1 tab nightly [Active]; - PMHx: 10:41 Chronic pain; COPD; Emphysema; Hypertension; PTSD; Seizures; hb - PSHx: 10:41 lumbar fusion; cervical fusion; dorsal column stimulator implant; Appendectomy; right hb lower lobe lobectomy; right great toe; collarbone; Cholecystectomy; - Immunization history:: Adult Immunizations up to date. - Social history:: Smoking status: Patient uses tobacco products, smokes one-half pack cigarettes per day. - Ebola Screening: : No symptoms or risks identified at this time. - Family history:: not pertinent. - Hospitalizations: : No recent hospitalization is reported. Screenin:00 Abuse screen: Denies threats or abuse. Denies injuries from another. Nutritional sg screening: No deficits noted. Tuberculosis screening: No symptoms or risk factors identified. Never had TB. Fall Risk None identified. Assessment: 11:00 General: Appears in no apparent distress. uncomfortable, ill, slender, well groomed, sg well developed, well nourished, Behavior is calm, cooperative, appropriate for age. 11:00 Pain: Complains of pain in epigastric area Pain does not radiate. Quality of pain is sg described as aching, sharp, stabbing. 11:00 General: Behavior is drowsy. Neuro: Level of Consciousness is awake, obeys commands, sg confused, Oriented to person, place, situation, [employer] are equal bilaterally Moves all extremities. Speech is normal, Facial symmetry appears normal, Denies weakness blurred vision dizziness, difficulty swallowing, paresthesias numbness headache photophobia diplopia. Cardiovascular: Patient's skin is warm and dry. Pulses are palpable in right radial artery and left radial artery Chest pain is denied. Respiratory: Airway is patent Respiratory effort is even, unlabored, Respiratory pattern is regular, symmetrical, Breath sounds are clear. GI: Abdomen is flat, non-distended, Bowel sounds present X 4 quads. Reports upper abdominal pain, bloody stool, nausea, bloody emesis. : No signs and/or symptoms were reported regarding the genitourinary system. EENT: No signs and/or symptoms were reported regarding the EENT system. Derm: Skin is pink, warm \T\ dry. Musculoskeletal: No signs and/or symptoms reported regarding the musculoskeletal system. Vital Signs: 10:38 BP 123 / 93; Pulse 88; Resp 16; Temp 98.1; Pulse Ox 100% on R/A; Pain 9/10; hb 15:00 BP 129 / 80; Pulse 75; Resp 17; Pulse Ox 100% on R/A; sg ED Course: 10:37 Patient arrived in ED. hb 10:39 Triage completed. hb 10:39 Arm band placed on. hb 10:42 Nicholas Mason MD is Attending Physician. rn 10:45 EKG done, by veterinary laboratory technician. reviewed by Nicholas Mason MD. sm3 11:00 Patient has correct armband on for positive identification. Placed in gown. Bed in low sg position. Call light in reach. Side rails up X2. monitoring analyst on. Pulse ox on. NIBP on. Warm blanket given. Pillow given. Verbal reassurance given. Head of bed elevated. 11:00 Initial lab(s) drawn, by me, sent to lab. T\T\S collected, blood band applied to patient. sg Inserted saline lock: 22 gauge in left antecubital area, using aseptic technique. Blood collected. 11:20 Inserted saline lock: 20 gauge in right forearm, using aseptic technique. iw 12:16 Richie Kidd, RN is Primary Nurse. sg 15:00 No provider procedures requiring assistance completed. Patient transferred, IV remains sg in place. intact, No redness/swelling at site. Pressure dressing applied. 16:15 Assisted to bedside commode. placed in clean brief and assisted back to bed, caregiver sg remains at bedside at this time, no new orders received, will continue to monitor. Administered Medications: 12:00 Drug: Zofran 4 mg Route: IVP; Site: right forearm; sg 13:00 Follow up: Response: No adverse reaction sg 12:00 Drug: Octreotide 50 mcg Route: IV; Rate: calculated rate; Site: right forearm; sg 12:00 Drug: ProTONIX 40 mg Route: IVP; Site: right forearm; sg 13:00 Follow up: Response: No adverse reaction sg 12:10 Drug: Demerol 25 mg Route: IVP; Site: right forearm; sg 13:00 Follow up: Response: No adverse reaction; Pain is decreased sg 12:17 Drug: ProTONIX 8 mg/hr Route: IV; Rate: 25 ml/hr; Site: right forearm; sg 12:17 Drug: Rocephin - (cefTRIAXone) 1 grams Route: IVPB; Infused Over: 30 mins; Site: right sg forearm; 12:17 Drug: NS 0.9% 1000 ml Route: IV; Rate: 1000 ml; Site: right forearm; sg 13:30 Follow up: Response: No adverse reaction; IV Status: Completed infusion; IV Intake: sg 990ml 12:30 Drug: Octreotide Infusion (50 mcg/hr) - (Octreotide 500 mcg, NS 0.9% 500 ml) Route: IV; sg Rate: 50 ml/hr; Site: left antecubital; 15:10 Drug: Demerol - Meperidine 12.5 mg Route: IVP; Site: right forearm; sg 16:00 Follow up: Response: No adverse reaction; Pain is decreased sg Intake: 13:30 IV: 990ml; Total: 990ml. sg Outcome: 11:58 ER care complete, transfer ordered by . rn 15:12 Transferred by ground EMS to [facility], [facility] [place], Transfer form completed. sg 15:12 Condition: stable 15:12 Instructed on follow up and referral plans. safety practices, Demonstrated understanding of instructions. 15:22 Patient left the ED. sg Signatures: Richie Kidd RN RN sg Williams, Irene, RN RN iw Nieto, Roman, MD MD rn Baxter, Heather, RN RN Sneha Serra 3 Corrections: (The following items were deleted from the chart) 18:51 11:00 General: Appears in no apparent distress. uncomfortable, ill, slender, well sg groomed, well developed, well nourished, Behavior is calm, cooperative, appropriate for age, sg
[2018-05-15] MEDS ORDERED: MEPERIDINE HCL 25 MG/0.5 ML ONE ×2 (12:12→15:17)
[2018-05-15] MEDS ORDERED: NA CHLORIDE 0.9% 1,000 ML ONE (12:13)
[2018-05-15] MEDS ORDERED: OCTREOTIDE 500 MCG in NA CHLORIDE 0.9% 500 ML IV ONE (12:30)
[2018-05-15 15:30] VITALS: TEMP 98.1; O2SAT 100
[2018-05-15 15:31] VITALS: BP 129/80
== END 2018-05-15 15:22 | disposition short-term general hospital (02) ==
LOC: ER 10:35
DX: K92.0 Hematemesis (principal); F17.210 Nicotine dependence, cigarettes, uncomplicated; I10 Essential (primary) hypertension; J44.9 Chronic obstructive pulmonary disease, unspecified; G40.909 Epilepsy, unspecified, not intractable, without status epilepticus; F43.10 Post-traumatic stress disorder, unspecified
CPT/HCPCS: 36415; 80048; 80076; 83690; 85025; 85610; 85730; 86850; 86900; 86901; 93005; 99285; C9113 ×2; J0696; J2175 ×2; J2354 ×2; J2405; J7030